=== PATIENT | female | born 1990 | race African-American/Black ===

== ENCOUNTER 2018-09-26 22:09 | Emergency (ER) | payer SELFPAY ==
[2018-09-26 22:50] LABS: Absolute Lymphocytes (CBC) 4.3 K/uL (0.7-4.9); Absolute Monocytes 0.5 K/uL (0.1-1.3); Absolute Neutrophil 1.5 K/uL (1.8-8.0); Basophils % 0.3 % (0-1.3); Eosinophils % 1.5 % (0-4.4); Hematocrit 34.5 % (36.0-45.0); Lymphocytes % 67.3 % (15.3-44.8); MCH 21.8 pg (27.0-35.0); MCV 68.3 fL (80-100); MPV 9.4 fL (7.6-11.3); Monocytes % 7.7 % (3.3-12.3); RBC Red Blood Cell Count 5.06 M/uL (3.86-4.86)
[2018-09-26 23:03] LABS: Protime INR 1.14
[2018-09-26 23:04] LABS: ALT/SGPT 39 U/L (12-78); AST/SGOT 41 U/L (15-37); Albumin 3.4 g/dL (3.4-5.0); Alkaline Phosphatase 98 U/L (45-117); BUN Blood Urea Nitrogen 8 mg/dL (7-18); Bicarbonate 26 mmol/L (21-32); Bilirubin Direct 0.1 mg/dL (0-0.2); Bilirubin Total 0.5 mg/dL (0.2-1.0); Glucose Level 98 mg/dL (74-106); Magnesium 2.1 mg/dL (1.8-2.4); NT PRO-BNP 15 pg/mL (<125); Potassium 3.6 mmol/L (3.5-5.1); Protein, Total 7.4 g/dL (6.4-8.2); Sodium Level 140 mmol/L (136-145); Troponin (Emerg Dept Use Only) < 0.02 ng/mL (0.0-0.045)
[2018-09-26] MEDS ORDERED: FAMOTIDINE 20 MG/2 ML VIAL IV ONE (23:31)
[2018-09-26] MEDS ORDERED: DIPHENHYDRAMINE 50 MG/ML VIAL ONE (23:31)
[2018-09-26 23:39] LABS: Blood Morphology Comment NOTED (NOT SEEN); Platelet Estimate ADEQ; Polychromasia SLIGHT
--- NOTE | 2018-09-27 00:21 | ER ---
Nurse's Notes [facility] Name: Stacie Burnett Age: 28 yrs Sex: Female : 1990 Arrival Date: 09/26/2018 Time: 22:11 Bed 8 Private MD: Diagnosis: Chest pain, unspecified;Urticaria Presentation: 09/26 22:19 Presenting complaint: Patient states: she broke out in hives last night took some bb Benadryl and went to sleep then today at approx 1400 pt started having a "stinging" chest pain with light-headedness and nausea. Currently pain is constant and radiates to her back. Pt states she is still having intermittent hives but does not know what she is allergic to. Transition of care: patient was not received from another setting of care. Onset of symptoms was September 25, 2018. Risk Assessment: Do you want to hurt yourself or someone else? Patient reports no desire to harm self or others. Initial Sepsis Screen: Does the patient meet any 2 criteria? No. Patient's initial sepsis screen is negative. Does the patient have a suspected source of infection? No. Patient's initial sepsis screen is negative. Care prior to arrival: None. 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 - Social history:: Smoking status: Patient/guardian denies using tobacco, Patient/guardian denies using alcohol, street drugs. - Ebola Screening: : No symptoms or risks identified at this time. Screenin:33 Abuse screen: Denies threats or abuse. Denies injuries from another. Nutritional ao screening: No deficits noted. Tuberculosis screening: No symptoms or risk factors identified. Fall Risk None identified. Assessment: 22:25 General: Appears in no apparent distress. comfortable, Behavior is calm, cooperative, ao appropriate for age. Pain: Complains of pain in chest Pain does not radiate. Pain currently is 5 out of 10 on a pain scale. Quality of pain is described as pressure, Pain began 1 day ago. Is continuous. Neuro: Level of Consciousness is awake, alert, obeys commands, Oriented to person, place, time, situation, Appropriate for age Moves all extremities. Full function Speech is normal, Facial symmetry appears normal, Pupils are PERRLA. Cardiovascular: Reports None Heart tones S1 S2 Capillary refill < 3 seconds Patient's skin is warm and dry. Pulses are all present. Rhythm is regular Chest pain episodes X 1day. Respiratory: Airway is patent Trachea midline Respiratory effort is even, unlabored, Respiratory pattern is regular, symmetrical, GI: Abdomen is obese, Bowel sounds present X 4 quads. : No signs and/or symptoms were reported regarding the genitourinary system. EENT: No signs and/or symptoms were reported regarding the EENT system. Derm: Skin is intact, Skin is pink, warm \\T\\ dry. normal, Skin temperature is warm. 23:25 Reassessment: Patient appears in no apparent distress at this time. Patient is alert, rr5 oriented x 3, equal unlabored respirations, skin warm/dry/pink. waiting blood report, patient stable, rashes subside. no complaints made. Patient states feeling better. Patient states symptoms have improved. 09/27 00:45 Reassessment: Patient appears in no apparent distress at this time. Patient is alert, rr5 oriented x 3, equal unlabored respirations, skin warm/dry/pink. discharge instruction explained with no complaints made. agreed to follow up to her private physician.vitally stable. Patient states feeling better. Patient states symptoms have improved. Vital Signs: 09/26 22:23 BP 144 / 92; Pulse 112; Resp 16 S; Temp 99.1(O); Pulse Ox 100% on R/A; Weight 99.79 kg bb (R); Height 5 ft. 4 in. (162.56 cm) (R); Pain 8/10; 23:41 BP 120 / 75; Pulse 78; Resp 17; Pulse Ox 100% ; ea 09/27 00:45 BP 115 / 75; Pulse 82; Resp 16; Pulse Ox 99% on R/A; Pain 0/10; rr5 09/26 22:23 Body Mass Index 37.76 (99.79 kg, 162.56 cm) ED Course: 09/26 22:11 Patient arrived in ED. es 22:16 Mickail, Chan, PA is PHCP. jm 22:16 Magdy Hernandez MD is Attending Physician. jmm 22:21 Timo Ye, SIGIFREDO is Primary Nurse. rr5 22:22 Triage completed. bb 22:23 Arm band placed on Patient placed in an exam room, on a stretcher, on pulse oximetry. bb EKG completed in triage. Results shown to MD. Family accompanied patient. 22:25 Patient has correct armband on for positive identification. Bed in low position. Call rr5 light in reach. Side rails up X 1. hospital monitor on. Pulse ox on. NIBP on. 22:25 Inserted saline lock: 20 gauge in right antecubital area, using aseptic technique. rr5 Blood collected. by Christ MEI. 22:33 Patient maintains SpO2 saturation greater than 95% on room air. ao 22:59 XRAY Chest (1 view) In Process Unspecified. EDMS 23:09 Notified Nurse Practitioner and/or Physician Trailer Chief of a critical lab result(s), ak1 D-Dimer 3750. 23:34 CT Chest For PE Angio In Process Unspecified. EDMS 09/27 00:45 IV discontinued, intact, bleeding controlled, No redness/swelling at site. Pressure rr5 dressing applied. 00:45 No provider procedures requiring assistance completed. rr5 Administered Medications: 09/26 22:55 Drug: Decadron - Dexamethasone 10 mg Route: IVP; Site: right antecubital; ao 09/27 00:42 Follow up: Response: No adverse reaction ao 00:44 Follow up: Response: No adverse reaction rr5 09/26 23:55 Drug: Pepcid 20 mg Route: IVP; Site: right antecubital; ao 09/27 00:42 Follow up: Response: No adverse reaction ao 00:44 Follow up: Response: No adverse reaction rr5 00:00 Drug: diphenhydrAMINE 25 mg Route: IVP; Site: right antecubital; ao 00:42 Follow up: Response: No adverse reaction ao 00:44 Follow up: Response: No adverse reaction rr5 Outcome: 00:20 Discharge ordered by . jmm 00:45 Discharged to home ambulatory. rr5 00:45 Condition: stable 00:45 Discharge instructions given to patient, family, Instructed on discharge instructions, follow up and referral plans. medication usage, Demonstrated understanding of instructions, follow-up care, medications, Prescriptions given X 2. 00:54 Patient left the ED. rr5 Signatures: Dispatcher [employer] Chan Scanlon PA PA jmm Salyer, Edna es Ballard, Brenda, RN RN Lisa Elmore RN RN ak1 Christ Conner RN Samreen Jo RN Timo Patel ea RN RN rr5
--- NOTE | 2018-09-27 00:22 | EDPHYS ---
Physician Documentation [facility] Name: Stacie Burnett Age: 28 yrs Sex: Female : 1990 Arrival Date: 09/26/2018 Time: 22:11 Bed 8 Private MD: ED Physician Magdy Hernandez HPI: 09/26 22:45 This 28 yrs old Black Female presents to ER via Ambulatory with complaints of Chest jm Pain. 22:45 The patient or guardian reports chest pain that is located primarily in the substernal m area. The pain radiates to Associated signs and symptoms: Pertinent negatives: shortness of breath, vomiting. The chest pain is described as sharp, stinging. This is a 28 year old female with no chronic medical conditions that present to the ED with right sided chest pain radiating to her back beginning just prior to arrival. Patient states she developed hives yesterday and has had a lack of appetitie over the past two days. patient denies vomiting or abdominal pain. patient denies tobacco or drug use. . 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 - Social history:: Smoking status: Patient/guardian denies using tobacco, Patient/guardian denies using alcohol, street drugs. - Ebola Screening: : No symptoms or risks identified at this time. ROS: 22:45 Constitutional: Negative for fever, chills, and weight loss. jmm 22:45 Abdomen/GI: Negative for abdominal pain, nausea, vomiting, diarrhea, and constipation, MS/Extremity: Negative for injury and deformity, Skin: Negative for injury, rash, and discoloration, Neuro: Negative for headache, weakness, numbness, tingling, and seizure. 22:45 Cardiovascular: Positive for chest pain. 22:45 Respiratory: Negative for cough, shortness of breath. 22:45 All other systems are negative. Exam: 22:45 Head/Face: atraumatic. Eyes: EOMI, no conjunctival erythema appreciated ENT: Moist jmm Mucus Membranes Neck: Trachea midline, Supple Chest/axilla: Normal chest wall appearance and motion. Cardiovascular: Regular rate and rhythm. No edema appreciated Respiratory: Normal respirations, no respiratory distress appreciated Abdomen/GI: Non distended, soft Back: Normal ROM Skin: General appearance color normal MS/ Extremity: Moves all extremities, no obvious deformities appreciated, no edema noted to the lower extremities Neuro: Awake and alert, normal gait Psych: Behavior is normal, Mood is normal, Patient is cooperative and pleasant 22:45 Constitutional: The patient appears in no acute distress, alert, awake. 23:18 ECG was reviewed by the Attending Physician. [facility] Vital Signs: 22:23 BP 144 / 92; Pulse 112; Resp 16 S; Temp 99.1(O); Pulse Ox 100% on R/A; Weight 99.79 kg bb (R); Height 5 ft. 4 in. (162.56 cm) (R); Pain 8/10; 23:41 BP 120 / 75; Pulse 78; Resp 17; Pulse Ox 100% ; ea 09/27 00:45 BP 115 / 75; Pulse 82; Resp 16; Pulse Ox 99% on R/A; Pain 0/10; rr5 09/26 22:23 Body Mass Index 37.76 (99.79 kg, 162.56 cm) MDM: 09/26 22:43 Patient medically screened. [facility] 09/27 00:13 Data reviewed: vital signs, nurses notes, lab test result(s), radiologic studies, CT [facility] scan. Data interpreted: Pulse oximetry: on room air is 100 %. 00:17 ED course: Patient developed hives in the ed which was relieved with iv benadyl and [facility] pepcid. Patient has no cardiac risk factors. Enzymes negative. Ekg shows no acute findings I discussed cbc findings with the patient along with the need for follow up with real estate officer. patient has no pharyngeal edema. i do not suspect anaphylaxis. 09/26 22:44 Order name: Basic Metabolic Panel; Complete Time: 23:06 [facility] 09/26 22:44 Order name: CBC with Diff; Complete Time: 23:48 [facility] 09/26 22:44 Order name: LFT's; Complete Time: 23:06 [facility] 09/26 22:44 Order name: Magnesium; Complete Time: 23:06 [facility] 09/26 22:44 Order name: NT PRO-BNP; Complete Time: 23:06 [facility] 09/26 22:44 Order name: PT-INR; Complete Time: 23:06 [facility] 09/26 22:44 Order name: Troponin (emerg Dept Use Only); Complete Time: 23:06 [facility] 09/26 22:44 Order name: XRAY Chest (1 view) [facility] 09/26 22:44 Order name: D-Dimer; Complete Time: 23:06 [facility] 09/26 22:57 Order name: Manual Differential; Complete Time: 23:48 [facility] 09/26 23:05 Order name: CT Chest For PE Angio [facility] 09/26 23:44 Order name: Slides for Pathologist Review [facility] 09/26 22:44 Order name: EKG; Complete Time: 22:45 [facility] 09/26 22:44 Order name: Cardiac monitoring; Complete Time: 22:48 [facility] 09/26 22:44 Order name: EKG - Nurse/Tech; Complete Time: 22:48 [facility] 09/26 22:44 Order name: IV Saline Lock; Complete Time: 22:48 [facility] 09/26 22:44 Order name: Labs collected and sent; Complete Time: 22:48 [facility] 09/26 22:44 Order name: O2 Per Protocol; Complete Time: 22:48 [facility] 09/26 22:44 Order name: O2 Sat Monitoring; Complete Time: 22:48 [facility] EC/21 23:18 Rate is 103 beats/min. Rhythm is regular. QRS [place] is Normal. [place] interval is normal. [facility] QRS interval is normal. QT interval is normal. No Q waves. T waves are Normal. No ST changes noted. Reviewed by me. Administered Medications: 22:55 Drug: Decadron - Dexamethasone 10 mg Route: IVP; Site: right antecubital; ao 09/27 00:42 Follow up: Response: No adverse reaction ao 00:44 Follow up: Response: No adverse reaction rr5 09/26 23:55 Drug: Pepcid 20 mg Route: IVP; Site: right antecubital; ao 09/27 00:42 Follow up: Response: No adverse reaction ao 00:44 Follow up: Response: No adverse reaction rr5 00:00 Drug: diphenhydrAMINE 25 mg Route: IVP; Site: right antecubital; ao 00:42 Follow up: Response: No adverse reaction ao 00:44 Follow up: Response: No adverse reaction rr5 Disposition: 05:15 Co-signature as Attending Physician, Magdy Hernandez MD I agree with the assessment and tw4 plan of care. Disposition: 09/27/18 00:20 Discharged to Home. Impression: Chest pain, unspecified, Urticaria. - Condition is Stable. - Discharge Instructions: Nonspecific Chest Pain, Hives. - Prescriptions for Hydroxyzine HCl 25 mg Oral Tablet - take 1 tablet by ORAL route every 6 hours As needed; 30 tablet. Prednisone 20 mg Oral Tablet - take 3 tablet by ORAL route once daily for 5 days; 15 tablet. - Medication Reconciliation Form, Thank You Letter, Antibiotic Education, Prescription Opioid Use form. - Follow up: Private Physician; When: 2 - 3 days; Reason: Recheck today's complaints, Continuance of care, Re-evaluation by your physician. Signatures: Dispatcher [employer] EDMS Chan Flores PA PA jmm Ballard, Brenda RN RN bb Christ Conner RN Magdy Estes MD MD 4 Timo Ye RN RN rr5 Corrections: (The following items were deleted from the chart) 00:54 00:20 09/27/2018 00:20 Discharged to Home. Impression: Chest pain, unspecified; rr5 Urticaria. Condition is Stable. Forms are Medication Reconciliation Form, Thank You Letter, Antibiotic Education, Prescription Opioid Use. Follow up: Private Physician; When: 2 - 3 days; Reason: Recheck today's complaints, Continuance of care, Re-evaluation by your physician. mary
--- NOTE | 2018-09-27 09:41 | EKG ---
Test Date: 2018-09-26 Test Time: 22:25:17 Petroleum Laboratory Technician: WALDO MEASUREMENT RESULTS: Intervals: Rate: 103 AK: 122 QRSD: 90 QT: 336 QTc: 440 [place]: P: 33 AK: 122 QRS: 26 T: 16 INTERPRETIVE STATEMENTS: Sinus tachycardia Otherwise normal ECG Compared to ECG 11/29/2017 08:33:21 Sinus rhythm no longer present ST (T wave) deviation no longer present Electronically Signed On 09-27-18 09:40:28 PROGRAM SUPERVISOR by Chris Lara
--- NOTE | 2018-09-27 11:35 | RAD REPORT ---
EXAM DESCRIPTION: RAD - Chest Single View - 09/26/2018 10:58 pm CLINICAL HISTORY: CHEST PAIN Chest pain. COMPARISON: Chest Pa And Lat (2 Views) dated 11/29/2017; Chest Single View dated 08/23/2016; Chest Fo r Pe Angio dated 09/26/2018 FINDINGS: Portable technique limits examination quality. The lungs are grossly clear. The heart is normal in size. No displaced fractures. IMPRESSION: No acute intrathoracic process suspected.
--- NOTE | 2018-09-27 11:36 | RAD REPORT ---
EXAM DESCRIPTION: CT - Chest For Pe Angio - 09/27/2018 5:25 am CLINICAL HISTORY: Chest pain. CHEST PAIN COMPARISON: Chest For Pe Angio dated 08/23/2016 TECHNIQUE: CT angiogram of the pulmonary arteries was performed with MIP. All CT scans are performed using dose optimization technique as appropriate and may include automated exposure control or mA/KV adjustment according to patient size. FINDINGS: No evidence of pulmonary thromboembolism. No acute aortic finding demonstrated. The lungs are clear. No significant pericardial or pleural fluid. No concerning bony finding. IMPRESSION: No evidence of pulmonary thromboembolism. No acute lung findings.
== END 2018-09-27 00:54 | disposition home or self-care (01) ==
LOC: ER 22:09
DX: L50.9 Urticaria, unspecified (principal)
CPT/HCPCS: 36415; 71045; 71275; 80048; 80076; 83735; 83880; 84484; 85025; 85379; 85610; 93005; 96374; 96375; 99285; Q9967

== ENCOUNTER 2018-09-27 17:00 | Emergency (ER) | payer SELFPAY ==
[2018-09-27] MEDS ORDERED: NA CHLORIDE 0.9% 1,000 ML ONE (17:40)
--- NOTE | 2018-09-27 17:53 | RAD REPORT ---
EXAM DESCRIPTION: CT - Ct Stroke Brain Wo Cont - 09/27/2018 5:48 pm CLINICAL HISTORY: numbness of arm CVA symptomology COMPARISON: HEAD BRAIN W O CONTRAST dated 12/17/2015 TECHNIQUE: All CT scans are performed using dose optimization technique as appropriate and may inclu de automated exposure control or mA/KV adjustment according to patient size. FINDINGS: No intracranial hemorrhage, hydrocephalus or extra-axial fluid collection.No areas of brai n edema or evidence of midline shift. The paranasal sinuses and mastoids are clear. The calvarium is intact. IMPRESSION: No acute intracranial abnormality. If there is continued clinical concern for CVA, MR i maging of the brain would be recommended.
[2018-09-27 18:20] LABS: Absolute Lymphocytes (CBC) 3.2 K/uL (0.7-4.9); Absolute Monocytes 0.8 K/uL (0.1-1.3); Absolute Neutrophil 3.3 K/uL (1.8-8.0); Basophils % 0.1 % (0-1.3); Hematocrit 34.9 % (36.0-45.0); Lymphocytes % 43.6 % (15.3-44.8); MCV 68.2 fL (80-100); MPV 9.1 fL (7.6-11.3); Monocytes % 11.1 % (3.3-12.3); RBC Red Blood Cell Count 5.12 M/uL (3.86-4.86)
--- NOTE | 2018-09-27 18:26 | RAD REPORT ---
EXAM DESCRIPTION: RAD - STROKE CXR 1 VIEW - 09/27/2018 6:17 pm CLINICAL HISTORY: numbness of arm Chest pain. COMPARISON: Chest Single View dated 09/26/2018 FINDINGS: Portable technique limits examination quality. The lungs are grossly clear. The heart is normal in size. No displaced fractures. IMPRESSION: No acute intrathoracic process suspected.
[2018-09-27 18:27] LABS: Protime INR 1.17
[2018-09-27] MEDS ORDERED: GABAPENTIN 300 MG CAP ONE (18:29)
[2018-09-27] MEDS ORDERED: LORAZEPAM 1 MG TABLET ONE (18:29)
[2018-09-27 18:39] LABS: ALT/SGPT 42 U/L (12-78); AST/SGOT 38 U/L (15-37); Albumin 3.4 g/dL (3.4-5.0); Alkaline Phosphatase 100 U/L (45-117); Amylase Level 54 U/L (25-115); BUN Blood Urea Nitrogen 10 mg/dL (7-18); Bicarbonate 23 mmol/L (21-32); Bilirubin Direct 0.1 mg/dL (0-0.2); Bilirubin Total 0.3 mg/dL (0.2-1.0); CKMB Creatine Kinase MB < 1.0 ng/mL (0.3-3.6); Creatine Phosphokinase 110 U/L (26-192); Glucose Level 108 mg/dL (74-106); Lipase 122 U/L (73-393); Magnesium 2.3 mg/dL (1.8-2.4); Potassium 3.4 mmol/L (3.5-5.1); Sodium Level 141 mmol/L (136-145); Troponin I < 0.02 ng/mL (0.0-0.045)
--- NOTE | 2018-09-27 18:53 | ER ---
Nurse's Notes [facility] Name: Stacie Burnett Age: 28 yrs Sex: Female : 1990 Arrival Date: 09/27/2018 Time: 17:11 Bed 18 Private MD: Diagnosis: Pain in left leg Presentation: 09/27 17:13 Presenting complaint: Patient states: Numbness to both legs and her right arm for the aj1 past 2 hours. Patient states that she is unable to walk. Reports that the numbness started in her right toes and spread up her right leg and then into the other leg and is now into her right arm. Transition of care: patient was not received from another setting of care. Onset of symptoms was September 27, 2018 at 15:00. Risk Assessment: Do you want to hurt yourself or someone else? Patient reports no desire to harm self or others. Initial Sepsis Screen: Does the patient meet any 2 criteria? No. Patient's initial sepsis screen is negative. Does the patient have a suspected source of infection? No. Patient's initial sepsis screen is negative. Care prior to arrival: None. 17:13 Method Of Arrival: Wheelchair aj1 17:13 Acuity: HOLLIS 3 aj1 Triage Assessment: 17:14 General: Appears in no apparent distress. comfortable, Behavior is calm, cooperative, aj1 appropriate for age. Pain: Complains of pain in right arm, right leg and left leg Pain currently is 6 out of 10 on a pain scale. Neuro: Level of Consciousness is awake, alert, obeys commands. Cardiovascular: Patient's skin is warm and dry. Respiratory: Airway is patent Respiratory effort is even, unlabored, Respiratory pattern is regular, symmetrical. 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 - Social history:: Smoking status: Patient/guardian denies using tobacco, Patient/guardian denies using alcohol, street drugs, The patient lives with family. - Ebola Screening: : Patient denies travel to an Ebola-affected area in the 21 days before illness onset. - Family history:: not pertinent, pertinent for. - Hospitalizations: : No recent hospitalization is reported. Screenin:37 Abuse screen: Denies threats or abuse. Nutritional screening: No deficits noted. em Tuberculosis screening: No symptoms or risk factors identified. Fall Risk None identified. Assessment: 17:40 General: Appears in no apparent distress. comfortable, Behavior is calm, cooperative, em Denies fever. Pain: Complains of pain in chest and left leg and right leg and right arm Pain currently is 6 out of 10 on a pain scale. Neuro: Level of Consciousness is awake, alert, obeys commands, Oriented to person, place, time, situation, Appeals Writer are equal bilaterally Full function Speech is normal, Facial symmetry appears normal, Pupils are PERRLA, Numbness in right arm, right leg and left leg paresthesias in right arm, right leg and left leg Reports numbness in left leg and right leg and right arm since woke up this morning paresthesias weakness. Cardiovascular: Heart tones S1 S2 present Capillary refill < 3 seconds Patient's skin is warm and dry. Rhythm is sinus rhythm. Respiratory: Airway is patent Respiratory effort is even, unlabored. GI: Abdomen is obese, Reports nausea, Patient currently denies vomiting. : Denies burning with urination. EENT: No signs and/or symptoms were reported regarding the EENT system. Derm: Skin is intact, Skin is dry, Skin is normal, Skin temperature is warm. Musculoskeletal: Capillary refill < 3 seconds, Range of motion: intact in all extremities. 17:40 Reassessment: I agree with assessment completed by Bright Pardo LVN . aa5 18:12 Reassessment: Pt sitting up in bed, pt's family at bedside. Bed remains in low aa5 position, side rails x 2, call bridges within reach. Sinus tach on monitor. . Neuro: Level of Consciousness is awake, alert, obeys commands, Oriented to person, place, time, situation. Respiratory: Airway is patent Respiratory effort is even, unlabored, Respiratory pattern is regular, symmetrical. Derm: Skin is dry, Skin is normal, Skin temperature is warm. 18:40 Reassessment: Patient appears in no apparent distress at this time. Patient and/or em family updated on plan of care and expected duration. Pain level reassessed. Patient is alert, oriented x 3, equal unlabored respirations, skin warm/dry/pink. Patient states symptoms have not improved. Vital Signs: 17:14 BP 139 / 83; Pulse 103; Resp 18; Temp 98.5(O); Pulse Ox 99% ; Weight 99.79 kg (R); aj1 Height 5 ft. 4 in. (162.56 cm) (R); 18:00 BP 123 / 83; Pulse 102; Resp 18; Pulse Ox 100% on R/A; em 18:49 BP 106 / 65; Pulse 77; Resp 18; Pulse Ox 100% on R/A; Pain 6/10; em 17:14 Body Mass Index 37.76 (99.79 kg, 162.56 cm) aj1 ED Course: 17:11 Patient arrived in ED. aj1 17:14 Triage completed. aj1 17:18 Bright Pardo LVN is Primary Nurse. em 17:22 Nadege Lopez MD is Attending Physician. ma2 17:37 Arm band placed on. em 17:46 CT completed. Patient moved to CT via stretcher. Patient moved back from CT. cw1 17:49 Ct Stroke Brain Wo Cont In Process Unspecified. EDMS 18:00 EKG done, by ED staff, reviewed by Nadege Lopez MD. jp3 18:00 Initial lab(s) drawn, by me, sent to lab. Inserted saline lock: 20 gauge in right em antecubital area, using aseptic technique. Blood collected. 18:00 Placed in gown. Bed in low position. Call light in reach. Side rails up X 1. Side rails jp3 up X2. Warm blanket given. Pillow given. 18:00 court monitor on. Pulse ox on. NIBP on. jp3 18:10 X-ray completed. Portable x-ray completed in exam room. Patient tolerated procedure kp1 well. 18:18 STROKE CXR 1 VIEW In Process Unspecified. EDMS 19:18 No provider procedures requiring assistance completed. IV discontinued, intact, ea bleeding controlled, No redness/swelling at site. Pressure dressing applied. Administered Medications: 18:12 Drug: NS 0.9% 1000 ml Route: IV; Rate: 1 bolus; Site: right antecubital; em 19:28 Follow up: IV Status: Completed infusion; IV Intake: 1000ml ea 18:12 Drug: Ativan 2 mg Route: PO; aa5 19:08 Follow up: Response: No adverse reaction em 18:12 Drug: Gabapentin 300 mg Route: PO; aa5 19:08 Follow up: Response: No adverse reaction em Intake: 19:28 IV: 1000ml; Total: 1000ml. ea Outcome: 18:52 Discharge ordered by . ma2 19:18 Discharged to home via wheelchair, with family. ea 19:18 Condition: good 19:18 Discharge instructions given to patient, family, Instructed on discharge instructions, follow up and referral plans. medication usage, Demonstrated understanding of instructions, follow-up care, medications, Prescriptions given X 2. 19:29 Patient left the ED. ea Signatures: Dispatcher [employer] Demetrice Boucher RN RN aj1 Bright Pardo, VICE PRESIDENT OF COMMUNICATIONS VICE PRESIDENT OF COMMUNICATIONS Annika Abernathy RN RN aa5 Shey Javed cw1 Seema Montez kp1 Samreen Becker RN RN ea Alzahri, Mohammad, MD MD ma2 Archie Caban jp3 Corrections: (The following items were deleted from the chart) 18:45 17:40 Derm: Skin is intact, Skin is pink, warm \T\ dry. em aa5
--- NOTE | 2018-09-27 18:53 | EDPHYS ---
Physician Documentation [facility] Name: Stacie Burnett Age: 28 yrs Sex: Female : 1990 Arrival Date: 09/27/2018 Time: 17:11 Bed 18 Private MD: ED Physician Nadege Lopez HPI: 09/27 18:02 This 28 yrs old Black Female presents to ER via Wheelchair with complaints of Numbness ma2 Of Arm, Numbness of both legs. 18:02 The patient or guardian complains of pain, that is acute, pin and needles all ma2 extremities x 1 day . The complaints affect the. Context: resulted from. Onset: The symptoms/episode began/occurred gradually, 1 day(s) ago. Associated signs and symptoms: Pertinent positives: tingling, Pertinent negatives: deformity, erythema, nausea, swelling, vomiting, warmth. Severity of symptoms: At their worst the symptoms were mild, in the emergency department the symptoms are unchanged. The patient has experienced a previous episode. 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 - Social history:: Smoking status: Patient/guardian denies using tobacco, Patient/guardian denies using alcohol, street drugs, The patient lives with family. - Ebola Screening: : Patient denies travel to an Ebola-affected area in the 21 days before illness onset. - Family history:: not pertinent, pertinent for. - Hospitalizations: : No recent hospitalization is reported. ROS: 18:02 Constitutional: Negative for fever, chills, and weight loss, Cardiovascular: Negative ma2 for chest pain, palpitations, and edema, Respiratory: Negative for shortness of breath, cough, wheezing, and pleuritic chest pain, Abdomen/GI: Negative for abdominal pain, nausea, diarrhea, and constipation, Neuro: Negative for headache, weakness, numbness, tingling, and seizure. 18:02 Neuro: Positive for altered mental status, dizziness, hearing loss, numbness, seizure activity, near syncope, tinnitus, tremor, weakness, Negative for tingling. 18:02 All other systems are negative. ma2 Exam: 18:02 Constitutional: This is a well developed, well nourished patient who is awake, alert, ma2 and in no acute distress. Head/Face: Normocephalic, atraumatic. Chest/axilla: Normal chest wall appearance and motion. Nontender with no deformity. No lesions are appreciated. Cardiovascular: Regular rate and rhythm with a normal S1 and S2. No gallops, murmurs, or rubs. Normal PMI, no JVD. No pulse deficits. Respiratory: Lungs have equal breath sounds bilaterally, clear to auscultation and percussion. No rales, rhonchi or wheezes noted. No increased work of breathing, no retractions or nasal flaring. Abdomen/GI: Soft, non-tender, with normal bowel sounds. No distension or tympany. No guarding or rebound. No evidence of tenderness throughout. Skin: Warm, dry with normal turgor. Normal color with no rashes, no lesions, and no evidence of cellulitis. MS/ Extremity: Pulses equal, no cyanosis. Neurovascular intact. Full, normal range of motion. Neuro: Awake and alert, GCS 15, oriented to person, place, time, and situation. Cranial nerves II-XII grossly intact. Motor strength 5/5 in all extremities. Sensory grossly intact. Cerebellar exam normal. Normal gait. Psych: Awake, alert, with orientation to person, place and time. Behavior, mood, and affect are within normal limits. 18:02 Back: No spinal tenderness. No costovertebral tenderness. Full range of motion. ma2 Vital Signs: 17:14 BP 139 / 83; Pulse 103; Resp 18; Temp 98.5(O); Pulse Ox 99% ; Weight 99.79 kg (R); aj1 Height 5 ft. 4 in. (162.56 cm) (R); 18:00 BP 123 / 83; Pulse 102; Resp 18; Pulse Ox 100% on R/A; em 18:49 BP 106 / 65; Pulse 77; Resp 18; Pulse Ox 100% on R/A; Pain 6/10; em 17:14 Body Mass Index 37.76 (99.79 kg, 162.56 cm) [facility] MDM: 17:28 Patient medically screened. ma2 18:02 Differential diagnosis: neuropathy, electrolytes disturbance hyperventilation, vs lower ma2 extremities pain. 18:51 Data reviewed: vital signs, nurses notes, EMS record. Counseling: I had a detailed [facility] discussion with the patient and/or guardian regarding: the historical points, exam findings, and any diagnostic results supporting the discharge/admit diagnosis, the presence of at least one elevated blood pressure reading (>120/80) during this emergency department visit, the need for outpatient follow up. Response to treatment: the patient's symptoms have markedly improved after treatment. 09/27 18:19 Order name: Basic Metabolic Panel; Complete Time: 18:50 EDMS 09/27 18:19 Order name: Liver (Hepatic) Function; Complete Time: 18:50 EDMS 09/27 17:34 Order name: Ct Stroke Brain Wo Cont; Complete Time: 18:01 EDMS 09/27 17:34 Order name: STROKE CXR 1 VIEW; Complete Time: 18:50 EDMS 09/27 18:19 Order name: Creatine Phosphokinase; Complete Time: 18:50 EDMS 09/27 18:19 Order name: CKMB Creatine Kinase MB; Complete Time: 18:50 EDMS 09/27 18:19 Order name: Troponin I; Complete Time: 18:50 EDMS 09/27 18:19 Order name: Magnesium; Complete Time: 18:50 EDMS 09/27 18:19 Order name: Amylase Level; Complete Time: 18:50 EDMS 09/27 18:19 Order name: Lipase; Complete Time: 18:50 EDMS 09/27 18:19 Order name: CBC with Automated Diff; Complete Time: 18:50 EDMS 09/27 18:19 Order name: Protime (+INR); Complete Time: 18:50 EDMS 09/27 18:19 Order name: PTT, Activated Partial Thromb; Complete Time: 18:50 EDMS 09/27 17:26 Order name: Accucheck; Complete Time: 18:12 il2 09/27 17:26 Order name: Cardiac monitoring; Complete Time: 18:10 il2 09/27 17:26 Order name: EKG - Nurse/Tech; Complete Time: 18:07 [facility] 09/27 17:26 Order name: IV Saline Lock; Complete Time: 18:12 [facility] 09/27 17:26 Order name: Labs collected and sent; Complete Time: 18:12 il2 09/27 17:26 Order name: NPO; Complete Time: 18:12 il2 09/27 17:26 Order name: O2 Per Protocol; Complete Time: 18:12 il2 09/27 17:26 Order name: O2 Sat Monitoring; Complete Time: 18:12 ma2 Administered Medications: 18:12 Drug: NS 0.9% 1000 ml Route: IV; Rate: 1 bolus; Site: right antecubital; em 19:28 Follow up: IV Status: Completed infusion; IV Intake: 1000ml ea 18:12 Drug: Ativan 2 mg Route: PO; aa5 19:08 Follow up: Response: No adverse reaction em 18:12 Drug: Gabapentin 300 mg Route: PO; aa5 19:08 Follow up: Response: No adverse reaction em Disposition: 09/27/18 18:52 Discharged to Home. Impression: Pain in left leg. - Condition is Stable. - Prescriptions for Neurontin 300 mg Oral Capsule - take 1 capsule by ORAL route At bedtime; 20 capsule. Potassium Chloride 10 % Oral Liquid - take 20 milliequivalent by ORAL route once daily Take after meal; Mix in 6 ounces of water or juice; 240 milliliter. - Medication Reconciliation Form, Thank You Letter, Antibiotic Education, Prescription Opioid Use form. - Follow up: Private Physician; When: Tomorrow; Reason: Continuance of care. Signatures: Dispatcher [employer] EDDemetrice Orozco RN RN aj1 Bright Pardo, BLIND AIDE BLIND AIDE Annika Abernathy RN RN aa5 Samreen Becker RN RN ea Alzahri, Mohammad, MD MD ma2 Corrections: (The following items were deleted from the chart) 18:17 18:17 CT-STROKE BRAIN W/O CONTRAST+CT.RAD.BRZ ordered. EDKY EDMS 18:54 18:17 Chest Single View+RAD.RAD.BRZ ordered. [facility] EDMS 19:29 18:52 09/27/2018 18:52 Discharged to Home. Impression: Pain in left leg. Condition is ea Stable. Forms are Medication Reconciliation Form, Thank You Letter, Antibiotic Education, Prescription Opioid Use. Follow up: Private Physician; When: Tomorrow; Reason: Continuance of care. ma2
--- NOTE | 2018-09-28 06:17 | EKG ---
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
== END 2018-09-27 19:29 | disposition home or self-care (01) ==
LOC: ER 17:00
DX: M79.605 Pain in left leg (principal)
CPT/HCPCS: 36415; 70450; 71045; 80048; 80076; 82150; 82550; 82553; 83690; 83735; 84484; 85025; 85610; 85730; 93005; 96360; 99285; J7030

== ENCOUNTER 2018-12-14 12:20 | Day surgery (SDC) | payer OTHER ==
--- OUTSIDE RECORDS SUMMARY | 2018-12-14 12:24 | XMS REPORT | Clinical Summary ---
:1990 Author Organization [facility] Address [address] [place] [address] Care Team Providers Name Role Phone Asked, No Pcp Primary Care Provider Unavailable Allergies No Known Allergies Medications Medication Sig Dispensed Refills Start Date End Date Status ferrous sulfate 325 Take 1 tablet 60 tablet 0 10/03/2018 11/02/2018 (65 FE) MG tablet (325 mg total) by mouth 2 (two) times a day with meals for 30 days. traMADol (ULTRAM) 50 Take 1 tablet 12 tablet 0 10/03/2018 10/06/2018 mg tablet (50 mg total) by mouth every 6 (six) hours as needed for severe pain for up to 3 days. baclofen 5 mg tablet Take 5 mg by 15 tablet 0 10/03/2018 10/08/2018 mouth 3 (three) times a day for 5 days. Active Problems Problem Noted Date Bilateral leg weakness 09/28/2018 Muscle weakness Myelopathy Encounters Date Type Specialty Care Team Description 09/27/2018 - Hospital Encounter General Internal Tulio Jones Bilateral leg weakness (Primary Dx); 10/03/2018 Medicine DO Jerman Paresthesia of bilateral legs; Joy Hillman, Paresthesia of right arm; Hypokalemia; Srikanth Holloway Hives MD after 12/13/2017 Family History Medical History Relation Name Comments Seizures Son Relation Name Status Comments Son Social History Tobacco Use Types Packs/Day Years Used Date Never Smoker Smokeless Tobacco: Never Used Alcohol Use Drinks/Week oz/Week Comments No Alcohol Habits Answer Date Recorded How often do you have a drink containing alcohol? Never 09/27/2018 How many drinks containing alcohol do you have on a typical Not asked day when you are drinking? How often do you have six or more drinks on one occasion? Not asked Sex Assigned at Date Recorded Not on file Job Start Date Occupation Industry Not on file Not on file Not on file Travel History Travel Start Travel End No recent travel history available. Last Filed Vital Signs Vital Sign Reading Time Taken Blood Pressure 110/58 10/03/2018 8:04 AM [facility] Pulse 87 10/03/2018 8:04 AM [facility] Temperature 37 C (98.6 F) 10/03/2018 8:04 AM [facility] Respiratory Rate 18 10/03/2018 8:04 AM [facility] Oxygen Saturation 93% 10/03/2018 8:04 AM [facility] Inhaled Oxygen Concentration - - Weight 99.8 kg (220 lb) 09/28/2018 8:02 AM [facility] Height 162.6 cm (5' 4") 09/28/2018 2:16 AM [facility] Body Mass Index 37.76 09/28/2018 8:02 AM [facility] Plan of Treatment Health Maintenance Due Date Last Done Comments CERVICAL CANCER SCREENING 2010 INFLUENZA VACCINE 06/06/2018 Procedures Procedure Name Priority Date/Time Associated Comments Diagnosis MANUAL DIFFERENTIAL Routine 10/03/2018 6:46 Results for this AM [facility] procedure are in the results section. CBC WITH PLATELET AND Routine 10/03/2018 6:46 Results for this DIFFERENTIAL AM [facility] procedure are in the results section. MANUAL DIFFERENTIAL Routine 10/02/2018 5:30 Results for this AM [facility] procedure are in the results section. CBC WITH PLATELET AND Routine 10/02/2018 5:30 Results for this DIFFERENTIAL AM [facility] procedure are in the results section. ESTIMATED GFR Routine 10/02/2018 4:00 Results for this AM [facility] procedure are in the results section. COMPREHENSIVE Routine 10/02/2018 4:00 Results for this METABOLIC PANEL AM [facility] procedure are in the results section. EMG Routine 10/01/2018 1:45 Results for this PM [facility] procedure are in the results section. MANUAL DIFFERENTIAL Routine 10/01/2018 5:15 Results for this AM [facility] procedure are in the results section. ESTIMATED GFR Routine 10/01/2018 5:15 Results for this AM [facility] procedure are in the results section. COMPREHENSIVE Routine 10/01/2018 5:15 Results for this METABOLIC PANEL AM [facility] procedure are in the results section. CBC WITH PLATELET AND Routine 10/01/2018 5:15 Results for this DIFFERENTIAL AM [facility] procedure are in the results section. MANUAL DIFFERENTIAL Routine 09/30/2018 4:06 Results for this AM [facility] procedure are in the results section. ESTIMATED GFR Routine 09/30/2018 4:06 Results for this AM [facility] procedure are in the results section. COMPREHENSIVE Routine 09/30/2018 4:06 Results for this METABOLIC PANEL AM [facility] procedure are in the results section. CBC WITH PLATELET AND Routine 09/30/2018 4:06 Results for this DIFFERENTIAL AM [facility] procedure are in the results section. FOLATE LEVEL Routine 09/29/2018 12:00 Results for this PM [facility] procedure are in the results section. VITAMIN B12 LEVEL Routine 09/29/2018 12:00 Results for this PM [facility] procedure are in the results section. TOTAL IRON BINDING Routine 09/29/2018 9:28 Results for this CAPACITY AM [facility] procedure are in the results section. ALDOLASE, SERUM Routine 09/29/2018 9:28 Results for this AM [facility] procedure are in the results section. CREATINE KINASE, TOTAL Routine 09/29/2018 9:28 Results for this (CPK) AM [facility] procedure are in the results section. HCG QUALITATIVE, URINE Routine 09/29/2018 8:39 Results for this SCREEN AM [facility] procedure are in the results section. MRI LUMBAR SPINE W WO STAT 09/28/2018 10:00 Results for this CONTRAST AM [facility] procedure are in the results section. MRI CERVICAL SPINE W STAT 09/28/2018 9:30 Results for this WO CONTRAST AM [facility] procedure are in the results section. MRI THORACIC SPINE W STAT 09/28/2018 9:00 Results for this WO CONTRAST AM [facility] procedure are in the results section. US DUPLEX VENOUS LOWER STAT 09/28/2018 1:06 Results for this EXTREMITY BILATERAL AM [facility] procedure are in the results section. MANUAL DIFFERENTIAL STAT 09/27/2018 11:51 Results for this PM [facility] procedure are in the results section. ESTIMATED GFR STAT 09/27/2018 11:51 Results for this PM [facility] procedure are in the results section. COMPREHENSIVE STAT 09/27/2018 11:51 Results for this METABOLIC PANEL PM [facility] procedure are in the results section. C-REACTIVE PROTEIN STAT 09/27/2018 11:51 Results for this PM [facility] procedure are in the results section. SEDIMENTATION RATE STAT 09/27/2018 11:51 Results for this PM [facility] procedure are in the results section. T4, FREE STAT 09/27/2018 11:51 Results for this PM [facility] procedure are in the results section. THYROID STIMULATING STAT 09/27/2018 11:51 Results for this HORMONE PM [facility] procedure are in the results section. CBC WITH PLATELET AND STAT 09/27/2018 11:51 Results for this DIFFERENTIAL PM [facility] procedure are in the results section. URINALYSIS SCREEN AND STAT 09/27/2018 11:51 Results for this MICROSCOPY, WITH PM [facility] procedure are in REFLEX TO CULTURE the results section. URINE CULTURE STAT 09/27/2018 11:45 Results for this PM [facility] procedure are in the results section. after 12/13/2017 Results Manual differential (10/03/2018 6:46 AM [facility])Only the most recent of5 resultswithin the time period is included. Manual differential PERFORMED [facility] Neutrophils 35.0 (L) 39.0 - 69.0 % [facility] Lymphocytes 61.0 (H) 25.0 - 45.0 % [facility] Monocytes 1.0 0.0 - 10.0 % [facility] Eosinophils 3.0 0.0 - 5.0 % [facility] Basophils 0.0 0.0 - 1.0 % [facility] Metamyelocytes 0 % [facility] Promyelocytes 0 % [facility] Reactive lymphocytes Few [facility] Platelet slide review Radha adequate [facility] Anisocytosis Moderate [facility] Ovalocytes Moderate [facility] Performing Organization Address City/State/Zipcode Phone Number [facility] DEPARTMENT OF PATHOLOGY AND [address] [place] [address] GEN[address] [address] CBC with platelet and differential (10/03/2018 6:46 AM [facility])Only the most recent of5 resultswithin the time period is included. WBC 7.11 4.50 - 11.00 k/uL [facility] RBC 5.41 4.20 - 5.50 m/uL [facility] HGB 11.6 (L) 12.0 - 16.0 g/dL [facility] HCT 38.3 37.0 - 47.0 % [facility] MCV 70.8 (L) 82.0 - 100.0 fL [facility] MCH 21.4 (L) 27.0 - 34.0 pg [facility] MCHC 30.3 (L) 31.0 - 37.0 g/dL [facility] RDW - SD 45.7 37.0 - 55.0 fL [facility] MPV 10.6 8.8 - 13.2 fL [facility] Platelet count 202 150 - 400 k/uL [facility] Nucleated RBC 0.00 /100 WBC [facility] Neutrophils 35.0 (L) 39.0 - 69.0 % [facility] Lymphocytes 61.0 (H) 25.0 - 45.0 % [facility] Monocytes 1.0 0.0 - 10.0 % [facility] Eosinophils 3.0 0.0 - 5.0 % [facility] Basophils 0.0 0.0 - 1.0 % [facility] Specimen Blood Performing Organization Address City/State/Zipcode Phone Number [facility] DEPARTMENT OF PATHOLOGY AND [address] [place] [address] Estimated GFR (10/02/2018 4:00 AM [facility])Only the most recent of4 resultswithin the time period is included. Estimated GFR >=90 mL/min/1.[address] [facility] Comment: HOSPITAL CatergoryUnitsInterpretation G1 >=90 Normal or high G2 60-89Mildly decreased Y4w04-45Paffea to moderately decreased K9c51-44Gnvomaigga to severely decreased G4 15-29Severely decreased G5 <15Kidney failure The eGFR was calculated using the Chronic Kidney Disease Epidemiology Collaboration (CKD-EPI) equation. Interpretation is based on recommendations of the National Kidney Foundation-Kidney Disease Outcomes Quality Initiative (NKF-KDOQI) published in 2014. Specimen Plasma specimen Performing Organization Address City/[facility] Cent[facility] Phone Number [facility] DEPARTMENT OF PATHOLOGY AND [address] [place], [place] [id number] Comprehensive metabolic panel (10/02/2018 4:00 AM [facility])Only the most recent of4 resultswithin the time period is included. Sodium 139 135 - 148 mEq/L [facility] Potassium 4.2 3.5 - 5.0 mEq/L [facility] Chloride 103 98 - 112 mEq/L [facility] CO2 24 24 - 31 mEq/L [facility] Anion gap 12@ANIO 7 - 15 mEq/L [facility] BUN 13 6 - 20 mg/dL [facility] Creatinine 0.97 (H) 0.50 - 0.90 mg/dL [facility] Glucose 93 65 - 99 mg/dL [facility] Calcium 8.4 8.3 - 10.2 mg/dL [facility] Protein 6.2 (L) 6.3 - 8.3 g/dL [facility] Comment: HOSPITAL 4.6-7.0 g/dL 1 week 4.4-7.6 g/dL 7 months-1year5.1-7.3 g/dL 1-2 years5.6-7.5 g/dL >3 years6.0-8.0 g/dL 18-150 6.3-8.3 g/dL Albumin 2.8 (L) 3.5 - 5.0 g/dL [facility] A/G ratio 0.8 0.7 - 3.8 [facility] Alkaline phosphatase 77 35 - 104 U/L [facility] AST 24 10 - 35 U/L [facility] ALT 38 5 - 50 U/L [facility] Total bilirubin 0.3 0.0 - 1.2 mg/dL [facility] Specimen Plasma specimen Performing Organization Address City/State/Zipcode Phone Number [facility] DEPARTMENT OF PATHOLOGY AND [address] [place] [address] GENOM[address] MEDICINE [address] [address] EMG general request (10/01/2018 1:45 PM [facility]) Impressions Performed At Ms. Burnett complains of the sudden onset of diaphoresis and weakness and numbness in her bilateral legs (right more than left), without incontinence, occurring on September 27, 2018.Ms. Burnett states that her weakness has significantly improved, denies having diabetes and is being evaluated for neuropathy and myopathy. 1) Right median, ulnar, peroneal and tibial motor latencies, amplitudes and velocities are normal. 2) Right median, ulnar, peroneal and tibial F Wave responses are normal. 3) Right median palmar, median digital, ulnar and sural sensory responses are normal. 4) Intramuscular recordings of the right arm are normal without denervation or myopathy. 5) Intramuscular recordings of the bilateral legs suggest minimal motor unit recruitment compromise (right more than left) as noted above. The study does not electrodiagnostically suggest neuropathy or myopathy/myositis.The findings are compatible with upper motor neuron compromise (transient myelopathy?). Brain Lindquist M.D. Narrative Performed At NERVE CONDUCTION AND ELECTROMYOGRAPHY REPORT [facility] [place], [facility]; [place], [place] [address]; Name: Annabelle Burnett(J [id number]) Date of Procedure: October 01, 2018Location: Sex: Female Date of :88 Referring Physician: Srikanth Holloway M.D.FAX: Patient is 5 4 ; 221 lbs.; RL 32.8 C; LL 33.1 C Nerve Conduction(Latencies in msec, Amplitudes uV, Distance cm, Velocity M/Sec) Right Motor Nerves Dist. Lat. Prox lat. D. amp. P. Amp.Dist. Velocity Right Median3.57.215.3 14.119.7 53.7 Right Ulnar (below elb) 2.35.07.3 7.017.0 61.8 Right Peroneal EDB 3.812.17.5 6.738.3 45.9 Right Tibial4.312.86.3 4.437.5 44.1 Right Median F Wave 24.4 Right Ulnar F Wave 25.1 Right Peroneal F Wave 50.5 (very small amplitude) Right Tibial F Wave 48.8 (very small amplitude) Right Sensory Nerves Dist. Lat. Prox lat. Dist. amp. Prox Amp. Distance Velocity Right Median Palmar 2.1 91.3 8.0 Right Median Digital 3.1 22.0 13.0 Right Ulnar2.4 33.3 11.0 Right Sural3.4 32.5 14.0 Electromyography (Motor Unit in mV; H=High; L=Low; P=Polyphasic; NS=Non-specific) Right ArmFibs. Pos. Waves Fasc. PolyphasiaMotor Units Recruitment Deltoid wnl wnlwnl wnlwnlwnl Biceps wnl wnlwnl wnlwnlwnl Triceps wnl wnlwnl wnlwnlwnl Brachioradialis wnl wnlwnl wnlwnlwnl Ext. Dig. Comm. wnl wnlwnl wnlwnlwnl lst D. Interosseous wnl wnlwnl wnlwnlwnl Right LegFibs. Pos. Waves Fasc. PolyphasiaMotor Units Recruitment Vas. Medialiswnl wnlwnl wnlwnl-1 Vas. Lateraliswnl wnlwnl wnlwnl-1 Ant. Tibialiswnl wnlwnl wnlwnlwnl Peroneus Longus wnl wnlwnl wnlwnlwnl Gastronemiuswnl wnlwnl wnlwnlwnl Left LegFibs. Pos. Waves Fasc. PolyphasiaMotor Units Recruitment Vas. Medialiswnl wnlwnl wnlwnlNS Vas. Lateraliswnl wnlwnl wnlwnlNS Ant. Tibialiswnl wnlwnl wnlwnlwnl Peroneus Longus wnl wnlwnl wnlwnlwnl Gastronemiuswnl wnlwnl wnlwnlwnl Folate level (09/29/2018 12:00 PM [facility]) Folate 8.7 4.8 - 24.2 ng/mL [facility] Specimen Serum Performing Organization Address City/[facility] Cent[facility]ode Phone Number [facility] DEPARTMENT OF PATHOLOGY AND [address] [place] [phone] Vitamin B12 level (09/29/2018 12:00 PM [facility]) Vitamin B12 474 211 - 946 pg/mL [facility] Comment: Significant overlap exists between normal and deficiency states. However, most patients with deficiencies will have Serum B12 <200 pg/mL. Specimen Serum Performing Organization Address City/State/Zipcode Phone Number [facility] DEPARTMENT OF PATHOLOGY AND [address] [place] [phone] [address] [address] Total iron binding capacity (09/29/2018 9:28 AM [facility]) Iron level 18 (L) 37 - 145 ug/dL [facility] Iron binding capacity 333 200 - 400 ug/dL [facility] % Saturation 5.4 (L) 15.0 - 38.0 % [facility] Specimen Plasma specimen Performing Organization Address City/State/Zipcode Phone Number [facility] DEPARTMENT OF PATHOLOGY AND [address] [place] [id number] [place] [phone] Aldolase, serum (09/29/2018 9:28 AM [facility]) Aldolase 4.4 1.5 - 8.1 U/L [facility] Comment: REFERENCE INTERVAL: Aldolase Access complete set of age- and/or gender-specific reference intervals for this test in the [facility] Test Directory ([facility]). Performed by [email or web address], [address] [place] [id number] [email or web address] Ta Pat MD - Lab. Director Specimen Serum Performing Organization Address [facility] Centercomi Phone Number [facility] [address] [place] [phone] [facility] [address] [place] [phone] Creatine kinase, total (CPK) (09/29/2018 9:28 AM [facility]) Creatine kinase 30 26 - 192 U/L [facility] Specimen Plasma specimen Performing Organization Address [facility] Cent[facility]ode Phone Number [facility] DEPARTMENT OF PATHOLOGY AND [address] [place] [address] hCG qualitative, urine screen (09/29/2018 8:39 AM [facility]) hCG qualitative, urine NegativeComment: [facility] Sensitivity of HCG test: 25 HOSPITAL mIU/mL Specimen Urine Performing Organization Address [facility] Phone [place] [facility] DEPARTMENT OF PATHOLOGY AND [address] [place] [address] MRI Lumbar Spine W Wo Contrast (09/28/2018 10:00 AM [facility]) Narrative Performed At Examination: MRI LUMBAR SPINE W WO CONTRAST [facility] MRI LUMBAR SPINE WITHOUT AND WITH CONTRAST: CLINICAL HISTORY:LE weakness COMPARISON:None. TECHNIQUE: Multiplanar multisequence images were obtained through the lumbar including the following sequences:Sagittal T1, T2, STIR, axial T1, T2 MR images of the lumbar spine obtained without IV contrast. After administration of IV contrast, sagittal T1 fat-sat and axial T1. Contrast: Gadavist 10 cc. DISCUSSION: For counting purposes the lowest fully developed disc as L5-S1. There is normal alignment of the lumbar spine with preservation of lumbar lordosis. There is no evidence of expansile or destructive osseous lesion. The conus medullaris and nerve roots are normal with conus terminating at L1 level. No epidural mass or collection is seen.There is no enhancing abnormality of cauda equina nerve roots. The paraspinal soft tissues are unremarkable. Evaluation of individual intervertebral disc demonstrate the following findings: L5-S1:[Unremarkable intervertebral disc, spinal canal, vertebral body and posterior neural arch. There is no evidence of significant central spinal canal or neuroforaminal stenosis.] L4-L5: [ [Unremarkable intervertebral disc, spinal canal, vertebral body and posterior neural arch. There is no evidence of significant central spinal canal or neuroforaminal stenosis.] L3-L4: Mild disc desiccation. Otherwise, unremarkable. L2-L3: [Unremarkable intervertebral disc, spinal canal, vertebral body and posterior neural arch. There is no evidence of significant central spinal canal or neuroforaminal stenosis.] L1-L2: [Unremarkable intervertebral disc, spinal canal, vertebral body and posterior neural arch. There is no evidence of significant central spinal canal or neuroforaminal stenosis.] IMPRESSION: Unremarkable MRI of the lumbar spine. The central canal and neuroforamina are patent. There is no compression of the thecal sac or abnormal enhancement of cauda equina nerve roots. [id number] Procedure Note Hm Interface, Radiology Results Incoming - 09/28/2018 10:48 AM [facility] Examination: MRI LUMBAR SPINE W WO CONTRAST MRI LUMBAR SPINE WITHOUT AND WITH CONTRAST: CLINICAL HISTORY: LE weakness COMPARISON: None. TECHNIQUE: Multiplanar multisequence images were obtained through the lumbar including the following sequences: Sagittal T1, T2, STIR, axial T1, T2 MR images of the lumbar spine obtained without IV contrast. After administration of IV contrast, sagittal T1 fat-sat and axial T1. Contrast: Gadavist 10 cc. DISCUSSION: For counting purposes the lowest fully developed disc as L5-S1. There is normal alignment of the lumbar spine with preservation of lumbar lordosis. There is no evidence of expansile or destructive osseous lesion. The conus medullaris and nerve roots are normal with conus terminating at L1 level. No epidural mass or collection is seen. There is no enhancing abnormality of cauda equina nerve roots. The paraspinal soft tissues are unremarkable. Evaluation of individual intervertebral disc demonstrate the following findings : L5-S1: [Unremarkable intervertebral disc, spinal canal, vertebral body and posterior neural arch. There is no evidence of significant central spinal canal or neuroforaminal stenosis.] L4-L5: [ [Unremarkable intervertebral disc, spinal canal, vertebral body and posterior neural arch. There is no evidence of significant central spinal canal or neuroforaminal stenosis.] L3-L4: Mild disc desiccation. Otherwise, unremarkable. L2-L3: [Unremarkable intervertebral disc, spinal canal, vertebral body and posterior neural arch. There is no evidence of significant central spinal canal or neuroforaminal stenosis.] L1-L2: [Unremarkable intervertebral disc, spinal canal, vertebral body and posterior neural arch. There is no evidence of significant central spinal canal or neuroforaminal stenosis.] IMPRESSION: Unremarkable MRI of the lumbar spine. The central canal and neuroforamina are patent. There is no compression of the thecal sac or abnormal enhancement of cauda equina nerve roots. [id number] Performing Organization Address City/State/Zipcode Phone Number [facility] [address] [place] [address] MRI Cervical Spine W Wo Contrast (09/28/2018 9:30 AM [facility]) Narrative Performed At EXAMINATION:MRI CERVICAL SPINE W WO CONTRAST [facility] CLINICAL HISTORY:LE weakness COMPARISON:None. TECHNIQUE:Multiplanar multisequence images were obtained through the cervical spine including the following pulse sequences, sagittal T2, sagittal STIR, sagittal T1, axial T2 FSE and T2 gradient echo. DISCUSSION: Straightening of the cervical lordosis. There is no evidence of expansile or destructive osseous lesions. Normal bone marrow signal intensity on T1 WI. The visualized posterior fossa and craniocervical junction are unremarkable. The cervical cord is normal in size and signal intensity. There is no evidence of intra or extradural mass or collection. The pre and paravertebral soft tissues are unremarkable. Evaluation of individual intervertebral disc demonstrate the following findings: - C1-C2: Unremarkable tectorial membrane and atlantodental ligamental apparatus , there is no significant central spinal canal stenosis or cord compression. Unremarkable bilateral atlantoaxial and atlantooccipital joints. - C2-C3: No significant posterior disc disease, spinal canal or neural foraminal stenosis. - C3-C4: No significant posterior disc disease, spinal canal or neural foraminal stenosis. - C4-C5: Posterior disc bulge. The central canal and neuroforamina are patent. - C5-C6: Posterior disc bulge. The central canal and neuroforamina are patent. - C6-C7: No significant posterior disc disease, spinal canal or neural foraminal stenosis. - C7-T1: No significant posterior disc disease, spinal canal or neural foraminal stenosis. IMPRESSION: 1. Straightening of the cervical lordosis. Findings either positional or related to spasm of paraspinal muscles. 2. The central canal is patent. 3. The cervical cord is normal size and signal intensity. [id number] Procedure Note Hm Interface, Radiology Results Incoming - 09/28/2018 10:42 AM ALUMINUM [facility]ING[facility]FER EXAMINATION: MRI CERVICAL SPINE W WO CONTRAST CLINICAL HISTORY: LE weakness COMPARISON: None. TECHNIQUE: Multiplanar multisequence images were obtained through the cervical spine including the following pulse sequences, sagittal T2, sagittal STIR, sagittal T1, axial T2 FSE and T2 gradient echo. DISCUSSION: Straightening of the cervical lordosis. There is no evidence of expansile or destructive osseous lesions. Normal bone marrow signal intensity on T1 WI. The visualized posterior fossa and craniocervical junction are unremarkable. The cervical cord is normal in size and signal intensity. There is no evidence of intra or extradural mass or collection. The pre and paravertebral soft tissues are unremarkable. Evaluation of individual intervertebral disc demonstrate the following findings : - C1-C2: Unremarkable tectorial membrane and atlantodental ligamental apparatus , there is no significant central spinal canal stenosis or cord compression. Unremarkable bilateral atlantoaxial and atlantooccipital joints. - C2-C3: No significant posterior disc disease, spinal canal or neural foraminal stenosis. - C3-C4: No significant posterior disc disease, spinal canal or neural foraminal stenosis. - C4-C5: Posterior disc bulge. The central canal and neuroforamina are patent. - C5-C6: Posterior disc bulge. The central canal and neuroforamina are patent. - C6-C7: No significant posterior disc disease, spinal canal or neural foraminal stenosis. - C7-T1: No significant posterior disc disease, spinal canal or neural foraminal stenosis. IMPRESSION: 1. Straightening of the cervical lordosis. Findings either positional or related to spasm of paraspinal muscles. 2. The central canal is patent. 3. The cervical cord is normal size and signal intensity. [id number] Performing Organization Address [facility]/Zipcode Phone Number [facility] [address] [place] [address] MRI Thoracic Spine W Wo Contrast (09/28/2018 9:00 AM ALUMINUM SHINGLE ROOFER) Narrative Performed At EXAMINATION:MRI THORACIC SPINE W WO CONTRAST [facility] REASON FOR EXAMINATION:LE weakness COMPARISON: None TECHNIQUE: Multiplanar and multisequence MRI images of the thoracic spine are obtained without the use of intravenous contrast. After administration of IV contrast, sagittal T1 fat-sat and axial T1. DISCUSSION: Intervertebral disc spaces are maintained. There is no evidence of significant disc bulges or protrusions. The spinal canal is patent.Normal marrow and disc signal intensities are seen. There is no evidence of expansile or destructive osseous lesions. The spinal cord is normal in size and signal intensity without evidence of compressive myelopathy or syringohydromyelia. The pre and paravertebral soft tissues are unremarkable. IMPRESSION: Unremarkable MRI of the thoracic spine. The central canal is patent. Thoracic spinal cord is normal in size and signal intensity. [id number] Procedure Note Interface, Radiology Results Incoming - 09/28/2018 10:45 AM ALUMINUM SHINGLE ROOFER EXAMINATION: MRI THORACIC SPINE W WO CONTRAST REASON FOR EXAMINATION: LE weakness COMPARISON: None TECHNIQUE: Multiplanar and multisequence MRI images of the thoracic spine are obtained without the use of intravenous contrast. After administration of IV contrast, sagittal T1 fat-sat and axial T1. DISCUSSION: Intervertebral disc spaces are maintained. There is no evidence of significant disc bulges or protrusions. The spinal canal is patent. Normal marrow and disc signal intensities are seen. There is no evidence of expansile or destructive osseous lesions. The spinal cord is normal in size and signal intensity without evidence of compressive myelopathy or syringohydromyelia. The pre and paravertebral soft tissues are unremarkable. IMPRESSION: Unremarkable MRI of the thoracic spine. The central canal is patent. Thoracic spinal cord is normal in size and signal intensity. [id number] Performing Organization Address City/[facility]/Zipcode Phone Number [facility] [address] [place] [address] Us duplex venous lower extremity (09/28/2018 1:06 AM ALUMINUM SHINGLE ROOFER) Narrative Performed At [facility] Lower Extremity Venous Report [address] [place] [address] Pat.Name:ANNABELLE BURNETT Pat.ID:[id number] .Date: 09/28/2018Ref:PHYSICIAN, EMERGENCY, MD Exam Time: 12:50:00 AM Study Type:LE Venous DOBAge:1989,29YSex: FEMALE Sonogrphr: Juliet Engle RVTPat. Stat.:[address] , CPT - 4: [id number] Echo Event ID:[id number] Order ID:[id number] Reason for Study:Bilateral leg numbness X 1 day with hives X 4 days. History of recent elevated D-dimer test from outside facility. Procedures:Colorflow, Grayscale/2D, Pulsed wave Doppler Race:B SUMMARY: DUPLEX SCAN OBSERVATIONS Deep VeinsSuperficial Veins RightLeft RightLeft GSV (prox) NormalNormal CFV Normal Normal (above knee) Femoral Normal Normal GSV (dist) Normal Normal Profunda Normal Normal (below knee) Popliteal Normal Normal PT (prox) Normal NormalSSV Not Visualized Normal PT (dist) Normal Normal Peroneal Normal Normal RIGHT:There is normal compressibility with no evidence of echogenic material noted within the lumen of the visualized veins. Colorflow and Doppler signals are normal. LEFT:There is normal compressibility with no evidence of echogenic material noted within the lumen of the visualized veins. Colorflow and Doppler signals are normal. PRELIMINARY FINDINGS 1. There is no evidence of venous thrombosis of the visualized veins. Written and verbal results given to Tulio Jones DO @ 1 am on 09/28/18. PHYSICIAN INTERPRETATION Venous examination of the both lower extremities demonstrated no evidence of venous thrombosis in the visualized veins.Normal compressibility and augmentation of all veins visualized. Signed 09/28/2018 02:10 PM Roland Cleary MD, RPVI Procedure Note Interface, Radiology Results In - 09/28/2018 2:14 PM [facility] Lower Extremity Venous Report [address] [facility] [address], [place] [address] Pat.Name: ANNABELLE BURNETT Pat.ID: [id number] .Date: 09/28/2018 Refer.MD: PHYSICIAN, EMERGENCY, Exam Time: 12:50:00 AM Study Type:LE Venous Age: 806/12/1989,29Y Sex: FEMALE Sonogrphr: Juliet Engle RVT Pat. Stat.:Outpatient Room: [address] Vol: RF, CPT - 4: 55679 Echo Event ID:[id number] Order ID: [id number] Reason for Study:Bilateral leg numbness X 1 day with hives X 4 days. History of recent elevated D-dimer test from outside facility. Procedures:Colorflow, Grayscale/2D, Pulsed wave Doppler Race: B SUMMARY: DUPLEX SCAN OBSERVATIONS Deep Veins Superficial Veins Right Left Right Left GSV (prox) Normal Normal CFV Normal Normal (above knee) Femoral Normal Normal GSV (dist) Normal Normal Profunda Normal Normal (below knee) Popliteal Normal Normal PT (prox) Normal Normal SSV Not Visualized Normal PT (dist) Normal Normal Peroneal Normal Normal RIGHT:There is normal compressibility with no evidence of echogenic material noted within the lumen of the visualized veins. Colorflow and Doppler signals are normal. LEFT:There is normal compressibility with no evidence of echogenic material noted within the lumen of the visualized veins. Colorflow and Doppler signals are normal. PRELIMINARY FINDINGS 1. There is no evidence of venous thrombosis of the visualized veins. Written and verbal results given to Tulio Jones DO @ 1 am on 09/28/18. PHYSICIAN INTERPRETATION Venous examination of the both lower extremities demonstrated no evidence of venous thrombosis in the visualized veins. Normal compressibility and augmentation of all veins visualized. Signed 09/28/2018 02:10 PM Roland Cleary MD, RPVI Performing Organization Address City/State/Zipcode Phone Number [facility] [address] [place] [address] Urinalysis screen and microscopy, with reflex to culture (09/27/2018 11:51 PM ALUMINUM SHINGLE ROOFER) Specimen site Clean catch [facility] Color, UA Yellow [facility] Appearance, UA Hazy [facility] Specific gravity, UA 1.026 1.001 - 1.035 [facility] pH, UA 6.0 5.0 - 8.5 [facility] Protein, UA 1+ (A) Negative [facility] Glucose, UA Negative Negative [facility] Ketones, UA Negative Negative [facility] Bilirubin, UA Negative Negative [facility] Blood, UA Negative Negative [facility] Nitrite, UA Negative Negative [facility] Urobilinogen, UA <2.0 <2.0 [facility] Leukocyte esterase, UA Negative Negative [facility] Epithelial cells, UA 17 /HPF [facility] WBC, UA 2 0 - 4 /HPF [facility] RBC, UA <1 0 - 5 /HPF [facility] Bacteria, UA Few None seen [facility] Yeast, UA None seen [facility] Yeast with pseudohyphae, UA None seen [facility] Specimen Urine Performing Organization Address City/[facility] Phone Number [facility] DEPARTMENT OF PATHOLOGY AND [address] [place] [phone] Sedimentation rate (09/27/2018 11:51 PM ALUMINUM SHINGLE ROOFER) Sedimentation rate 37 (H) 0 - 20 mm/hr [facility] Specimen Blood Performing Organization Address City/[facility] Phone Number [facility] DEPARTMENT OF PATHOLOGY AND [address] [place] [phone] C-reactive protein (09/27/2018 11:51 PM ALUMINUM SHINGLE ROOFER) CRP <0.30 0.00 - 0.50 mg/dL [facility] Specimen Plasma specimen Performing Organization Address City/[facility] Phone Number [facility] DEPARTMENT OF PATHOLOGY AND [address] [place] [phone] [place] [phone] Thyroid stimulating hormone (09/27/2018 11:51 PM ALUMINUM SHINGLE ROOFER) TSH 2.30 0.27 - 4.20 uIU/mL [facility] Specimen Plasma specimen Performing Organization Address City/[facility] Phone Number [facility] DEPARTMENT OF PATHOLOGY AND [address] [place], [place] [phone] T4, free (09/27/2018 11:51 PM ALUMINUM SHINGLE ROOFER) T4, free 1.1 0.9 - 1.7 ng/dL [facility] Specimen Plasma specimen Performing Organization Address City/[facility] Phone Number [facility] DEPARTMENT OF PATHOLOGY AND [address] [place] [phone] Urine culture (09/27/2018 11:45 PM ALUMINUM SHINGLE ROOFER) Urine culture SEE COMMENTComment: Bacteriuria [facility] screen negative. Performing Organization Address [facility] [place] Phone Number [facility] DEPARTMENT OF PATHOLOGY AND [address] [place] [phone] after 12/13/2017 Advance Directives Patient has advance care planning documents on file. For more information, please contact:[address] [address]
[2018-12-14] MEDS ORDERED: Ringers Lactate 1,000 ML IV ONE (12:47)
[2018-12-14 13:48] LABS: Specific Gravity 1.015 (1.005-1.030)
[2018-12-14] MEDS ORDERED: PROPOFOL 200 MG/20 ML VIAL IV ONE (14:14)
[2018-12-14] MEDS ORDERED: LIDOCAINE 1% MPF 5 ML VIAL ONE (14:14)
[2018-12-14] MEDS ORDERED: ONDANSETRON 4 MG/2 ML VIAL ONE (14:31)
[2018-12-14] MEDS ORDERED: MIDAZOLAM HCL 2 MG/2 ML INJ ONE (14:35)
--- NOTE | 2018-12-15 02:21 | OP ---
Surgeon: Marvel Nettles MD Procedure To Be Performed: Esophagogastroduodenoscopy Performing Physician: Marvel Nettles M.D. Indication For Procedure: Nausea, gastroesophageal reflux disease, iron deficiency anemia, chronic d iarrhea. Plan For Anesthesia: Monitored anesthesia care. Complexity: Average. Technique: After obtaining informed consent from the patient and explaining risks and complications which include but are not limited to bleeding, infection, perforation, and anesthesia complications, the patient was placed in the left lateral position and sedation was given. From then on, the scope was advanced to the mouth and carefully guided up till the fourth portion of the duodenum and then th e scope was withdrawn and procedure terminated in a safe manner. Findings: Esophagus: No gross lesions seen in the upper and mid esophagus. In the distal esophagus , the Z-line was slightly irregular. Biopsies taken from this area. The GE junction was around 37 c m. Stomach: Mild erythema seen in the body. In the antrum, a few small erosions were seen. Antral and body biopsies were taken. Duodenum: The bulb, the second, third, and fourth portion appeared normal. Small bowel biopsies rika en to rule out celiac disease. Complications: None. Tolerance To Anesthesia: Excellent. Postoperative Diagnosis: Erosive gastritis, otherwise no other pathology. Plan: 1.Await pathology results. 2.Follow up in the GI clinic in 2 weeks. 3.Avoid NSAIDs. 4.Start omeprazole 40 mg once a day. 5.If the biopsies are negative, the colonoscopy will need to be considered, if not already done. /RYAN Voice ID: [id number] Report ID: [id number]
== END 2018-12-14 15:35 | disposition home or self-care (01) ==
LOC: OR 12:20
PROVIDERS: ATTEND Internal Medicine Gastroenterology
PROC: 0DB78ZX Excision of Stomach, Pylorus, Via Natural or Artificial Opening Endoscopic, Diagnostic (ICD-10-PCS; 2018-12-14)
PROC: 0DB38ZX Excision of Lower Esophagus, Via Natural or Artificial Opening Endoscopic, Diagnostic (ICD-10-PCS; 2018-12-14)
PROC: 0DB98ZX Excision of Duodenum, Via Natural or Artificial Opening Endoscopic, Diagnostic (ICD-10-PCS; principal; 2018-12-14 13:30)
DX: K29.80 Duodenitis without bleeding (principal); K29.50 Unspecified chronic gastritis without bleeding; K25.7 Chronic gastric ulcer without hemorrhage or perforation; K21.9 Gastro-esophageal reflux disease without esophagitis; D50.9 Iron deficiency anemia, unspecified; K52.9 Noninfective gastroenteritis and colitis, unspecified
CPT/HCPCS: 81025; 88305; 88312; J2250; J2405; J2704

== ENCOUNTER 2019-01-02 13:41 | Emergency (ER) | payer OTHER ==
--- OUTSIDE RECORDS SUMMARY | 2019-01-02 13:44 | XMS REPORT | Clinical Summary ---
:1990 Author Organization [facility] Address [address] [place] [address] Care Team Providers Name Role Phone Asked, [...] arm; Hypokalemia; Srikanth Holloway Hives MD after 01/01/2018 Family History Medical History Relation Name Comments [...] Taken Blood Pressure 110/58 10/03/2018 8:04 AM [facility] [facility] Pulse 87 10/03/2018 8:04 AM [facility] [employer] [facility] Temperature 37 C (98.6 F) 10/03/2018 8:04 AM [facility] [facility] Respiratory Rate 18 10/03/2018 8:04 AM [facility] [facility] Oxygen Saturation 93% 10/03/2018 8:04 AM [facility] [employer] [facility] Inhaled Oxygen Concentration - - Weight 99.8 kg (220 lb) 09/28/2018 8:02 AM [facility] [employer] [facility] Height 162.6 cm (5' 4") 09/28/2018 2:16 AM [facility] [facility] Body Mass Index 37.76 09/28/2018 8:02 AM [facility] [facility] Plan of Treatment Health Maintenance Due Date Last Done Comments CERVICAL CANCER SCREENING 2010 INFLUENZA VACCINE 06/06/2018 Procedures Procedure Name Priority Date/Time Associated Comments Diagnosis MANUAL DIFFERENTIAL Routine 10/03/2018 6:46 Results for this AM [employer] procedure are in the results section. CBC WITH PLATELET AND Routine 10/03/2018 6:46 Results for this DIFFERENTIAL AM [employer] procedure are in the results section. MANUAL DIFFERENTIAL Routine 10/02/2018 5:30 Results for this AM [employer] procedure are in the results section. CBC WITH PLATELET AND Routine 10/02/2018 5:30 Results for this DIFFERENTIAL AM [employer] procedure are in the results section. ESTIMATED GFR Routine 10/02/2018 4:00 Results for this AM [employer] procedure are in the results section. COMPREHENSIVE Routine 10/02/2018 4:00 Results for this METABOLIC PANEL AM [employer] procedure are in the results section. EMG Routine 10/01/2018 1:45 Results for this PM [employer] procedure are in the results section. MANUAL DIFFERENTIAL Routine 10/01/2018 5:15 Results for this AM [employer] procedure are in the results section. ESTIMATED GFR Routine 10/01/2018 5:15 Results for this AM [employer] procedure are in the results section. COMPREHENSIVE Routine 10/01/2018 5:15 Results for this METABOLIC PANEL AM [employer] procedure are in the results section. CBC WITH PLATELET AND Routine 10/01/2018 5:15 Results for this DIFFERENTIAL AM [employer] procedure are in the results section. MANUAL DIFFERENTIAL Routine 09/30/2018 4:06 Results for this AM [employer] procedure are in the results section. ESTIMATED GFR Routine 09/30/2018 4:06 Results for this AM [employer] procedure are in the results section. COMPREHENSIVE Routine 09/30/2018 4:06 Results for this METABOLIC PANEL AM [employer] procedure are in the results section. CBC WITH PLATELET AND Routine 09/30/2018 4:06 Results for this DIFFERENTIAL AM [employer] procedure are in the results section. FOLATE LEVEL Routine 09/29/2018 12:00 Results for this PM [employer] procedure are in the results section. VITAMIN B12 LEVEL Routine 09/29/2018 12:00 Results for this PM [employer] procedure are in the results section. TOTAL IRON BINDING Routine 09/29/2018 9:28 Results for this CAPACITY AM [employer] procedure are in the results section. ALDOLASE, SERUM Routine 09/29/2018 9:28 Results for this AM [employer] procedure are in the results section. CREATINE KINASE, TOTAL Routine 09/29/2018 9:28 Results for this (CPK) AM [employer] procedure are in the results section. HCG QUALITATIVE, URINE Routine 09/29/2018 8:39 Results for this SCREEN AM [employer] procedure are in the results section. MRI LUMBAR SPINE W WO STAT 09/28/2018 10:00 Results for this CONTRAST AM [employer] procedure are in the results section. MRI CERVICAL SPINE W STAT 09/28/2018 9:30 Results for this WO CONTRAST AM [employer] procedure are in the results section. MRI THORACIC SPINE W STAT 09/28/2018 9:00 Results for this WO CONTRAST AM [employer] procedure are in the results section. US DUPLEX VENOUS LOWER STAT 09/28/2018 1:06 Results for this EXTREMITY BILATERAL AM [employer] procedure are in the results section. MANUAL DIFFERENTIAL STAT 09/27/2018 11:51 Results for this PM [employer] procedure are in the results section. ESTIMATED GFR STAT 09/27/2018 11:51 Results for this PM [employer] procedure are in the results section. COMPREHENSIVE STAT 09/27/2018 11:51 Results for this METABOLIC PANEL PM [employer] procedure are in the results section. C-REACTIVE PROTEIN STAT 09/27/2018 11:51 Results for this PM [employer] procedure are in the results section. SEDIMENTATION RATE STAT 09/27/2018 11:51 Results for this PM [employer] procedure are in the results section. T4, FREE STAT 09/27/2018 11:51 Results for this PM [employer] procedure are in the results section. THYROID STIMULATING STAT 09/27/2018 11:51 Results for this HORMONE PM [employer] procedure are in the results section. CBC WITH PLATELET AND STAT 09/27/2018 11:51 Results for this DIFFERENTIAL PM [employer] procedure are in the results section. URINALYSIS SCREEN AND STAT 09/27/2018 11:51 Results for this MICROSCOPY, WITH PM [employer] procedure are in REFLEX TO CULTURE the results section. URINE CULTURE STAT 09/27/2018 11:45 Results for this PM [employer] procedure are in the results section. after 01/01/2018 Results Manual differential (10/03/2018 6:46 AM [employer])Only the most recent of5 resultswithin the time period is included. Manual differential PERFORMED [facility] Neutrophils 35.0 (L) 39.0 - 69.0 % [facility] Lymphocytes 61.0 (H) 25.0 - 45.0 % [facility] Monocytes 1.0 0.0 - 10.0 % [facility] Eosinophils 3.0 0.0 - 5.0 % [facility] Basophils 0.0 0.0 - 1.0 % [facility] Metamyelocytes 0 % [facility] Promyelocytes 0 % [facility] Reactive lymphocytes Few [facility] Platelet slide review Radha adequate [facility] Anisocytosis Moderate [facility] Ovalocytes Moderate [facility] Performing Organization Address City/State/Zipcode Phone Number [facility] DEPARTMENT OF PATHOLOGY AND [address] [place] [address] GENOMIC MEDIC[address] [address] CBC with platelet and differential (10/03/2018 6:46 AM [employer])Only the most recent of5 resultswithin the time period is included. WBC 7.11 4.50 - 11.00 k/uL [facility] RBC 5.41 4.20 - 5.50 m/uL [facility] HGB 11.6 (L) 12.0 - 16.0 g/dL [facility] HCT 38.3 37.0 - 47.0 % [facility] MCV 70.8 (L) 82.0 - 100.0 fL [facility] MCH 21.4 (L) 27.0 - 34.0 pg [facility] MCHC 30.3 (L) 31.0 - 37.0 g/dL [facility] RDW - SD 45.7 37.0 - 55.0 fL [facility] MPV 10.6 8.8 - 13.2 fL [facility] Platelet count 202 150 - 400 k/uL [facility] Nucleated RBC 0.00 /100 WBC [facility] Neutrophils 35.0 (L) 39.0 - 69.0 % [facility] Lymphocytes 61.0 (H) 25.0 - 45.0 % [facility] Monocytes 1.0 0.0 - 10.0 % [facility] Eosinophils 3.0 0.0 - 5.0 % [facility] Basophils 0.0 0.0 - 1.0 % [facility] Specimen Blood Performing Organization Address City/State/Zipcode Phone Number [facility] DEPARTMENT OF PATHOLOGY AND [address] [place] [address] Estimated GFR (10/02/2018 4:00 AM [employer])Only the most recent of4 resultswithin the time period is included. Estimated GFR >=90 mL/min/1.73 m2 [facility] Comment: HOSPITAL CatergoryUnitsInterpretation G1 >=90 Normal or high G2 60-89Mildly decreased E0w61-06Fjuqhb to moderately decreased L2r28-45Vtdoemcjiw to severely decreased G4 15-29Severely decreased G5 <15Kidney failure The eGFR was calculated using the Chronic Kidney Disease Epidemiology Collaboration (CKD-EPI) equation. Interpretation is based on recommendations of the National Kidney Foundation-Kidney Disease Outcomes Quality Initiative (NKF-KDOQI) published in 2014. Specimen Plasma specimen Performing Organization Address City/[facility] Cent[facility] Phone Number [facility] DEPARTMENT OF PATHOLOGY AND [address] [place], [place] [phone] Comprehensive metabolic panel (10/02/2018 4:00 AM [employer])Only the most recent of4 resultswithin the time period is included. Sodium 139 135 - 148 mEq/L [facility] Potassium 4.2 3.5 - 5.0 mEq/L [facility] Chloride 103 98 - 112 mEq/L [facility] CO2 24 24 - 31 mEq/L [facility] Anion gap 12@ANIO 7 - 15 mEq/L [facility] BUN 13 6 - 20 mg/dL [facility] Creatinine 0.97 (H) 0.50 - 0.90 mg/dL [facility] Glucose 93 65 - 99 mg/dL [facility] Calcium 8.4 8.3 - 10.2 mg/dL [facility] Protein 6.2 (L) 6.3 - 8.3 g/dL [facility] Comment: HOSPITAL 4.6-7.0 g/dL 1 week 4.4-7.6 g/dL 7 months-1year5.1-7.3 g/dL 1-2 years5.6-7.5 g/dL >3 years6.0-8.0 g/dL 18-150 6.3-8.3 g/dL Albumin 2.8 (L) 3.5 - 5.0 g/dL [facility] A/G ratio 0.8 0.7 - 3.8 [facility] Alkaline phosphatase 77 35 - 104 U/L [facility] AST 24 10 - 35 U/L [facility] ALT 38 5 - 50 U/L [facility] Total bilirubin 0.3 0.0 - 1.2 mg/dL [facility] Specimen Plasma specimen Performing Organization Address City/State/Zipcode Phone Number [facility] DEPARTMENT OF PATHOLOGY AND [address] [place] [address] GENOMIC MEDICINE [address] [address] EMG general request (10/01/2018 1:45 PM [employer]) Impressions Performed At Ms. Burnett complains of [...] At NERVE CONDUCTION AND ELECTROMYOGRAPHY REPORT Neurological Peggs, [facility]; [place], [place] [address]; Name: Annabelle Burnett([id number]) Date of Procedure: [...] wnlwnl wnlwnlwnl Folate level (09/29/2018 12:00 PM [employer]) Folate 8.7 4.8 - 24.2 ng/mL [facility] Specimen Serum Performing Organization Address City/[facility] Centercode Phone Number [facility] DEPARTMENT OF PATHOLOGY AND [address] [place] [phone] Vitamin B12 level (09/29/2018 12:00 PM [employer]) Vitamin B12 474 211 - 946 pg/mL [facility] Comment: Significant overlap exists between normal and deficiency states. However, most patients with deficiencies will have Serum B12 <200 pg/mL. Specimen Serum Performing Organization Address City/State/Zipcode Phone Number [facility] DEPARTMENT OF PATHOLOGY AND [address] [place] [phone] [address] Total iron binding capacity (09/29/2018 9:28 AM [employer]) Iron level 18 (L) 37 - 145 ug/dL [facility] Iron binding capacity 333 200 - 400 ug/dL [facility] % Saturation 5.4 (L) 15.0 - 38.0 % [facility] Specimen Plasma specimen Performing Organization Address City/State/Zipcode Phone Number [facility] DEPARTMENT OF PATHOLOGY AND [address] [place] [phone] [place] [address] Aldolase, serum (09/29/2018 9:28 AM [employer]) Aldolase 4.4 1.5 - 8.1 U/L [facility] Comment: REFERENCE INTERVAL: Aldolase Access complete set of age- and/or gender-specific reference intervals for this test in the [employer] [facility] ([employer]). Performed by [employer], [address] [place] [id number] [email or web address] [email or web address] MD - Lab. Director Specimen Serum Performing Organization Address [facility] Centercoid Phone Number [facility] [address] [place] [phone] [facility] [address] [place] [address] Creatine kinase, total (CPK) (09/29/2018 9:28 AM [employer]) Creatine kinase 30 26 - 192 U/L [facility] Specimen Plasma specimen Performing Organization Address [facility] Centercode Phone Number [facility] DEPARTMENT OF PATHOLOGY AND [address] [place] [address] hCG qualitative, urine screen (09/29/2018 8:39 AM [employer]) hCG qualitative, urine NegativeComment: [facility] Sensitivity of HCG test: 25 HOSPITAL mIU/mL Specimen Urine Performing Organization Address [facility] Phone Number [facility] DEPARTMENT OF PATHOLOGY AND [address] [place] [address] MRI Lumbar Spine W Wo Contrast (09/28/2018 10:00 AM [employer]) Narrative Performed At Examination: MRI LUMBAR SPINE [...] abnormal enhancement of cauda equina nerve roots. [id number] Procedure Note Hm Interface, Radiology Results Incoming - 09/28/2018 10:48 AM [employer] Examination: MRI LUMBAR SPINE W WO CONTRAST [...] abnormal enhancement of cauda equina nerve roots. [id number] Performing Organization Address City/State/Zipcode Phone Number [facility] [address] [place] [address] MRI Cervical Spine W Wo Contrast (09/28/2018 9:30 AM [employer]) Narrative Performed At EXAMINATION:MRI CERVICAL SPINE W [...] cord is normal size and signal intensity. [id number] Procedure Note Hm Interface, Radiology Results Incoming - 09/28/2018 10:42 AM [employer] EXAMINATION: MRI CERVICAL SPINE W WO CONTRAST [...] cord is normal size and signal intensity. [id number] Performing Organization Address [facility]/Zipcode Phone Number [facility] [address] [place] [address] MRI Thoracic Spine W Wo Contrast (09/28/2018 9:00 AM [employer]) Narrative Performed At EXAMINATION:MRI THORACIC SPINE W [...] is normal in size and signal intensity. [id number] Procedure Note Interface, Radiology Results Incoming - 09/28/2018 10:45 AM [employer] EXAMINATION: MRI THORACIC SPINE W WO CONTRAST [...] is normal in size and signal intensity. [id number] Performing Organization Address City/[facility]/Zipcode Phone Number [facility] [address] [place] [address] Us duplex venous lower extremity (09/28/2018 1:06 AM [employer]) Narrative Performed At [facility] Lower Extremity Venous Report [address] [place] [address] Pat.Name:ANNABELLE BURNETT Pat.ID:[id number] .Date: 09/28/2018Ref:PHYSICIAN, EMERGENCY, MD Exam Time: 12:50:00 AM Study Type:LE Venous DOBAge:1989,29YSex: FEMALE Sonogrphr: Juliet Engle RVTPat. Stat.:[address]patient Room:[address]: , CPT - 4: 16110 Echo Event ID:[id number] Order ID:[id number] Reason for Study:Bilateral leg numbness X 1 [...] Radiology Results In - 09/28/2018 2:14 PM [facility] Lower Extremity Venous Report [address] [place], [place] [address] Pat.Name: ANNABELLE BURNETT Pat.ID: [id number] .Date: 09/28/2018 Refer.MD: PHYSICIAN, EMERGENCY, Exam Time: 12:50:00 AM Study Type:LE Venous Age: 806/12/1989,29Y Sex: FEMALE Sonogrphr: Juliet Engle RVT Pat. Stat.:Outpatient Room: [address] Vol: RF, CPT - 4: 76825 Echo Event ID:[id number] Order ID: [id number] Reason for Study:Bilateral leg numbness X 1 [...] Organization Address City/State/Zipcode Phone Number [facility] [address] [place] [address] Urinalysis screen and microscopy, with reflex to culture (09/27/2018 11:51 PM [employer]) Specimen site Clean catch [facility] Color, UA Yellow [facility] Appearance, UA Hazy [facility] Specific gravity, UA 1.026 1.001 - 1.035 [facility] pH, UA 6.0 5.0 - 8.5 [facility] Protein, UA 1+ (A) Negative [facility] Glucose, UA Negative Negative [facility] Ketones, UA Negative Negative [facility] Bilirubin, UA Negative Negative [facility] Blood, UA Negative Negative [facility] Nitrite, UA Negative Negative [facility] Urobilinogen, UA <2.0 <2.0 [facility] Leukocyte esterase, UA Negative Negative [facility] Epithelial cells, UA 17 /HPF [facility] WBC, UA 2 0 - 4 /HPF [facility] RBC, UA <1 0 - 5 /HPF [facility] Bacteria, UA Few None seen [facility] Yeast, UA None seen [facility] Yeast with pseudohyphae, UA None seen [facility] Specimen Urine Performing Organization Address City/[facility] Cent[facility]oid Phone Number [facility] DEPARTMENT OF PATHOLOGY AND [address] [place] [phone] Sedimentation rate (09/27/2018 11:51 PM [employer]) Sedimentation rate 37 (H) 0 - 20 mm/hr [facility] Specimen Blood Performing Organization Address City/[facility] Centercode Phone Number [facility] DEPARTMENT OF PATHOLOGY AND [address] [place] [address] C-reactive protein (09/27/2018 11:51 PM [employer]) CRP <0.30 0.00 - 0.50 mg/dL [facility] Specimen Plasma specimen Performing Organization Address City/[facility] Centercode Phone Number [facility] DEPARTMENT OF PATHOLOGY AND [address] [place] [phone] [place] [address] Thyroid stimulating hormone (09/27/2018 11:51 PM [employer]) TSH 2.30 0.27 - 4.20 uIU/mL [facility] Specimen Plasma specimen Performing Organization Address City/[facility] Centercode Phone Number [facility] DEPARTMENT OF PATHOLOGY AND [address] [place], [place] [phone] T4, free (09/27/2018 11:51 PM [employer]) T4, free 1.1 0.9 - 1.7 ng/dL [facility] Specimen Plasma specimen Performing Organization Address City/[facility] Centercode Phone Number [facility] DEPARTMENT OF PATHOLOGY AND [address] [place] [phone] Urine culture (09/27/2018 11:45 PM [employer]) Urine culture SEE COMMENTComment: Bacteriuria [facility] screen negative. Performing Organization Address [facility] Phone Number [facility] DEPARTMENT OF PATHOLOGY AND [address] [place] [phone] after 01/01/2018 Advance Directives Patient has advance care planning documents on file. For more information, please contact:[address] [address]
[2019-01-02] MEDS ORDERED: MORPHINE 4 MG/ML SYR ONE (14:24)
[2019-01-02] MEDS ORDERED: ONDANSETRON 4 MG/2 ML VIAL ONE (14:24)
[2019-01-02 14:32] LABS: Urine Blood NEGATIVE (NEG); Urine Glucose NEGATIVE (NEG); Urine Protein NEGATIVE (NEG)
[2019-01-02 14:36] LABS: Absolute Lymphocytes (CBC) 3.3 K/uL (0.7-4.9); Absolute Monocytes 0.4 K/uL (0.1-1.3); Absolute Neutrophil 3.6 K/uL (1.8-8.0); Basophils % 0.5 % (0-1.3); Eosinophils % 2.3 % (0-4.4); Hematocrit 36.1 % (36.0-45.0); Lymphocytes % 43.6 % (15.3-44.8); MPV 8.9 fL (7.6-11.3); Monocytes % 5.7 % (3.3-12.3); RBC Red Blood Cell Count 5.17 M/uL (3.86-4.86)
[2019-01-02 14:53] LABS: ALT/SGPT 29 U/L (12-78); AST/SGOT 29 U/L (15-37); Alkaline Phosphatase 75 U/L (45-117); BUN Blood Urea Nitrogen 7 mg/dL (7-18); Bicarbonate 26 mmol/L (21-32); Bilirubin Direct 0.1 mg/dL (0-0.2); Bilirubin Total 0.8 mg/dL (0.2-1.0); Glucose Level 77 mg/dL (74-106); Lipase 73 U/L (73-393); Potassium 3.7 mmol/L (3.5-5.1); Protein, Total 7.8 g/dL (6.4-8.2); Sodium Level 139 mmol/L (136-145)
[2019-01-02 15:10] LABS: Platelet Estimate ADEQ; Urine White Blood Cell Casts OK
[2019-01-02 15:11] LABS: Blood Morphology Comment NOTED (NOT SEEN)
--- NOTE | 2019-01-02 16:54 | RAD REPORT ---
EXAM DESCRIPTION: CT - Abdomen Pelvis W Contrast - 01/02/2019 4:41 pm CLINICAL HISTORY: Abdominal pain/left lower quadrant pain COMPARISON: September 2018 TECHNIQUE: Computed axial tomography of the abdomen pelvis was obtained. 100 cc Isovue-300 was admin istered intravenously. Oral contrast was not requested which limits evaluation of bowel. All CT scans are performed using dose optimization technique as appropriate and may include automated exposure control or mA/KV adjustment according to patient size. FINDINGS: The liver, spleen, pancreas, adrenal and kidneys appear unremarkable. There is no evidence of diverticulitis. The appendix is normal. Umbilical hernia containing fat is again demonstrated. Neck measures 24 millimeters IMPRESSION: No acute abnormality is displayed.
[2019-01-02] MEDS ORDERED: KETOROLAC 30 MG/ML INJ ONE (17:27)
--- NOTE | 2019-01-02 17:29 | EDPHYS ---
Physician Documentation [facility] Name: Stacie Burnett Age: 28 yrs Sex: Female : 1990 Arrival Date: 01/02/2019 Time: 13:44 Bed 18 Private MD: None, None ED Physician Isaias Rosales HPI: 01/03 06:22 This 28 yrs old Black Female presents to ER via Ambulatory with complaints of Abdominal kdr Pain, Back Pain. 06:23 The patient presents with abdominal pain in the left upper quadrant, in the left lower kdr quadrant. Onset: The symptoms/episode began/occurred acutely, .5 hour(s) ago. The symptoms radiate to the left flank. Associated signs and symptoms: Pertinent positives: nausea, Pertinent negatives: anorexia, blood in stools, chest pain, constipation, diarrhea, dysuria, fever, headache, hematuria, palpitations, shortness of breath, vaginal discharge, vomiting, vomiting blood. The symptoms are described as achy, crampy, intermittent, waxing/waning. Modifying factors: The symptoms are alleviated by nothing, the symptoms are aggravated by movement, walking. Severity of pain: At its worst the pain was severe in the emergency department the pain is unchanged. The patient has not experienced similar symptoms in the past. The patient has not recently seen a physician. 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 - Social history:: Smoking status: Patient/guardian denies using tobacco. - Ebola Screening: : Patient denies exposure to infectious person Patient denies travel to an Ebola-affected area in the 21 days before illness onset. ROS: 01/03 06:23 Constitutional: Negative for fever, chills, and weight loss, Eyes: Negative for injury, kdr pain, redness, and discharge, Neck: Negative for injury, pain, and swelling, Cardiovascular: Negative for chest pain, palpitations, and edema, Respiratory: Negative for shortness of breath, cough, wheezing, and pleuritic chest pain, Back: Negative for injury and pain, MS/Extremity: Negative for injury and deformity, Skin: Negative for injury, rash, and discoloration, Neuro: Negative for headache, weakness, numbness, tingling, and seizure activity. Psych: Negative for depression, anxiety, suicide ideation, homicidal ideation, and hallucinations, Allergy/Immunology: Negative for hives, rash, and allergies, Endocrine: Negative for neck swelling, polydipsia, polyuria, polyphagia, and marked weight changes, Hematologic/Lymphatic: Negative for swollen nodes, abnormal bleeding, and unusual bruising. Abdomen/GI: Positive for abdominal pain, nausea, Negative for diarrhea, constipation, abdominal distension, anorexia, dysphagia, hematemesis, black/tarry stool, rectal pain, rectal bleeding, bowel incontinence. Exam: 06:23 Constitutional: This is a well developed, well nourished patient who is awake, alert, kdr and in mild distress. Head/Face: Normocephalic, atraumatic. Eyes: Pupils equal round and reactive to light, extra-ocular motions intact. Lids and lashes normal. Conjunctiva and sclera are non-icteric and not injected. Cornea within normal limits. Periorbital areas with no swelling, redness, or edema. Neck: Trachea midline, no thyromegaly or masses palpated, and no cervical lymphadenopathy. Supple, full range of motion without nuchal rigidity, or vertebral point tenderness. No Meningismus. Chest/axilla: Normal chest wall appearance and motion. Nontender with no deformity. No lesions are appreciated. Cardiovascular: Regular rate and rhythm with a normal S1 and S2. No gallops, murmurs, or rubs. Normal PMI, no JVD. No pulse deficits. Respiratory: Lungs have equal breath sounds bilaterally, clear to auscultation and percussion. No rales, rhonchi or wheezes noted. No increased work of breathing, no retractions or nasal flaring. Back: No spinal tenderness. No costovertebral tenderness. Full range of motion. Skin: Warm, dry with normal turgor. Normal color with no rashes, no lesions, and no evidence of cellulitis. MS/ Extremity: Pulses equal, no cyanosis. Neurovascular intact. Full, normal range of motion. Neuro: Awake and alert, GCS 15, oriented to person, place, time, and situation. Cranial nerves II-XII grossly intact. Motor strength 5/5 in all extremities. Sensory grossly intact. Cerebellar exam normal. Normal gait. Psych: Awake, alert, with orientation to person, place and time. Behavior, mood, and affect are within normal limits. 06:23 Abdomen/GI: Inspection: obese Bowel sounds: normal, Palpation: soft, mild abdominal tenderness, in the anterior aspect of left lateral abdomen, left upper quadrant and left lower quadrant, mass, is not appreciated, rebound tenderness, is not appreciated, voluntary guarding, is not appreciated, involuntary guarding, is not appreciated. Vital Signs: 01/02 13:47 BP 143 / 101; Pulse 93; Resp 17; Temp 98.4(TE); Pulse Ox 100% on R/A; Weight 98.88 kg; ss Height 5 ft. 4 in. (162.56 cm); Pain 10/10; 14:40 BP 118 / 64; Pulse 73; Resp 17; Pulse Ox 99% ; tw2 15:34 BP 106 / 64; Pulse 61; Resp 17; Pulse Ox 100% on R/A; tw2 16:52 BP 116 / 46 Supine; Pulse 68; Resp 17; Pulse Ox 100% on R/A; tw2 17:46 BP 114 / 80; Pulse 73; Resp 17; Pulse Ox 100% on R/A; tw2 13:47 Body Mass Index 37.42 (98.88 kg, 162.56 cm) ss MDM: 17:28 Patient medically screened. [facility] 01/03 06:23 Data reviewed: vital signs, nurses notes, lab test result(s), radiologic studies. kdr Counseling: I had a detailed discussion with the patient and/or guardian regarding: the historical points, exam findings, and any diagnostic results supporting the discharge/admit diagnosis, lab results, radiology results, the need for outpatient follow up. 01/02 14:03 Order name: Basic Metabolic Panel; Complete Time: 16:04 [facility] 01/02 14:03 Order name: CBC with Diff; Complete Time: 16: [facility] 01/02 14:03 Order name: Creatinine for Radiology; Complete Time: 16:04 [facility] 01/02 14:03 Order name: Hepatic Function; Complete Time: 16:04 [facility] 01/02 14:03 Order name: Lipase; Complete Time: 16: [facility] 01/02 14:09 Order name: Urine Dipstick--Ancillary (enter results); Complete Time: 16:04 em1 01/02 14:03 Order name: IV Saline Lock; Complete Time: 14:34 kdr 01/02 14:42 Order name: CBC Smear Scan; Complete Time: 16:04 EDMS 01/02 16:05 Order name: CT Abd/Pelvis - W/Contrast; Complete Time: 16:55 kdr 01/02 14:03 Order name: Labs collected and sent; Complete Time: 14:34 kdr Administered Medications: 01/02 14:25 Drug: Zofran 4 mg Route: IVP; Site: right antecubital; tw2 15:20 Follow up: Response: No adverse reaction tw2 14:27 Drug: morphine 4 mg Route: IVP; Site: right antecubital; tw2 15:20 Follow up: Response: No adverse reaction tw2 17:19 Drug: TORadol 30 mg Route: IVP; Site: left antecubital; tw2 17:47 Follow up: Response: No adverse reaction; Pain is decreased tw2 17:19 Not Given (Duplicate Order): TORadol 30 mg IVP once tw2 17:19 Not Given (Patient Refused; pt denies nausea at this time.): Zofran 4 mg IVP once; over tw2 2 minutes Disposition: 01/02/19 17:28 Discharged to Home. Impression: Abdominal and pelvic pain. - Condition is Stable. - Discharge Instructions: Abdominal Pain, Adult, [id number]. - Prescriptions for Bentyl 20 mg Oral Tablet - take 1 tablet by ORAL route every 6 hours As needed; 20 tablet. Zofran 4 mg Oral Tablet - take 1 tablet by ORAL route every 12 hours As needed; 6 tablet. Tramadol 50 mg Oral Tablet - take 1 tablet by ORAL route every 8 hours as needed; 12 tablet. - Medication Reconciliation Form, Thank You Letter, Antibiotic Education, Prescription Opioid Use, Work release form form. - Follow up: Private Physician; When: 2 - 3 days; Reason: If symptoms return, Further diagnostic work-up, Recheck today's complaints, Continuance of care, Re-evaluation by your physician. - Problem is new. - Symptoms have improved. Signatures: Dispatcher [employer] [facility] Isaias Rosales MD MD kdr Smirch, Shelby, RN RN ss Lisbeth Kraus RN RN tw2 Corrections: (The following items were deleted from the chart) 17:49 17:28 01/02/2019 17:28 Discharged to Home. Impression: Abdominal and pelvic pain. tw2 Condition is Stable. Forms are Work release form, Medication Reconciliation Form, Thank You Letter, Antibiotic Education, Prescription Opioid Use. Follow up: Private Physician; When: 2 - 3 days; Reason: If symptoms return, Further diagnostic work-up, Recheck today's complaints, Continuance of care, Re-evaluation by your physician. Problem is new. Symptoms have improved. kdr
--- NOTE | 2019-01-02 17:29 | ER ---
Nurse's Notes [facility] Name: Stacie Burnett Age: 28 yrs Sex: Female : 1990 Arrival Date: 01/02/2019 Time: 13:44 Bed 18 Private MD: None, None Diagnosis: Abdominal and pelvic pain Presentation: 01/02 13:46 Presenting complaint: Patient states: sharp LLQ pain that radiates towards L flank area ss began suddenly 30 minutes ago. Transition of care: patient was not received from another setting of care. Onset of symptoms was January 02, 2019. Risk Assessment: Do you want to hurt yourself or someone else? Patient reports no desire to harm self or others. Initial Sepsis Screen: Does the patient meet any 2 criteria? HR > 90 bpm. Does the patient have a suspected source of infection? No. Patient's initial sepsis screen is negative. Care prior to arrival: None. 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 - Social history:: Smoking status: Patient/guardian denies using tobacco. - Ebola Screening: : Patient denies exposure to infectious person Patient denies travel to an Ebola-affected area in the 21 days before illness onset. Screenin:31 Abuse screen: Denies threats or abuse. Nutritional screening: No deficits noted. tw2 Tuberculosis screening: No symptoms or risk factors identified. Fall Risk None identified. Assessment: 14:00 General: Appears uncomfortable, obese, Behavior is calm, cooperative, appropriate for tw2 age. Pain: Complains of pain in abdomen. Neuro: Level of Consciousness is awake, alert, obeys commands, Oriented to person, place, time, situation. Cardiovascular: Heart tones S1 S2 Patient's skin is warm and dry. Respiratory: Airway is patent Respiratory effort is even, unlabored, Respiratory pattern is regular, symmetrical, Breath sounds are clear bilaterally. GI: Bowel sounds present X 4 quads. Abd is soft X 4 quads. : No signs and/or symptoms were reported regarding the genitourinary system. EENT: No signs and/or symptoms were reported regarding the EENT system. Derm: No signs and/or symptoms reported regarding the dermatologic system. Musculoskeletal: Range of motion: intact in all extremities. 14:40 Reassessment: Patient appears in no apparent distress at this time. Patient and/or tw2 family updated on plan of care and expected duration. Pain level reassessed. Patient is alert, oriented x 3, equal unlabored respirations, skin warm/dry/pink. 15:34 Reassessment: Patient appears in no apparent distress at this time. Patient and/or tw2 family updated on plan of care and expected duration. Pain level reassessed. Patient is alert, oriented x 3, equal unlabored respirations, skin warm/dry/pink. 16:53 Reassessment: Patient appears in no apparent distress at this time. Patient and/or tw2 family updated on plan of care and expected duration. Pain level reassessed. Patient is alert, oriented x 3, equal unlabored respirations, skin warm/dry/pink. 17:47 Reassessment: Patient appears in no apparent distress at this time. Patient and/or tw2 family updated on plan of care and expected duration. Pain level reassessed. Patient is alert, oriented x 3, equal unlabored respirations, skin warm/dry/pink. Vital Signs: 13:47 BP 143 / 101; Pulse 93; Resp 17; Temp 98.4(TE); Pulse Ox 100% on R/A; Weight 98.88 kg; Height 5 ft. 4 in. (162.56 cm); Pain 10/10; 14:40 BP 118 / 64; Pulse 73; Resp 17; Pulse Ox 99% ; tw2 15:34 BP 106 / 64; Pulse 61; Resp 17; Pulse Ox 100% on R/A; tw2 16:52 BP 116 / 46 Supine; Pulse 68; Resp 17; Pulse Ox 100% on R/A; tw2 17:46 BP 114 / 80; Pulse 73; Resp 17; Pulse Ox 100% on R/A; tw2 13:47 Body Mass Index 37.42 (98.88 kg, 162.56 cm) ED Course: 13:44 Patient arrived in ED. mr 13:44 None, None is Private Physician. mr 13:46 Triage completed. ss 13:47 Arm band placed on right wrist. ss 13:48 Bed in low position. Call light in reach. Pulse ox on. NIBP on. tw2 13:49 Isaias Rosales MD is Attending Physician. kdr 14:09 Lisbeth Kraus RN is Primary Nurse. tw2 14:09 Urine Dipstick--Ancillary (enter results) Sent. tw2 14:25 Inserted saline lock: 22 gauge in right antecubital area, using aseptic technique. tw2 Blood collected. 16:[address] via wheelchair. vm2 16:36 CT completed. Patient tolerated procedure well. Patient moved back from CT. vm2 16:42 CT Abd/Pelvis - W/Contrast In Process Unspecified. EDMS 16:44 Inserted saline lock: 22 gauge in left antecubital area, using aseptic technique. ss ,using aseptic technique. in CT IV discontinued, intact, bleeding controlled, No redness/swelling at site. Pressure dressing applied, 22 RIGHT AC. 17:48 No provider procedures requiring assistance completed. IV discontinued, intact, tw2 bleeding controlled, No redness/swelling at site. Pressure dressing applied, LEFT ac. Administered Medications: 14:25 Drug: Zofran 4 mg Route: IVP; Site: right antecubital; tw2 15:20 Follow up: Response: No adverse reaction tw2 14:27 Drug: morphine 4 mg Route: IVP; Site: right antecubital; tw2 15:20 Follow up: Response: No adverse reaction tw2 17:19 Drug: TORadol 30 mg Route: IVP; Site: left antecubital; tw2 17:47 Follow up: Response: No adverse reaction; Pain is decreased tw2 17:19 Not Given (Duplicate Order): TORadol 30 mg IVP once tw2 17:19 Not Given (Patient Refused; pt denies nausea at this time.): Zofran 4 mg IVP once; over tw2 2 minutes Outcome: 17:28 Discharge ordered by . kdr 17:48 Discharged to home ambulatory. tw2 17:48 Condition: stable 17:48 Discharge instructions given to patient, Instructed on discharge instructions, follow up and referral plans. medication usage, Demonstrated understanding of instructions, follow-up care, medications, Prescriptions given X 3. 17:49 Patient left the ED. tw2 Signatures: Dispatcher [email or web address] Isaias Arvizu MD MD kdr Judy Amador mr Marta Sweeney RN RN ss Lisbeth Kraus RN RN [facility] Radha Simpson [facility]
== END 2019-01-02 17:49 | disposition home or self-care (01) ==
LOC: ER 13:41
DX: R10.12 Left upper quadrant pain (principal); R10.32 Left lower quadrant pain; R10.2 Pelvic and perineal pain; D50.9 Iron deficiency anemia, unspecified
CPT/HCPCS: 36415; 74177; 80048; 80076; 81003; 83690; 85025; 99284; J2405; Q9967

== ENCOUNTER 2019-04-02 06:25 | Day surgery (SDC) | payer OTHER ==
--- OUTSIDE RECORDS SUMMARY | 2019-04-02 06:28 | XMS REPORT | Clinical Summary ---
:1990 Author Organization [facility] Address [address] [place] [address] Care Team Providers Name Role Phone Asked, [...] arm; Hypokalemia; Srikanth Holloway Hives MD after 04/01/2018 Family History Medical History Relation Name Comments [...] Taken Blood Pressure 110/58 10/03/2018 8:04 AM STUDENT SPECIALIST Pulse 87 10/03/2018 8:04 AM STUDENT SPECIALIST Temperature 37 C (98.6 F) 10/03/2018 8:04 AM STUDENT SPECIALIST Respiratory Rate 18 10/03/2018 8:04 AM STUDENT SPECIALIST Oxygen Saturation 93% 10/03/2018 8:04 AM STUDENT SPECIALIST Inhaled Oxygen Concentration - - Weight 99.8 kg (220 lb) 09/28/2018 8:02 AM STUDENT SPECIALIST Height 162.6 cm (5' 4") 09/28/2018 2:16 AM STUDENT SPECIALIST Body Mass Index 37.76 09/28/2018 2:16 AM STUDENT SPECIALIST Plan of Treatment Health Maintenance Due Date Last Done Comments INFLUENZA VACCINE 06/06/2019 Procedures Procedure Name Priority Date/Time Associated Comments Diagnosis MANUAL DIFFERENTIAL Routine 10/03/2018 6:46 Results for this AM STUDENT SPECIALIST procedure are in the results section. CBC WITH PLATELET AND Routine 10/03/2018 6:46 Results for this DIFFERENTIAL AM STUDENT SPECIALIST procedure are in the results section. MANUAL DIFFERENTIAL Routine 10/02/2018 5:30 Results for this AM STUDENT SPECIALIST procedure are in the results section. CBC WITH PLATELET AND Routine 10/02/2018 5:30 Results for this DIFFERENTIAL AM STUDENT SPECIALIST procedure are in the results section. ESTIMATED GFR Routine 10/02/2018 4:00 Results for this AM STUDENT SPECIALIST procedure are in the results section. COMPREHENSIVE Routine 10/02/2018 4:00 Results for this METABOLIC PANEL AM STUDENT SPECIALIST procedure are in the results section. EMG Routine 10/01/2018 1:45 Results for this PM STUDENT SPECIALIST procedure are in the results section. MANUAL DIFFERENTIAL Routine 10/01/2018 5:15 Results for this AM STUDENT SPECIALIST procedure are in the results section. ESTIMATED GFR Routine 10/01/2018 5:15 Results for this AM STUDENT SPECIALIST procedure are in the results section. COMPREHENSIVE Routine 10/01/2018 5:15 Results for this METABOLIC PANEL AM STUDENT SPECIALIST procedure are in the results section. CBC WITH PLATELET AND Routine 10/01/2018 5:15 Results for this DIFFERENTIAL AM STUDENT SPECIALIST procedure are in the results section. MANUAL DIFFERENTIAL Routine 09/30/2018 4:06 Results for this AM STUDENT SPECIALIST procedure are in the results section. ESTIMATED GFR Routine 09/30/2018 4:06 Results for this AM STUDENT SPECIALIST procedure are in the results section. COMPREHENSIVE Routine 09/30/2018 4:06 Results for this METABOLIC PANEL AM STUDENT SPECIALIST procedure are in the results section. CBC WITH PLATELET AND Routine 09/30/2018 4:06 Results for this DIFFERENTIAL AM STUDENT SPECIALIST procedure are in the results section. FOLATE LEVEL Routine 09/29/2018 12:00 Results for this PM STUDENT SPECIALIST procedure are in the results section. VITAMIN B12 LEVEL Routine 09/29/2018 12:00 Results for this PM STUDENT SPECIALIST procedure are in the results section. TOTAL IRON BINDING Routine 09/29/2018 9:28 Results for this CAPACITY AM STUDENT SPECIALIST procedure are in the results section. ALDOLASE, SERUM Routine 09/29/2018 9:28 Results for this AM STUDENT SPECIALIST procedure are in the results section. CREATINE KINASE, TOTAL Routine 09/29/2018 9:28 Results for this (CPK) AM STUDENT SPECIALIST procedure are in the results section. HCG QUALITATIVE, URINE Routine 09/29/2018 8:39 Results for this SCREEN AM STUDENT SPECIALIST procedure are in the results section. MRI LUMBAR SPINE W WO STAT 09/28/2018 10:00 Results for this CONTRAST AM STUDENT SPECIALIST procedure are in the results section. MRI CERVICAL SPINE W STAT 09/28/2018 9:30 Results for this WO CONTRAST AM STUDENT SPECIALIST procedure are in the results section. MRI THORACIC SPINE W STAT 09/28/2018 9:00 Results for this WO CONTRAST AM STUDENT SPECIALIST procedure are in the results section. US DUPLEX VENOUS LOWER STAT 09/28/2018 1:06 Results for this EXTREMITY BILATERAL AM STUDENT SPECIALIST procedure are in the results section. MANUAL DIFFERENTIAL STAT 09/27/2018 11:51 Results for this PM STUDENT SPECIALIST procedure are in the results section. ESTIMATED GFR STAT 09/27/2018 11:51 Results for this PM STUDENT SPECIALIST procedure are in the results section. COMPREHENSIVE STAT 09/27/2018 11:51 Results for this METABOLIC PANEL PM STUDENT SPECIALIST procedure are in the results section. C-REACTIVE PROTEIN STAT 09/27/2018 11:51 Results for this PM STUDENT SPECIALIST procedure are in the results section. SEDIMENTATION RATE STAT 09/27/2018 11:51 Results for this PM STUDENT SPECIALIST procedure are in the results section. T4, FREE STAT 09/27/2018 11:51 Results for this PM STUDENT SPECIALIST procedure are in the results section. THYROID STIMULATING STAT 09/27/2018 11:51 Results for this HORMONE PM STUDENT SPECIALIST procedure are in the results section. CBC WITH PLATELET AND STAT 09/27/2018 11:51 Results for this DIFFERENTIAL PM STUDENT SPECIALIST procedure are in the results section. URINALYSIS SCREEN AND STAT 09/27/2018 11:51 Results for this MICROSCOPY, WITH PM STUDENT SPECIALIST procedure are in REFLEX TO CULTURE the results section. URINE CULTURE STAT 09/27/2018 11:45 Results for this PM STUDENT SPECIALIST procedure are in the results section. after 04/01/2018 Results Manual differential (10/03/2018 6:46 AM STUDENT SPECIALIST)Only the most recent of5 resultswithin the time [...] Ovalocytes Moderate [facility] Specimen Performing Organization Address City/State/Zipcode Phone Number [facility] DEPARTMENT OF PATHOLOGY AND [address] [place] [address] GENOMIC MEDICINE [facility] [address] [place] [id number] CBC with platelet and differential (10/03/2018 6:46 AM STUDENT SPECIALIST)Only the most recent of5 resultswithin the time [...] AND CLINIC Specimen Blood Performing Organization Address City/[facility] Phone Number [facility] DEPARTMENT OF PATHOLOGY AND [address] [place] [address] Estimated GFR (10/02/2018 4:00 AM STUDENT SPECIALIST)Only the most recent of4 resultswithin the time period is included. [facility] Estimated GFR >=90 mL/min/1.73 [facility] Comment: HOSPITAL CatergoryUnitsInterpretation G1 >=90 Normal or high G2 60-89Mildly decreased P3a71-60Kpvylo to moderately decreased R5a79-46Gyvpyphfdd to severely decreased G4 15-29Severely decreased G5 <15Kidney failure The eGFR was calculated using the Chronic Kidney Disease Epidemiology Collaboration (CKD-EPI) equation. Interpretation is based on recommendations of the National Kidney Foundation-Kidney Disease Outcomes Quality Initiative (NKF-KDOQI) published in 2014. Specimen Plasma specimen Performing Organization Address City/[facility] Centercode Phone Number [facility] DEPARTMENT OF PATHOLOGY AND [address] [place] [address] Comprehensive metabolic panel (10/02/2018 4:00 AM STUDENT SPECIALIST)Only the most recent of4 resultswithin the time period is included. [facility] Sodium 139 135 - 148 [facility] mEq/L [facility] Potassium 4.2 3.5 - 5.0 [facility] mEq/L [facility] Chloride 103 98 - 112 mEq/L [facility] CO2 24 24 - 31 mEq/L [facility] Anion gap 12@ANIO 7 - 15 mEq/L [facility] BUN 13 6 - 20 mg/dL [facility] Creatinine 0.97 (H) 0.50 - 0.90 [facility] mg/dL HOSPITAL Glucose 93 65 - 99 mg/dL [facility] Calcium 8.4 8.3 - 10.2 [facility] mg/dL [facility] Protein 6.2 (L) 6.3 - 8.3 g/dL [facility] Comment: HOSPITAL 4.6-7.0 g/dL 1 week [...] CLINIC Total bilirubin 0.3 0.0 - 1.2 [facility] mg/dL [facility] Specimen Plasma specimen Performing Organization Address City/State/Zipcode Phone Number [facility] DEPARTMENT OF PATHOLOGY AND [address] [place] [address] GEN[address] [address] EMG general request (10/01/2018 1:45 PM STUDENT SPECIALIST) Impressions Performed At Ms. Burnett complains of [...] At NERVE CONDUCTION AND ELECTROMYOGRAPHY REPORT Neurological [place], [facility]th [facility]; [place], [place] [address]; Name: Annabelle Burnett([id number]) Date of Procedure: [...] wnlwnl wnlwnlwnl Folate level (09/29/2018 12:00 PM STUDENT SPECIALIST) Folate 8.7 4.8 - 24.2 ng/mL [facility] Specimen Serum Performing Organization Address City/[facility] Centercond Phone Number [facility] DEPARTMENT OF PATHOLOGY AND [address] [place] [phone] Vitamin B12 level (09/29/2018 12:00 PM STUDENT SPECIALIST) [facility] Signature Vitamin B12 474 211 - 946 [facility] Comment: pg/mL HOSPITAL Significant overlap exists between normal and deficiency states. However, most patients with deficiencies will have Serum B12 <200 pg/mL. Specimen Serum Performing Organization Address City/[facility] Centercode Phone Number [facility] DEPARTMENT OF PATHOLOGY AND [address] [place], [place] [phone] [address] [address] Total iron binding capacity (09/29/2018 9:28 AM STUDENT SPECIALIST) [facility] Signature Iron level 18 (L) 37 - 145 ug/dL [facility] Iron binding capacity 333 200 - 400 ug/dL [facility] % Saturation 5.4 (L) 15.0 - 38.0 % [facility] Specimen Plasma specimen Performing Organization Address City/[facility]/Zipcode Phone Number [facility] DEPARTMENT OF PATHOLOGY AND [address] [place] [phone] [place] [phone] Aldolase, serum (09/29/2018 9:28 AM STUDENT SPECIALIST) Aldolase 4.4 1.5 - 8.1 U/L [facility] Comment: REFERENCE INTERVAL: Aldolase Access complete set of age- and/or gender-specific reference intervals for this test in the [facility] Test Directory ([facility]). Performed by [facility], [address] [place] [address] [email or web address], Ta Pat MD - Lab. Director Specimen Serum Performing Organization Address [facility] Phone Number [facility] [address] [place] [address] [facility] [address] [place] [address] Creatine kinase, total (CPK) (09/29/2018 9:28 AM STUDENT SPECIALIST) Creatine kinase 30 26 - 192 U/L [facility] Specimen Plasma specimen Performing Organization Address [facility] Phone Number [facility] DEPARTMENT OF PATHOLOGY AND [address] [place] [address] hCG qualitative, urine screen (09/29/2018 8:39 AM STUDENT SPECIALIST) hCG qualitative, NegativeComment: [facility] urine Sensitivity of [facility] test: 25 mIU/mL Specimen Urine Performing Organization Address [facility] Centercode Phone Number [facility] DEPARTMENT OF PATHOLOGY AND [address] [place] [address] MRI Lumbar Spine W Wo Contrast (09/28/2018 10:00 AM STUDENT SPECIALIST) Specimen Narrative Performed At Examination: MRI LUMBAR SPINE W WO CONTRAST [facility] MRI LUMBAR SPINE WITHOUT AND WITH [...] abnormal enhancement of cauda equina nerve roots. [id number] Procedure Note Hm Interface, Radiology Results Incoming - 09/28/2018 10:48 AM STUDENT SPECIALIST Examination: MRI LUMBAR SPINE W WO CONTRAST [...] abnormal enhancement of cauda equina nerve roots. [facility]-[id number] Performing Organization Address City/State/Zipcode Phone Number [facility] [address] [place] [address] MRI Cervical Spine W Wo Contrast (09/28/2018 9:30 AM STUDENT SPECIALIST) Specimen Narrative Performed At EXAMINATION:MRI CERVICAL SPINE W [...] cord is normal size and signal intensity. [facility]-[id number] Procedure Note Hm Interface, Radiology Results Incoming - 09/28/2018 10:42 AM STUDENT SPECIALIST EXAMINATION: MRI CERVICAL SPINE W WO CONTRAST [...] cord is normal size and signal intensity. [facility]-[id number] Performing Organization Address City/[facility]/Zipcode Phone Number [facility] [address] [place] [address] MRI Thoracic Spine W Wo Contrast (09/28/2018 9:00 AM STUDENT SPECIALIST) Specimen Narrative Performed At EXAMINATION:MRI THORACIC SPINE W WO CONTRAST [facility] REASON FOR EXAMINATION:LE weakness COMPARISON: None TECHNIQUE: [...] is normal in size and signal intensity. [facility]-[id number] Procedure Note Interface, Radiology Results Incoming - 09/28/2018 10:45 AM STUDENT SPECIALIST EXAMINATION: MRI THORACIC SPINE W WO CONTRAST [...] is normal in size and signal intensity. [facility]-[id number] Performing Organization Address City/[facility]/Zipcode Phone Number [facility] [address] [place] [address] duplex venous lower extremity (09/28/2018 1:06 AM STUDENT SPECIALIST) Specimen Narrative Performed At [facility] Lower Extremity Venous Report [address] [address], [place] [address] Pat.Name:ANNABELLE BURNETT Pat.ID:[id number] .Date: 09/28/2018Refer.MD:PHYSICIAN, EMERGENCY, MD Exam Time: 12:50:00 AM Study Type:LE Venous DOBAge:1989,29YSex: FEMALE Sonogrphr: Juliet Engle RVFarida. Stat.:[facility]: RF, CPT - 4: 66327 Echo Event ID:[id number] Order ID:[id number] Reason for Study:Bilateral leg numbness X 1 [...] Radiology Results In - 09/28/2018 2:14 PM [facility] Vascular Ultrasound Laboratory Lower Extremity Venous Report [address] [facility] [address], [place] [address] Pat.Name: ANNABELLE BURNETT Pat.ID: [id number] .Date: 09/28/2018 Refer.MD: PHYSICIAN, EMERGENCY, Exam Time: 12:50:00 AM Study Type:LE Venous Age: 806/12/1989,29Y Sex: FEMALE Sonogrphr: Juliet Engle RVT Pat. Stat.:Outpatient Room: [address] Vol: RF, CPT - 4: [address]355 Echo Event ID:[id number] Order ID: [id number] Reason for Study:Bilateral leg numbness X 1 [...] Signed 09/28/2018 02:10 PM Roland Cleary MD, VI Performing Organization Address City/State/Zipcode Phone Number [facility] [address] [place] [address] Urinalysis screen and microscopy, with reflex to culture (09/27/2018 11:51 PM STUDENT SPECIALIST) Specimen site Clean catch [facility] [...] [facility] Leukocyte esterase, Negative Negative [facility] Epithelial cells, UA 17 /HPF [facility] WBC, UA 2 0 - 4 /HPF [facility] RBC, UA <1 0 - 5 /HPF [facility] Bacteria, UA Few None seen [facility] Yeast, UA None seen [facility] Yeast with None seen [facility] pseudohyphae, HOSPITAL Specimen Urine Performing Organization Address [facility] Centercond Phone Number [facility] DEPARTMENT OF PATHOLOGY AND [address] [place] [address] [address] [address] Sedimentation rate (09/27/2018 11:51 PM STUDENT SPECIALIST) Sedimentation rate 37 (H) 0 - 20 mm/hr [facility] Specimen Blood Performing Organization Address City/[facility]/Zipcode Phone Number [facility] DEPARTMENT OF PATHOLOGY AND [address] [place] [address] [address] C-reactive protein (09/27/2018 11:51 PM STUDENT SPECIALIST) CRP <0.30 0.00 - 0.50 mg/dL [facility] Specimen Plasma specimen Performing Organization Address City/[facility]/Zipcode Phone Number [facility] DEPARTMENT OF PATHOLOGY AND [address] [place] [address] [address] Thyroid stimulating hormone (09/27/2018 11:51 PM STUDENT SPECIALIST) TSH 2.30 0.27 - 4.20 uIU/mL [facility] Specimen Plasma specimen Performing Organization Address City/[facility] Centercode Phone Number [facility] DEPARTMENT OF PATHOLOGY AND [address] [place] [phone] T4, free (09/27/2018 11:51 PM STUDENT SPECIALIST) T4, free 1.1 0.9 - 1.7 ng/dL [facility] Specimen Plasma specimen Performing Organization Address City/[facility] Centercode Phone Number [facility] DEPARTMENT OF PATHOLOGY AND [address] [place] [address] Urine culture (09/27/2018 11:45 PM STUDENT SPECIALIST) Urine culture SEE COMMENTComment: [facility] Bacteriuria screen HOSPITAL negative. Specimen Performing Organization Address City/[facility] Centercode Phone Number [facility] DEPARTMENT OF PATHOLOGY AND [address] [place] [phone] after 04/01/2018 Advance Directives Patient has advance care planning documents on file. For more information, please contact:[address] [address]
[2019-04-02] MEDS ORDERED: Ringers Lactate 1,000 ML IV ONE (06:49)
[2019-04-02] MEDS ORDERED: PROPOFOL 200 MG/20 ML VIAL IV ONE (08:29)
--- NOTE | 2019-04-02 14:06 | OP ---
Surgeon: Marvel Nettles MD Procedure To Be Performed: Colonoscopy. Indications For Procedure: Iron-deficiency anemia, diarrhea, abdominal pain. Plan For Anesthesia: Monitored anesthesia care. Complexity: Average. Technique: After obtaining informed consent from the patient, explaining risks and complications, wh ich include, but are not limited to bleeding, infection, perforation, and anesthesia complication, th e patient was placed in a left lateral position and sedation was given. Then subsequently, a digital rectal exam was performed. Then, the scope was inserted into the rectum and carefully guided up til l the terminal ileum. Subsequently scope slowly withdrawn while carefully examining the mucosa. The cecum was identified by the appendiceal orifice and ileocecal valve. Scope withdrawal time was 12 m inutes. Quality of preparation according to Almond prep score was 2 + 2 + 2, equal to 6/9. After e completion of examination, the scope and equipment were withdrawn and procedure terminated in a saf e manner. Findings: The terminal ileum appeared normal. No evidence of colitis or ulceration was seen in the colon. No AVMs were visualized on this exam. In the sigmoid, a 5 mm sessile polyp was seen. This a ppeared to be hyperplastic. This was removed by hot biopsy polypectomy. Also random biopsies taken from different areas of the colon to rule out microscopic colitis. Retroflexion revealed grade 1 int ernal hemorrhoids. Tolerance To Anesthesia: Excellent. Postoperative Diagnosis: Colon polyp. Plan: 1.Await pathology results. 2.Follow up in the GI clinic. 3.If the EGD has been already done, then we will need small bowel workup and capsule endoscopy. US/MODL Voice ID: [id number] Report ID: [id number]
== END 2019-04-02 09:23 | disposition home or self-care (01) ==
LOC: OR 06:25
PROVIDERS: ATTEND Internal Medicine Gastroenterology
PROC: 0DBE8ZX Excision of Large Intestine, Via Natural or Artificial Opening Endoscopic, Diagnostic (ICD-10-PCS; 2019-04-02)
PROC: 0DBN8ZX Excision of Sigmoid Colon, Via Natural or Artificial Opening Endoscopic, Diagnostic (ICD-10-PCS; principal; 2019-04-02 07:30)
DX: K63.5 Polyp of colon (principal); D50.9 Iron deficiency anemia, unspecified; K64.8 Other hemorrhoids; E66.9 Obesity, unspecified
CPT/HCPCS: 36415; 84703; 88305; J2704

== ENCOUNTER 2019-07-09 12:21 | Emergency (ER) | payer OTHER ==
--- OUTSIDE RECORDS SUMMARY | 2019-07-09 12:23 | XMS REPORT | Clinical Summary ---
:1990 Author Organization [facility] Address [address] [place] [address] Care Team Providers Name Role Phone Asked, [...] arm; Hypokalemia; Srikanth Holloway Hives MD after 07/08/2018 Family History Medical History Relation Name Comments [...] Vital Signs Vital Sign Reading Time Taken Comments Blood Pressure 110/58 10/03/2018 8:04 AM SHELLFISH DREDGE OPERATOR Pulse 87 10/03/2018 8:04 AM SHELLFISH DREDGE OPERATOR Temperature 37 C (98.6 F) 10/03/2018 8:04 AM SHELLFISH DREDGE OPERATOR Respiratory Rate 18 10/03/2018 8:04 AM SHELLFISH DREDGE OPERATOR Oxygen Saturation 93% 10/03/2018 8:04 AM SHELLFISH DREDGE OPERATOR Inhaled Oxygen Concentration - - Weight 99.8 kg (220 lb) 09/28/2018 8:02 AM SHELLFISH DREDGE OPERATOR Height 162.6 cm (5' 4") 09/28/2018 2:16 AM SHELLFISH DREDGE OPERATOR Body Mass Index 37.76 09/28/2018 2:16 AM SHELLFISH DREDGE OPERATOR Plan of Treatment Health Maintenance Due Date Last Done Comments CERVICAL CANCER SCREENING 2010 INFLUENZA VACCINE 06/06/2019 Procedures Procedure Name Priority Date/Time Associated Comments Diagnosis MANUAL DIFFERENTIAL Routine 10/03/2018 6:46 Results for this AM SHELLFISH DREDGE OPERATOR procedure are in the results section. CBC WITH PLATELET AND Routine 10/03/2018 6:46 Results for this DIFFERENTIAL AM SHELLFISH DREDGE OPERATOR procedure are in the results section. MANUAL DIFFERENTIAL Routine 10/02/2018 5:30 Results for this AM SHELLFISH DREDGE OPERATOR procedure are in the results section. CBC WITH PLATELET AND Routine 10/02/2018 5:30 Results for this DIFFERENTIAL AM SHELLFISH DREDGE OPERATOR procedure are in the results section. ESTIMATED GFR Routine 10/02/2018 4:00 Results for this AM SHELLFISH DREDGE OPERATOR procedure are in the results section. COMPREHENSIVE Routine 10/02/2018 4:00 Results for this METABOLIC PANEL AM SHELLFISH DREDGE OPERATOR procedure are in the results section. EMG Routine 10/01/2018 1:45 Results for this PM SHELLFISH DREDGE OPERATOR procedure are in the results section. MANUAL DIFFERENTIAL Routine 10/01/2018 5:15 Results for this AM SHELLFISH DREDGE OPERATOR procedure are in the results section. ESTIMATED GFR Routine 10/01/2018 5:15 Results for this AM SHELLFISH DREDGE OPERATOR procedure are in the results section. COMPREHENSIVE Routine 10/01/2018 5:15 Results for this METABOLIC PANEL AM SHELLFISH DREDGE OPERATOR procedure are in the results section. CBC WITH PLATELET AND Routine 10/01/2018 5:15 Results for this DIFFERENTIAL AM SHELLFISH DREDGE OPERATOR procedure are in the results section. MANUAL DIFFERENTIAL Routine 09/30/2018 4:06 Results for this AM SHELLFISH DREDGE OPERATOR procedure are in the results section. ESTIMATED GFR Routine 09/30/2018 4:06 Results for this AM SHELLFISH DREDGE OPERATOR procedure are in the results section. COMPREHENSIVE Routine 09/30/2018 4:06 Results for this METABOLIC PANEL AM SHELLFISH DREDGE OPERATOR procedure are in the results section. CBC WITH PLATELET AND Routine 09/30/2018 4:06 Results for this DIFFERENTIAL AM SHELLFISH DREDGE OPERATOR procedure are in the results section. FOLATE LEVEL Routine 09/29/2018 12:00 Results for this PM SHELLFISH DREDGE OPERATOR procedure are in the results section. VITAMIN B12 LEVEL Routine 09/29/2018 12:00 Results for this PM SHELLFISH DREDGE OPERATOR procedure are in the results section. TOTAL IRON BINDING Routine 09/29/2018 9:28 Results for this CAPACITY AM SHELLFISH DREDGE OPERATOR procedure are in the results section. ALDOLASE, SERUM Routine 09/29/2018 9:28 Results for this AM SHELLFISH DREDGE OPERATOR procedure are in the results section. CREATINE KINASE, TOTAL Routine 09/29/2018 9:28 Results for this (CPK) AM SHELLFISH DREDGE OPERATOR procedure are in the results section. HCG QUALITATIVE, URINE Routine 09/29/2018 8:39 Results for this SCREEN AM SHELLFISH DREDGE OPERATOR procedure are in the results section. MRI LUMBAR SPINE W WO STAT 09/28/2018 10:00 Results for this CONTRAST AM SHELLFISH DREDGE OPERATOR procedure are in the results section. MRI CERVICAL SPINE W STAT 09/28/2018 9:30 Results for this WO CONTRAST AM SHELLFISH DREDGE OPERATOR procedure are in the results section. MRI THORACIC SPINE W STAT 09/28/2018 9:00 Results for this WO CONTRAST AM SHELLFISH DREDGE OPERATOR procedure are in the results section. US DUPLEX VENOUS LOWER STAT 09/28/2018 1:06 Results for this EXTREMITY BILATERAL AM SHELLFISH DREDGE OPERATOR procedure are in the results section. MANUAL DIFFERENTIAL STAT 09/27/2018 11:51 Results for this PM SHELLFISH DREDGE OPERATOR procedure are in the results section. ESTIMATED GFR STAT 09/27/2018 11:51 Results for this PM SHELLFISH DREDGE OPERATOR procedure are in the results section. COMPREHENSIVE STAT 09/27/2018 11:51 Results for this METABOLIC PANEL PM SHELLFISH DREDGE OPERATOR procedure are in the results section. C-REACTIVE PROTEIN STAT 09/27/2018 11:51 Results for this PM SHELLFISH DREDGE OPERATOR procedure are in the results section. SEDIMENTATION RATE STAT 09/27/2018 11:51 Results for this PM SHELLFISH DREDGE OPERATOR procedure are in the results section. T4, FREE STAT 09/27/2018 11:51 Results for this PM SHELLFISH DREDGE OPERATOR procedure are in the results section. THYROID STIMULATING STAT 09/27/2018 11:51 Results for this HORMONE PM SHELLFISH DREDGE OPERATOR procedure are in the results section. CBC WITH PLATELET AND STAT 09/27/2018 11:51 Results for this DIFFERENTIAL PM SHELLFISH DREDGE OPERATOR procedure are in the results section. URINALYSIS SCREEN AND STAT 09/27/2018 11:51 Results for this MICROSCOPY, WITH PM SHELLFISH DREDGE OPERATOR procedure are in REFLEX TO CULTURE the results section. URINE CULTURE STAT 09/27/2018 11:45 Results for this PM SHELLFISH DREDGE OPERATOR procedure are in the results section. after 07/08/2018 Results Manual differential (10/03/2018 6:46 AM SHELLFISH DREDGE OPERATOR)Only the most recent of5 resultswithin the time period is included. Manual differential PERFORMED [facility] Neutrophils 35.0 (L) 39.0 - 69.0 % [facility] Lymphocytes 61.0 (H) 25.0 - 45.0 % [facility] Monocytes 1.0 0.0 - 10.0 % [facility] Eosinophils 3.0 0.0 - 5.0 % [facility] Basophils 0.0 0.0 - 1.0 % [facility] Metamyelocytes 0 % [facility] Promyelocytes 0 % [facility] Reactive lymphocytes Few [facility] Platelet slide review Radha adequate [facility] Anisocytosis Moderate [facility] Ovalocytes Moderate [facility] Specimen Performing Organization Address City/State/Zipcode Phone Number [facility] DEPARTMENT OF PATHOLOGY AND [address] [place] [address] GENOMIC MEDICINE [address] [address] CBC with platelet and differential (10/03/2018 6:46 AM SHELLFISH DREDGE OPERATOR)Only the most recent of5 resultswithin the time period is included. WBC 7.11 4.50 - 11.00 k/uL [facility] RBC 5.41 4.20 - 5.50 m/uL [facility] HGB 11.6 (L) 12.0 - 16.0 g/dL [facility] HCT 38.3 37.0 - 47.0 % [facility] MCV 70.8 (L) 82.0 - 100.0 fL [facility] MCH 21.4 (L) 27.0 - 34.0 pg [facility] MCHC 30.3 (L) 31.0 - 37.0 g/dL [facility] RDW - SD 45.7 37.0 - 55.0 fL [facility] MPV 10.6 8.8 - 13.2 fL [facility] Platelet count 202 150 - 400 k/uL [facility] Nucleated RBC 0.00 /100 WBC [facility] Neutrophils 35.0 (L) 39.0 - 69.0 % [facility] Lymphocytes 61.0 (H) 25.0 - 45.0 % [facility] Monocytes 1.0 0.0 - 10.0 % [facility] Eosinophils 3.0 0.0 - 5.0 % [facility] Basophils 0.0 0.0 - 1.0 % [facility] Specimen Blood Performing Organization Address City/[facility] Phone Number [facility] DEPARTMENT OF PATHOLOGY AND [address] [place] [address] Estimated GFR (10/02/2018 4:00 AM SHELLFISH DREDGE OPERATOR)Only the most recent of4 resultswithin the time period is included. [facility] Estimated GFR >=90 mL/min/1.73 [facility] Comment: HOSPITAL CatergoryUnitsInterpretation G1 >=90 Normal or high G2 60-89Mildly decreased [id number] to moderately decreased M4x49-16Sytfrsmjuq to severely decreased G4 15-29Severely decreased G5 <15Kidney failure The eGFR was calculated using the Chronic Kidney Disease Epidemiology Collaboration (CKD-EPI) equation. Interpretation is based on recommendations of the National Kidney Foundation-Kidney Disease Outcomes Quality Initiative (NKF-KDOQI) published in 2014. Specimen Plasma specimen Performing Organization Address City/[facility] Hospital[facility] Phone Number [facility] DEPARTMENT OF PATHOLOGY AND [address] [place] [address] Comprehensive metabolic panel (10/02/2018 4:00 AM SHELLFISH DREDGE OPERATOR)Only the most recent of4 resultswithin the time period is included. [facility] Sodium 139 135 - 148 [facility] mEq/L [facility] Potassium 4.2 3.5 - 5.0 [facility] mEq/L [facility] Chloride 103 98 - 112 mEq/L [facility] CO2 24 24 - 31 mEq/L [facility] Anion gap 12@ANIO 7 - 15 mEq/L [facility] BUN 13 6 - 20 mg/dL [facility] Creatinine 0.97 (H) 0.50 - 0.90 [facility] mg/dL HOSPITAL Glucose 93 65 - 99 mg/dL [facility] Calcium 8.4 8.3 - 10.2 [facility] mg/dL [facility] Protein 6.2 (L) 6.3 - 8.3 g/dL [facility] Comment: HOSPITAL [place] 4.6-7.0 g/dL 1 week 4.4-7.6 g/dL 7 months-1year5.1-7.3 g/dL 1-2 years5.6-7.5 g/dL >3 years6.0-8.0 g/dL 18-150 6.3-8.3 g/dL Albumin 2.8 (L) 3.5 - 5.0 g/dL [facility] A/G ratio 0.8 0.7 - 3.8 [facility] Alkaline phosphatase 77 35 - 104 U/L [facility] AST 24 10 - 35 U/L [facility] ALT 38 5 - 50 U/L [facility] Total bilirubin 0.3 0.0 - 1.2 [facility] mg/dL [facility] Specimen Plasma specimen Performing Organization Address City/State/Zipcode Phone Number [facility] DEPARTMENT OF PATHOLOGY AND [address] [place] [address] GENOMIC MEDICINE [address] [address] EMG general request (10/01/2018 1:45 PM SHELLFISH DREDGE OPERATOR) Impressions Performed At Ms. Burnett complains of [...] At NERVE CONDUCTION AND ELECTROMYOGRAPHY REPORT Neurological [place], [facility]; [place], [place] [address]; Name: Annabelle Burnett(Des Carranza) Date of Procedure: October 01, 2018Location: Sex: [...] wnlwnl wnlwnlwnl Folate level (09/29/2018 12:00 PM SHELLFISH DREDGE OPERATOR) [facility] Folate 8.7 4.8 - 24.2 ng/mL [facility] Specimen Serum Performing Organization Address City/State/Zipcode Phone Number [facility] DEPARTMENT OF PATHOLOGY AND [address] [place] [phone] Vitamin B12 level (09/29/2018 12:00 PM SHELLFISH DREDGE OPERATOR) [facility] Vitamin B12 474 211 - 946 [facility] Comment: pg/mL HOSPITAL Significant overlap exists between normal and deficiency states. However, most patients with deficiencies will have Serum B12 <200 pg/mL. Specimen Serum Performing Organization Address City/State/Zipcode Phone Number [facility] DEPARTMENT OF PATHOLOGY AND [address] [place], [place] [id number] [address] [address] Total iron binding capacity (09/29/2018 9:28 AM SHELLFISH DREDGE OPERATOR) [facility] Iron level 18 (L) 37 - 145 ug/dL [facility] Iron binding capacity 333 200 - 400 ug/dL [facility] % Saturation 5.4 (L) 15.0 - 38.0 % [facility] Specimen Plasma specimen Performing Organization Address City/[facility] Phone Number [facility] DEPARTMENT OF PATHOLOGY AND [address] [place] [phone] [place] [address] Aldolase, serum (09/29/2018 9:28 AM SHELLFISH DREDGE OPERATOR) Aldolase 4.4 1.5 - 8.1 U/L [facility] Comment: REFERENCE INTERVAL: Aldolase Access complete set of age- and/or gender-specific reference intervals for this test in the [facility] Test Directory ([employer]). Performed by [employer], [address] [place] [address] [email or web address], Ta Pat MD - Lab. Director Specimen Serum Performing Organization Address [facility] Phone Number [facility] [address] [place] [address] [facility] [address] [place] [address] Creatine kinase, total (CPK) (09/29/2018 9:28 AM SHELLFISH DREDGE OPERATOR) Creatine kinase 30 26 - 192 U/L [facility] Specimen Plasma specimen Performing Organization Address [facility] Phone Number [facility] DEPARTMENT OF PATHOLOGY AND [address] [place] [address] hCG qualitative, urine screen (09/29/2018 8:39 AM SHELLFISH DREDGE OPERATOR) hCG qualitative, NegativeComment: [facility] urine Sensitivity of [facility] test: 25 mIU/mL Specimen Urine Performing Organization Address [facility] Phone Number [facility] DEPARTMENT OF PATHOLOGY AND [address] [place] [address] MRI Lumbar Spine W Wo Contrast (09/28/2018 10:00 AM SHELLFISH DREDGE OPERATOR) Specimen Narrative Performed At Examination: MRI LUMBAR [...] abnormal enhancement of cauda equina nerve roots. [id number] Procedure Note Hm Interface, Radiology Results Incoming - 09/28/2018 10:48 AM SHELLFISH DREDGE OPERATOR Examination: MRI LUMBAR SPINE W WO CONTRAST [...] abnormal enhancement of cauda equina nerve roots. [id number] Performing Organization Address City/State/Zipcode Phone Number [facility] [address] [place] [address] MRI Cervical Spine W Wo Contrast (09/28/2018 9:30 AM SHELLFISH DREDGE OPERATOR) Specimen Narrative Performed At EXAMINATION:MRI CERVICAL SPINE [...] cord is normal size and signal intensity. [id number] Procedure Note Hm Interface, Radiology Results Incoming - 09/28/2018 10:42 AM SHELLFISH DREDGE OPERATOR EXAMINATION: MRI CERVICAL SPINE W WO CONTRAST [...] cord is normal size and signal intensity. [id number] Performing Organization Address [facility]/Zipcode Phone Number [facility] [address] [place] [address] MRI Thoracic Spine W Wo Contrast (09/28/2018 9:00 AM SHELLFISH DREDGE OPERATOR) Specimen Narrative Performed At EXAMINATION:MRI THORACIC SPINE [...] is normal in size and signal intensity. [id number] Procedure Note Interface, Radiology Results Incoming - 09/28/2018 10:45 AM SHELLFISH DREDGE OPERATOR EXAMINATION: MRI THORACIC SPINE W WO CONTRAST [...] is normal in size and signal intensity. [id number] Performing Organization Address [facility]/Zipcode Phone Number [facility] [address] [place] [address] duplex venous lower extremity (09/28/2018 1:06 AM SHELLFISH DREDGE OPERATOR) Specimen Narrative Performed At [facility] Vascular Ultrasound Laboratory Lower Extremity Venous Report [id number] [facility] [address], [place] [address] Pat.Name:ANNABELLE BURNTET Pat.ID:[id number] .Date: 09/28/2018Refer.MD:PHYSICIAN, EMERGENCY, Exam Time: 12:50:00 AM Study Type:LE Venous DOBAge:1989,29YSex: FEMALE Sonogrphr: Jarred Goodwin. Stat.:[facility]Vol: , CPT - 4: 51345 Echo Event ID:[id number] Order ID:[id number] Reason for Study:Bilateral leg numbness X 1 [...] Radiology Results In - 09/28/2018 2:14 PM [facility] Vascular Ultrasound Laboratory Lower Extremity Venous Report [address] [facility] [address], [place] [address] Pat.Name: ANNABELLE BURNETT Pat.ID: [id number] .Date: 09/28/2018 Refer.MD: PHYSICIAN, EMERGENCY, MD Exam Time: 12:50:00 AM Study Type:LE Venous Age: 806/12/1989,29Y Sex: FEMALE Sonogrphr: Juliet Engle RVT Pat. Stat.:Outpatient Room: [address] Vol: RF, CPT - 4: 75513 Echo Event ID:[id number] Order ID: [id number] Reason for Study:Bilateral leg numbness X 1 [...] Roland Cleary MD, RPVI Performing Organization Address City/[facility]/Zipcode Phone Number [facility] [address] [place] [address] Urinalysis screen and microscopy, with reflex to culture (09/27/2018 11:51 PM SHELLFISH DREDGE OPERATOR) Specimen site Clean catch [facility] Color, UA Yellow [facility] Appearance, UA Hazy [facility] Specific gravity, UA 1.026 1.001 - 1.035 [facility] pH, UA 6.0 5.0 - 8.5 [facility] Protein, UA 1+ (A) Negative [facility] Glucose, UA Negative Negative [facility] Ketones, UA Negative Negative [facility] Bilirubin, UA Negative Negative [facility] Blood, UA Negative Negative [facility] Nitrite, UA Negative Negative [facility] Urobilinogen, UA <2.0 <2.0 [facility] Leukocyte esterase, Negative Negative [facility] Epithelial cells, UA 17 /HPF [facility] WBC, UA 2 0 - 4 /HPF [facility] RBC, UA <1 0 - 5 /HPF [facility] Bacteria, UA Few None seen [facility] Yeast, UA None seen [facility] Yeast with None seen [facility] pseudohyphae, [facility] Specimen Urine Performing Organization Address [facility] Phone Number [facility] DEPARTMENT OF PATHOLOGY AND [address] [place] [address] [address] Sedimentation rate (09/27/2018 11:51 PM SHELLFISH DREDGE OPERATOR) Sedimentation rate 37 (H) 0 - 20 mm/hr [facility] Specimen Blood Performing Organization Address City/[facility]/Zipcode Phone Number [facility] DEPARTMENT OF PATHOLOGY AND [address] [place] [address] [address] C-reactive protein (09/27/2018 11:51 PM SHELLFISH DREDGE OPERATOR) CRP <0.30 0.00 - 0.50 mg/dL [facility] Specimen Plasma specimen Performing Organization Address City/[facility]/Zipcode Phone Number [facility] DEPARTMENT OF PATHOLOGY AND [address] [place] [address] [address] Thyroid stimulating hormone (09/27/2018 11:51 PM SHELLFISH DREDGE OPERATOR) TSH 2.30 0.27 - 4.20 uIU/mL [facility] Specimen Plasma specimen Performing Organization Address City/[facility] Phone Number [facility] DEPARTMENT OF PATHOLOGY AND [address] [place] [phone] [place] [address] T4, free (09/27/2018 11:51 PM SHELLFISH DREDGE OPERATOR) T4, free 1.1 0.9 - 1.7 ng/dL [facility] Specimen Plasma specimen Performing Organization Address City/[facility] Phone Number [facility] DEPARTMENT OF PATHOLOGY AND [address] [place] [address] Urine culture (09/27/2018 11:45 PM SHELLFISH DREDGE OPERATOR) Urine culture SEE COMMENTComment: [facility] Bacteriuria screen HOSPITAL negative. Specimen Performing Organization Address City/[facility] Phone Number [facility] DEPARTMENT OF PATHOLOGY AND [address] [place] [address] after 07/08/2018 Advance Directives For more information, please contact: [phone] Type Date Recorded Patient Lead Infrastructure Architect Explanation Advance Directives, Living 09/28/2018 1:22 AM Will and Medical Power of Dressage Judge
--- OUTSIDE RECORDS SUMMARY | 2019-07-09 12:24 | XMS REPORT ---
:1990 Author Organization [facility] Address [facility] [address] [place] [address] Care Team Providers Name Role Phone Unavailable Unavailable Unavailable Problems This patient has no known problems. Allergies, Adverse Reactions, Alerts This patient has no known allergies or adverse reactions. Medications This patient has no known medications.
--- OUTSIDE RECORDS SUMMARY | 2019-07-09 12:24 | XMS REPORT | Summary of Care ---
:1990 Author Organization [id number] | [employer] Address [address] [place] [id number] Care Team Providers Name Role Phone Tia Miramontes [facility] Primary Care Provider Reason for Visit Reason Comments Well Woman Exam Encounter Details Date Type Department Care Team Description 06/24/2019 Office Visit [facility]- Tia Miramontes, Well woman exam (Primary Dx); [facility] H/O tubal ligation; [address] Obesity (BMI 30-39.9); [place], [place] A Screen for STD (sexually transmitted disease) [id number] [place], [place] [address] Allergies No Known Allergiesdocumented as of this encounter (statuses as of 06/24/2019) Medications Medication Sig Dispensed Refills Start Date End Date Status OMEPRAZOLE ORAL Take by mouth. 0 Active topiramate (QUDEXY Take 1 Tab by 0 Discontinued XR) 50 mg CSpX mouth at bedtime. 9 Polyethylene Take 2 Packets by 20 Packet 0 01/10/2018 Discontinued Glycol 3350 mouth every 2 9 (MIRALAX) 17 gram (two) hours as powder needed for Constipation for up to 20 doses. dicyclomine Take 1 tablet by 16 tablet 0 05/28/2018 Discontinued (BENTYL) 20 mg mouth 4 (four) 9 tablet times daily. norgestimate-ethin Take 1 tablet by 1 Package 2 05/31/2018 Discontinued yl estradiol mouth daily. 9 (ORTHO TRI-CYCLEN, 28,) 0.18/0.215/0.25 mg-35 mcg (28) tabletIndications: Pain pelvic documented as of this encounter (statuses as of 06/24/2019) Active Problems Problem Noted Date Pain pelvic 05/30/2018 Vaginal discharge 01/23/2017 Obesity (BMI 30-39.9) 02/02/2016 Well woman exam 02/02/2016 H/O tubal ligation 02/02/2016 Contraceptive management 02/02/2016 Seizure disorder 02/02/2016 documented as of this encounter (statuses as of 06/24/2019) Resolved Problems Problem Noted Date Resolved Date Screen for STD (sexually transmitted disease) 11/23/2016 01/23/2017 Need for Tdap vaccination 02/02/2016 01/23/2017 documented as of this encounter (statuses as of 06/24/2019) Immunizations Name Administration Dates Next Due Tdap 01/26/2016 documented as of this encounter Social History Tobacco Use Types Packs/Day Years Used Date Never Smoker Smokeless Tobacco: Never Used Alcohol Use Drinks/Week oz/Week Comments No 0 Standard drinks or equivalent 0.0 Sex Assigned at Date Recorded Not on file Job Start Date Occupation Industry Not on file Not on file Not on file Travel History Travel Start Travel End No recent travel history available. documented as of this encounter Last Filed Vital Signs Vital Sign Reading Time Taken Comments Blood Pressure 129/87 06/24/2019 8:13 AM CDT Pulse 72 06/24/2019 8:13 AM CDT Temperature 37 C (98.6 F) 06/24/2019 8:13 AM CDT Respiratory Rate 16 06/24/2019 8:13 AM CDT Oxygen Saturation - - Inhaled Oxygen Concentration - - Weight 102.2 kg (225 lb 4 oz) 06/24/2019 8:13 AM CDT Height 162.6 cm (5' 4") 06/24/2019 8:13 AM CDT Body Mass Index 38.66 06/24/2019 8:13 AM CDT documented in this encounter Patient Instructions Patient InstructionsIra Horvath LVN - 06/24/2019 7:45 AM CDT Clinical Breast Exam Many health organizations recommend a yearly clinical breast exam. This exam may be done by a building rental superintendent, family healthcare provider, nurse practitioner, nurse banking assistant, or specially trained nurse. Yearly breast exams help tomake surethat breast conditions are found early. Your healthcare providers role A healthcare professional knows the tests and follow-up care needed if a problem is found. Your clinical exam is also a great time to ask questions about breast self-exams. You can find out if yourechecking your breasts in the best way. Or you may want to ask how , breast implants, or breast reduction surgery affect the way you should check your breasts. Diagnostic tests If a clinical exam reveals a breast change, you may have other tests to find out more. These tests may include: Mammography. A low-dose X-ray of your breast tissue. Ultrasound. An imaging test that uses sound waves to create images of your breast. Biopsy. A small amount of breast tissue is removed by needle or by a cut ( incision). The tissue is then checked under a microscope. Guidelines for having clinical breast exams The [place] [employer] recommends that starting at age 29, you should have a clinical breast exam every 1 to 3 years. After age 40, have a clinical breast exam each year. If youre at higher risk for breast cancer, you may need exams more often. Risk factors for breast cancer may include: Being over 50 or postmenopausal Having a family history of breast cancer Having the BRCA1 or BRCA2 gene mutation or certain other gene mutations Having more menstrual periods due to starting menstruation early(before age 12) or having a late menopause (after age 55) Having no pregnancies Having a first after age 30 Being obese Having a history of radiation treatment to your chest area Exposure to BRIDGER during your mother's Not being active Drinking too much alcohol Having dense breast tissue Taking hormone therapy after menopause Other health organizations have different recommendations. Talk with your healthcare provider about what is best for you. Date Last Reviewed: 06/06/201719990686-5803 [employer]. [address] [place] [address], [place] [address]. All rights reserved. This information is not intended as a substitute for professional medical care. Always follow your healthcare professional's instructions. Breast Health: Breast Self-Awareness What is breast self-awareness? Breast self-awareness is knowing how your breasts normally look and feel. Your breasts change as yougo through different stages of your life. So its important to learn what is normal for your breasts. Breast self-awareness helps you notice any changes in your breasts right away. Report any changesto your healthcare provider. Why is breast self-awareness important? Many experts now say that women should focus on breast self-awareness instead of doing a breast self-examination (BSE). These experts include the [place] [employer], the U.S. Preventive Services Task Force, and the [place] [employer]. Some experts even advise notteaching women to do a BSE. Thats because research hasnt shown a clear benefit to doing BSEs. Breast self-awareness is different than a BSE. Breast self-awareness isnt about following a certain method and schedule. Its about knowing what's normal for your breasts. That way you can notice even small changes right away. If you see any changes, report them to your healthcare provider. Changes to look for Call your healthcare provider if you find any changes in your breasts that concern you. These changes may include: A lump Nipple discharge other than breastmilk, especially a bloody discharge Swelling A change in size or shape Skin irritation, such as redness, thickening, or dimpling of the skin Swollen lymph nodes in the armpit Nipple problems, such as pain or redness If you find a lump Contact your provider if you find lumpiness in one breast, feel something different in the tissue, or feel a definite lump. Sometimes lumpiness may be due to menstrual changes. But there may be reason for concern. Your provider may want to see you right away if you have: Nipple discharge that is bloody Skin changes on your breast, such as dimpling or puckering Its normal to be upset if you find a lump. But its important to contact your provider right away. Remember that most breast lumps are benign. This means they are not cancer. Date Last Reviewed: 06/06/201719990590-7931 [employer]. [address] [place] [address], [place] [address]. All rights reserved. This information is not intended as a substitute for professional medical care. Always follow your healthcare professional's instructions. Prevention Guidelines,Women Ages 18 to 39 Screening tests and vaccines are an important part of managing your health. A screening test is doneto find possible disorders or diseases in people who don' t have any symptoms. The goal is to find a disease early so lifestyle changes can be made and you can be watched more closely to reduce the riskof disease, or to detect it early enough to treat it most effectively. Screening tests are not considered diagnostic, but are used to determine if more testing is needed. Health counseling is essential, too. Below are guidelines for these, for women ages 18 to 39. Talk with your healthcare provider tomake sure youre up-to- date on what you need. Screening Who needs it How often Alcohol misuse All women in this age group At routine exams Blood pressure All women in this age group Yearly checkup if your blood pressure is normal Normal blood pressure is less than 120/80 mm Hg If your blood pressure reading is higher than normal, follow the advice of your healthcare provider Breast cancer All women in this age group should talk with their healthcare providers about the needfor clinical breast exams (CBE)1 Clinical breast exam every 3 years1 Cervical cancer Women ages 21 and older Women between ages 21 and 29 should have a Pap test every 3 years; women between ages 30 and 65 are advised to have a Pap test plus an HPV test every 5 years Chlamydia Sexually active women ages 25 and younger, and women at increased risk for infection (suchas having multiple sex partners) Every year if you're at risk or have symptoms Depression All women in this age group At routine exams Type 2 diabetes, prediabetes All women with no symptoms who are overweight or obese and have 1 or more other risk factors for diabetes At least every 3 years. Also, testing for diabetes during after the 24th week. Type 2 diabetes, prediabetes All women diagnosed with gestational diabetes Lifelong testing every 3 years Type 2 diabetes All women with prediabetes Every year Gonorrhea Sexually active women at increased risk for infection At routine exams Hepatitis C Anyone at increased risk At routine exams HIV All women should be tested at least once for HIV between the ages of 13 and 64 At routine exams.Those with risk factors for HIV should be tested at least annually. Obesity All women in this age group At routine exams Syphilis Women at increased risk for infection should talk with their healthcare provider At routineexams Tuberculosis Women at increased risk for infection should talk with their healthcare provider Ask your healthcare provider Vision All women in this age group At least 1 complete exam in your 20s, and 2 in your 30s Vaccine2 Who needs it How often Chickenpox (varicella) All women in this age group who have no record of this infection or vaccine 2doses; the second dose should be given 4 to 8 weeks after the first dose Hepatitis A Women at increased risk for infection should talk with their healthcare provider 2 dosesgiven at least 6 months apart Hepatitis B Women at increased risk for infection should talk with their healthcare provider 3 dosesover 6 months; second dose should be given 1 month after the first dose; the third dose should be given at least 2 months after the second dose and at least 4 months after the first dose Haemophilus influenzaeType B (HIB) Women at increased risk for infection should talk with their healthcare provider 1 to 3 doses Human papillomavirus (HPV) All women in this age group up to age 26 3 doses; the second dose should be given 1 to 2 months after the first dose and the third dose given 6 months after the first dose Influenza (flu) All women in this age group Once a year Measles, mumps, rubella (MMR) All women in this age group who have no record of these infections or vaccines 1 or 2 doses Meningococcal Women at increased risk for infection should talk with their healthcare provider 1 or more doses Pneumococcal conjugate vaccine (PCV13)and pneumococcal polysaccharide vaccine(PPSV23) Women at increased risk for infection should talk with their healthcare provider PCV13: 1 dose ages 19 to 65 (protects against 13 types of pneumococcal bacteria) PPSV23: 1 to2 doses through age 64, or 1 dose at 65 or older (protects against 23 types of pneumococcal bacteria) Tetanus/diphtheria/pertussis (Td/Tdap) booster All women in this age group Td every 10 years, or a one-time dose of Tdap instead of a Td booster after age 18 , then Td every 10 years Counseling Who needs it How often BRCA gene mutation testing for breast and ovarian cancer susceptibility Women with increased risk for having gene mutation When your risk is known Breast cancer and chemoprevention Women at high risk for breast cancer When your risk is known Diet and exercise Women who are overweight or obese When diagnosed, and then at routine exams Domestic violence Women at the age in which they are able to have children At routine exams Sexually transmitted infection prevention Women who are sexually active At routine exams Skin cancer Prevention of skin cancer in fair-skinned adults At routine exams Use of tobacco and the health effects it can cause All women in this age group Every visit 1 According to the ACS, women ages 20 to 39 years should have a clinical breast exam (CBE) as part of their routine health exam every 3 years. Breast self- exams are an option for women starting in their 20s.But the USPSTF does not recommend CBE. Date Last Reviewed: 08/06/201719997932-2759 [employer]. [address] [place] [address]. All rights reserved. This information is not intended as a substitute for professional medical care. Always follow your healthcare professional's instructions. Understanding STDs When it comes to sex, nothing is risk-free. Any sexual contact with the penis, vagina, anus, or mouth can spread a sexually transmitted disease (STD). The only sure way to prevent STDs is abstinence (not having sex). But there are ways to make sex safer. Use a latex condom each time you have sex. And choose your partner wisely. Use condoms for safer sex If you have sex, latex condoms provide the best protection against STDs. Latex condoms stop the exchange of body fluids that carry certain STDs. They also limit contact with affected skin. Be aware though, a condom doesnt cover all skin. So, affected skin that is not covered can still transfer disease. But you re safer with a condom than without one. Use a condom even if you use other control. While control methods like the pill or IUD help prevent , they do not protect against STDs. Choose the right condom Condoms made of latex prevent disease best. If youre allergic to latex, use polyurethane condoms instead. Male condoms fit over the penis. Female condoms line the vagina. Before buying a condom, read the label to be sure it prevents disease. Some novelty condoms dont. The right lubricant helps Buy lubricated condoms or use lubricant. This provides greater comfort and reduces the risk of condom breakage. Use only water-based lubricants. Dont use oil, lotion, or petroleum jelly. They can weaken the condom, causing breakage. Also, you may want to choose lubricants without nonoxynol-9. Its now known that this spermicide does not prevent disease and may cause irritation. Use condoms correctly For condoms to work, they must be used the right way. Keep these tips in mind: Use a new latex condom each time you have sex. Slip the condom on the penis before any contact ismade. When ready to withdraw, hold the rim of the condom as the penis pulls out. This prevents the condom from slipping off. Check the expiration date before using a condom. Dont store condoms in places that can get hot, such as a car or a wallet that is carried in a back pocket. Get to know your partner Safer sex is a process. It involves getting to know your partner and making informed choices. Ask each other how many partners you have had in the past, and how many you have now. Find out if either ofyou has an STD. If you decide to have sex, use a condom each time. Dont stop using condoms unlessyoure sure neither of you has other partners and youve both been tested to confirm you donthave STDs. Then stay free of disease by having sex only with each other (monogamy). Keep your cool Dont let alcohol or drugs cloud your judgment. They could lead you to have sex with someone you wouldnt have chosen if you were sober. Or, you might forget to use a condom. If you do plan to havesex, keep a latex condom with you. Dont wait until youre in the heat of passion to try to findone. Consider abstinence The only way to be sure you wont get an STD is to abstain from sex. Abstinence is a choice that many people make at some point in their lives. Maybe you want to wait until you are sure youre ready before you have sex. Maybe youd like a break from the responsibilities of sex for a while. Or maybe you just want to know your partner better before taking the next step. Abstinence is a choice youcan make now to protect your future. Date Last Reviewed: 10/06/201619993693-6473 [employer]. [address] [place] [address], [place] [address]. All rights reserved. This information is not intended as a substitute for professional medical care. Always follow your healthcare professional's instructions. Understanding HIV and AIDS If you know how HIV (human immunodeficiency virus) can get into your body and what happens once its there, youll be better prepared to protect yourself or others against this virus. A person withHIV can look and feel perfectly healthy. But that person can give HIV to others as soon as he or sheis infected with the virus. Note: Having unsafe or unprotected sex or sharing needles put you at risk for HIV. Talk with your healthcare provider about ways to protect yourself or a loved one from getting HIV. How HIV enters the body HIV is carried in semen, vaginal fluid, blood, and breast milk. During sex, HIV can enter the body through the fragile tissue that lines the vagina, penis, anus,and mouth. During drug use, tattooing, or body piercing, the virus can enter the bloodstream through a shared needle. A mother who has HIV can infect her child during childbirth and through . How HIV infection progresses After HIV enters the body, it attacks the immune system in stages. A person with HIV can infect others once the virus enters the bloodstream. HIV with no symptoms. A person with HIV may have no symptoms for years. A positive blood test for HIV antibodies 6 weeks to 6 months after HIV enters the body may be the only sign of infection. HIV with symptoms.Some people develop an illness similar to mononucleosis (or "mono") 2 to 4 weeksafter the virus enters the body. Symptoms may include swollen lymph glands, chills, fever, night sweats, weakness, weight loss, skin rashes, mouth ulcers, or sore throat. Symptoms may be mild at first and then slowly go away. In a very few individuals, symptoms may get progressively worse and last forlonger and longer periods. AIDS. AIDS is the last stage of HIV infection. Diseases and cancers begin to overcome the body. It is these diseases, not the virus itself, that cause . HIV may also attack the brain and nervous system, causing seizures and loss of memory and body movement. Date Last Reviewed: 09/06/201619995989-5173 [employer]. [address] [place] [address]. All rights reserved. This information is not intended as a substitute for professional medical care. Always follow your healthcare professional's instructions. Understanding USDA MyPlate The USDA (U.S. Department of Agriculture) has guidelines to help you make healthy food choices. These are called MyPlate. MyPlate shows the food groups that make up healthy meals using the image of a place setting. Before you eat, think about the healthiest choices for what to put onto your plate or into your cup or bowl. To learn more about building a healthy plate, visit www.choosemyplate.gov. The food groups Fruits. Any fruit or 100% fruit juice counts as part of the Fruit Group. Fruits may be fresh, canned, frozen, or dried, and may be whole, cut-up, or pureed. Make half your plate fruits and vegetables. Vegetables. Any vegetable or 100% vegetable juice counts as a member of the Vegetable Group. Vegetables may be fresh, frozen, canned, or dried. They can be served raw or cooked and may be whole, cut-up, or mashed. Make half your plate fruits and vegetables. Grains. All foods made from grains are part of the Grains Group. These include wheat, rice, oats,cornmeal, and barley such as bread, pasta, oatmeal, cereal, tortillas, and grits. Grains should be no more than a quarter of your plate. At least half of your grains should be whole grains. Protein. This group includes meat, poultry, seafood, beans and peas, eggs, processed soy products(like tofu), nuts (including nut butters), and seeds. Make protein choices no more than a quarter ofyour plate. Meat and poultry choices should be lean or low fat. Dairy. All fluid milk products and foods made from milk that contain calcium , like yogurt and cheese, are part of the Dairy Group. (Foods that have little calcium, such as cream, butter, and cream cheese, are not part of the group.) Most dairy choices should be low-fat or fat-free. Oils. These are fats that are liquid at room temperature. They include canola , corn, olive, soybean, and sunflower oil. Foods that are mainly oil include mayonnaise, certain salad dressings, and soft margarines. You should have only 5 to 7 teaspoons of oils a day. You probably already get this muchfrom the food you eat. Date Last Reviewed: 06/06/201719993153-[address] [employer] [place] [address], [place] [address]. All rights reserved. This information is not intended as a substitute for professional medical care. Always follow your healthcare professional's instructions. Eating Heart-Healthy Foods Eating has a big impact on your heart health. In fact, eating healthier can improve several of your heart risks at once. For instance, it helps you manage weight, cholesterol, and blood pressure. Here are ideas to help you make heart- healthy changes without giving up allthe foods and flavors you love. Getting started Talk with your healthcare provider about eating plans, such as the DASH or Mediterranean diet. You may also be referred to a dietitian. Change a few things at a time. Give yourself time to get used to a few eating changes before adding more. Work to create a tasty, healthy eating plan that you can stick to for the rest of your life. Goals for healthy eating Below are some tips to improve your eating habits: Limit saturated fats and trans fats. Saturated fats raise your levels of cholesterol, so keep these fats to a minimum. They are found in foods such as fatty meats, whole milk, cheese, and palm and coconut oils. Avoid trans fats because they lower good cholesterol as well as raise bad cholesterol. Trans fats are most often found in processed foods. Reduce sodium (salt) intake. Eating too much salt may increase your blood pressure. Limit your sodium intake to 2,300 milligrams (mg) per day(the amount in 1 teaspoon of salt), or less if your healthcare provider recommends it. Dining out less often and eating fewer processed foods are two great ways to decrease the amount of salt you consume. Managing calories. A calorie is a unit of energy. Your body dailey calories for fuel, but if you eat more calories than your body dailey, the extras are stored as fat. Your healthcare provider can help you create a diet plan to manage your calories. This will likely include eating healthier foods as well as exercising regularly. To help you track your progress, keep a diary to record what you eat and how often you exercise. Choose the right foods Aim to make these foods gagandeep of your diet. If you have diabetes, you may have different recommendations than what is listed here: Fruits and vegetables provide plenty of nutrients without a lot of calories. At meals, fill half your plate with these foods. Split the other half of your plate between whole grains and lean protein. Whole grains are high in fiber and rich in vitamins and nutrients. Good choices include whole-wheat bread, pasta, and brown rice. Lean proteins give you nutrition with less fat. Good choices include fish, skinless chicken, and beans. Low-fat or nonfat dairy provides nutrients without a lot of fat. Try low-fat or nonfat milk, cheese, or yogurt. Healthy fats can be good for you in small amounts. These are unsaturated fats , such as olive oil,nuts, and fish. Try to have at least 2 servings per week of fatty fish, such as salmon, sardines, mackerel, rainbow trout, and albacore tuna. These contain omega-3 fatty acids, which are good for your heart. Flaxseed is another source of a heart-healthy fat. More on heart-healthy eating Read food labels Healthy eating starts at the grocery store. Be sure to pay attention to food labels on packaged foods. Look for products that are high in fiber and protein, and low in saturated fat, cholesterol, and sodium. Avoid products that contain trans fat. And pay close attention to serving size. For instance, if you plan to eat two servings, double all the numbers on the label. Prepare food right A romano part of healthy cooking is cutting down on added fat and salt. Look on the internet for lower-fat, lower-sodium recipes. Also, try these tips: Remove fat from meat and skin from poultry before cooking. Skim fat from the surface of soups and sauces. Broil, boil, bake, steam, grill, and microwave food without added fats. Choose ingredients that spice up your food without adding calories, fat, or sodium. Try these items: horseradish, hot sauce, lemon, mustard, nonfat salad dressings, and vinegar. For salt-free herbs and spices, try basil, cilantro, cinnamon, pepper, and maria del rosario. Date Last Reviewed: 08/06/201719998152-[address] [employer] [place] [address]. All rights reserved. This information is not intended as a substitute for professional medical care. Always follow your healthcare professional's instructions. documented in this encounter Progress Notes Ira Horvath LVN - 06/24/2019 7:45 AM CDT29 year old presented to the clinic for WWE. 1) Previous BCM:BTL 2) Desired BCM: BTL 3) LMP: 06/16/2019 4) Last [place]: 06/05/2019 5) Last Pap:01/2016 Results:negative 6) Tdap in last 10 years? 01/26/2016 HPV?no 7) C/O none 8) Patient denies history of physical, emotional, or sexual abuse. Patient states she currently feels safe at home. Louis Tia Jayden, DISTRIBUTION SUPERINTENDENT - 06/24/2019 7:45 AM CDT Chief complaint: Chief Complaint Patient presents with Well Woman Exam HPI Here for Well Woman Exam and contraceptive management. Patient has BTL for contraception. Reviewed risks/benefits/alternative contraceptive methods. Denies cramps, vaginal discharge, genital lesions, breast pain and vaginal pain. Desires STD testing. Pt reports no past or present history of physical, sexual, and emotional abuse. Rubella: N/A VZV:N/A BMI: Body mass index is 38.66 kg/m. Td: 2015 Pap Smear: 01/2016 NILM, due for pap with cotesting Gardasil: N/A Mammogram:N/A Guaiac:N/A Colonoscopy:N/A Histories OB History Para Term AB Living 3 3 3 SAB TAB Ectopic Multiple Live Births # Outcome Date GA Lbr Devon/2nd Weight Sex Delivery Anes PTL Lv 3 Para 2 Para 1 Para Past Medical History: Diagnosis Date Anemia Migraines Seizures last seizure 08/2015 Family History Problem Relation Age of Onset Hypertension Father Other - see comments Sister liver and kidney Breast Cancer Maternal Grandmother Arthritis NoFHx Asthma NoFHx defects NoFHx Colon Cancer NoFHx Ovarian Cancer NoFHx Uterine Cancer NoFHx Cancer NoFHx Depression NoFHx Diabetes NoFHx Genetic NoFHx High cholesterol NoFHx Heart NoFHx Mental retardation NoFHx Neurological NoFHx Osteoporosis NoFHx Psychiatry NoFHx Family Status Relation Name Status Fa (Not Specified) Sis (Not Specified) MGMo (Not Specified) NoFHx (Not Specified) Past Surgical History: Procedure Laterality Date SECTION TUBAL LIGATION 2010 Social History Socioeconomic History Marital status: Single Spouse name: Not on file Number of children: Not on file Years of education: Not on file Highest education level: Not on file Occupational History Not on file Social Needs Financial resource strain: Not on file Food insecurity: Worry: Not on file Inability: Not on file Transportation needs: Medical: Not on file Non-medical: Not on file Tobacco Use Smoking status: Never Smoker Smokeless tobacco: Never Used Substance and Sexual Activity Alcohol use: No Alcohol/week: 0.0 oz Drug use: No Sexual activity: Yes Partners: Male control/protection: Surgical Comment: last sexual intercourse 06/05/2019 Lifestyle Physical activity: Days per week: Not on file Minutes per session: Not on file Stress: Not on file Relationships Social connections: Talks on phone: Not on file Gets together: Not on file Attends synagogue service: Not on file Active member of club or organization: Not on file Attends meetings of clubs or organizations: Not on file Relationship status: Not on file Intimate partner violence: Fear of current or ex partner: Not on file Emotionally abused: Not on file Physically abused: Not on file Forced sexual activity: Not on file Other Topics Concern Not on file Social History Narrative Worship preference none. Patient lives with children. Social History Substance and Sexual Activity Sexual Activity Yes Partners: Male control/protection: Surgical Comment: last sexual intercourse 06/05/2019 Labs I have reviewed the patient's labs. and Labs are pending. Radiology No new radiology. Allergies [place] has No Known Allergies. Medications [place] has a current medication list which includes the following prescription(s ): omeprazole, norgestimate-ethinyl estradiol, dicyclomine, polyethylene glycol 3350, and topiramate. Review of Systems Constitutional: Negative. HENT: Negative. Eyes: Negative. Respiratory: Negative. Breasts: Negative. Cardiovascular: Negative. Gastrointestinal: Negative. Genitourinary: Negative. Musculoskeletal: Negative. Skin: Negative. Neurological: Negative. Psychiatric/Behavioral: Negative. Endocrine: Endocrine negative BP 129/87 (BP Location: Right arm, Patient Position: Sitting, BP CUFF SIZE: Adult Small) | Pulse 72 | Temp 37 C (98.6 F) (Oral) | Resp 16 | Ht 5' 4" (1.626 m) | Wt 225 lb 4 oz (102.2 kg) | LMP 06/16/2019 (Exact Date) | BMI 38.66 kg/m Pregravid BMI: Could not be calculated Physical Exam Vitals reviewed. Constitutional: She is oriented to person, place, and time. She appears well- developed and well-nourished. Her body habitus is normal and obese. Neck: No thyroid nodules and no thyromegaly palpated. Cardiovascular: Regular rate and rhythm. No murmur auscultated. Pulmonary/Chest: Breath sounds clear to auscultation. Normal inspiratory effort. Abdominal: Abdomen is soft. No mass palpated. No tenderness present. There is no hepatosplenomegaly. Neuro/Psychiatric: She has a normal mood and affect. She is oriented to person, place, and time. Skin: Skin normal. No lesion and no rash present. Genitourinary Comments: Chaperoned by: Chani Smith MA Breast: Right breast exhibits no mass, no nipple discharge and no tenderness. Left breast exhibits no mass, no nipple discharge and no tenderness. Normal left breast and normal right breast External genitalia: Normal external genitalia appropriate for age. No labial lesion. Bladder: No tenderness. Normal bladder Vagina:Normal vagina. No lesion inspected. No abnormal vaginal discharge found. Cervix: Normal cervix. No lesion. No tenderness and no discharge present. Uterus: Uterus is normal size, normal position and non-tender. Normal uterus Adnexa: Right adnexa without tenderness. Left adnexa without tenderness. Normal left adnexa and normal right adnexa Assessment/Plan 1. Well woman exam CBE performed, educated patient regarding self breast awareness. SBE monthly. Patient advised mammograms to begin at age 40 Encourage green leafy vegetables, lean meats and fruit in diet. Avoid fatty, fried, sugary foods. Increase H2O intake (1/2 body weight in ozs). Exercise 30 minutes daily x 7 days/week as tolerated. Follow up 1 year - PAP Smear-Liquid Based - HIGH RISK HPV-THIN PREP 2. H/O tubal ligation Satisfied with method 3. Obesity (BMI 30-39.9) The patient is asked to make an attempt to improve diet and exercise patterns to aid in medical management of this problem. 4. Screen for STD (sexually transmitted disease) Reviewed safe sex practices - TRICHOMONAS AMPLIFIED ASSAY - GC & CHLAMYDIA AMPLIFIED ASSAY Discussed treatment options. Reviewed patient instructions and provided printed copy. This visit did not involve counseling and coordination that comprised more than 50% of the visit time. documented in this encounter Plan of Treatment Name Type Priority Associated Diagnoses Date/Time PAP Smear-Liquid Based LAB Routine Well woman exam 06/24/2019 8:42 AM CDT HIGH RISK HPV-THIN PREP LAB Routine Well woman exam 06/24/2019 8:42 AM CDT TRICHOMONAS AMPLIFIED LAB Routine Screen for STD (sexually 06/24/2019 9: 01 AM ASSAY transmitted disease) CDT GC & CHLAMYDIA AMPLIFIED LAB Routine Screen for STD (sexually 06/24/2019 9 :01 AM ASSAY transmitted disease) CDT Health Maintenance Due Date Last Done Comments PAP SMEAR 01/25/2019 01/26/2016 INFLUENZA VACCINE (#1) 2019 DTaP,Tdap,and Td Vaccines (2 - 01/25/2026 01/26/2016 Td) PNEUMOCOCCAL 0-64 YEARS COMBINED Aged Out No longer eligible based on SERIES patient's age to complete this topic VARICELLA VACCINES Discontinued documented as of this encounter Results Not on filedocumented in this encounter Visit Diagnoses Diagnosis Well woman exam - Primary Routine general medical examination at a health care facility H/O tubal ligation Tubal ligation status Obesity (BMI 30-39.9) Obesity, unspecified Screen for STD (sexually transmitted disease) Screening examination for venereal disease documented in this encounter Insurance Payer Benefit Plan Subscriber ID Effective Phone Address Type / Group Dates [facility] xxxxxxxxx 2016-Prese [phone] Medicaid WOMEN nt [address] [place] [address] (Home) [facility] [address] [place] [address] documented as of this encounter Advance Directives Name Relationship Healthcare Agent Relationship Communication Yvette Burnett Sibling Primary healthcare agent
--- OUTSIDE RECORDS SUMMARY | 2019-07-09 12:24 | XMS REPORT | Summary of Care ---
:1990 Author Organization [facility] Address [address] [place] [address] Care Team Providers Name Role Phone Unavailable Primary Care Provider Unavailable Reason for Visit Reason Comments LAB WORK bartolome Auth/Cert Status Reason Specialty Diagnoses / Referred By Referred To Procedures Contact Contact OB Satellites Procedures [facility] [address] [place] [address] Encounter Details Date Type Department Care Team Description 06/07/2016 Nurse Visit [facility]- Sirena Haro, CNP [address] [place] [address] Chlamydia trachomatis [place] Visit, [facility] Nurse infection of lower [address] [facility] genitourinary sites [place], [place] (Primary Dx) [phone] Allergies No Known Allergiesdocumented as of this encounter (statuses as of 06/24/2019) Medications Medication Sig Dispensed Refills Start Date End Date Status topiramate (QUDEXY Take 1 Tab by 0 06/24/2019 Discontinued XR) 50 mg CSpX mouth at bedtime. documented as of this encounter (statuses as of 06/24/2019) Active Problems Problem Noted Date Obesity (BMI 30-39.9) 02/02/2016 Well woman exam 02/02/2016 H/O tubal ligation 02/02/2016 Contraceptive management 02/02/2016 Seizure disorder 02/02/2016 documented as of this encounter (statuses as of 06/24/2019) Resolved Problems Problem Noted Date Resolved Date Need for Tdap vaccination 02/02/2016 01/23/2017 documented [...] Sign Reading Time Taken Comments Blood Pressure 122/83 06/07/2016 2:57 PM CDT Pulse 70 06/07/2016 2:57 PM CDT Temperature 36.7 C (98.1 F) 06/07/2016 2:57 PM CDT Respiratory Rate 18 06/07/2016 2:57 PM CDT Oxygen Saturation - - Inhaled Oxygen Concentration - - Weight 100.9 kg (222 lb 6 oz) 06/07/2016 2:57 PM CDT Height 162.6 cm (5' 4") 06/07/2016 2:57 PM CDT Body Mass Index 38.17 06/07/2016 2:57 PM CDT documented in this encounter Plan of Treatment Health Maintenance Due Date Last Done Comments PAP SMEAR 01/25/2019 01/26/2016 INFLUENZA VACCINE (#1) 2019 DTaP,Tdap,and Td Vaccines (2 - 01/25/2026 01/26/2016 Td) PNEUMOCOCCAL 0-64 YEARS COMBINED Aged Out No longer eligible based on SERIES patient's age to complete this topic VARICELLA VACCINES Discontinued documented as of this encounter Results Not on filedocumented in this encounter Visit Diagnoses Diagnosis Chlamydia trachomatis infection of lower genitourinary sites - Primary documented in this encounter Insurance Payer Benefit Plan Subscriber ID Effective Phone Address Type / Group Dates [facility] xxxxxxxxx 2016-Prese [phone] [address] Medicaid WOMEN nt [address] [place] [address] documented as of this encounter Advance Directives Name Relationship Healthcare Agent Relationship Communication Yvette Jordan Primary healthcare agent
--- OUTSIDE RECORDS SUMMARY | 2019-07-09 12:24 | XMS REPORT | Summary of Care ---
:1990 Author Organization [facility] [employer] Address [address] [place] [address] Care Team Providers Name Role Phone Tia Miramontes [facility] Primary Care Provider Reason for Visit Reason Comments Well Woman Exam Encounter Details Date Type Department Care Team Description 06/24/2019 Office Visit [facility]- Tia Miramontes, Well woman exam (Primary Dx); [facility] H/O tubal ligation; [address] Obesity (BMI 30-39.9); [place], [place] Rehan A Screen for STD (sexually transmitted disease) [id number] [place], [place] [id number] Allergies No Known Allergiesdocumented as of this encounter (statuses as of 07/01/2019) Medications Medication Sig Dispensed Refills Start Date [...] as of this encounter (statuses as of 07/01/2019) Active Problems Problem Noted Date Pain pelvic 05/30/2018 Vaginal discharge 01/23/2017 Obesity (BMI 30-39.9) 02/02/2016 Well woman exam 02/02/2016 H/O tubal ligation 02/02/2016 Contraceptive management 02/02/2016 Seizure disorder 02/02/2016 documented as of this encounter (statuses as of 07/01/2019) Resolved Problems Problem Noted Date Resolved Date Screen for STD (sexually transmitted disease) 11/23/2016 01/23/2017 Need for Tdap vaccination 02/02/2016 01/23/2017 documented as of this encounter (statuses as of 07/01/2019) Immunizations Name Administration Dates Next Due Tdap [...] This exam may be done by a systems development manager, family healthcare provider, nurse practitioner, nurse program support clerk, or specially trained nurse. Yearly breast exams [...] Guidelines for having clinical breast exams The [place] [employer] recommends that [...] is best for you. Date Last Reviewed: 06/06/201719992166-3023 [employer]. [address] [place] [address], [place] [address]. All rights reserved. This information is not [...] breast self-examination (BSE). These experts include the [place] [employer], the U.S. Preventive Services Task Force, and the [place] [employer]etricians and Gynecologists. Some experts [...] they are not cancer. Date Last Reviewed: 06/06/201719995206-4506 [employer]. [address] [place] [address], [place] [address]. All rights reserved. This information is not [...] does not recommend CBE. Date Last Reviewed: 08/06/201719995971-8470 [employer]. [address] [place] [address]. All rights reserved. This information is not [...] to protect your future. Date Last Reviewed: 10/06/201619990911-7180 [employer]. [address] [place] [address], [place] [address]. All rights reserved. This information is not [...] memory and body movement. Date Last Reviewed: 09/06/201619993451-8555 [employer]. [address] [place] [address]. All rights reserved. This information is not [...] the food you eat. Date Last Reviewed: 06/06/201719995139-0025 [employer]. [address] [place] [address], [place] [address]. All rights reserved. This information is not [...] and maria del rosario. Date Last Reviewed: 08/06/201719990999-6682 [employer]. [address] [place] [address]. All rights reserved. This information is not intended as a substitute for professional medical care. Always follow your healthcare professional's instructions. documented in this encounter Progress Notes Ira Horvath LVN - 06/24/2019 7:45 AM CDT29 year old presented to the clinic for WWE. 1) Previous BCM:BTL 2) Desired BCM: BTL 3) LMP: 06/16/2019 4) Last [place]: 06/05/2019 5) Last Pap:01/2016 Results:negative 6) Tdap in last 10 years? 01/26/2016 HPV?no 7) C/O none 8) Patient denies history of physical, emotional, or sexual abuse. Patient states she currently feels safe at home. Louis Tia Jayden, JOB TRAINING SUPERVISOR - 06/24/2019 7:45 AM CDT Chief complaint: [...] file Gets together: Not on file Attends taoism service: Not on file Active member of [...] Concern Not on file Social History Narrative Hinduism preference none. Patient lives with children. Social History Substance and Sexual Activity Sexual Activity Yes Partners: Male control/protection: Surgical Comment: last sexual intercourse 06/05/2019 Labs I have reviewed the patient's labs. and Labs are pending. Radiology No new radiology. Allergies [place] has No Known Allergies. Medications [place] has a current medication list which includes [...] Treatment Name Type Priority Associated Diagnoses Date/Time TRICHOMONAS AMPLIFIED LAB Routine Screen for STD (sexually 06/24/2019 9: 01 AM ASSAY transmitted disease) CDT GC & CHLAMYDIA AMPLIFIED LAB Routine Screen for STD (sexually 06/24/2019 9 :01 AM ASSAY transmitted disease) CDT Health Maintenance Due Date Last Done Comments INFLUENZA VACCINE (#1) 2019 PAP SMEAR 06/24/2022 06/24/2019, 01/26/2016 DTaP,Tdap,and Td Vaccines (2 01/25/2026 01/26/2016 - Td) PNEUMOCOCCAL 0-64 YEARS Aged Out No longer eligible based COMBINED SERIES on patient's age to complete this topic VARICELLA VACCINES Discontinued documented as of this encounter Procedures Procedure Name Priority Date/Time Associated Diagnosis Comments PAP SMEAR-LIQUID Routine 06/24/2019 8:42 AM Well woman exam BASED-CP CDT HIGH RISK HPV-THIN Routine 06/24/2019 8:42 AM Well woman exam Results for this PREP CDT procedure are in the results section. LAB ONLY PAP Routine 06/24/2019 8:42 AM Well woman exam Results for this SMEAR-LIQUID BASED CDT procedure are in the results section. documented in this encounter Results LAB ONLY PAP SMEAR-LIQUID BASED (06/24/2019 8:42 AM CDT) Case Report Gynecologic Cytology Case: [id number] [facility] Authorizing Provider:Tia Miramontes FNP Collected: 06/24/2019 0842 SERVICES Ordering Location: [facility]- Received: 06/25/[address] [place] [address] First Screen:Theresa Myers Specimen:Liquid Based Pap Preparation, CERVIX Clinical Information pap 2016 NILM [facility] SERVICES Specimen Adequacy Satisfactory for [facility] Evaluation(Endocervic SERVICES al/Transformation Zone Component Absent) Interpretation Negative for [facility] Electronically intraepithelial SERVICES signed by Louis, lesion or malignancy Theresa Armendariz on 06/26/2019 at 2:16 PM LMP LMP (specify date in [facility] Comments)Comment: SERVICES 06/16/19 Educational Note Cervical cytology [facility] (Pap Test) is a SERVICES screening test primarily for squamous cancers and precursors. The test has an inherent, but low, probability of false-negative and false-positive results. Regular sampling and follow-up of unexplained clinical signs and symptoms are recommended to minimize the effect of false negative results. Your patient should be reminded to consult you immediately if she experiences any unexplained clinical signs and symptoms, regardless of any Pap Test result. Embedded Images [facility] SERVICES Specimen Swab - CERVIX Performing Organization Address City/State/Zipcode Phone Number [facility] CLIA: [id number], [address] [place] [address] [phone] [facility] HIGH RISK HPV-THIN PREP (06/24/2019 8:42 AM CDT) High Risk HPV Negative Negative [facility] Specimen Swab - CERVIX Performing Organization Address City/State/Zipcode Phone Number [facility] CLIA: [id number], [address] [place] [address] [phone] [facility] PAP Smear-Liquid Based (06/24/2019 8:42 AM CDT) Specimen Swab - CERVIX Performing Organization Address [facility] Phone Number [facility] CLIA: [id number], [address] [place] [address] [phone] [facility] documented in this encounter Visit Diagnoses Diagnosis Well woman exam - Primary Routine general medical examination at a health care facility H/O tubal ligation Tubal ligation status Obesity (BMI 30-39.9) Obesity, unspecified Screen for STD (sexually transmitted disease) Screening examination for venereal disease documented in this encounter Insurance Payer Benefit Plan Subscriber ID Effective Phone Address Type / Group Dates [facility] xxxxxxxxx 2016-Prese [phone] [address] Medicaid WOMEN nt [id number] [place] [address] documented as of this encounter Advance Directives Name Relationship Healthcare Agent Relationship Communication Yvette Burnett Nikki Primary healthcare agent
--- OUTSIDE RECORDS SUMMARY | 2019-07-09 12:24 | XMS REPORT | Summary of Care ---
:1990 Author Organization [facility] - Health Address [address] [place] [address] Care Team Providers Name Role Phone Kulwinder Tia CARRASQUILLO Primary Care Provider Encounter Details Date Type Department Care Team Description 06/24/2019 Orders Only [facility] Doctor Unassigned, No [address] [facility] [place] [address] [address] [place] [address] Allergies No Known Allergiesdocumented as of this encounter (statuses as of 06/24/2019) Medications Medication Sig Dispensed Refills Start Date End Date Status topiramate (QUDEXY Take 1 Tab by mouth 0 Active XR) 50 mg CSpX at bedtime. Polyethylene Glycol Take 2 Packets by 20 Packet 0 01/10/2018 Active 3350 (MIRALAX) 17 mouth every 2 (two) gram powder hours as needed for Constipation for up to 20 doses. dicyclomine (BENTYL) Take 1 tablet by 16 tablet 0 05/28/2018 Active 20 mg tablet mouth 4 (four) times daily. norgestimate-ethinyl Take 1 tablet by 1 Package 2 05/31/2018 Active estradiol (ORTHO mouth daily. TRI-CYCLEN, 28,) 0.18/0.215/0.25 mg-35 mcg (28) tabletIndications: [...] of this encounter Last Filed Vital Signs Not on filedocumented in this encounter Plan of Treatment Health Maintenance Due Date Last Done Comments VARICELLA VACCINES (1 of 2 - 13+ 2002 2-dose series) PAP SMEAR 01/25/2019 01/26/2016 INFLUENZA VACCINE (#1) 2019 DTaP,Tdap,and Td Vaccines (2 - Td) 01/25/2026 01/26/2016 PNEUMOCOCCAL 0-64 YEARS COMBINED Aged Out No longer eligible based on SERIES patient's age to complete this topic documented as of this encounter Procedures Procedure Name Priority Date/Time Associated Diagnosis Comments CONSENT/REFUSAL FOR Routine 06/24/2019 7:56 AM DIAGNOSIS AND TREATMENT CDT ASSIGNMENT OF BENEFITS Routine 06/24/2019 7:56 AM CDT documented in this encounter Results Not on filedocumented in this encounter Insurance Payer Benefit Plan Subscriber ID Effective Phone Address Type / Group Dates [facility] [place] [id number] xxxxxxxxx 2016-Prese [phone] [address] Medicaid WOMEN nt [address] [place] [address] documented as of this encounter Advance Directives Name Relationship Healthcare Agent Relationship Communication Yvette Jordan Primary healthcare agent
--- OUTSIDE RECORDS SUMMARY | 2019-07-09 12:24 | XMS REPORT | Summary of Care ---
:1990 Author Organization [facility] Address [address] [place] [address] Care Team Providers Name Role Phone Unavailable Primary Care Provider Unavailable Reason for Visit Reason Comments LAB WORK bartolome Auth/Cert Status Reason Specialty Diagnoses / Referred By Referred To Procedures Contact Contact OB Satellites Procedures Merged With [facility] [address] [place] [address] Encounter Details Date Type Department Care Team Description 06/07/2016 Nurse Visit [facility]- Sirena Haro, CNP [address] [place] [address] Chlamydia trachomatis [place] Visit, Merged With [facility] Nurse infection of lower [address] [facility] genitourinary sites [place], [place] (Primary Dx) [address] Allergies No Known [...] Phone Address Type / Group Dates [facility] xxxxxxxxx 2016-Prese [phone] [address] Medicaid WOMEN nt [address] [place] [address] documented as of this encounter Advance Directives Name Relationship Healthcare Agent Relationship Communication Yvette Jordan Primary healthcare agent
--- OUTSIDE RECORDS SUMMARY | 2019-07-09 12:24 | XMS REPORT | Summary of Care ---
:1990 Author Organization [facility] [employer] Address [address] [place] [address] Care Team Providers Name Role Phone Tia Miramontes [facility] Primary Care Provider Reason for Visit Reason Comments Well Woman Exam Encounter Details Date Type Department Care Team Description 06/24/2019 Office Visit [facility]- Tia Miramontes, Well woman exam (Primary Dx); [facility] H/O tubal ligation; [address] Obesity (BMI 30-39.9); [place], [place] Rehan A Screen for STD (sexually transmitted disease) [address] [place], [place] [address] Allergies No Known Allergiesdocumented as of this [...] This exam may be done by a foreign language professor, family healthcare provider, nurse practitioner, nurse groundskeeper porter, or specially trained nurse. Yearly breast exams [...] Guidelines for having clinical breast exams The [employer]st[employer]ians and Gynecologists recommends that [...] is best for you. Date Last Reviewed: 06/06/201719996345-2829 [employer]. [address] [place] [address], [place] [address]. All rights reserved. This information is not [...] breast self-examination (BSE). These experts include the [employer], the U.S. Preventive Services Task Force, and the [place] [employer] of Obstetricians and Gynecologists. Some experts [...] they are not cancer. Date Last Reviewed: 06/06/201719997587-6143 [employer]. [address] [place] [address], [place] [address]. All rights reserved. This information is not [...] does not recommend CBE. Date Last Reviewed: 08/06/201719992031-0648 [employer]. [address] [place] [address]. All rights reserved. This information is not [...] to protect your future. Date Last Reviewed: 10/06/201619993207-3411 [employer]. [address] [place] [address], [place] [address]. All rights reserved. This information is not [...] memory and body movement. Date Last Reviewed: 09/06/201619996022-6695 [employer]. [address] [place] [address]. All rights reserved. This information is not [...] the food you eat. Date Last Reviewed: 06/06/201719990054-8967 [employer]. [address] [place] [address], [place] [address]. All rights reserved. This information is not [...] and maria del rosario. Date Last Reviewed: 08/06/201719995132-9684 [employer]. [address] [place] [address]. All rights reserved. This information is not intended as a substitute for professional medical care. Always follow your healthcare professional's instructions. documented in this encounter Progress Notes Ira Horvath LVN - 06/24/2019 7:45 AM CDT29 year old presented to the clinic for WWE. 1) Previous BCM:BTL 2) Desired BCM: BTL 3) LMP: 06/16/2019 4) Last [place]: 06/05/2019 5) Last Pap:01/2016 Results:negative 6) Tdap in last 10 years? 01/26/2016 HPV?no 7) C/O none 8) Patient denies history of physical, emotional, or sexual abuse. Patient states she currently feels safe at home. Louis Tia Jayden, PRODUCT DEVELOPMENT CONSULTANT - 06/24/2019 7:45 AM CDT Chief complaint: [...] file Gets together: Not on file Attends jainism service: Not on file Active member of [...] Concern Not on file Social History Narrative Jehovah'S Witness preference none. Patient lives with children. Social History Substance and Sexual Activity Sexual Activity Yes Partners: Male control/protection: Surgical Comment: last sexual intercourse 06/05/2019 Labs I have reviewed the patient's labs. and Labs are pending. Radiology No new radiology. Allergies [place] has No Known Allergies. Medications [place] has a current medication list which includes [...] Phone Address Type / Group Dates [facility] xxxxxxxxx 2016-Prese [phone] Medicaid WOMEN nt [address] [place] [address] (Home) [address] [place] [address] documented as of this encounter Advance Directives Name Relationship Healthcare Agent Relationship Communication Yvette Burnett Sibling Primary healthcare agent
--- OUTSIDE RECORDS SUMMARY | 2019-07-09 12:24 | XMS REPORT | Summary of Care ---
:1990 Author Organization [facility] Address [address] [place] [address] Care Team Providers Name Role Phone Tia Miramontes Primary Care Provider Encounter Details Date Type Department Care Team Description 06/26/2019 Patient Secure [facility] Tia Miramontes [place] [facility] [address] [place] [address] [facility] [phone] [place] [address] Allergies No Known Allergiesdocumented as of this encounter (statuses as of 06/26/2019) Medications Medication Sig Dispensed Refills Start Date End Date Status OMEPRAZOLE ORAL Take by mouth. 0 Active documented as of this encounter (statuses as of 06/26/2019) Active Problems Problem Noted Date Pain pelvic 05/30/2018 Vaginal discharge 01/23/2017 Obesity (BMI 30-39.9) 02/02/2016 Well woman exam 02/02/2016 H/O tubal ligation 02/02/2016 Contraceptive management 02/02/2016 Seizure disorder 02/02/2016 documented as of this encounter (statuses as of 06/26/2019) Resolved Problems Problem Noted Date Resolved Date Screen for STD (sexually transmitted disease) 11/23/2016 01/23/2017 Need for Tdap vaccination 02/02/2016 01/23/2017 documented as of this encounter (statuses as of 06/26/2019) Immunizations Name Administration Dates Next Due Tdap [...] Phone Address Type / Group Dates [facility] x[facility] 2016-[place] [phone] [address] Medicaid WOMEN nt [address] [place] [address] documented as of this encounter Advance Directives Name Relationship Healthcare Agent Relationship Communication Yvette Jordan Primary healthcare agent
--- OUTSIDE RECORDS SUMMARY | 2019-07-09 12:25 | XMS REPORT | Summary of Care ---
:1990 Author Organization [facility] Address [address] [place] [address] Care Team Providers Name Role Phone Tia Miramontes [facility] Primary Care Provider Reason for Visit Reason Comments Well Woman Exam Encounter Details Date Type Department Care Team Description 06/24/2019 Office Visit [facility]- Tia Miramontes, Well woman exam (Primary Dx); [facility] H/O tubal ligation; [address] Obesity (BMI 30-39.9); [place], [place] Re[place] A Screen for STD (sexually transmitted disease) [address] [place], [place] [address] Allergies No Known Allergiesdocumented as of this [...] This exam may be done by a peripatologist, family healthcare provider, nurse practitioner, nurse director meetings, or specially trained nurse. Yearly breast exams [...] Guidelines for having clinical breast exams The [place] [employer]st[employer]ians and Gynecologists recommends that [...] is best for you. Date Last Reviewed: 06/06/201719992046-8045 [employer]. [address] [place] [address], [place] [address]. All rights reserved. This information is not [...] breast self-examination (BSE). These experts include the [place] [employer], the U.S. Preventive Services Task Force, and the [place] [employer] of Obstetricians and Gynecologists. Some experts [...] they are not cancer. Date Last Reviewed: 06/06/201719995094-2899 [employer]. [address] [place] [address], [place] [address]. All rights reserved. This information is not [...] does not recommend CBE. Date Last Reviewed: 08/06/201719993643-4555 [employer]. [address] [place] [address]. All rights reserved. This information is not [...] to protect your future. Date Last Reviewed: 10/06/201619997894-1940 [employer]. [address] [place] [address], [place] [address]. All rights reserved. This information is not [...] memory and body movement. Date Last Reviewed: 09/06/201619993258-4106 [employer]. [address] [place] [address]. All rights reserved. This information is not [...] the food you eat. Date Last Reviewed: 06/06/201719996212-0659 [employer]. [address] [place] [address], [place] [address]. All rights reserved. This information is not [...] and maria del rosario. Date Last Reviewed: 08/06/201719997889-2084 [employer]. [address] [place] [address]. All rights reserved. This information is not intended as a substitute for professional medical care. Always follow your healthcare professional's instructions. documented in this encounter Progress Notes Ira Horvath LVN - 06/24/2019 7:45 AM CDT29 year old presented to the clinic for WWE. 1) Previous BCM:BTL 2) Desired BCM: BTL 3) LMP: 06/16/2019 4) Last [place]: 06/05/2019 5) Last Pap:01/2016 Results:negative 6) Tdap in last 10 years? 01/26/2016 HPV?no 7) C/O none 8) Patient denies history of physical, emotional, or sexual abuse. Patient states she currently feels safe at home. Louis Tia Jayden, SUPERVISOR PUBLIC MESSAGE SERVICE - 06/24/2019 7:45 AM CDT Chief complaint: [...] file Gets together: Not on file Attends yazidi service: Not on file Active member of [...] Concern Not on file Social History Narrative Lutheran preference none. Patient lives with children. Social History Substance and Sexual Activity Sexual Activity Yes Partners: Male control/protection: Surgical Comment: last sexual intercourse 06/05/2019 Labs I have reviewed the patient's labs. and Labs are pending. Radiology No new radiology. Allergies [place] has No Known Allergies. Medications [place] has a current medication list which includes [...] AM CDT) Case Report Gynecologic Cytology Case: [id number] [facility] Authorizing Provider:Tia Miramontes FNP Collected: 06/24/2019 0842 SERVICES Ordering Location: [facility]- Received: 06/25/[address] [place] [address] First Screen:Theresa Myers Specimen:Liquid Based Pap Preparation, CERVIX Clinical Information pap 2016 NILM [facility] SERVICES Specimen Adequacy Satisfactory for [facility] Evaluation(Endocervic SERVICES al/Transformation Zone Component Absent) Interpretation Negative for [facility] Electronically intraepithelial SERVICES signed by Louis, lesion or malignancy Theresa Armendariz on 06/26/2019 at 2:16 PM LMP LMP (specify date in [facility] Comments)Comment: SERVICES 06/16/19 Educational Note Cervical cytology [facility] (Pap Test) is a SERVICES [...] of any Pap Test result. Embedded Images [facility] SERVICES Specimen Swab - CERVIX Performing Organization Address City/State/Zipcode Phone Number [facility] CLIA: [id number], [address] [place] [address] [facility] HIGH RISK HPV-THIN PREP (06/24/2019 8:42 AM CDT) High Risk HPV Negative Negative [facility] SERVICES Specimen Swab - CERVIX Performing Organization Address City/State/Zipcode Phone Number [facility] CLIA: [id number], [address] [place] [address] [facility] PAP Smear-Liquid Based (06/24/2019 8:42 AM CDT) Specimen Swab - CERVIX Performing Organization Address [facility] Phone Number [facility] CLIA: [id number], [address] [place] [phone] [facility] documented in this encounter Visit Diagnoses Diagnosis Well woman exam - Primary Routine general medical examination at a health care facility H/O tubal ligation Tubal ligation status Obesity (BMI 30-39.9) Obesity, unspecified Screen for STD (sexually transmitted disease) Screening examination for venereal disease documented in this encounter Insurance Payer Benefit Plan Subscriber ID Effective Phone Address Type / Group Dates [facility] xxxxxxxxx 2016-Prese [phone] [address] Medicaid WOMEN nt [address] [id number] [place] [address] documented as of this encounter Advance Directives Name Relationship Healthcare Agent Relationship Communication Yvette Burnett Nikki Primary healthcare agent
[2019-07-09] MEDS ORDERED: dexAMETHasone 4 MG/ML VIAL ONE (13:29)
[2019-07-09] MEDS ORDERED: HYDROCODONE/APAP 5/325 MG TAB ONE (13:29)
[2019-07-09 14:01] LABS: Absolute Lymphocytes (CBC) 2.9 K/uL (0.7-4.9); Basophils % 0.4 % (0-1.3); Hematocrit 35.8 % (36.0-45.0); Lymphocytes % 39.6 % (15.3-44.8); MPV 9.3 fL (7.6-11.3); RBC Red Blood Cell Count 5.13 M/uL (3.86-4.86)
--- NOTE | 2019-07-09 14:01 | RAD REPORT ---
EXAM DESCRIPTION: RAD - Knee Right 3 View - 07/09/2019 1:36 pm CLINICAL HISTORY: Right knee pain FINDINGS: No fracture or dislocation is seen. No bone or joint abnormality seen
[2019-07-09 14:16] LABS: Albumin 3.8 g/dL (3.4-5.0); Bilirubin Total 0.4 mg/dL (0.2-1.0); Potassium 4.1 mmol/L (3.5-5.1); Protein, Total 7.8 g/dL (6.4-8.2)
--- NOTE | 2019-07-09 14:54 | EDPHYS ---
Physician Documentation [facility] Name: Stacie Burnett Age: 29 yrs Sex: Female : 1990 Arrival Date: 07/09/2019 Time: 12:23 Bed 16 Private MD: Gt Araujo ED Physician Clarke Alan HPI: 07/09 13:19 This 29 yrs old Black Female presents to ER via Ambulatory with complaints of Leg Pain. pm1 13:19 The patient presents with pain, that is acute. The complaints affect the left knee and pm1 right knee. Context: The problem was sustained at home, resulted from an unknown cause, possibly from her autoimmune disorder, the patient can fully bear weight, the patient is able to ambulate. Onset: The symptoms/episode began/occurred yesterday. Modifying factors: The symptoms are alleviated by elevating leg, the symptoms are aggravated by weight bearing. Associated signs and symptoms: Pertinent positives: tingling, of the left and right lower legs below the knee. PRODUCT INFO SPECIALIST: 12:38 LMP 06/16/2019 hb Historical: - Allergies: 12:38 No Known Allergies; hb - Home Meds: 12:38 Iron CR Oral [Active]; Omeprazole Oral [Active]; hb - PMHx: 12:38 IRON DEFICIENCY ANEMIA; Gastritis; hb - PSHx: 12:38 ; Tubal ligation; hb - Immunization history:: Adult Immunizations up to date. - Social history:: Smoking status: Patient/guardian denies using tobacco. - Ebola Screening: : No symptoms or risks identified at this time. ROS: 13:19 Constitutional: Negative for fever, chills, and weight loss, Eyes: Negative for injury, pm1 pain, redness, and discharge, ENT: Negative for injury, pain, and discharge, Neck: Negative for injury, pain, and swelling, Cardiovascular: Negative for chest pain, palpitations, and edema, Respiratory: Negative for shortness of breath, cough, wheezing, and pleuritic chest pain, Abdomen/GI: Negative for abdominal pain, nausea, vomiting, diarrhea, and constipation, Back: Negative for injury and pain. 13:19 Skin: Negative for injury, rash, and discoloration. 13:19 MS/extremity: Positive for pain, of the right knee and left knee. 13:19 Neuro: Positive for tingling, of the right goss and left goss. Exam: 13:19 Constitutional: This is a well developed, well nourished patient who is awake, alert, pm1 and in no acute distress. Head/Face: Normocephalic, atraumatic. Eyes: Pupils equal round and reactive to light, extra-ocular motions intact. Lids and lashes normal. Conjunctiva and sclera are non-icteric and not injected. Cornea within normal limits. Periorbital areas with no swelling, redness, or edema. ENT: Nares patent. No nasal discharge, no septal abnormalities noted. Tympanic membranes are normal and external auditory canals are clear. Oropharynx with no redness, swelling, or masses, exudates, or evidence of obstruction, uvula midline. Mucous membranes moist. Neck: Trachea midline, no thyromegaly or masses palpated, and no cervical lymphadenopathy. Supple, full range of motion without nuchal rigidity, or vertebral point tenderness. No Meningismus. Chest/axilla: Normal chest wall appearance and motion. Nontender with no deformity. No lesions are appreciated. Cardiovascular: Regular rate and rhythm with a normal S1 and S2. No gallops, murmurs, or rubs. Normal PMI, no JVD. No pulse deficits. Respiratory: Lungs have equal breath sounds bilaterally, clear to auscultation and percussion. No rales, rhonchi or wheezes noted. No increased work of breathing, no retractions or nasal flaring. Abdomen/GI: Soft, non-tender, with normal bowel sounds. No distension or tympany. No guarding or rebound. No evidence of tenderness throughout. Back: No spinal tenderness. No costovertebral tenderness. Full range of motion. Skin: Warm, dry with normal turgor. Normal color with no rashes, no lesions, and no evidence of cellulitis. MS/ Extremity: Pulses equal, no cyanosis. Neurovascular intact. Full, normal range of motion. 13:19 Neuro: Orientation: is normal, Motor: is normal, moves all fours, Sensation: is normal, no obvious gross deficits. Vital Signs: 12:38 BP 151 / 74; Pulse 73; Resp 16; Temp 98.4; Pulse Ox 99% on R/A; Weight 97.52 kg; Height hb 5 ft. 3 in. (160.02 cm); Pain 8/10; 13:35 BP 147 / 75; Pulse 75; Resp 16; Temp 98.1(O); Pulse Ox 99% on R/A; rb1 14:35 BP 138 / 77; Pulse 83; Resp 17; Temp 98.2(O); Pulse Ox 100% on R/A; Pain 5/10; rb1 15:37 BP 135 / 78; Pulse 80; Resp 18; Temp 98(O); Pulse Ox 100% on R/A; Pain 0/10; mg2 12:38 Body Mass Index 38.09 (97.52 kg, 160.02 cm) hb MDM: 12:53 Patient medically screened. pm1 14:45 ED course: Patient's pain and numbness has improved with medications given in the ER. pm1 Therefore I will discharge the patient home to follow up with rheumatology. 14:50 Data reviewed: vital signs. Data interpreted: Pulse oximetry: on room air is 99 %. pm1 Interpretation: normal. 14:50 Counseling: I had a detailed discussion with the patient and/or guardian regarding: the pm1 historical points, exam findings, and any diagnostic results supporting the discharge/admit diagnosis, lab results, radiology results, the need for outpatient follow up, for definitive care, a director of email marketing, to return to the emergency department if symptoms worsen or persist or if there are any questions or concerns that arise at home. 07/09 13:18 Order name: CBC with Diff pm1 07/09 13:18 Order name: CMP pm1 07/09 14:10 Order name: CBC with Automated Diff EDMS 07/09 14:18 Order name: Comprehensive Metabolic Panel; Complete Time: 14:19 EDMS 07/09 14:51 Order name: Urine Dipstick--Ancillary (enter results) em1 07/09 14:51 Order name: Urine --Ancillary (enter results) em1 07/09 13:18 Order name: Knee Right 3 View XRAY pm1 07/09 13:18 Order name: Knee Left 3 View XRAY pm1 07/09 13:18 Order name: Urine Dipstick-Ancillary (obtain specimen); Complete Time: 14:50 pm1 07/09 13:18 Order name: Urine Test (obtain specimen); Complete Time: 14:50 pm1 07/09 13:18 Order name: IV Saline Lock; Complete Time: 13:49 pm1 Administered Medications: 13:49 Drug: Decadron - Dexamethasone 10 mg Route: IVP; Site: left antecubital; mg2 15:37 Follow up: Response: No adverse reaction; Marked relief of symptoms mg2 13:49 Drug: [place] 5 mg-325 mg 1 tabs Route: PO; mg2 15:36 Follow up: Response: No adverse reaction; Marked relief of symptoms mg2 Disposition: 21:48 Co-signature as Attending Physician, Clarke Alan MD Available for consultation at ps1 all times . Disposition: 07/09/19 14:52 Discharged to Home. Impression: Pain in left lower leg, Pain in right lower leg. - Condition is Stable. - Discharge Instructions: Musculoskeletal Pain. - Prescriptions for Tylenol- Codeine #3 300-30 mg Oral Tablet - take 2 tablets by ORAL route every 6 hours As needed; 20 tablet. Medrol (Efraín) 4 mg Oral Tablets, Dose Pack - take 1 tablet by ORAL route as directed - follow package instructions; 1 packet. - Medication Reconciliation Form, Thank You Letter, Antibiotic Education, Prescription Opioid Use form. - Follow up: Emergency Department; When: As needed; Reason: Worsening of condition. Follow up: Private Physician; When: 2 - 3 days; Reason: Recheck today's complaints, Continuance of care, Re-evaluation by your physician. - Problem is new. - Symptoms have improved. Signatures: Dispatcher [employer] EDMS Nba Ruggiero, CHRISTINA LABORATORY IMMUNOLOGIST pm1 Elaine Marie RN RN hb Clarke Alan MD MD ps1 Regino Becerra RN RN mg2 Corrections: (The following items were deleted from the chart) 15:39 14:52 07/09/2019 14:52 Discharged to Home. Impression: Pain in left lower leg; Pain in mg2 right lower leg. Condition is Stable. Forms are Medication Reconciliation Form, Thank You Letter, Antibiotic Education, Prescription Opioid Use. Follow up: Emergency Department; When: As needed; Reason: Worsening of condition. Follow up: Private Physician; When: 2 - 3 days; Reason: Recheck today's complaints, Continuance of care, Re-evaluation by your physician. Problem is new. Symptoms have improved. pm1
--- NOTE | 2019-07-09 14:54 | ER ---
Nurse's Notes [facility] Name: Stacie Burnett Age: 29 yrs Sex: Female : 1990 Arrival Date: 07/09/2019 Time: 12:23 Bed 16 Private MD: Gt Araujo Diagnosis: Pain in left lower leg;Pain in right lower leg Presentation: 07/09 12:33 Presenting complaint: Bilateral knee pain since last night, right lower leg and foot hb numbness and tingling since this morning. Was hospitalized at [facility] with same s/s last September, numbness progressed to both legs, ended up in wheelchair for 2 months, cause was autoimmune. Transition of care: patient was not received from another setting of care. Onset of symptoms was July 08, 2019. Risk Assessment: Do you want to hurt yourself or someone else? Patient reports no desire to harm self or others. Initial Sepsis Screen: Does the patient meet any 2 criteria? No. Patient's initial sepsis screen is negative. Does the patient have a suspected source of infection? No. Patient's initial sepsis screen is negative. Care prior to arrival: None. 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 - Social history:: Smoking status: Patient/guardian denies using tobacco. - Ebola Screening: : No symptoms or risks identified at this time. Screenin:40 Abuse screen: Denies threats or abuse. Nutritional screening: No deficits noted. rb1 Tuberculosis screening: No symptoms or risk factors identified. Fall Risk None identified. Assessment: 12:40 General: Appears in no apparent distress. comfortable, Behavior is calm, cooperative. rb1 Pain: Complains of pain in right leg and left leg. Neuro: Level of Consciousness is awake, alert, obeys commands, Oriented to person, place, time, situation, Reports tingling and numbness to the right foot. Cardiovascular: Capillary refill < 3 seconds is brisk in bilateral fingers. Respiratory: Airway is patent Respiratory effort is even, unlabored, Respiratory pattern is regular, symmetrical. GI: No signs and/or symptoms were reported involving the gastrointestinal system. : No signs and/or symptoms were reported regarding the genitourinary system. Derm: Skin is dry, Skin is normal, Skin temperature is warm. 12:40 Musculoskeletal: Range of motion: intact in all extremities. rb1 13:39 Reassessment: Patient appears in no apparent distress at this time. No changes from rb1 previously documented assessment. 14:39 Reassessment: Patient appears in no apparent distress at this time. Patient and/or rb1 family updated on plan of care and expected duration. Pain level reassessed. Patient is alert, oriented x 3, equal unlabored respirations, skin warm/dry/pink. 15:39 Reassessment: Patient appears in no apparent distress at this time. Patient states mg2 feeling better. Patient states symptoms have improved. Vital Signs: 12:38 BP 151 / 74; Pulse 73; Resp 16; Temp 98.4; Pulse Ox 99% on R/A; Weight 97.52 kg; Height hb 5 ft. 3 in. (160.02 cm); Pain 8/10; 13:35 BP 147 / 75; Pulse 75; Resp 16; Temp 98.1(O); Pulse Ox 99% on R/A; rb1 14:35 BP 138 / 77; Pulse 83; Resp 17; Temp 98.2(O); Pulse Ox 100% on R/A; Pain 5/10; rb1 15:37 BP 135 / 78; Pulse 80; Resp 18; Temp 98(O); Pulse Ox 100% on R/A; Pain 0/10; mg2 12:38 Body Mass Index 38.09 (97.52 kg, 160.02 cm) hb ED Course: 12:23 Patient arrived in ED. as 12:24 Gt Araujo MD is Private Physician. as 12:37 Triage completed. hb 12:38 Arm band placed on. hb 12:40 Patient has correct armband on for positive identification. Bed in low position. Call rb1 light in reach. Side rails up X 1. Pulse ox on. NIBP on. Warm blanket given. 12:45 Juliet Wise, RN is Primary Nurse. rb1 12:50 Nba Ruggiero NP is PHCP. pm1 12:50 Clarke Alan MD is Attending Physician. pm1 13:49 No provider procedures requiring assistance completed. Inserted saline lock: 20 gauge mg2 in left antecubital area, using aseptic technique. Blood collected. 15:39 IV discontinued, intact, bleeding controlled, No redness/swelling at site. Pressure mg2 dressing applied. Administered Medications: 13:49 Drug: Decadron - Dexamethasone 10 mg Route: IVP; Site: left antecubital; mg2 15:37 Follow up: Response: No adverse reaction; Marked relief of symptoms mg2 13:49 Drug: Chauncey 5 mg-325 mg 1 tabs Route: PO; mg2 15:36 Follow up: Response: No adverse reaction; Marked relief of symptoms mg2 Outcome: 14:52 Discharge ordered by . pm1 15:39 Discharged to home ambulatory. mg2 15:39 Condition: stable 15:39 Discharge instructions given to patient, Instructed on discharge instructions, follow up and referral plans. medication usage, Demonstrated understanding of instructions, follow-up care, medications, Prescriptions given X 2. 15:39 Patient left the ED. mg2 Signatures: Kaila Mehta Rebecca, SIGIFREDO RN rb1 Nba Ruggiero NP SERVICE DISMANTLER pm1 Elaine Marie RN RN Regino Becerra RN RN mg2
[2019-07-09 16:30] LABS: Urine Blood NEGATIVE (NEG); Urine Glucose NEGATIVE (NEG); Urine Protein NEGATIVE (NEG); Urine Specific Gravity 1.025 (1.005-1.030)
[2019-07-09 18:16] LABS: Anisocytosis 2+; Blood Morphology Comment NOTED (NOT SEEN); Platelet Estimate ADEQ; Urine White Blood Cell Casts OK
== END 2019-07-09 15:39 | disposition home or self-care (01) ==
LOC: ER 12:21
DX: M79.662 Pain in left lower leg (principal); M79.661 Pain in right lower leg; D50.9 Iron deficiency anemia, unspecified; K29.70 Gastritis, unspecified, without bleeding
CPT/HCPCS: 36415; 80053; 81003; 81025; 85025; 96374; 99284

== ENCOUNTER 2020-02-25 02:20 | Emergency (ER) | payer OTHER ==
--- OUTSIDE RECORDS SUMMARY | 2020-02-26 02:22 | XMS REPORT ---
:1990 Author Organization [facility] t Address [address] [place] [address] Dr. Adkins [address] [place] [id number] Care Team Providers Name Role Phone Unavailable Unavailable Unavailable Problems This patient has no known problems. Allergies, Adverse Reactions, Alerts This patient has no known allergies or adverse reactions. Medications This patient has no known medications.
[2020-02-26] MEDS ORDERED: MAGNE/ALUM HYDROXD 30 ML UCUP ONE (02:54)
[2020-02-26] MEDS ORDERED: LIDOCAINE VISCOUS 2% SOLN 15 ML UDC ONE (02:54)
[2020-02-26] MEDS ORDERED: MORPHINE 4 MG/ML SYR ONE (02:54)
[2020-02-26] MEDS ORDERED: ONDANSETRON 4 MG/2 ML VIAL ONE (02:54)
[2020-02-26] MEDS ORDERED: FAMOTIDINE 20 MG/2 ML VIAL IV ONE (02:54)
[2020-02-26 03:19] LABS: Basophils % 0.6 % (0-1.3); Hematocrit 34.9 % (36.0-45.0); Lymphocytes % 43.9 % (15.3-44.8); MPV 9.5 fL (7.6-11.3); RBC Red Blood Cell Count 4.94 M/uL (3.86-4.86)
[2020-02-26 03:24] LABS: Albumin 3.1 g/dL (3.4-5.0); Bilirubin Direct 0.1 mg/dL (0-0.2); Potassium 3.5 mmol/L (3.5-5.1); Protein, Total 7.1 g/dL (6.4-8.2)
[2020-02-26 03:29] LABS: Bilirubin Total 0.4 mg/dL (0.2-1.0)
--- NOTE | 2020-02-26 03:50 | EDPHYS ---
Physician Documentation [facility] Name: Stacie Burnett Age: 29 yrs Sex: Female : 1990 Arrival Date: 02/26/2020 Time: 02:23 Bed 5 Private MD: ED Physician Nadege Lopez HPI: 02/25 02:47 This 29 yrs old Black Female presents to ER via Unassigned with complaints of Abdominal ma2 Pain, Left Arm Tingling. 02:47 The patient presents with abdominal pain. Onset: The symptoms/episode began/occurred ma2 gradually, 3 day(s) ago. Associated signs and symptoms: Pertinent negatives: nausea and vomiting, constipation, fever, headache, vaginal discharge, vomiting. Severity of pain: At its worst the pain was mild in the emergency department the pain is unchanged. The patient has experienced similar episodes in the past. Historical: - Allergies: 02:41 No Known Allergies; sg - PMHx: 02:41 gastritis; IRON DEFICIENCY ANEMIA; sg - PSHx: 02:41 ; Tubal ligation; sg - Immunization history:: Adult Immunizations up to date. - Social history:: Smoking status: Patient denies any tobacco usage or history of. Patient/guardian denies using alcohol, street drugs, The patient lives alone. - Family history:: not pertinent. - Hospitalizations: : No recent hospitalization is reported. ROS: 02:47 Constitutional: Negative for fever, chills, and weight loss. ma2 02:47 All other systems are negative. Exam: 02:47 Constitutional: This is a well developed, well nourished patient who is awake, alert, ma2 and in no acute distress. Chest/axilla: Normal chest wall appearance and motion. Nontender with no deformity. No lesions are appreciated. Cardiovascular: Regular rate and rhythm with a normal S1 and S2. No gallops, murmurs, or rubs. Normal PMI, no JVD. No pulse deficits. Respiratory: Lungs have equal breath sounds bilaterally, clear to auscultation and percussion. No rales, rhonchi or wheezes noted. No increased work of breathing, no retractions or nasal flaring. 02:47 Respiratory: Lungs have equal breath sounds bilaterally, clear to auscultation and percussion. No rales, rhonchi or wheezes noted. No increased work of breathing, no retractions or nasal flaring. Abdomen/GI: mildly tender right upper quadrant abd pain, with normal bowel sounds. No distension or tympany. No guarding or rebound. Vital Signs: 03:01 BP 137 / 79; Pulse 98; Resp 18; Temp 97.8; Pulse Ox 100% ; ea MDM: 02:39 Patient medically screened. [facility] 02:47 Differential diagnosis: Cholelithiasis, Endometriosis, gastritis, gastroesophageal ma2 reflux disease. 03:47 Data reviewed: vital signs, nurses notes. Counseling: I had a detailed discussion with ma the patient and/or guardian regarding: the historical points, exam findings, and any diagnostic results supporting the discharge/admit diagnosis, the presence of at least one elevated blood pressure reading (>120/80) during this emergency department visit, the need for outpatient follow up. Response to treatment: the patient's symptoms have markedly improved after treatment. ED course: pain is resolved, she will need RUQ US in the next 2 days she has gi doctor and will try to see them tomorrow or come to er during day time to get US to rule out GB stone . 02/25 02:43 Order name: Basic Metabolic Panel; Complete Time: 03:43 al2 02/25 02:43 Order name: CBC with Diff; Complete Time: 03:43 al2 02/25 02:43 Order name: Creatinine for Radiology; Complete Time: 03:43 ma2 02/25 02:43 Order name: Hepatic Function; Complete Time: 03:43 al2 02/25 02:43 Order name: Lipase; Complete Time: 03:43 al2 02/25 04:05 Order name: Urine Dipstick--Ancillary (enter results) ny 02/25 02:43 Order name: IV Saline Lock; Complete Time: 02:58 al2 02/25 02:43 Order name: Labs collected and sent; Complete Time: 02:58 [facility] 02/25 04:05 Order name: Urine --Ancillary (enter results) ny 02/25 02:43 Order name: Urine Dipstick-Ancillary (obtain specimen); Complete Time: 04:05 al2 Administered Medications: 02:55 Drug: morphine 4 mg Route: IVP; Site: right antecubital; 02:55 Drug: Zofran (Ondansetron) 4 mg Route: IVP; Site: right antecubital; sg 02:55 Drug: Pepcid 20 mg Route: IVP; Site: right antecubital; sg 02:56 Drug: GI Cocktail without - (Maalox Suspension 30 ml, Lidocaine Liquid 2 % 15 sg ml) Route: PO; Disposition: 02/26/20 03:49 Discharged to Home. Impression: Epigastric pain. - Condition is Stable. - Discharge Instructions: Abdominal Pain, Adult, Biliary Colic, Adult. - Prescriptions for Zofran 4 mg Oral Tablet - take 1 tablet by ORAL route every 12 hours As needed; 20 tablet. Pepcid 20 mg Oral Tablet - take 1 tablet by ORAL route once daily for 10 days; 10 tablet. - Medication Reconciliation Form, Thank You Letter, Antibiotic Education, Prescription Opioid Use form. - Follow up: Private Physician; When: Tomorrow; Reason: Continuance of care. - Notes: see your primary care doctor or GI doctor to get abdominal ultrasound, return to er if you experience pain again to get abdominal ultrasound during day time. Signatures: Dispatcher [employer] Daniel Rojas RN RN Nadege Fernandez MD MD ma2 Corrections: (The following items were deleted from the chart) 04:10 03:49 02/26/2020 03:49 Discharged to Home. Impression: Epigastric pain. Condition is sg Stable. Forms are Medication Reconciliation Form, Thank You Letter, Antibiotic Education, Prescription Opioid Use. Follow up: Private Physician; When: Tomorrow; Reason: Continuance of care. ma2
--- NOTE | 2020-02-26 03:50 | ER ---
Nurse's Notes [facility] Name: Stacie Burnett Age: 29 yrs Sex: Female : 1990 Arrival Date: 02/26/2020 Time: 02:23 Bed 5 Private MD: Diagnosis: Epigastric pain Presentation: 02/25 02:41 Acuity: HOLLIS 3 sg 02:41 Chief complaint: Patient states: Lower abd pain and left arm tingling for several hours sg now, reports symptoms came and went starting yesterday before noonish, denies any injury or trauma, denies V/D/Fever at this time. Coronavirus screen: Proceed with normal triage. Ebola Screen: Patient negative for fever greater than or equal to 101.5 degrees Fahrenheit, and additional compatible Ebola Virus Disease symptoms Patient denies exposure to infectious person. Patient denies travel to an Ebola-affected area in the 21 days before illness onset. No symptoms or risks identified at this time. Initial Sepsis Screen: Does the patient meet any 2 criteria? No. Patient's initial sepsis screen is negative. Does the patient have a suspected source of infection? No. Patient's initial sepsis screen is negative. Risk Assessment: Do you want to hurt yourself or someone else? Patient reports no desire to harm self or others. Onset of symptoms was February 24, 2020. 02:41 Method Of Arrival: Ambulatory sg Triage Assessment: 03:01 General: Appears uncomfortable, Behavior is appropriate for age. Pain: Complains of ea pain in epigastric area, right upper quadrant and left upper quadrant. Neuro: Level of Consciousness is awake, alert, obeys commands, Oriented to person, place, time, situation. Cardiovascular: Patient's skin is warm and dry. Respiratory: Airway is patent Respiratory effort is even, unlabored, Respiratory pattern is regular, symmetrical. GI: Abdomen is non-distended. Historical: - Allergies: 02:41 No Known Allergies; sg - PMHx: 02:41 gastritis; IRON DEFICIENCY ANEMIA; sg - PSHx: 02:41 ; Tubal ligation; sg - Immunization history:: Adult Immunizations up to date. - Social history:: Smoking status: Patient denies any tobacco usage or history of. Patient/guardian denies using alcohol, street drugs, The patient lives alone. - Family history:: not pertinent. - Hospitalizations: : No recent hospitalization is reported. Screenin:01 Abuse screen: Denies threats or abuse. Nutritional screening: No deficits noted. ea Tuberculosis screening: No symptoms or risk factors identified. Fall Risk None identified. Assessment: 02:40 General: Appears in no apparent distress. comfortable, well groomed, well developed, sg well nourished, Behavior is calm, cooperative, appropriate for age. Pain: Complains of pain in left upper quadrant and right upper quadrant and epigastric area Quality of pain is described as aching. Neuro: Level of Consciousness is awake, alert, obeys commands, Oriented to person, place, time, Gait is steady, Speech is normal, Facial symmetry appears normal, Pupils are PERRLA. Cardiovascular: Capillary refill is brisk in bilateral fingers Patient's skin is warm and dry. Chest pain is denied. Respiratory: Airway is patent Respiratory effort is even, unlabored, Respiratory pattern is regular, symmetrical. GI: Abdomen is round non-distended, Bowel sounds present X 4 quads. Abd is soft and non tender X 4 quads. Reports upper abdominal pain, nausea, normal bowel habits, tolerance of fluids, tolerance of food. : No signs and/or symptoms were reported regarding the genitourinary system. EENT: No signs and/or symptoms were reported regarding the EENT system. Derm: Skin is intact, is healthy with good turgor, Skin is dry, Skin is normal, Skin temperature is warm. Musculoskeletal: Circulation, motion, and sensation intact. Range of motion: intact in all extremities. 04:00 Reassessment: pt counselled on follow up with FAMILY/GI doctor upon discharge this week sg by , pt stated understanding. Vital Signs: 03:01 BP 137 / 79; Pulse 98; Resp 18; Temp 97.8; Pulse Ox 100% ; ea ED Course: 02:23 Patient arrived in ED. cl3 02:39 Nadege Lopez MD is Attending Physician. ma2 02:41 Triage completed. sg 02:41 Arm band placed on. sg 02:44 Samreen Becker, SIGIFREDO is Primary Nurse. ea 02:55 No provider procedures requiring assistance completed. Initial lab(s) drawn, by me, sg sent to lab. Inserted saline lock: 20 gauge in right antecubital area, using aseptic technique. Blood collected. 03:01 Patient has correct armband on for positive identification. Bed in low position. Call ea light in reach. Side rails up X2. 04:05 Urine collected: clean catch specimen, clear. sg 04:10 IV discontinued, intact, bleeding controlled, No redness/swelling at site. Pressure sg dressing applied. Administered Medications: 02:55 Drug: morphine 4 mg Route: IVP; Site: right antecubital; sg 02:55 Drug: Zofran (Ondansetron) 4 mg Route: IVP; Site: right antecubital; sg 02:55 Drug: Pepcid 20 mg Route: IVP; Site: right antecubital; sg 02:56 Drug: GI Cocktail without - (Maalox Suspension 30 ml, Lidocaine Liquid 2 % 15 sg ml) Route: PO; Outcome: 03:49 Discharge ordered by MD. bowden 04:08 Discharged to home ambulatory, with family. sg 04:08 Condition: good 04:08 Discharge instructions given to patient. 04:08 Instructed on discharge instructions, follow up and referral plans. no drinking with medication, no driving heavy equipment, medication usage, safety practices, Demonstrated understanding of instructions, follow-up care, medications, Prescriptions given X 2. 04:10 Patient left the ED. sg Signatures: Daniel Martinez RN Samreen Armstrong RN Nadege Smith ea, MD MD ma2 Lewis, Charde cl3
[2020-02-26 04:17] VITALS: BP 137/79; TEMP 97.8; O2SAT 100
[2020-02-26 04:49] LABS: Urine Blood NEGATIVE (NEG); Urine Glucose NEGATIVE (NEG); Urine Protein NEGATIVE (NEG)
== END 2020-02-26 04:10 | disposition home or self-care (01) ==
LOC: ER 02:20
DX: R10.13 Epigastric pain (principal)
CPT/HCPCS: 85025; 80048; 36415; 81025; 80076; 81003; 83690; 96375; 96374; 99284; J2405

== ENCOUNTER 2020-02-27 14:46 | Emergency (ER) | payer OTHER ==
--- OUTSIDE RECORDS SUMMARY | 2020-02-27 14:52 | XMS REPORT ---
:1990 Author Organization [facility] t Address [address] [place] [address] Dr. Adkins [address] [place] [id number] Care Team Providers Name Role Phone Unavailable Unavailable Unavailable Problems This patient has no known problems. Allergies, Adverse Reactions, Alerts This patient has no known allergies or adverse reactions. Medications This patient has no known medications.
[2020-02-27] MEDS ORDERED: KETOROLAC 30 MG/ML INJ ONE (15:16)
[2020-02-27 15:26] LABS: Urine Blood NEGATIVE (NEG); Urine Glucose NEGATIVE (NEG); Urine Protein NEGATIVE (NEG)
[2020-02-27 15:26] LABS: Absolute Lymphocytes (CBC) 3.4 K/uL (0.7-4.9); Basophils % 0.5 % (0-1.3); Hematocrit 36.4 % (36.0-45.0); Lymphocytes % 41.6 % (15.3-44.8); MPV 8.9 fL (7.6-11.3); RBC Red Blood Cell Count 5.22 M/uL (3.86-4.86)
[2020-02-27 15:48] LABS: ALT/SGPT 24 U/L (12-78); AST/SGOT 19 U/L (15-37); Albumin 3.4 g/dL (3.4-5.0); Alkaline Phosphatase 89 U/L (45-117); BUN Blood Urea Nitrogen 8 mg/dL (7-18); Bicarbonate 26 mmol/L (21-32); Bilirubin Direct 0.1 mg/dL (0-0.2); Bilirubin Total 0.5 mg/dL (0.2-1.0); Glucose Level 82 mg/dL (74-106); Lipase 120 U/L (73-393); Potassium 3.9 mmol/L (3.5-5.1); Protein, Total 7.6 g/dL (6.4-8.2); Sodium Level 139 mmol/L (136-145)
--- NOTE | 2020-02-27 16:00 | RAD REPORT ---
EXAM DESCRIPTION: US - Abdomen Exam Limited - 02/27/2020 3:31 pm CLINICAL HISTORY: ABD PAIN COMPARISON: Abdomen Pelvis W Contrast dated 01/02/2019 FINDINGS: No gallstones, sludge or other abnormalities within the gallbladder lumen. There is no wal l thickening or pericholecystic fluid. No common duct stone or biliary tree dilatation identified. IMPRESSION: Normal gallbladder and biliary tree ultrasound.
[2020-02-27 16:02] LABS: Blood Morphology Comment NOTED (NOT SEEN); Platelet Estimate ADEQ; Urine White Blood Cell Casts OK
--- NOTE | 2020-02-27 16:17 | RAD REPORT ---
EXAM DESCRIPTION: CT - Abdomen Pelvis W Contrast - 02/27/2020 4:00 pm CLINICAL HISTORY: ABD PAIN COMPARISON: Abdomen Pelvis W Contrast dated 01/02/2019 TECHNIQUE: Biphasic, helical CT imaging of the abdomen and pelvis was performed following 100 ml non -ionic IV contrast. No oral contrast administered. All CT scans are performed using dose optimization technique as appropriate and may include automated exposure control or mA/KV adjustment according to patient size. FINDINGS: No suspicious findings in the lung bases. The liver, spleen, and pancreas show no suspicious findings. Gallbladder and biliary tree are also wi thout suspicious finding. Symmetric renal function is seen with no hydronephrosis or suspicious renal mass. No pyelonephritis o r acute parenchymal process. No bladder abnormalities. No adrenal abnormalities. Uterus and ovaries s how no suspicious findings. No dilated bowel loops or bowel wall thickening. No appendicitis or other acute GI process identifiab le. No free air or pneumatosis. Minimal physiologic quantity of free fluid seen in the cul de sac. F at only umbilical hernia present similar to comparison. No mass or bulky lymphadenopathy. No suspicious bony findings. IMPRESSION: Contrast enhanced CT abdomen and pelvis showing no acute or emergent finding.
--- NOTE | 2020-02-27 17:01 | EDPHYS ---
Physician Documentation [facility] Name: Stacie Burnett Age: 29 yrs Sex: Female : 1990 Arrival Date: 02/27/2020 Time: 14:51 Bed 8 Private MD: Marvel Nettles ED Physician Isaias Rosales HPI: 02/26 15:23 This 29 yrs old Black Female presents to ER via Ambulatory with complaints of Abdominal kb Pain. 15:23 The patient presents with abdominal pain in the right upper quadrant. Onset: The kb symptoms/episode began/occurred 1 week(s) ago. The symptoms do not radiate. Associated signs and symptoms: none. The symptoms are described as constant, sharp. Modifying factors: The symptoms are alleviated by nothing, the symptoms are aggravated by nothing. Severity of pain: At its worst the pain was moderate in the emergency department the pain is unchanged. The patient has not experienced similar symptoms in the past. The patient has been recently seen by a physician: Dr. Nettles yesterday, The patient has been recently seen at the [facility] Emergency Department, this week, for similar complaints. Pt reports she has had upper abd pain for a week. Was seen here was told she had biliary colic, but US wasn't available at the time. Had a telemedicine visit with DR Nettles yesterday and he wanted her to have a MRI, but she is waiting for preauthorization from her insurance. . 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 - Social history:: Smoking status: Patient denies any tobacco usage or history of. ROS: 15:22 Constitutional: Negative for fever, chills, and weight loss, Cardiovascular: Negative kb for chest pain, palpitations, and edema, Respiratory: Negative for shortness of breath, cough, wheezing, and pleuritic chest pain, Back: Negative for injury and pain, MS/Extremity: Negative for injury and deformity, Skin: Negative for injury, rash, and discoloration, Neuro: Negative for headache, weakness, numbness, tingling, and seizure. 15:22 Abdomen/GI: Positive for abdominal pain, Negative for nausea, vomiting, and diarrhea, constipation, abdominal cramps, abdominal distension, anorexia. Exam: 15:22 Constitutional: This is a well developed, well nourished patient who is awake, alert, kb and in no acute distress. Head/Face: Normocephalic, atraumatic. Chest/axilla: Normal chest wall appearance and motion. Nontender with no deformity. No lesions are appreciated. Cardiovascular: Regular rate and rhythm with a normal S1 and S2. No gallops, murmurs, or rubs. Normal PMI, no JVD. No pulse deficits. Respiratory: Lungs have equal breath sounds bilaterally, clear to auscultation and percussion. No rales, rhonchi or wheezes noted. No increased work of breathing, no retractions or nasal flaring. Back: No spinal tenderness. No costovertebral tenderness. Full range of motion. Skin: Warm, dry with normal turgor. Normal color with no rashes, no lesions, and no evidence of cellulitis. MS/ Extremity: Pulses equal, no cyanosis. Neurovascular intact. Full, normal range of motion. Neuro: Awake and alert, GCS 15, oriented to person, place, time, and situation. Cranial nerves II-XII grossly intact. Motor strength 5/5 in all extremities. Sensory grossly intact. Cerebellar exam normal. Normal gait. 15:22 Abdomen/GI: Inspection: abdomen appears normal, Bowel sounds: normal, in all quadrants, Palpation: soft, in all quadrants, nontender, in the left lower quadrant, mild abdominal tenderness, in the right lower quadrant, moderate abdominal tenderness, in the right upper quadrant and left upper quadrant. Vital Signs: 14:56 BP 127 / 80; Pulse 77; Resp 18 S; Temp 98.6(O); Pulse Ox 100% on R/A; Weight 104.33 kg aa5 (R); Height 5 ft. 4 in. (162.56 cm) (R); Pain 10/10; 15:51 BP 118 / 70; Pulse 72; Resp 17 S; Pulse Ox 100% on R/A; ca1 16:36 BP 111 / 65; Pulse 66; Resp 17; Pulse Ox 96% on R/A; ca1 17:08 BP 113 / 67; Pulse 76; Resp 15 S; Pulse Ox 98% on R/A; ca1 14:56 Body Mass Index 39.48 (104.33 kg, 162.56 cm) aa5 MDM: 14:56 Patient medically screened. kb 15:22 Data reviewed: vital signs, nurses notes. Data interpreted: Pulse oximetry: on room air kb is 100 %. Interpretation: normal. 17:00 Counseling: I had a detailed discussion with the patient and/or guardian regarding: the kb historical points, exam findings, and any diagnostic results supporting the discharge/admit diagnosis, lab results, radiology results, the need for outpatient follow up, a bat person, to return to the emergency department if symptoms worsen or persist or if there are any questions or concerns that arise at home. 02/26 15:08 Order name: Basic Metabolic Panel; Complete Time: 15:50 kb 02/26 15:08 Order name: CBC with Diff; Complete Time: 16:05 kb 02/26 15:08 Order name: Hepatic Function; Complete Time: 15:50 kb 02/26 15:08 Order name: Lipase; Complete Time: 15:50 kb 02/26 15:08 Order name: Urine Dipstick--Ancillary (enter results) em1 02/26 15:08 Order name: Urine --Ancillary (enter results) em1 02/26 15:08 Order name: IV Saline Lock; Complete Time: 15:17 kb 02/26 15:08 Order name: Labs collected and sent; Complete Time: 15:17 kb 02/26 15:08 Order name: US Abdomen Limited; Complete Time: 16:05 kb 02/26 15:09 Order name: Urine Dipstick-Ancillary (obtain specimen); Complete Time: 15:09 aa5 02/26 15:09 Order name: Urine Test (obtain specimen); Complete Time: 15:09 aa5 02/26 15:27 Order name: CT Abd/Pelvis - IV Contrast Only; Complete Time: 16:24 kb 02/26 16:03 Order name: CBC Smear Scan; Complete Time: 16:05 EDMS Administered Medications: 15:15 Drug: TORadol - Ketorolac 15 mg Route: IVP; Site: right antecubital; aa5 16:39 Follow up: Response: No adverse reaction; Pain is decreased ca1 Disposition: 18:36 Co-signature as Attending Physician, Isaias Rosales MD I agree with the assessment and kdr plan of care. Disposition: 02/27/20 17:00 Discharged to Home. Impression: Upper abdominal pain, unspecified. - Condition is Stable. - Discharge Instructions: Abdominal Pain, Adult, [id number]. - Prescriptions for Bentyl 20 mg Oral Tablet - take 1 tablet by ORAL route every 6 hours As needed; 20 tablet. - Medication Reconciliation Form, Thank You Letter, Antibiotic Education, Prescription Opioid Use form. - Follow up: Emergency Department; When: As needed; Reason: Worsening of condition. Follow up: Private Physician; When: 2 - 3 days; Reason: Recheck today's complaints, Continuance of care, Re-evaluation by your physician. Signatures: Dispatcher [employer] EDMS Nguyen Xie, MEDICAL VAN DRIVER-C MEDICAL VAN DRIVER-CkIsaias Choi MD MD kdr Annika Pak RN RN aa5 Jennifer Osborn RN RN ca1 Corrections: (The following items were deleted from the chart) 17:12 17:00 02/27/2020 17:00 Discharged to Home. Impression: Upper abdominal pain, ca1 unspecified. Condition is Stable. Forms are Medication Reconciliation Form, Thank You Letter, Antibiotic Education, Prescription Opioid Use. Follow up: Emergency Department; When: As needed; Reason: Worsening of condition. Follow up: Private Physician; When: 2 - 3 days; Reason: Recheck today's complaints, Continuance of care, Re-evaluation by your physician. kb
--- NOTE | 2020-02-27 17:01 | ER ---
Nurse's Notes [facility] Name: Stacie Burnett Age: 29 yrs Sex: Female : 1990 Arrival Date: 02/27/2020 Time: 14:51 Bed 8 Private MD: Marvel Nettles Diagnosis: Upper abdominal pain, unspecified Presentation: 02/26 14:56 Chief complaint: Patient states: "I was here a couple of days ago with the same pain aa5 and all they did was blood work". Pt reports pain to LUQ pain and nausea, denies vomiting, denies diarrhea, denies constipation. 14:56 Coronavirus screen: Proceed with normal triage. Patient denies a cough. Patient denies aa5 shortness of breath or difficulty breathing. Patient denies measured and/or subjective temperature greater than 100.4F prior to today's visit. Patient denies travel on a cruise ship or to a country the [facility] currently lists as an affected area. Patient denies contact with known and/or suspected case of COVID-19. Ebola Screen: Patient negative for fever greater than or equal to 101.5 degrees Fahrenheit, and additional compatible Ebola Virus Disease symptoms. Initial Sepsis Screen: Does the patient meet any 2 criteria? No. Patient's initial sepsis screen is negative. Does the patient have a suspected source of infection? No. Patient's initial sepsis screen is negative. Risk Assessment: Do you want to hurt yourself or someone else? Patient reports no desire to harm self or others. Onset of symptoms was February 2020. 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 - Social history:: Smoking status: Patient denies any tobacco usage or history of. Screenin:20 Abuse screen: Denies threats or abuse. Denies injuries from another. Nutritional ca1 screening: No deficits noted. Tuberculosis screening: No symptoms or risk factors identified. Fall Risk IV access (20 points). Assessment: 15:20 General: Appears in no apparent distress. comfortable, Behavior is calm, cooperative, ca1 appropriate for age. Pain: Complains of pain in left upper quadrant. Neuro: Level of Consciousness is awake, alert, obeys commands, Oriented to person, place, time, situation, Appropriate for age. Cardiovascular: Heart tones S1 S2 present Capillary refill < 3 seconds Patient's skin is warm and dry. Respiratory: Airway is patent Respiratory effort is even, unlabored, Respiratory pattern is regular, symmetrical, Breath sounds are clear bilaterally. GI: Abdomen is round non-distended, Bowel sounds present X 4 quads. Abd is soft X 4 quads Abdomen is tender to palpation in left upper quadrant Reports nausea. : No signs and/or symptoms were reported regarding the genitourinary system. EENT: No signs and/or symptoms were reported regarding the EENT system. Derm: Skin is intact, is healthy with good turgor, Skin is pink, warm \\T\\ dry. Musculoskeletal: Circulation, motion, and sensation intact. Capillary refill < 3 seconds. 15:52 Reassessment: PT to CT. ca1 16:36 Reassessment: Patient appears in no apparent distress at this time. Patient and/or ca1 family updated on plan of care and expected duration. Pain level reassessed. Patient is alert, oriented x 3, equal unlabored respirations, skin warm/dry/pink. 17:11 Reassessment: Patient appears in no apparent distress at this time. Patient is alert, ca1 oriented x 3, equal unlabored respirations, skin warm/dry/pink. Vital Signs: 14:56 BP 127 / 80; Pulse 77; Resp 18 S; Temp 98.6(O); Pulse Ox 100% on R/A; Weight 104.33 kg aa5 (R); Height 5 ft. 4 in. (162.56 cm) (R); Pain 10/10; 15:51 BP 118 / 70; Pulse 72; Resp 17 S; Pulse Ox 100% on R/A; ca1 16:36 BP 111 / 65; Pulse 66; Resp 17; Pulse Ox 96% on R/A; ca1 17:08 BP 113 / 67; Pulse 76; Resp 15 S; Pulse Ox 98% on R/A; ca1 14:56 Body Mass Index 39.48 (104.33 kg, 162.56 cm) aa5 ED Course: 14:51 Patient arrived in ED. as 14:51 Marvel Nettles MD is Private Physician. as 14:56 Nguyen [facility]ie F[facility]-C [facility]. kb 14:56 Isaias Rosales MD is Attending Physician. kb 14:56 Arm band placed on Patient placed in an exam room, on a stretcher. aa5 15:04 Jennifer Osborn, RN is Primary Nurse. ca1 15:06 Triage completed. aa5 15:14 Initial lab(s) drawn, by me, sent to lab. Inserted saline lock: 20 gauge in right aa5 antecubital area, using aseptic technique. Blood collected. 15:20 Patient has correct armband on for positive identification. Placed in gown. Bed in low ca1 position. Call light in reach. Side rails up X 1. Pulse ox on. NIBP on. Warm blanket given. 15:20 No provider procedures requiring assistance completed. ca1 15:27 US Abdomen Limited In Process Unspecified. EDMS 16:01 CT Abd/Pelvis - IV Contrast Only In Process Unspecified. EDMS 17:11 IV discontinued, intact, bleeding controlled, No redness/swelling at site. Pressure ca1 dressing applied. Administered Medications: 15:15 Drug: TORadol - Ketorolac 15 mg Route: IVP; Site: right antecubital; aa5 16:39 Follow up: Response: No adverse reaction; Pain is decreased ca1 Outcome: 17:00 Discharge ordered by MD. kb 17:11 Discharged to home ambulatory. ca1 17:11 Condition: stable 17:11 Discharge instructions given to patient, Instructed on discharge instructions, follow up and referral plans. medication usage, Demonstrated understanding of instructions, follow-up care, medications, Prescriptions given X 1. 17:12 Patient left the ED. ca1 Signatures: Dispatcher [employer] EDMS Nguyen Xie FNP-C FNP-Kaila Edmond as Annika Pak RN RN aa Jennifer Osborn RN RN ca1 Corrections: (The following items were deleted from the chart) 15:52 15:40 Reassessment: PT to CT ca1 ca1 16:39 16:36 Pulse 66bpm; Resp 17bpm; Pulse Ox 96% RA; ca1 ca1
[2020-02-27 17:36] VITALS: TEMP 98.6
[2020-02-27 17:39] VITALS: BP 113/67; O2SAT 98
== END 2020-02-27 17:12 | disposition home or self-care (01) ==
LOC: ER 14:46
DX: R10.11 Right upper quadrant pain (principal); R10.12 Left upper quadrant pain
CPT/HCPCS: 85025; 80048; 36415; 81025; 80076; 81003; 83690; 74177; 76705; 96374; 99284; Q9967

== ENCOUNTER 2021-03-15 07:41 | Emergency (ER) | payer OTHER ==
--- OUTSIDE RECORDS SUMMARY | 2021-03-15 07:45 | XMS REPORT | Continuity of Care Document ---
:1990 Author Organization [facility] t Address [address] [place] [address] Care Team Providers Name Role Phone Asked, Pcp Primary Care Physician Unavailable MARY ROSARIO Attending Clinician Unavailable Kulwinder CARRASQUILLO, Jayden Attending Clinician LISA BAZAN Admitting Clinician Unavailable Problems Condition Condition Condition Status Onset Resolution Last Treating Co mments Source Name Details Category Date Date Treatment Clinician Date Epigastric Epigastric Disease Active [facility] 00 [place] Bilateral Bilateral Disease Active 2017-11 Violeta ston leg leg 1 [facility] weakness weakness 00:00: st 00 Muscle Muscle Disease Active [place] weakness weakness [facility] Myelopathy Myelopathy Disease Active [place] [facility] Allergies, Adverse Reactions, Alerts This patient has no known allergies or adverse reactions. Family History Family Member Diagnosis Comments Start Date Stop Date Source Natural son Seizures [place] Metho dist Social History Social Habit Start Date Stop Date Quantity Comments Source History SDAL [facility] St[facility] History SDAL [facility] - Alcohol Binge Medical [place] [facility] Sex Assigned At [facility] - [facility] Tobacco use and 2020-02-28 2020-02-[address] [facility] [facility] k[facility] - exposure 00:00:00 00:00:00 [facility] Alcohol intake 2020-02-28 2020-02-28 Current [facility] Der[facility] es - 00:00:00 00:00:00 non-drinker of Medical Ce nter alcohol (finding) History SDOH 2020-02-27 2020-02-[address] [facility] - Alcohol Frequency 00:00:00 00:00:00 [facility] Center Smoking Status Start Date Stop Date Source Never smoker [facility] Medications Ordered Filled Start Stop Current Ordering Indication Dosage Frequency Signature Comments Components Source Medication Medication Date Date Medication? Clinician (SIG) Name Name iron-multiv 2020-0 Yes 1{tbl} QD Take [address] itamins-min 4-25 tablet by Derrick es - erals 16:20: mouth Medical (THERAGRAN- 36 daily. Center M) 9 mg iron-400 mcg Tab tablet cholecalcif 2020-0 Yes 1000U QD Take 1,[address] [facility] [facility]ctor 4-25 Units by [facility] - (VITAMIN 16:20: mouth Medical D3) 25 mcg 36 daily. Center (1,000 unit) tablet ferrous 2020-0 Yes Q.5D Take by [facility] sulfate 4-25 mouth 2 [facility] - (IRON ORAL) 16:20: (two) Medic al 36 times Center daily. acetaminoph 2020-0 2020- No 650mg Take [address] en 4-25 04-20 tablets [facility] - (TYLENOL) 00:00: 23:59 (650 mg Medi margo 325 MG 00 :00 total) by Center tablet mouth every 4 (four) hours as needed for up to 360 days. pantoprazol 2020-0 2020- No 40mg Q.5D Take [address] e 4-25 05-25 tablet (40 [facility] - (PROTONIX) 00:00: 23:59 mg total) M edical 40 MG 00 :00 by mouth 2 Center tablet (two) times daily for 30 days. Procedures This patient has no known procedures. Plan of Care Planned Activity Planned Date Details Comments Source Future Scheduled 2022-06-[address] [address] [facility] - Test 00:00:00 malignant neoplasm Medical C enter of cervix (procedure) [code = 504330952] Future Scheduled 2021-06-06 INFLUENZA VACCINE [facility] 00:00:00 [code = INFLUENZA VACCINE] Future Scheduled 2020-07-[address] [facility] - Test 00:00:00 (#1) [code = Medical Center INFLUENZA VACCINE (#1)] Future Scheduled 2010 Screening for [facility]ist Test 00:00:00 malignant neoplasm of cervix (procedure) [code = 837863274] Future Scheduled [address] [facility] Test 00[facility]00:00 (procedure) [code = Medical Center 59776768] Future Scheduled 2007 Hepatitis C [facility] Test 00:00:00 screening (procedure) [code = 099118467] Future Scheduled 2005 COVID-19 VACCINE [facility] 00:00:00 (1) [code = COVID-19 VACCINE (1)] Encounters Start End Encounter Admission Attending Care Care Encounter Source Date/Time Date/Time Type Type Clinicians Facility Department ID 2019-06-24 2019-06-24 Office [facility] [id number] 07:58:05 08:47:28 Visit Tia Carpenter RISK CONTROL CONSULTANT [id number] [facility] [id number] MATERNAL [id number] & CHILD [address] [place] [address] Results Test Description Test Time Test Comments Results Result Comments Source BLOOD CULTURE 2020-03-04 07:00:00 Test Item Value Reference Range Interpretation Comme nts CULTURE (BEAKER) (test code = 1095) No growth in 5 days BLOOD [id number] 07:00:00 Test Item Value Reference Range Interpretation Comments CULTURE (BEAKER) (test No growth in 5 days code = 1095) ANTI-NUCLEAR ANTIBODY (ILENE)2020-03-02 09:52:00 Test Item Value Reference Range Interpretation Comments ANTI-NUCLEAR ANTIBODY (ILENE) (BEAKER) Positive Negative A (test code = 418) Test performed by IFA method.ILENE TITER AND [id number] 09:52:00 Test Item Value Reference Range Interpretation Comments ILENE TITER (BEAKER) (test code = :160 1541) ILENE PATTERN (BEAKER) (test code = Nucleolar 1781) TISSUE [id number] 13:42:00Surgical Pathology Report Case: [id number] Authorizing Provider: Ryan Beckford MD Collected: 02/28/2020 10:42 AM Ordering Location: [address] Received: 02/28/2020 02:20 PM Service Pathologist: Keven Valdez MD Specimens: A) - Duodenum, biopsy B) -Biopsy, Gastric, random biopsy A. DUODENUM, BIOPSY: - NO DIAGNOSTIC ALTERATIONB. STOMACH, RANDOM BIOPSY: - ANTRAL AND BODY-TYPE GASTRIC MUCOSA WITH MILD CHRONIC INACTIVE GASTRITIS - NEGATIVE FOR HELICOBACTER PYLORI LIKE ORGANISMS BY WARTHIN-STARRY STAIN Signing Pathologist Direct Phone Line: [phone] signed by John Valdez MD on 02/29/2020 at 1:42 [id number], [id number]. Abdominal painA. Duodenum biopsy; B. Biopsy, gastricA. Received in formalin labeled with the patient's name, accession number and "duodenum" is a 0.5 cmtan soft tissue fragments, submitted in toto in A1. B. Received in formalin labeled with the patient's name, accession number and "biospy, gastric" are multiple campos soft tissue fragments ranging 0.2-0.5 cm which are submitted in toto in B1. CG/pl A-B. Performed.Block B1: Warthin-StarstarThe interpretation of this case included the use of immunohistochemistry or special stains.Control Slides Examined:In-house known positive controls were evaluated along with the test tissue. These control slides run alongside of the patients sample show appropriate staining. Internal positive and negative controlswhen available are evaluated Immunohistochemistry technical testing was performed at [facility], Pathology Laboratory where it was developed and its performance characteristics were determined. It has not been cleared or approved by the U.S. Food and Drug Administration. The FDA has determined that such clearance or approval is not necessary. The test is used for clinical purposes. It should not be regarded as investigational or for research. This laboratory is certified under the Clinical Laboratory Improvement Amendments of 1988 (CLIA-88) as qualified to perform high complexity clinical laboratory testing.[facility], Department of Pathology, [address] [place] [address], [facility], [address] [place] [address], [facility], Department of Path[facility], [address] [place] [address], HX, ABDOMEN, [id number] 09:55:00Also MRCPFINAL REPORT MRI abdomen without and with contrast HISTORY: Epigastric pain COMPARISON: None TECHNIQUE: Multiplanar and multisequence MRI images of the abdomen were obtained without and subsequently following the administration of intravenous gadolinium. FINDINGS: The heart is normal in size. No significant pericardial or pleural effusion. Unremarkable appearance of the liver and gallbladder. The common bile duct and pancreatic duct are normal in caliber. No intrahepatic biliary dilation is identified. No intrinsic or extrinsic defect is seen within the biliary system. Unremarkable appearance of the pancreas and spleen. Unremarkable appearance of the adrenal glands and kidneys. The visualized bowel loops appear normal in caliber. No lymphadenopathy is seen within the abdomen. No free fluid is identified. A loop of small bowel protrudes slightly into a small umbilical hernia. IMPRESSION:1. No evidence of biliary obstruction. No additional acute findings in the abdomen.2. Small umbilical hernia. Signed: Jay Mcdaniel MDReport Verified Date/Time: 02/29/2020 09:55:13 Reading Location: [facility] C013X [facility] Consult Reading Room BASIC METABOLIC [id number] 07:03:00 Test Item Value Reference Range Interpretation Comments SODIUM (BEAKER) 134 meq/L 136-145 L (test code = 381) POTASSIUM (BEAKER) 3.6 meq/L 3.5-5.1 (test code = 379) CHLORIDE (BEAKER) 108 meq/L 98-107 H (test code = 382) CO2 (BEAKER) (test 24 meq/L 22-29 code = 355) BLOOD UREA NITROGEN 5 mg/dL 7-21 L (BEAKER) (test code = 354) CREATININE (BEAKER) 0.78 mg/dL 0.57-1.25 (test code = 358) GLUCOSE RANDOM 79 mg/dL 70-105 (BEAKER) (test code = 652) CALCIUM (BEAKER) 8.5 mg/dL 8.4-10.2 (test code = 697) EGFR (BEAKER) (test 105 mL/min/1.73 ESTIM ATED GFR IS code = 1092) sq m NOT ACCURATE CREATININE CLEARANCE IN PREDICTING GLOMERULAR FILTRATION RATE . ESTIMATED GFR I S NOT APPLICABLE FOR DIALYSIS PATIEN TS. Adult Care Provider ID - DBCARCINOEMBRYONIC ANTIGEN (CEA)2020-02-28 14:10:00 Test Item Value Reference Range Interpretation Comments CARCINOEMBRYONIC ANTIGEN (BEAKER) < ng/mL 0.0-5.0 (test code = 685) Adult Care Provider ID - DBHEPATITIS PANEL, [id number] 14:05:00 Test Item Value Reference Range Interpretation Comments HEPATITIS A IGM ANTIBODY (BEAKER) Nonreactive Nonreactive (test code = 498) HEPATITIS B CORE IGM ANTIBODY Nonreactive Nonreactive (BEAKER) (test code = 645) HEPATITIS C ANTIBODY (BEAKER) Nonreactive Nonreactive (test code = 367) HEPATITIS B SURFACE ANTIGEN (2) Nonreactive Nonreactive (BEAKER) (test code = 2585) Adult Care Provider ID - DBPOCT-GLUCOSE [id number] 13:56:00 Test Item Value Reference Range Interpretation Comments POC-GLUCOSE METER 100 mg/dL 70-110 : TESTED A T [facility] 6720 (AuditFile) (test code = [facility], 1538) [address]: Adult Care Provider/Techni ian ID = [id number] for NATALIYA JARRETT, NONI IMMUNOGLOBULIN M (IGM)2020-02-28 13:41:00 Test Item Value Reference Range Interpretation Comments IMMUNOGLOBULIN M (IGM) (BEAKER) 270 mg/dL 22-293 (test code = 638) Adult Care Provider ID - DBIMMUNOGLOBULIN A (IGA)2020-02-28 13:41:00 Test Item Value Reference Range Interpretation Comments IMMUNOGLOBULIN A (IGA) (BEAKER) 148 mg/dL 63-484 (test code = 639) Adult Care Provider ID - DBPOCT-GLUCOSE [id number] 13:02:00 Test Item Value Reference Range Interpretation Comments POC-GLUCOSE METER 63 mg/dL 70-110 L : TESTED A T [facility] 6720 (AuditFile) (test code = [facility], 1538) [address]: Adult Care Provider/Techni ian ID = [id number] for JESSIE PARRISH [id number] 13:00:00 Test Item Value Reference Range Interpretation Comments FERRITIN (BEAKER) (test code = 5.15 ng/mL 5.00-275.00 361) Adult Care Provider ID - EMERSONPOCT-GLUCOSE [id number] 12:45:00 Test Item Value Reference Range Interpretation Comments POC-GLUCOSE METER 59 mg/dL 70-110 L : TESTED A T [facility] 6720 (HyperfairAKER) (test code = [facility], 1538) [address]: Adult Care Provider/Techni ian ID = [id number] for DEBBY MOORE IRON, TIBC, % SAT. (WITHOUT FERRITIN)2020-02-28 12:40:00 Test Item Value Reference Range Interpretation Comments IRON (BEAKER) (test code = 547) 291.0 ug/dL 40.0-160.0 H TOTAL IRON BINDING CAPACITY 400 ug/dL 250-450 (BEAKER) (test code = 769) IRON % SATURATION (2) (BEAKER) 73 % 20-55 H (test code = 2590) Adult Care Provider ID - EMERSONURINALYSIS WITH MICROSCOPIC IF [id number] 08:27:00 Test Item Value Reference Range Interpretation Comments COLOR (BEAKER) (test code = 470) Yellow CLARITY (BEAKER) (test code = 469) Clear SPECIFIC GRAVITY UA (BEAKER) (test 1.039 1.001-1.035 H code = 468) PH UA (BEAKER) (test code = 467) 5.5 5.0-8.0 PROTEIN UA (BEAKER) (test code = Negative Negative 464) GLUCOSE UA (BEAKER) (test code = Negative Negative 365) KETONES UA (BEAKER) (test code = Negative Negative 371) BILIRUBIN UA (BEAKER) (test code = Negative Negative 462) BLOOD UA (BEAKER) (test code = 461) Negative Negative NITRITE UA (BEAKER) (test code = Negative Negative 465) LEUKOCYTE ESTERASE UA (BEAKER) Negative Negative (test code = 466) UROBILINOGEN UA (BEAKER) (test code 0.2 mg/dL 0.2-1.0 = 463) SOURCE(BEAKER) (test code = 2795) Adult Care Provider ID - [auto]POCT-GLUCOSE [id number] 06:39:00 Test Item Value Reference Range Interpretation Comments POC-GLUCOSE METER 103 mg/dL 70-110 : TESTED A T [facility] 6720 (BEAKER) (test code = [facility] [place], 1538) [address]: Adult Care Provider/Techni ian ID = [id number] for ANGIE ROHITH AGUILARIA BASIC METABOLIC [id number] 06:10:00 Test Item Value Reference Range Interpretation Comments SODIUM (BEAKER) 138 meq/L 136-145 (test code = 381) POTASSIUM (BEAKER) 3.7 meq/L 3.5-5.1 (test code = 379) CHLORIDE (BEAKER) 109 meq/L 98-107 H (test code = 382) CO2 (BEAKER) (test 25 meq/L 22-29 code = 355) BLOOD UREA NITROGEN 9 mg/dL 7-21 (BEAKER) (test code = 354) CREATININE (BEAKER) 0.79 mg/dL 0.57-1.25 (test code = 358) GLUCOSE RANDOM 97 mg/dL 70-105 (BEAKER) (test code = 652) CALCIUM (BEAKER) 8.4 mg/dL 8.4-10.2 (test code = 697) EGFR (BEAKER) (test 104 mL/min/1.73 ESTIM ATED GFR IS code = 1092) sq m NOT ACCURATE CREATININE CLEARANCE IN PREDICTING GLOMERULAR FILTRATION RATE . ESTIMATED GFR I S NOT APPLICABLE FOR DIALYSIS PATIEN TS. Adult Care Provider ID - HAY WCBC W/PLT COUNT & AUTO [id number] 05:27:00 Test Item Value Reference Range Interpretation Comments WHITE BLOOD CELL COUNT (BEAKER) 7.6 K/ L 3.5-10.5 (test code = 775) RED BLOOD CELL COUNT (BEAKER) 4.54 M/ L 3.93-5.22 (test code = 761) HEMOGLOBIN (BEAKER) (test code = 10.1 GM/DL 11.2-15.7 L 410) HEMATOCRIT (BEAKER) (test code = 33.2 % 34.1-44.9 L 411) MEAN CORPUSCULAR VOLUME (BEAKER) 73.1 fL 79.4-94.8 L (test code = 753) MEAN CORPUSCULAR HEMOGLOBIN 22.2 pg 25.6-32.2 L (BEAKER) (test code = 751) MEAN CORPUSCULAR HEMOGLOBIN CONC 30.4 GM/DL 32.2-35.5 L (BEAKER) (test code = 752) RED CELL DISTRIBUTION WIDTH 18.5 % 11.7-14.4 H (BEAKER) (test code = 412) PLATELET COUNT (BEAKER) (test 238 K/CU MM 150-450 code = 756) MEAN PLATELET VOLUME (BEAKER) 10.3 fL 9.4-12.3 (test code = 754) NUCLEATED RED BLOOD CELLS 0 /100 WBC 0-0 (BEAKER) (test code = 413) NEUTROPHILS RELATIVE PERCENT 57 % (BEAKER) (test code = 429) LYMPHOCYTES RELATIVE PERCENT 34 % (BEAKER) (test code = 430) MONOCYTES RELATIVE PERCENT 7 % (BEAKER) (test code = 431) EOSINOPHILS RELATIVE PERCENT 2 % (BEAKER) (test code = 432) BASOPHILS RELATIVE PERCENT 0 % (BEAKER) (test code = 437) NEUTROPHILS ABSOLUTE COUNT 4.35 K/ L 1.56-6.13 (BEAKER) (test code = 670) LYMPHOCYTES ABSOLUTE COUNT 2.56 K/ L 1.18-3.74 (BEAKER) (test code = 414) MONOCYTES ABSOLUTE COUNT (BEAKER) 0.50 K/ L 0.24-0.36 H (test code = 415) EOSINOPHILS ABSOLUTE COUNT 0.15 K/ L 0.04-0.36 (BEAKER) (test code = 416) BASOPHILS ABSOLUTE COUNT (BEAKER) 0.02 K/ L 0.01-0.08 (test code = 417) IMMATURE GRANULOCYTES-RELATIVE 0 % 0-1 PERCENT (BEAKER) (test code = 2801) [id number] 21:58:00 Test Item Value Reference Range Interpretation Comments LIPASE (BEAKER) (test code = 749) 21 U/L 8-78 Adult Care Provider ID - BSCOMPREHENSIVE METABOLIC [id number] 21:58:00 Test Item Value Reference Range Interpretation Comments TOTAL PROTEIN 7.4 gm/dL 6.0-8.3 (BEAKER) (test code = 770) ALBUMIN (BEAKER) 4.0 g/dL 3.5-5.0 (test code = 1145) ALKALINE PHOSPHATASE 82 U/L 40-150 (BEAKER) (test code = 346) BILIRUBIN TOTAL 0.5 mg/dL 0.2-1.2 (BEAKER) (test code = 377) SODIUM (BEAKER) (test 140 meq/L 136-145 code = 381) POTASSIUM (BEAKER) 4.0 meq/L 3.5-5.1 (test code = 379) CHLORIDE (BEAKER) 108 meq/L 98-107 H (test code = 382) CO2 (BEAKER) (test 27 meq/L 22-29 code = 355) BLOOD UREA NITROGEN 12 mg/dL 7-21 (BEAKER) (test code = 354) CREATININE (BEAKER) 1.07 mg/dL 0.57-1.25 (test code = 358) GLUCOSE RANDOM 88 mg/dL 70-105 (BEAKER) (test code = 652) CALCIUM (BEAKER) 9.4 mg/dL 8.4-10.2 (test code = 697) AST (SGOT) (BEAKER) 19 U/L 5-34 (test code = 353) ALT (SGPT) (BEAKER) 17 U/L 6-55 (test code = 347) EGFR (BEAKER) (test 73 mL/min/1.73 ESTIMA CHANCE GFR IS code = 1092) sq m NOT ACCURATE CREATININE CLEARANCE IN PREDICTING GLOMERULAR FILTRATION RATE . ESTIMATED GFR I S NOT APPLICABLE FOR DIALYSIS PATIEN TS. Adult Care Provider ID - BSCBC W/PLT COUNT & AUTO [id number] 21:44:00 Test Item Value Reference Range Interpretation Comments WHITE BLOOD CELL COUNT (BEAKER) 8.3 K/ L 3.5-10.5 (test code = 775) RED BLOOD CELL COUNT (BEAKER) 5.24 M/ L 3.93-5.22 H (test code = 761) HEMOGLOBIN (BEAKER) (test code = 11.5 GM/DL 11.2-15.7 410) HEMATOCRIT (BEAKER) (test code = 37.7 % 34.1-44.9 411) MEAN CORPUSCULAR VOLUME (BEAKER) 71.9 fL 79.4-94.8 L (test code = 753) MEAN CORPUSCULAR HEMOGLOBIN 21.9 pg 25.6-32.2 L (BEAKER) (test code = 751) MEAN CORPUSCULAR HEMOGLOBIN CONC 30.5 GM/DL 32.2-35.5 L (BEAKER) (test code = 752) RED CELL DISTRIBUTION WIDTH 18.9 % 11.7-14.4 H (BEAKER) (test code = 412) PLATELET COUNT (BEAKER) (test 289 K/CU MM 150-450 code = 756) MEAN PLATELET VOLUME (BEAKER) 10.5 fL 9.4-12.3 (test code = 754) NUCLEATED RED BLOOD CELLS 0 /100 WBC 0-0 (BEAKER) (test code = 413) NEUTROPHILS RELATIVE PERCENT 55 % (BEAKER) (test code = 429) LYMPHOCYTES RELATIVE PERCENT 36 % (BEAKER) (test code = 430) MONOCYTES RELATIVE PERCENT 7 % (BEAKER) (test code = 431) EOSINOPHILS RELATIVE PERCENT 2 % (BEAKER) (test code = 432) BASOPHILS RELATIVE PERCENT 1 % (BEAKER) (test code = 437) NEUTROPHILS ABSOLUTE COUNT 4.55 K/ L 1.56-6.13 (BEAKER) (test code = 670) LYMPHOCYTES ABSOLUTE COUNT 2.96 K/ L 1.18-3.74 (BEAKER) (test code = 414) MONOCYTES ABSOLUTE COUNT (BEAKER) 0.58 K/ L 0.24-0.36 H (test code = 415) EOSINOPHILS ABSOLUTE COUNT 0.17 K/ L 0.04-0.36 (BEAKER) (test code = 416) BASOPHILS ABSOLUTE COUNT (BEAKER) 0.05 K/ L 0.01-0.08 (test code = 417) IMMATURE GRANULOCYTES-RELATIVE 0 % 0-1 PERCENT (BEAKER) (test code = 9591)
[2021-03-15] MEDS ORDERED: TETRACAINE HCL 0.5% 4ML OPTH ONE (08:35)
[2021-03-15] MEDS ORDERED: FLUORESCEIN SODIUM 1 MG/WRAP ONE (08:35)
--- NOTE | 2021-03-15 09:28 | EDPHYS ---
Physician Documentation [facility] Name: Stacie Burnett Age: 30 yrs Sex: Female : 1990 Arrival Date: 03/15/2021 Time: 07:42 Bed 8 Private MD: Gt Araujo ED Physician Elfego Winters HPI: 03/15 09:23 This 30 yrs old Black Female presents to ER via Ambulatory with complaints of Eye rn Problem. 09:23 The patient is experiencing matting or discharge, redness, tearing, The patient rn sustained None. to the left eye, to both eyes, caused by an unknown mechanism. Onset: The symptoms/episode began/occurred yesterday. Duration: the symptoms are continuous. Aggravated by closing eye, opening eye, rubbing, Alleviated by nothing. Associated signs and symptoms: Pertinent positives: sore throat, loss of voice. Patient does not utilize any form of vision correction. Severity of symptoms: At their worst the symptoms were mild in the emergency department the symptoms are unchanged. The patient has not experienced similar symptoms in the past. The patient has not recently seen a physician. Reports since yesterday having irritation of both eyes but left>right, no known trauma, woke up today with matted eyes and crusting. Reports pressure to left side of face, and recently getting over loss of voice and sinus issues/allergy problems. No fever. No weakness of face. NO loss of vision. No hx of glaucoma in patient or family. NO headache. . ENVELOPE STUFFER: 07:48 LMP 03/15/2021 jd3 Historical: - Allergies: 07:48 No Known Allergies; jd3 - Home Meds: 07:48 Omeprazole Oral [Active]; Iron CR Oral [Active]; jd3 - PMHx: 07:48 gastritis; IRON DEFICIENCY ANEMIA; jd3 - PSHx: 07:48 ; Tubal ligation; jd3 - Immunization history:: Adult Immunizations up to date. - Social history:: Smoking status: Patient denies any tobacco usage or history of. - Family history:: not pertinent. - Hospitalizations: : No recent hospitalization is reported. ROS: 09:23 Constitutional: Negative for fever, chills, and weight loss, Eyes: Negative for injury, rn + redness and drainag of eyes Cardiovascular: Negative for chest pain, palpitations, and edema, Respiratory: Negative for shortness of breath, cough, wheezing, and pleuritic chest pain, Neuro: Negative for headache, weakness, numbness, tingling, and seizure. Exam: 09:23 Constitutional: This is a well developed, well nourished patient who is awake, alert, rn and in no acute distress. Head/Face: Normocephalic, atraumatic. Eyes: + conjunctival and scleral injection bilateral eyes, clear drainage, no fluorescein uptake, tonopen pressure of 16. No foreign body identified. No periorbital swelling or erythema. Neuro: Awake and alert, GCS 15, oriented to person, place, time, and situation. Cranial nerves II-XII grossly intact. Motor strength 5/5 in all extremities. Sensory grossly intact. Cerebellar exam normal. Normal gait. Vital Signs: 07:48 BP 130 / 84; Pulse 102; Resp 17 S; Temp 98.6(TE); Pulse Ox 100% on R/A; Weight 104.33 jd3 kg (R); Height 5 ft. 4 in. (162.56 cm) (R); Pain 9/10; 09:09 BP 101 / 75; Pulse 74; Resp 16; Pulse Ox 100% ; bp 07:48 Body Mass Index 39.48 (104.33 kg, 162.56 cm) jd3 MDM: 08:03 Patient medically screened. rn 09:23 Differential diagnosis: Foreign body in Acute iritis of Data reviewed: vital signs, rn nurses notes, and as a result, I will discharge patient. Counseling: I had a detailed discussion with the patient and/or guardian regarding: the historical points, exam findings, and any diagnostic results supporting the discharge/admit diagnosis, the need for outpatient follow up, to return to the emergency department if symptoms worsen or persist or if there are any questions or concerns that arise at home. Response to treatment: the patient's symptoms have mildly improved after treatment, and as a result, I will discharge patient. Special discussion: I discussed with the patient/guardian in detail that at this point there is no indication for admission to the hospital. It is understood, however, that if the symptoms persist or worsen the patient needs to return immediately for re-evaluation. Based on the history and exam findings, there is no indication for further emergent testing or inpatient evaluation. I discussed with the patient/guardian the need to see the opthamologist for further evaluation of the symptoms. 03/15 08:12 Order name: Atif. Order: tonopen to bedside; Complete Time: 08:18 rn Administered Medications: 08:18 Drug: Tetracaine Drops 0.5 % 1 drops {Note: AT B/S.} Route: Ophthalmic; Site: left eye; bp 08:18 Drug: Fluorescein Strip 1 strip {Note: AT B/S.} Route: Ophthalmic; Site: left eye; bp Disposition: 03/15/21 09:28 Discharged to Home. Impression: Ocular pain, left eye, Conjunctivitis, Iritis. - Condition is Stable. - Discharge Instructions: Bacterial Conjunctivitis, Viral Conjunctivitis. - Prescriptions for Vigamox 0.5 % Ophthalmic Drops - instill 1 drop by OPHTHALMIC route every 8 hours for 7 days; 5 milliliter. - Work release form, Medication Reconciliation Form, Thank You Letter, Antibiotic Education, Prescription Opioid Use form. - Follow up: Tae Rhoades MD; When: Today; Reason: Recheck today's complaints, Re-evaluation by your physician. - Problem is new. - Symptoms have improved. Signatures: Elfego Winters MD MD rn Calderon, Audri RN RN aa5 Facundo Merino RN RN jd3 Gilberto Au RN RN bp Corrections: (The following items were deleted from the chart) 09:45 09:28 03/15/2021 09:28 Discharged to Home. Impression: Ocular pain, left eye; aa5 Conjunctivitis; Iritis. Condition is Stable. Forms are Medication Reconciliation Form, Thank You Letter, Antibiotic Education, Prescription Opioid Use. Follow up: Tae Rhoades; When: Today; Reason: Recheck today's complaints, Re-evaluation by your physician. Problem is new. Symptoms have improved. rn
--- NOTE | 2021-03-15 09:28 | ER ---
Nurse's Notes [facility] Name: Stacie Burnett Age: 30 yrs Sex: Female : 1990 Arrival Date: 03/15/2021 Time: 07:42 Bed 8 Private MD: Gt Araujo Diagnosis: Ocular pain, left eye;Conjunctivitis;Iritis Presentation: 03/15 07:46 Chief complaint: Patient states: "since yesterday I have been having some tingling on jd3 the left side of my face and my eyes are very sensitive to light and my head is hurting pretty bad. Io have also noticed my vision is a little blurry and feel like I am seeing spots.". Coronavirus screen: At this time, the client does not indicate any symptoms associated with coronavirus-19. Ebola Screen: Patient negative for fever greater than or equal to 101.5 degrees Fahrenheit, and additional compatible Ebola Virus Disease symptoms. Initial Sepsis Screen: Does the patient meet any 2 criteria? No. Patient's initial sepsis screen is negative. Does the patient have a suspected source of infection? No. Patient's initial sepsis screen is negative. Risk Assessment: Do you want to hurt yourself or someone else? Patient reports no desire to harm self or others. Onset of symptoms was March 14, 2021. 07:46 Method Of Arrival: Ambulatory j 07:46 Acuity: HOLLIS 3 jd3 Triage Assessment: 07:52 General: Appears distressed, uncomfortable, obese, Behavior is cooperative, appropriate bp for age, anxious. Pain: Complains of pain in head. EENT: No deficits noted. Neuro: Reports numbness in left eye, left baptism, left zygomatic area and left cheek photophobia. Cardiovascular: No deficits noted. Respiratory: No deficits noted. GI: No signs and/or symptoms were reported involving the gastrointestinal system. : No signs and/or symptoms were reported regarding the genitourinary system. Derm: No deficits noted. Musculoskeletal: No deficits noted. 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 - Social history:: Smoking status: Patient denies any tobacco usage or history of. - Family history:: not pertinent. - Hospitalizations: : No recent hospitalization is reported. Screenin:55 Abuse screen: Denies threats or abuse. Denies injuries from another. Nutritional bp screening: No deficits noted. Tuberculosis screening: No symptoms or risk factors identified. Fall Risk None identified. Assessment: 07:55 General: SEE TRIAGE NOTE. bp Vital Signs: 07:48 BP 130 / 84; Pulse 102; Resp 17 S; Temp 98.6(TE); Pulse Ox 100% on R/A; Weight 104.33 jd3 kg (R); Height 5 ft. 4 in. (162.56 cm) (R); Pain 9/10; 09:09 BP 101 / 75; Pulse 74; Resp 16; Pulse Ox 100% ; bp 07:48 Body Mass Index 39.48 (104.33 kg, 162.56 cm) jd3 ED Course: 07:42 Patient arrived in ED. am2 07:42 Gt Araujo MD is Private Physician. am2 07:47 Triage completed. jd3 07:49 Arm band placed on. jd3 07:50 Gilberto Au, SIGIFREDO is Primary Nurse. bp 07:55 Patient has correct armband on for positive identification. Bed in low position. Call bp light in reach. Side rails up X2. 08:03 Elfego Winters MD is Attending Physician. rn 09:27 Tae Rhoades MD is Referral Physician. rn Administered Medications: 08:18 Drug: Tetracaine Drops 0.5 % 1 drops {Note: AT B/S.} Route: Ophthalmic; Site: left eye; bp 08:18 Drug: Fluorescein Strip 1 strip {Note: AT B/S.} Route: Ophthalmic; Site: left eye; bp Outcome: 09:28 Discharge ordered by . rn 09:45 Patient left the ED. aa5 Signatures: Elfego Winters MD MD rn Calderon, Audri, RN RN aa5 Kerri Kaufman am2 Facundo Merino RN RN jGilberto Gibbons RN RN bp Corrections: (The following items were deleted from the chart) 07:49 07:46 Chief complaint: Patient states: "since yesterday I have been having some jd3 tingling on the left side of my face and my eyes are very sensitive to light and my head is hurting pretty bad." jd3
[2021-03-15 10:00] VITALS: BP 101/75; O2SAT 100
[2021-03-15 10:02] VITALS: TEMP 98.6
== END 2021-03-15 09:45 | disposition home or self-care (01) ==
LOC: ER 07:41
DX: H10.9 Unspecified conjunctivitis (principal); H20.9 Unspecified iridocyclitis; D50.9 Iron deficiency anemia, unspecified
CPT/HCPCS: 99282

== ENCOUNTER 2021-11-13 15:46 | Emergency (ER) | payer OTHER ==
--- OUTSIDE RECORDS SUMMARY | 2021-11-13 15:50 | XMS REPORT | Continuity of Care Document ---
:1990 Author Organization [facility] t Address [address] [place] [address] Care Team Providers Name Role Phone Chani Gibsb Attending Clinician Unavailable MARY ROSARIO Attending Clinician Unavailable Kulwinder CARRASQUILLO, Jayden Attending Clinician Ev Araujo Admitting Clinician Unavailable LISA BAZAN Admitting Clinician Unavailable Payers Payer Name Policy Type Policy Number Effective Date Expiration Date S ource Problems This patient has no known problems. Allergies, Adverse Reactions, Alerts Allergy Allergy Status Severity Reaction(s) Onset Inactive Treating Comm ents Source Name Type Date Date Clinician No Known DA Active [facility] NO KNOWN Allergy Active [facility] Medications This patient has no known medications. Procedures This patient has no known procedures. Encounters Start End Encounter Admission Attending Care Care Encounter Source Date/Time Date/Time Type Type Clinicians Facility Department ID 2021-04-21 2021-04-21 Emergency EM ELTON Gibbs [id number] RENEE 21:08:00 23:40:00 Anand [id number] [facility] 2020-02-27 2020-02-27 Emergency [facility] [id number] SLE 19:52:00 19:52:00 [id number] 2019-06-24 2019-06-24 Office TYRESE Miramontes [id number] 07:58:05 08:47:28 Visit Tia Jayden [employer] [id number] [place] [id number] MATERNAL [id number] & CHILD [address] [place] [address] Results Test Description Test Time Test Comments Results Result [facility] e Comments - CT CHEST 2021-04-21 W/CONTRAST 23:26:00 [facility] : 1990 Sex: F Name: ANNABELLE COLLADO [facility]ly [facility] : 1990 Age/S: 30 / F [address] Unit #: [id number] Loc: [place] [address] Phys: Anand Gibbs MD Acct: [id number] Dis Date: Status: REG ER PHONE #: [phone] Exam Date: 04/21/2021 2320 FAX #: Reason: hemoptysis, rule out PE, elevated d-dimer EXAMS: CPT: [id number] CT CHEST W/CONTRAST [address] CT chest with contrast (PE protocol) Location code: B2 HISTORY: Chest pain, hemoptysis, elevated d-dimer COMMENT: Multidetector slices through the chest were obtained during contrast administration for evaluation of the pulmonary arteries for pulmonary embolus. Coronal and axial reconstructions were performed and evaluated. MIPS and 3-D reformatted images were rendered. Dose lowering technique with automatic exposure control utilized. There is good opacification of the pulmonary arteries with no evidence of filling defect to suggest pulmonary embolus. The aorta is normal in diameter with no aneurysm or dissection. Tracheobronchial tree is patent without bronchiectasis or endobronchial lesions. There are no consolidations or effusions. No suspicious pulmonary nodules identified. The heart and pulmonary vasculature is normal. Upper abdominal structures are within normal limits. Osseous structures are unremarkable. IMPRESSION: 1. No evidence of pulmonary embolus or dissection. 2. No acute intrathoracic findings. at 2326 Reported and signed by: Omar Ghotra M.D. CC: Anand Gibbs MD; Gt Araujo MD Technologist:Manuel [place] RT(R); Sparkle Leon CTDI: DLP: Trnscb Date/Time: 04/21/2021 (5436) [email or web address] Orig Print D/T: S: 04/21/2021 (8459) PAGE 1 Signed Report UR HCG QUAL 2021-04-21 23:03:00 Test Item Value Reference Range Interpretation Comme nts UR HCG QUAL (test code = HCGQLU) NEGATIVE NEGATIVE PROTHROMBIN [id number] 22:21:00 Test Item Value Reference Range Interpretation Comments PT PATIENT (test code = PTP) 12.7 SECONDS 9.3-12.9 N INTERNATIONAL NORMAL RATIO 1.13 INR Unit 0.8-1.2 N (test code = INR) [id number] 22:21:00 Test Item Value Reference Range Interpretation Comments D-DIMER (test code = DDIMER) 515 ng/mLFEU 215-500 HH COMPREHENSIVE METABOLIC [id number] 22:06:00 Test Item Value Reference Range Interpretation Comments SODIUM (test code = NA) 139 mmol/L 134-147 N POTASSIUM (test code = 3.6 mmol/L 3.4-5.0 N K) CHLORIDE (test code = 107 mmol/L 100-108 N CL) CARBON DIOXIDE (test 27 mmol/L 21-32 N code = CO2) ANION GAP (test code = 5.0 GAP calc 4.0-15.0 N GAP) GLUCOSE (test code = 100 MG/DL 70-110 N GLU) BLOOD UREA NITROGEN 15 MG/DL 7-18 N (test code = BUN) GLOMERULAR FILTRATION >=60 max estimate >60 RATE (test code = GFR) estGFR CREATININE (test code = 1.1 MG/DL 0.6-1.0 H CREAT) TOTAL PROTEIN (test code 7.7 G/DL 6.4-8.2 N = PROT) ALBUMIN (test code = 3.4 G/DL 3.4-5.0 N ALB) GLOBULIN (test code = 4.3 GM/dL GLOB) ALBUMIN/GLOBULIN RATIO 0.8 RATIO 1.2-2.2 L (test code = A/G) CALCIUM (test code = CA) 8.9 MG/DL 8.5-10.1 N BILIRUBIN TOTAL (test 0.30 MG/DL 0.2-1.2 N code = BILT) SGOT/AST (test code = 15 Unit/L 15-37 N AST) SGPT/ALT (test code = 22 Unit/L 12-78 N ALT) ALKALINE PHOSPHATASE 92 Unit/L 45-117 N TOTAL (test code = ALKP) [id number] 22:06:00 Test Item Value Reference Range Interpretation Comments LIPASE (test code = LIP) 86 Unit/L 114-286 L CBC W/AUTO [id number] 22:00:00 Test Item Value Reference Range Interpretation Comments WHITE BLOOD CELL (test code = 9.1 K/mm3 3.5-11.0 N WBC) RED BLOOD CELL (test code = 5.27 M/mm3 4.70-6.10 N RBC) HEMOGLOBIN (test code = HGB) 12.0 G/DL 10.4-14.9 N HEMATOCRIT (test code = HCT) 39.3 % 31.5-44.1 N MEAN CELL VOLUME (test code = 74.6 Fl 84.5-98.6 L MCV) MEAN CELL HGB (test code = MCH) 22.8 pg 27.0-34.2 L MEAN CELL HGB CONCETRATION 30.5 G/DL 31.5-34.0 L (test code = MCHC) RED CELL DISTRIBUTION WIDTH 17.1 SD 11.5-14.5 H (test code = RDW) PLATELET COUNT (test code = 304 K/mm3 150-450 N PLT) MEAN PLATELET VOLUME (test code 10.50 fL 7.0-10.5 N = MPV) NEUTROPHIL % (test code = NT%) 57.3 % 40-76 N IMMATURE GRANULOCYTE % (test 0.2 % 0.0-5.0 N code = IG%) LYMPHOCYTE % (test code = LY%) 34.8 % 20.5-51.1 N MONOCYTE % (test code = MO%) 6.0 % 1.7-9.3 N EOSINOPHIL % (test code = EO%) 1.5 % 0.0-6.0 N BASOPHIL % (test code = BA%) 0.2 % 0.0-2.0 N NUCLEATED RBC % (test code = 0.0 /100WBC% 0.0-1.0 N NRBC%) NEUTROPHIL # (test code = NT#) 5.2 K/mm3 1.8-7.6 N IMMATURE GRANULOCYTE # (test 0.02 x10 3/uL 0.00-0.03 N code = IG#) LYMPHOCYTE # (test code = LY#) 3.2 K/mm3 0.6-3.2 N MONOCYTE # (test code = MO#) 0.6 K/mm3 0.3-1.1 N EOSINOPHIL # (test code = EO#) 0.1 K/mm3 0.0-0.4 N BASOPHIL # (test code = BA#) 0.0 K/mm3 0.0-0.1 N NUCLEATED RBC # (test code = 0.0 K/mm3 0.0-0.1 N NRBC#) MANUAL DIFF REQUIRED (test code NO DIFF/SCN CRITERIA = MDIFF) COMPREHENSIVE METABOLIC [id number] 22:00:00 Test Item Value Reference Range Interpretation Comments SODIUM (test code = NA) 139 mmol/L 134-147 N POTASSIUM (test code = K) 3.6 mmol/L 3.4-5.0 N CHLORIDE (test code = CL) 107 mmol/L 100-108 N CARBON DIOXIDE (test code = CO2) 27 mmol/L 21-32 N ANION GAP (test code = GAP) 5.0 GAP calc 4.0-15.0 N GLUCOSE (test code = GLU) 100 MG/DL 70-110 N BLOOD UREA NITROGEN (test code = 15 MG/DL 7-18 N BUN) GLOMERULAR FILTRATION RATE (test estGFR >60 code = GFR) CREATININE (test code = CREAT) MG/DL 0.6-1.0 TOTAL PROTEIN (test code = PROT) G/DL 6.4-8.2 ALBUMIN (test code = ALB) G/DL 3.4-5.0 GLOBULIN (test code = GLOB) GM/dL ALBUMIN/GLOBULIN RATIO (test RATIO 1.2-2.2 code = A/G) CALCIUM (test code = CA) 8.9 MG/DL 8.5-10.1 N BILIRUBIN TOTAL (test code = MG/DL 0.2-1.2 BILT) SGOT/AST (test code = AST) Unit/L 15-37 SGPT/ALT (test code = ALT) Unit/L 12-78 ALKALINE PHOSPHATASE TOTAL (test Unit/L 45-117 code = ALKP) [id number] 22:00:00 Test Item Value Reference Range Interpretation Comments LIPASE (test code = LIP) 86 Unit/L 114-286 L - XR CHEST 2 [id number] 21:30:00 [facility] : 1990 Sex: F Name: ANNABELLE COLLADO [facility]ly [facility] : 1990 Age/S: 30 / F [address] Unit #: [id number] Loc: [place] [address] Phys: Anand Gibbs MD Acct: [id number] Dis Date: Status: PRE ER PHONE #: [phone] Exam Date: 04/21/20212124 FAX #: Reason: hemoptysis EXAMS:CPT: [id number] XR CHEST 2 V 79394 Fluoro Time: DAP (Gy m2): Air Kerma (mGy): Location: H3 CHEST X-RAY:PA and lateral projection, 2 views, 04/21/21 CLINICAL HISTORY: Hemoptysis in this 30 year-old patient presenting to the ER COMPARISON EXAMS: None of the chest FINDINGS: Heart, lungs, and mediastinal structures are within normal limits at 2130 Reported and signed by: Micki Rudd M.D. CC: Anand Gibbs MD PAGE 1 Signed Report Name: ANNABELLE COLLADO : 1990 Age/S: 30 / F [address] Unit #: [id number] Loc: [place], [place] [address]Ptol: Anand Gibbs MD Acct: [id number] Dis Date: Status: PRE ER PHONE #: [phone] Exam Date: 04/21/20212124 FAX #: Reason: hemoptysis EXAMS: CPT: [id number] XRCHEST 2 V 65975 Fluoro Time: DAP (Gy m2): Air Kerma (mGy): <Continued> Technologist: Karena [place] RT(R)(CT) Trnscb Date/Time: 04/21/2021 (2129) [email or web address] Orig Print D/T: S: 04/21/2021 (2132) PAGE 2 Signed ReportBLOOD [id number] 07:00:00 Test Item Value Reference Range Interpretation Comments CULTURE (BEAKER) (test No growth in 5 days code = 1095) BLOOD [id number] 07:00:00 Test Item Value Reference Range Interpretation Comments CULTURE (BEAKER) (test No growth in 5 days code = 1095) ANTI-NUCLEAR ANTIBODY (ILENE)2020-03-02 09:52:00 Test Item Value Reference Range Interpretation Comments ANTI-NUCLEAR ANTIBODY (ILENE) (BEAKER) Positive Negative A (test code = 418) Test performed by IFA method.ILENE TITER AND [id number] 09:52:00 Test Item Value Reference Range Interpretation Comments ILENE TITER (BEAKER) (test code = :160 1541) ILENE PATTERN (BEAKER) (test code = Nucleolar 1781) TISSUE [id number] 13:42:00Surgical Pathology Report Case: [id number] Authorizing Provider: Ryan Beckford MD Collected: 02/28/2020 10:42 AM Ordering Location: [address] Received: 02/28/2020 02:20 PM Service Pathologist: Keven Valdez MD Specimens: A) - Duodenum, biopsy B) -Biopsy, Gastric, random biopsy A. DUODENUM, BIOPSY: - NO DIAGNOSTIC ALTERATIONB. STOMACH, RANDOM BIOPSY: - ANTRAL AND BODY-TYPE GASTRIC MUCOSA WITH MILD CHRONIC INACTIVE GASTRITIS - NEGATIVE FOR HELICOBACTER PYLORI LIKE ORGANISMS BY WARTHIN-STARRY STAIN Signing Pathologist Direct Phone Line: [phone] signed by John Valdez MD on 02/29/2020 at 1:42 [id number], [id number]. Abdominal painA. Duodenum biopsy; B. Biopsy, gastricA. [...] toto in B1. CG/pl A-B. Performed.Block B1: Warthin-StarryThe interpretation of this case included the use of immunohistochemistry or special stains.Control Slides Examined:In-house known positive controls were evaluated along with the test tissue. These control slides run alongside of the patients sample show appropriate staining. Internal positive and negative controlswhen available are evaluated Immunohistochemistry technical testing was performed at [facility], Pathology Laboratory where it was developed and [...] qualified to perform high complexity clinical laboratory testing.[facility], Department of Pathology, [address] [place] [address], [facility] of [facility], [address] [place] [address], [facility], Department of Pathology, [address] [place] [address], OV, ABDOMEN, [id number] 09:55:00[facility]CP[facility]AL [facility] MRI abdomen without and with [...] MDReport Verified Date/Time: 02/29/2020 09:55:13 Reading Location: [facility] C013X Ortho Consult Reading Room BASIC METABOLIC [id number] 07:03:00 Test Item Value Reference Range Interpretation [...] S NOT APPLICABLE FOR DIALYSIS PATIEN TS. Plaster Model And Mold Maker ID - DBCARCINOEMBRYONIC ANTIGEN (CEA)2020-02-28 14:10:00 Test Item Value Reference Range Interpretation Comments CARCINOEMBRYONIC ANTIGEN (BEAKER) < ng/mL 0.0-5.0 (test code = 685) Plaster Model And Mold Maker ID - DBHEPATITIS PANEL, [id number] 14:05:00 Test Item Value Reference Range Interpretation Comments HEPATITIS A IGM ANTIBODY (BEAKER) Nonreactive Nonreactive (test code = 498) HEPATITIS B CORE IGM ANTIBODY Nonreactive Nonreactive (BEAKER) (test code = 645) HEPATITIS C ANTIBODY (BEAKER) Nonreactive Nonreactive (test code = 367) HEPATITIS B SURFACE ANTIGEN (2) Nonreactive Nonreactive (BEAKER) (test code = 2585) Plaster Model And Mold Maker ID - DBPOCT-GLUCOSE [id number] 13:56:00 Test Item Value Reference Range Interpretation Comments POC-GLUCOSE METER 100 mg/dL 70-110 : TESTED A T [facility] 6720 (BEAKER) (test code = M2TECHHI Akatsuki [facility], 1538) [address]88[address]: Plaster Model And Mold Maker/Techni ian ID = [id number] for NONI CORONEL IMMUNOGLOBULIN M (IGM)2020-02-28 13:41:00 Test Item Value Reference Range Interpretation Comments IMMUNOGLOBULIN M (IGM) (BEAKER) 270 mg/dL 22-293 (test code = 638) Plaster Model And Mold Maker ID - DBIMMUNOGLOBULIN A (IGA)2020-02-28 13:41:00 Test Item Value Reference Range Interpretation Comments IMMUNOGLOBULIN A (IGA) (BEAKER) 148 mg/dL 63-484 (test code = 639) Plaster Model And Mold Maker ID - DBPOCT-GLUCOSE [id number] 13:02:00 Test Item Value Reference Range Interpretation Comments POC-GLUCOSE METER 63 mg/dL 70-110 L : TESTED A T [facility] 6720 (BEAKER) (test code = M2TECHHI Akatsuki [facility], 1538) 579[address]: Plaster Model And Mold Maker/Techni ian ID = [id number] for JESSIE PARRISH [id number] 13:00:00 Test Item Value Reference Range Interpretation Comments FERRITIN (BEAKER) (test code = 5.15 ng/mL 5.00-275.00 361) Plaster Model And Mold Maker ID - EMERSONPOCT-GLUCOSE [id number] 12:45:00 Test Item Value Reference Range Interpretation Comments POC-GLUCOSE METER 59 mg/dL 70-110 L : TESTED A T [facility] 6720 (BEAKER) (test code = SELWYN Wil[place], 1538) [address]: Plaster Model And Mold Maker/Techni ian ID = [id number] for DEBBY MOORE IRON, TIBC, % SAT. (WITHOUT FERRITIN)2020-02-28 12:40:00 Test Item Value Reference Range Interpretation Comments IRON (BEAKER) (test code = 547) 291.0 ug/dL 40.0-160.0 H TOTAL IRON BINDING CAPACITY 400 ug/dL 250-450 (BEAKER) (test code = 769) IRON % SATURATION (2) (BEAKER) 73 % 20-55 H (test code = 2590) Plaster Model And Mold Maker ID - EMERSONURINALYSIS WITH MICROSCOPIC IF [id number] 08:27:00 Test Item Value Reference Range Interpretation [...] = 463) SOURCE(BEAKER) (test code = 2795) Plaster Model And Mold Maker ID - [auto]POCT-GLUCOSE [id number] 06:39:00 Test Item Value Reference Range Interpretation Comments POC-GLUCOSE METER 103 mg/dL 70-110 : TESTED A T [facility] 6720 (BEAKER) (test code = [place]EL[place], 1538) [address]: Plaster Model And Mold Maker/Techni ian ID = [id number] for BARB SAHNI BASIC METABOLIC [id number] 06:10:00 Test Item Value Reference Range Interpretation [...] S NOT APPLICABLE FOR DIALYSIS PATIEN TS. Plaster Model And Mold Maker ID - HAY WCBC W/PLT COUNT & AUTO [id number] 05:27:00 Test Item Value Reference Range Interpretation [...] 0-1 PERCENT (BEAKER) (test code = 2801) [id number] 21:58:00 Test Item Value Reference Range Interpretation Comments LIPASE (BEAKER) (test code = 749) 21 U/L 8-78 Plaster Model And Mold Maker ID - BSCOMPREHENSIVE METABOLIC [id number] 21:58:00 Test Item Value Reference Range Interpretation [...] S NOT APPLICABLE FOR DIALYSIS PATIEN TS. Plaster Model And Mold Maker ID - BSCBC W/PLT COUNT & AUTO [id number] 21:44:00 Test Item Value Reference Range Interpretation [...] % 0-1 PERCENT (BEAKER) (test code = 9276)
[2021-11-13 16:27] LABS: Absolute Lymphocytes (CBC) 3.5 K/uL (0.7-4.9); Lymphocytes % 44.6 % (15.3-44.8); RBC Red Blood Cell Count 5.37 M/uL (3.86-4.86)
[2021-11-13 16:41] LABS: Urine Blood 2+ (Negative); Urine Glucose Negative (Negative); Urine Protein Negative (Negative); Urine Specific Gravity 1.025 (1.005-1.030); Urine pH 5.5 (5.0-7.0)
[2021-11-13 16:45] LABS: Protime INR 1.12
[2021-11-13 16:48] LABS: ALT/SGPT 29 U/L (12-78); AST/SGOT 19 U/L (15-37); Albumin 3.6 g/dL (3.4-5.0); Alkaline Phosphatase 93 U/L (45-117); BUN Blood Urea Nitrogen 7 mg/dL (7-18); Bicarbonate 25 mmol/L (21-32); Bilirubin Direct 0.1 mg/dL (0-0.2); Bilirubin Total 0.8 mg/dL (0.2-1.0); Glucose Level 82 mg/dL (74-106); Magnesium 2.1 mg/dL (1.8-2.4); NT PRO-BNP 26 pg/mL (<125); Sodium Level 138 mmol/L (136-145); Troponin (Emerg Dept Use Only) < 0.02 ng/mL (0.0-0.045)
--- NOTE | 2021-11-13 17:59 | EDPHYS ---
Physician Documentation [facility] Name: Stacie Burnett Age: 31 yrs Sex: Female : 1990 Arrival Date: 11/13/2021 Time: 15:48 Bed 19 Private MD: ED Physician Nadege Lopez HPI: 11/13 16:09 This 31 yrs old Black Female presents to ER via Ambulatory with complaints of Irregular pm1 Pulse, Chest Pain, Leg Pain. 16:09 The patient or guardian reports chest pain that is located primarily in the mid-sternal pm1 area. The patient presents with a history of heart racing. Context: The symptoms occur without known cause, patient attributes to vaccine booster last week. Onset: The symptoms/episode began/occurred yesterday. Modifying factors: The symptoms are aggravated by nothing. The symptoms are alleviated by nothing. The pain does not radiate. Associated signs and symptoms: Pertinent positives: bilateral lower extremity tightness, swelling and pain, Pertinent negatives: cough, fever, nausea, vomiting. The patient has not experienced similar symptoms in the past. The patient has not recently seen a physician. 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 - Social history:: Smoking status: Patient denies any tobacco usage or history of. ROS: 16:09 Constitutional: Negative for fever, chills, and weight loss. pm1 16:09 Respiratory: Negative for shortness of breath, cough, wheezing, and pleuritic chest pain, Abdomen/GI: Negative for abdominal pain, nausea, vomiting, diarrhea, and constipation, Back: Negative for injury and pain. 16:09 Skin: Negative for injury, rash, and discoloration, Neuro: Negative for headache, weakness, numbness, tingling, and seizure. 16:09 Cardiovascular: Positive for chest pain, palpitations. 16:09 MS/extremity: Positive for pain, swelling, of the right goss and left goss. 16:09 All other systems are negative. Exam: 16:09 Constitutional: This is a well developed, well nourished patient who is awake, alert, pm1 and in no acute distress. Head/Face: Normocephalic, atraumatic. 16:09 Back: No spinal tenderness. No costovertebral tenderness. Full range of motion. Skin: Warm, dry with normal turgor. Normal color with no rashes, no lesions, and no evidence of cellulitis. MS/ Extremity: Pulses equal, no cyanosis. Neurovascular intact. Full, normal range of motion. 16:09 Eyes: Exam is negative for acute changes, Extraocular movements: no acute changes, Sclera: no acute changes, icterus, is not appreciated. 16:09 ENT: Exam is negative for acute changes, Mouth: no acute changes, Lips: normal, moist, Oral mucosa: normal, pink and intact, moist. 16:09 Cardiovascular: Exam negative for acute changes, Rate: normal, Rhythm: regular, Pulses: no pulse deficits are appreciated, Heart sounds: normal, Edema: is not appreciated. 16:09 Respiratory: Exam negative for acute changes, respiratory distress, shortness of breath, Breath sounds: are clear throughout. 16:09 Abdomen/GI: Inspection: obese Palpation: abdomen is soft and non-tender, in all quadrants. 16:09 Neuro: Exam negative for acute changes, Orientation: is normal, Mentation: is normal, Motor: is normal, moves all fours. Vital Signs: 16:04 BP 169 / 93; Pulse 93; Resp 18; Pulse Ox 100% on R/A; Weight 104.33 kg; Height 5 ft. 4 mireles in. (162.56 cm); 17:33 BP 135 / 106; Pulse 88; Resp 18; Pulse Ox 100% on R/A; mireles 16:04 Body Mass Index 39.48 (104.33 kg, 162.56 cm) mireles MDM: 16:05 Patient medically screened. pm1 17:16 Data reviewed: vital signs. Data interpreted: Pulse oximetry: on room air is 100 %. pm1 Interpretation: normal. 17:58 Counseling: I had a detailed discussion with the patient and/or guardian regarding: the pm1 historical points, exam findings, and any diagnostic results supporting the discharge/admit diagnosis, lab results, radiology results, the need for outpatient follow up, to return to the emergency department if symptoms worsen or persist or if there are any questions or concerns that arise at home. 11/13 16:06 Order name: LFT's pm1 11/13 16:06 Order name: Magnesium; Complete Time: 17:06 pm1 11/13 16:06 Order name: NT PRO-BNP; Complete Time: 17:06 pm1 11/13 16:06 Order name: PT-INR; Complete Time: 17:06 pm1 11/13 16:06 Order name: Troponin (emerg Dept Use Only); Complete Time: 17:06 pm1 11/13 16:06 Order name: XRAY Chest (1 view); Complete Time: 18:20 pm1 11/13 16:06 Order name: TSH; Complete Time: 17:06 pm1 11/13 16:06 Order name: Extrem Venous W Compression Hector US; Complete Time: 18:20 pm1 11/13 16:06 Order name: Basic Metabolic Panel; Complete Time: 17:06 EDMS 11/13 16:06 Order name: CBC with Automated Diff; Complete Time: 16:32 EDMS 11/13 16:06 Order name: Liver (Hepatic) Function; Complete Time: 17:06 EDMS 11/13 16:42 Order name: Urine Dipstick-Ancillary; Complete Time: 16:43 EDMS 11/13 16:06 Order name: EKG; Complete Time: 16:07 pm1 11/13 16:06 Order name: Cardiac monitoring; Complete Time: 16:10 pm1 11/13 16:06 Order name: EKG - Nurse/Tech; Complete Time: 16:10 pm1 11/13 16:06 Order name: IV Saline Lock; Complete Time: 16:11 pm1 11/13 16:06 Order name: Labs collected and sent; Complete Time: 16:11 pm1 11/13 16:06 Order name: O2 Per Protocol; Complete Time: 16:11 pm1 11/13 16:06 Order name: O2 Sat Monitoring; Complete Time: 16:11 pm1 11/13 16:06 Order name: Urine Dipstick-Ancillary (obtain specimen); Complete Time: 16:41 pm1 Administered Medications: No medications were administered Disposition Summary: 11/13/21 17:59 Discharge Ordered Location: Home pm1 Problem: new pm1 Symptoms: have improved pm1 Condition: Stable pm1 Diagnosis - Palpitations pm1 - Chest pain, unspecified pm1 Followup: pm1 - With: Emergency Department - When: As needed - Reason: Worsening of condition Followup: pm1 - With: Private Physician - When: 2 - 3 days - Reason: Recheck today's complaints, Continuance of care, Re-evaluation by your physician Discharge Instructions: - Discharge Summary Sheet pm1 - Nonspecific Chest Pain, Adult pm1 - Palpitations pm1 Forms: - Medication Reconciliation Form pm1 - Thank You Letter pm1 - Antibiotic Education pm1 - Prescription Opioid Use pm1 Signatures: Dispatcher [employer] EDTX Nba Ruggiero NP GRAIN SAMPLER pm1 Lidia-Elaine Wooten RN RN mireles Corrections: (The following items were deleted from the chart) 16:12 16:07 BASIC METABOLIC PANEL+C.LAB.BRZ ordered. EDTX EDTX 16:12 16:07 CBC+H.LAB.BRZ ordered. [facility] EDTX 16:41 16:06 Urine Test ordered. pm1 mireles
--- NOTE | 2021-11-13 17:59 | ER ---
Nurse's Notes [facility] Name: Stacie Burnett Age: 31 yrs Sex: Female : 1990 Arrival Date: 11/13/2021 Time: 15:48 Bed 19 Private MD: Diagnosis: Palpitations;Chest pain, unspecified Presentation: 11/13 16:04 Chief complaint: Patient states: pt presented to ED reporting bilateral leg pain. right mireles neck rash, chest pain and heart palpitation. Coronavirus screen: Vaccine status: Patient reports receiving the 2nd dose of the covid vaccine. Ebola Screen: Patient denies travel to an Ebola-affected area in the 21 days before illness onset. Initial Sepsis Screen: Does the patient meet any 2 criteria? Systolic BP < 90 mmHg. Does the patient have a suspected source of infection? No. Patient's initial sepsis screen is negative. Risk Assessment: Do you want to hurt yourself or someone else? Patient reports no desire to harm self or others. Onset of symptoms was November 11, 2021. 16:04 Method Of Arrival: Ambulatory mireles 16:04 Acuity: HOLLIS 3 mireles Triage Assessment: 16:06 General: Appears in no apparent distress. Behavior is calm, cooperative. Pain: mireles Complains of pain in chest. Cardiovascular: Pulses are all present. 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 - Social history:: Smoking status: Patient denies any tobacco usage or history of. Screenin:08 Abuse screen: Denies threats or abuse. Denies injuries from another. Nutritional mireles screening: No deficits noted. Tuberculosis screening: No symptoms or risk factors identified. Fall Risk None identified. Assessment: 16:09 Pain: Pain does not radiate. Pain began suddenly. mireles Vital Signs: 16:04 BP 169 / 93; Pulse 93; Resp 18; Pulse Ox 100% on R/A; Weight 104.33 kg; Height 5 ft. 4 mireles in. (162.56 cm); 17:33 BP 135 / 106; Pulse 88; Resp 18; Pulse Ox 100% on R/A; mireles 16:04 Body Mass Index 39.48 (104.33 kg, 162.56 cm) mireles ED Course: 15:48 Patient arrived in ED. as 15:58 Nba Ruggiero NP is PHCP. pm1 15:58 Nadege Lopez MD is Attending Physician. pm1 16:06 Triage completed. mireles 16:06 Arm band placed on. mireles 16:08 Patient has correct armband on for positive identification. Bed in low position. mireles manager monitoring on. Pulse ox on. NIBP on. 16:08 No provider procedures requiring assistance completed. Inserted saline lock: 20 gauge mireles antecubital area, using aseptic technique. Patient maintains SpO2 saturation greater than 95% on room air. 16:10 Basic Metabolic Panel Sent. mireles 16:10 CBC with Automated Diff Sent. mireles 16:10 LFT's Sent. mireles 16:10 XRAY Chest (1 view) Sent. mireles 16:11 Magnesium Sent. mireles 16:11 NT PRO-BNP Sent. mireles 16:11 PT-INR Sent. mireles 16:11 Troponin (emerg Dept Use Only) Sent. mireles 16:12 Liver (Hepatic) Function Sent. mireles 16:12 TSH Sent. mireles 16:13 EKG done, by ED staff, reviewed by Nba Ruggiero NP. mb7 16:50 XRAY Chest (1 view) In Process Unspecified. EDMS 17:21 Extrem Venous W Compression Hector US In Process Unspecified. EDMS 18:25 IV discontinued, intact, Pressure dressing applied. mireles Administered Medications: No medications were administered Outcome: 17:59 Discharge ordered by MD. pm1 18:25 Discharged to home mireles 18:25 Condition: good 18:25 Discharge instructions given to patient. 18:25 Patient left the ED. mireles Signatures: Dispatcher [employer] EDMS Kaila Mehta Patrick, NP BUS WASHER pm1 Judy Vicente mb7 Elaine Randhawa RN RN Corrections: (The following items were deleted from the chart) 16:12 16:10 BASIC METABOLIC PANEL+C.LAB.BRZ drawn and sent. mireles EDMS 16:12 16:10 CBC+H.LAB.BRZ drawn and sent. mireles EDMS
--- NOTE | 2021-11-13 18:17 | RAD REPORT ---
EXAM DESCRIPTION: RAD - Chest Single View - 11/13/2021 4:50 pm CLINICAL HISTORY: PALPITATIONS Chest pain. COMPARISON: Abdomen 1 View (KUB) dated 04/26/2019; Chest Single View dated 09/26/2018; Chest Pa And L at (2 Views) dated 11/29/2017; Chest Single View dated 08/23/2016 FINDINGS: Portable technique limits examination quality. The lungs are grossly clear. The heart is normal in size. No displaced fractures. IMPRESSION: No acute intrathoracic process suspected.
--- NOTE | 2021-11-13 18:17 | RAD REPORT ---
EXAM DESCRIPTION: US - Extrem Venous W Compress Hector - 11/13/2021 5:21 pm CLINICAL HISTORY: SWELLING Bilateral leg edema and swelling. COMPARISON: No comparisons TECHNIQUE: Real-time sonographic interrogation of the left and right lower extremity deep venous sys tems was performed. FINDINGS: Normal compressibility, flow augmentation, phasic flow and spontaneous flow is identified in both the left and right lower extremity deep venous systems. IMPRESSION: No sonographic evidence of left or right lower extremity deep venous thrombosis.
[2021-11-13 18:39] VITALS: O2SAT 100
[2021-11-13 18:47] VITALS: BP 135/106
== END 2021-11-13 18:25 | disposition home or self-care (01) ==
LOC: ER 15:46
DX: R00.2 Palpitations (principal); R07.9 Chest pain, unspecified
CPT/HCPCS: 36415; 71045; 80048; 80076; 81003; 83735; 83880; 84443; 84484; 85025; 85610; 93005; 93970; 99285

== ENCOUNTER 2021-11-16 15:35 | Emergency (ER) | payer OTHER ==
--- OUTSIDE RECORDS SUMMARY | 2021-11-16 15:39 | XMS REPORT | Continuity of Care Document ---
:1990 Author Organization [facility] t Address [address] [place] [address] Care Team Providers Name Role Phone Chani Gibbs Attending Clinician Unavailable MARY ROSARIO Attending Clinician Unavailable Jayden Marsh Attending Clinician Ev Araujo Admitting Clinician Unavailable LISA BAZAN Admitting Clinician Unavailable Payers Payer Name Policy Type Policy Number Effective Date Expiration Date S ource Problems This patient has no known problems. Allergies, Adverse Reactions, Alerts Allergy Allergy Status Severity Reaction(s) Onset Inactive Treating Comm ents Source Name Type Date Date Clinician No Known DA Active U [facility] Allerg 11-22 [facility] 00:00: d 00 [facility] NO KNOWN Allergy Active [facility] Medications This patient has no known medications. Procedures This patient has no known procedures. Encounters Start End Encounter Admission Attending Care Care Encounter Source Date/Time Date/Time Type Type Clinicians Facility Department ID 2021-04-21 2021-04-21 Emergency EM ELTON Gibbs [id number] [facility] 21:08:00 23:40:00 Anand [id number] [facility] 2020-02-27 2020-02-27 Emergency [facility] SLE [id number] [facility] 19:52:00 19:52:00 [id number] 2019-06-24 2019-06-24 Office TYRESE Miramontes [id number] 07:58:05 08:47:28 Visit Tia Carpenter RESPIRATORY THERAPY AIDE [id number] [facility] [id number] MATERNAL [id number] & CHILD 107 [facility] Results Test Description Test Time Test Comments Results Result [facility] Comments - CT CHEST 2021-04-21 W/CONTRAST 23:26:00 [facility] : 1990 [facility]: [facility] 1990 Age/S: 30 / F [address] Unit #: [id number] Loc: [place] [address] Phys: Anand Gibbs MD Acct: [id number] Dis Date: Status: REG ER PHONE #: [phone] Exam Date: 04/21/2021 2320 FAX #: Reason: hemoptysis, rule out PE, elevated d-dimer EXAMS: CPT: [id number] CT CHEST W/CONTRAST 52676 CT chest with contrast (PE protocol) Location [...] Anand Gibbs MD; Gt Araujo MD Technologist:Manuel Hart, RT(R); Sparkle Leon CTDI: DLP: Trnscb Date/Time: 04/21/2021 (7487) [email or web address] Orig Print D/T: S: 04/21/2021 (2630) PAGE 1 Signed Report UR HCG QUAL 2021-04-21 23:03:00 Test Item Value Reference Range Interpretation Comme nts UR HCG QUAL (test code = HCGQLU) NEGATIVE NEGATIVE PROTHROMBIN [id number] 22:21:00 Test Item Value Reference Range Interpretation Comments PT PATIENT (test code = PTP) 12.7 SECONDS 9.3-12.9 N INTERNATIONAL NORMAL RATIO 1.13 INR Unit 0.8-1.2 N (test code = INR) [id number] 22:21:00 Test Item Value Reference Range Interpretation Comments D-DIMER (test code = DDIMER) 515 ng/mLFEU 215-500 HH COMPREHENSIVE METABOLIC [id number] 22:06:00 Test Item Value Reference Range Interpretation [...] 45-117 N TOTAL (test code = ALKP) [id number] 22:06:00 Test Item Value Reference Range Interpretation Comments LIPASE (test code = LIP) 86 Unit/L 114-286 L CBC W/AUTO [id number] 22:00:00 Test Item Value Reference Range Interpretation [...] NO DIFF/SCN CRITERIA = MDIFF) COMPREHENSIVE METABOLIC [id number] 22:00:00 Test Item Value Reference Range Interpretation [...] TOTAL (test Unit/L 45-117 code = ALKP) [id number] 22:00:00 Test Item Value Reference Range Interpretation Comments LIPASE (test code = LIP) 86 Unit/L 114-286 L - XR CHEST 2 [id number] 21:30:00 [facility] : 1990 Sex: F [facility] 1990 Age/S: 30 / F [id number] Unit #: [id number] Loc: [place] [address] Phys: Anand Gibbs MD Acct: [id number] Dis Date: Status: PRE ER PHONE #: [phone] Exam Date: 04/21/20212124 FAX #: Reason: hemoptysis EXAMS:CPT: [id number] XR CHEST 2 V 39900 Fluoro Time: DAP (Gy m2): Air Kerma [...] COLLADO : 1990 Age/S: 30 / F [address] Unit #: [id number] Loc: Jalen Moralez [address]Omcr: Anand Gibbs MD Acct: [id number] Dis Date: Status: PRE ER PHONE #: [phone] Exam Date: 04/21/20212124 FAX #: Reason: hemoptysis EXAMS: CPT: [id number] XRCHEST 2 V 22757 Fluoro Time: DAP (Gy m2): Air Kerma (mGy): <Continued> Technologist: Karena Hart RT(R)(CT) Trnscb Date/Time: 04/21/2021 (2129) [email or web address] Orig Print D/T: S: 04/21/2021 (2132) PAGE 2 Signed ReportBLOOD [id number] 07:00:00 Test Item Value Reference Range Interpretation Comments CULTURE (BEAKER) (test No growth in 5 days code = 1095) BLOOD [id number] 07:00:00 Test Item Value Reference Range Interpretation Comments CULTURE (BEAKER) (test No growth in 5 days code = 1095) ANTI-NUCLEAR ANTIBODY (ILENE)2020-03-02 09:52:00 Test Item Value Reference Range Interpretation Comments ANTI-NUCLEAR ANTIBODY (ILENE) (BEAKER) Positive Negative A (test code = 418) Test performed by IFA method.ILENE TITER AND [id number] 09:52:00 Test Item Value Reference Range Interpretation Comments ILENE TITER (BEAKER) (test code = :160 1541) ILENE PATTERN (BEAKER) (test code = Nucleolar 1781) TISSUE [id number] 13:42:00Surgical Pathology Report Case: [id number] Authorizing Provider: Ryan Beckford MD Collected: 02/28/2020 10:42 AM Ordering Location: [address] Received: 02/28/2020 02:20 PM Service Pathologist: Keven Valdez MD Specimens: A) - Duodenum, biopsy B) -Biopsy, Gastric, random biopsy A. DUODENUM, BIOPSY: - NO DIAGNOSTIC ALTERATIONB. STOMACH, RANDOM BIOPSY: - ANTRAL AND BODY-TYPE GASTRIC MUCOSA WITH MILD CHRONIC INACTIVE GASTRITIS - NEGATIVE FOR HELICOBACTER PYLORI LIKE ORGANISMS BY WARTHIN-STARRY STAIN Signing Pathologist Direct Phone Line: [phone] signed by John Valdez MD on 02/29/2020 at 1:42 [id number], [id number]. Abdominal painA. Duodenum biopsy; B. Biopsy, gastricA. [...] evaluated Immunohistochemistry technical testing was performed at [facility], Pathology Laboratory where it was [...] qualified to perform high complexity clinical laboratory testing.[facility], Department of Pathology, [address] [place] [address], [facility], Department of Patholog y, [address] [place] [address], [facility], Department of Pathology, [address] [place] [address], RT, ABDOMEN, [id number] 09:55:00Also MRCPFINAL REPORT MRI abdomen without and [...] MDReport Verified Date/Time: 02/29/2020 09:55:13 Reading Location: [address] Consult Reading Room BASIC METABOLIC [id number] 07:03:00 Test Item Value Reference Range Interpretation [...] S NOT APPLICABLE FOR DIALYSIS PATIEN TS. Grocery Packer ID - DBCARCINOEMBRYONIC ANTIGEN (CEA)2020-02-28 14:10:00 Test Item Value Reference Range Interpretation Comments CARCINOEMBRYONIC ANTIGEN (BEAKER) < ng/mL 0.0-5.0 (test code = 685) Grocery Packer ID - DBHEPATITIS PANEL, [id number] 14:05:00 Test Item Value Reference Range Interpretation Comments HEPATITIS A IGM ANTIBODY (BEAKER) Nonreactive Nonreactive (test code = 498) HEPATITIS B CORE IGM ANTIBODY Nonreactive Nonreactive (BEAKER) (test code = 645) HEPATITIS C ANTIBODY (BEAKER) Nonreactive Nonreactive (test code = 367) HEPATITIS B SURFACE ANTIGEN (2) Nonreactive Nonreactive (BEAKER) (test code = 2585) Grocery Packer ID - DBPOCT-GLUCOSE [id number] 13:56:00 Test Item Value Reference Range Interpretation Comments POC-GLUCOSE METER 100 mg/dL 70-110 : TESTED A T [facility] 6720 (BEAKER) (test code = [facility], 1538) [address]: Grocery Packer/Techni ian ID = [id number] for NONI CORONEL IMMUNOGLOBULIN M (IGM)2020-02-28 13:41:00 Test Item Value Reference Range Interpretation Comments IMMUNOGLOBULIN M (IGM) (BEAKER) 270 mg/dL 22-293 (test code = 638) Grocery Packer ID - DBIMMUNOGLOBULIN A (IGA)2020-02-28 13:41:00 Test Item Value Reference Range Interpretation Comments IMMUNOGLOBULIN A (IGA) (BEAKER) 148 mg/dL 63-484 (test code = 639) Grocery Packer ID - DBPOCT-GLUCOSE [id number] 13:02:00 Test Item Value Reference Range Interpretation Comments POC-GLUCOSE METER 63 mg/dL 70-110 L : TESTED A T [facility] 6720 (BEAKER) (test code = [facility], 1538) [address]: Grocery Packer/Techni ian ID = [id number] for JESSIE PARRISH [id number] 13:00:00 Test Item Value Reference Range Interpretation Comments FERRITIN (BEAKER) (test code = 5.15 ng/mL 5.00-275.00 361) Grocery Packer ID - EMERSONPOCT-GLUCOSE [id number] 12:45:00 Test Item Value Reference Range Interpretation Comments POC-GLUCOSE METER 59 mg/dL 70-110 L : TESTED A T [facility] 6720 (BEAKER) (test code = SELWYN Wilde [facility], 1538) 401[address]: Grocery Packer/Techni ian ID = [id number] for DEBBY MOORE IRON, TIBC, % SAT. (WITHOUT FERRITIN)2020-02-28 12:40:00 Test Item Value Reference Range Interpretation Comments IRON (BEAKER) (test code = 547) 291.0 ug/dL 40.0-160.0 H TOTAL IRON BINDING CAPACITY 400 ug/dL 250-450 (BEAKER) (test code = 769) IRON % SATURATION (2) (BEAKER) 73 % 20-55 H (test code = 2590) Grocery Packer ID - EMERSONURINALYSIS WITH MICROSCOPIC IF [id number] 08:27:00 Test Item Value Reference Range Interpretation [...] = 463) SOURCE(BEAKER) (test code = 2795) Grocery Packer ID - [auto]POCT-GLUCOSE [id number] 06:39:00 Test Item Value Reference Range Interpretation Comments POC-GLUCOSE METER 103 mg/dL 70-110 : TESTED A T [facility] 6720 (BEAKER) (test code = [facility] Chani [facility], 1538) [address]: Grocery Packer/Techni ian ID = [id number] for BARB SAHNI BASIC METABOLIC [id number] 06:10:00 Test Item Value Reference Range Interpretation [...] S NOT APPLICABLE FOR DIALYSIS PATIEN TS. Grocery Packer ID - HAY WCBC W/PLT COUNT & AUTO [id number] 05:27:00 Test Item Value Reference Range Interpretation [...] 0-1 PERCENT (BEAKER) (test code = 2801) [id number] 21:58:00 Test Item Value Reference Range Interpretation Comments LIPASE (BEAKER) (test code = 749) 21 U/L 8-78 Grocery Packer ID - BSCOMPREHENSIVE METABOLIC [id number] 21:58:00 Test Item Value Reference Range Interpretation [...] S NOT APPLICABLE FOR DIALYSIS PATIEN TS. Grocery Packer ID - BSCBC W/PLT COUNT & AUTO [id number] 21:44:00 Test Item Value Reference Range Interpretation [...] % 0-1 PERCENT (BEAKER) (test code = 4510)
[2021-11-16] MEDS ORDERED: MEPERIDINE HCL 25 MG/ML SYR ONE (16:29)
[2021-11-16] MEDS ORDERED: ONDANSETRON 4 MG/2 ML VIAL ONE (16:29)
[2021-11-16 16:46] LABS: Urine Blood Negative (Negative); Urine Glucose Negative (Negative); Urine Protein Negative (Negative); Urine Specific Gravity >=1.030 (1.005-1.030); Urine pH 5.5 (5.0-7.0)
[2021-11-16 16:49] LABS: Absolute Lymphocytes (CBC) 1.4 K/uL (0.7-4.9); Hematocrit 35.2 % (36.0-45.0); Lymphocytes % 13.4 % (15.3-44.8); MPV 8.6 fL (7.6-11.3); RBC Red Blood Cell Count 5.03 M/uL (3.86-4.86)
[2021-11-16 16:51] LABS: Urine Specific Gravity/Preg >1.030 (1.005-1.030)
[2021-11-16 16:56] LABS: Urine Bacteria NONE SEEN /HPF (<20); Urine Mucus 1+ /HPF (NONE SEEN); Urine RBC <5 /HPF (NONE SEEN)
[2021-11-16 17:10] LABS: ALT/SGPT 34 U/L (12-78); AST/SGOT 19 U/L (15-37); Albumin 3.3 g/dL (3.4-5.0); Alkaline Phosphatase 85 U/L (45-117); BUN Blood Urea Nitrogen 7 mg/dL (7-18); Bicarbonate 26 mmol/L (21-32); Bilirubin Direct 0.1 mg/dL (0-0.2); Bilirubin Total 0.5 mg/dL (0.2-1.0); Glucose Level 105 mg/dL (74-106); Lipase 44 U/L (73-393); Potassium 3.9 mmol/L (3.5-5.1); Protein, Total 7.6 g/dL (6.4-8.2); Sodium Level 141 mmol/L (136-145)
[2021-11-16] MEDS ORDERED: MORPHINE 4 MG/ML SYR ONE (17:28)
--- NOTE | 2021-11-16 18:01 | RAD REPORT ---
EXAM DESCRIPTION: CT - Abdomen Pelvis W Contrast - 11/16/2021 5:30 pm CLINICAL HISTORY: ABD PAIN, history of recent colitis diagnosis COMPARISON: CT study February 2020 TECHNIQUE: Biphasic, helical CT imaging of the abdomen and pelvis was performed following 100 ml non -ionic IV contrast. Oral contrast was given. All CT scans are performed using dose optimization technique as appropriate and may include automated exposure control or mA/KV adjustment according to patient size. FINDINGS: No suspicious findings in the lung bases. The liver, spleen, and pancreas show no suspicious findings. Gallbladder and biliary tree are also wi thout suspicious finding. Symmetric renal function is seen with no hydronephrosis or suspicious renal mass. No pyelonephritis o r acute parenchymal process. No bladder abnormalities. No adrenal abnormalities. Uterus and ovaries s how no suspicious findings. No dilated bowel loops or bowel wall thickening. Colon gardner do not appear thickened or edematous. No CT findings of significant colitis. No free air, free fluid or inflammatory stranding. No hernia, m ass or bulky lymphadenopathy. No suspicious bony findings. IMPRESSION: Contrast enhanced CT abdomen and pelvis showing no acute or emergent finding. No CT findings for colitis and no significant changes from the February 2020 study.
[2021-11-16 18:39] LABS: SARS-COV-2 RT PCR POSITIVE (NEGATIVE)
--- NOTE | 2021-11-16 18:44 | EDPHYS ---
Physician Documentation [facility] Name: Stacie Burnett Age: 31 yrs Sex: Female : 1990 Arrival Date: 11/16/2021 Time: 15:38 Bed 20 Private MD: Gt Araujo ED Physician Elfego Winters HPI: 11/16 17:13 This 31 yrs old Black Female presents to ER via Wheelchair with complaints of Pain All rn Over. 17:13 This 31 yrs old Black Female presents to ER via Wheelchair with complaints of Pain All rn Over. 17:13 Patient reports pain all over, myalgias, fatigue, nausea. Patient reports seen here rn when it began for high heart rate and leg pain and discharged home without diagnosis. States seen yesterday at [facility] and was diagnosed with possible colitis and told to follow-up with GI. Called her GI doctor for colonoscopy today and they were told to come to hospital for evaluation. Denies fever. Denies blood in stool.. Onset: The symptoms/episode began/occurred 5 day(s) ago. Severity of symptoms: At their worst the symptoms were mild in the emergency department the symptoms are unchanged. The patient has not experienced similar symptoms in the past. The patient has been recently seen at the [facility] Emergency Department. 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 - Social history:: Smoking status: Patient denies any tobacco usage or history of. - Family history:: not pertinent. - Hospitalizations: : No recent hospitalization is reported. ROS: 17:13 Constitutional: Negative for fever, chills, and weight loss, Eyes: Negative for injury, rn pain, redness, and discharge, ENT: Negative for injury, pain, and discharge, Neck: Negative for injury, pain, and swelling, Cardiovascular: Negative for chest pain, palpitations, and edema, Respiratory: Negative for shortness of breath, cough, wheezing, and pleuritic chest pain, Abdomen/GI: Positive for nausea Back: Negative for injury : Negative for injury, bleeding, discharge, and swelling, MS/Extremity: Negative for injury and deformity, Skin: Negative for injury, rash, and discoloration, Neuro: Negative for headache, numbness, tingling, and seizure. Exam: 17:13 Constitutional: Overweight patient, no acute distress Head/Face: Normocephalic, rn atraumatic. Eyes: Periorbital areas with no swelling, redness, or edema. Cardiovascular: Regular rate and rhythm. No pulse deficits. Respiratory: No increased work of breathing, no retractions or nasal flaring. Abdomen/GI: Soft, non-tender Skin: Warm, dry MS/ Extremity: Pulses equal, no cyanosis. Neuro: Awake and alert, GCS 15 Vital Signs: 15:45 BP 180 / 106; Pulse 79; Resp 17; Temp 98.0; Pulse Ox 100% ; Weight 102.06 kg; Height 5 ll1 ft. 4 in. (162.56 cm); Pain 9/10; 17:09 BP 150 / 107; Pulse 82; Resp 18; Pulse Ox 98% on R/A; mireles 17:43 BP 133 / 83; Pulse 62; Resp 18; Pulse Ox 98% on R/A; mireles 15:45 Body Mass Index 38.62 (102.06 kg, 162.56 cm) ll1 MDM: 16:06 Patient medically screened. rn 18:42 Differential Diagnosis flu, Viral syndrome, COVID, enteritis. Data reviewed: vital rn signs, nurses notes, lab test result(s), radiologic studies, CT scan, and as a result, I will discharge patient. Counseling: I had a detailed discussion with the patient and/or guardian regarding: the historical points, exam findings, and any diagnostic results supporting the discharge/admit diagnosis, lab results, radiology results, the need for outpatient follow up, to return to the emergency department if symptoms worsen or persist or if there are any questions or concerns that arise at home. Response to treatment: the patient's symptoms have mildly improved after treatment, and as a result, I will discharge patient. Special discussion: I discussed with the patient/guardian in detail that at this point there is no indication for admission to the hospital. It is understood, however, that if the symptoms persist or worsen the patient needs to return immediately for re-evaluation. ED course: CT without acute findings. Told just yesterday had colitis and nothing on her CAT scan so not likely correct diagnosis. Given systemic symptoms of myalgias and abdominal complaints most likely viral syndrome. COVID positive today. Will discharge home with return precautions.. 11/16 16:18 Order name: Basic Metabolic Panel; Complete Time: 17:12 rn 11/16 16:18 Order name: CBC with Diff; Complete Time: 17:09 rn 11/16 16:18 Order name: Hepatic Function; Complete Time: 17:12 rn 11/16 16:18 Order name: Lipase; Complete Time: 17:12 rn 11/16 16:18 Order name: Urine Microscopic Only; Complete Time: 17:09 rn 11/16 16:19 Order name: COVID-19/FLU A+B (Document "Date of Onset" if Symptomatic); Complete Time: rn 18:42 11/16 16:18 Order name: IV Saline Lock; Complete Time: 17:00 rn 11/16 16:18 Order name: Labs collected and sent; Complete Time: 17:00 rn 11/16 16:18 Order name: CT Abd/Pelvis - IV Contrast Only; Complete Time: 18:03 rn 11/16 16:46 Order name: Urine Dipstick-Ancillary; Complete Time: 17:09 EDMS 11/16 16:49 Order name: Urine --Ancillary (enter results); Complete Time: 17:09 bd 11/16 16:18 Order name: Urine Dipstick-Ancillary (obtain specimen); Complete Time: 17:00 rn 11/16 16:18 Order name: Urine Test (obtain specimen); Complete Time: 17:00 rn Administered Medications: 16:59 Drug: Demerol (meperidine) 25 mg Route: IVP; Site: left antecubital; mireles 17:00 Drug: Zofran (Ondansetron) 4 mg Route: IVP; Site: left antecubital; mireles 17:42 Drug: morphine 4 mg Route: IVP; Site: left antecubital; mireles 17:43 Follow up: Response: No adverse reaction mireles Disposition Summary: 11/16/21 18:43 Discharge Ordered Location: Home rn Problem: new rn Symptoms: have improved rn Condition: Stable rn Diagnosis - SARS-associated coronavirus as the cause of diseases classified elsewhere rn - Myalgia rn Followup: rn - With: Private Physician - When: As needed - Reason: Recheck today's complaints, Re-evaluation by your physician Discharge Instructions: - Discharge Summary Sheet rn - COVID-19 rn - 10 Things You Can Do to Manage Your COVID-19 Symptoms at Home - [facility] rn - Viral Illness, Adult rn - Prevent the Spread of COVID-19 if You Are Sick - [facility] rn Forms: - Work release form bd - Medication Reconciliation Form rn - Thank You Letter rn - 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
--- NOTE | 2021-11-16 18:44 | ER ---
Nurse's Notes [facility] Name: Stacie Burnett Age: 31 yrs Sex: Female : 1990 Arrival Date: 11/16/2021 Time: 15:38 Bed 20 Private MD: Gt Araujo Diagnosis: SARS-associated coronavirus as the cause of diseases classified elsewhere;Myalgia Presentation: 11/16 15:45 Chief complaint: Patient states: Was seen here on Monday for high HR and legs pains. ll1 Yesterday, went to [place] and was diagnosed with colitis. Dr. Roman told her to come get evaluated today in our ER. Entire body pains and fatigue today. Coronavirus screen: Vaccine status: Patient reports receiving the 1st dose of the Covid vaccine. Client denies travel out of the [place] in the last 14 days. headache, muscle pain, Client presents with at least one sign or symptom that may indicate coronavirus-19. Standard/surgical mask placed on the client. Ebola Screen: Patient denies travel to an Ebola-affected area in the 21 days before illness onset. Initial Sepsis Screen: Does the patient meet any 2 criteria? No. Patient's initial sepsis screen is negative. Does the patient have a suspected source of infection? No. Patient's initial sepsis screen is negative. Risk Assessment: Do you want to hurt yourself or someone else? Patient reports no desire to harm self or others. Onset of symptoms was November 13, 2021. 15:45 Method Of Arrival: Wheelchair ll1 15:45 Acuity: HOLLIS 3 ll1 Triage Assessment: 17:10 General: Appears uncomfortable, Behavior is calm, cooperative. 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 - Social history:: Smoking status: Patient denies any tobacco usage or history of. - Family history:: not pertinent. - Hospitalizations: : No recent hospitalization is reported. Screenin:10 Abuse screen: Denies threats or abuse. Denies injuries from another. Nutritional mireles screening: No deficits noted. Tuberculosis screening: No symptoms or risk factors identified. Fall Risk None identified. Assessment: 16:09 Pain: Complains of pain in face, scalp, right eye, left eye, back, buttocks, chest, mireles abdomen, pelvis, right arm, left arm, right leg, left leg and neck. GI: Reports lower abdominal pain, upper abdominal pain, Pain is 10 out of 10 on a pain scale. Musculoskeletal: Reports weakness in face, scalp, right eye, left eye, back, buttocks, chest, abdomen, right arm, left arm, right leg, left leg and neck Pain is 10 out of 10 on a pain scale. Vital Signs: 15:45 BP 180 / 106; Pulse 79; Resp 17; Temp 98.0; Pulse Ox 100% ; Weight 102.06 kg; Height 5 ll1 ft. 4 in. (162.56 cm); Pain 9/10; 17:09 BP 150 / 107; Pulse 82; Resp 18; Pulse Ox 98% on R/A; mireles 17:43 BP 133 / 83; Pulse 62; Resp 18; Pulse Ox 98% on R/A; mireles 15:45 Body Mass Index 38.62 (102.06 kg, 162.56 cm) ll1 ED Course: 15:38 Patient arrived in ED. as 15:38 Gt Araujo MD is Private Physician. as 15:48 Triage completed. ll1 15:49 Arm band placed on. ll1 16:06 Elfego Winters MD is Attending Physician. rn 17:10 Patient has correct armband on for positive identification. Bed in low position. mireles 17:10 No provider procedures requiring assistance completed. Inserted saline lock: 20 gauge mireles in left antecubital area, using aseptic technique. 17:30 CT Abd/Pelvis - IV Contrast Only In Process Unspecified. EDMS 17:43 COVID-19/FLU A+B (Document "Date of Onset" if Symptomatic) Sent. mireles 19:06 IV discontinued, intact, Pressure dressing applied. mireles Administered Medications: 16:59 Drug: Demerol (meperidine) 25 mg Route: IVP; Site: left antecubital; mireles 17:00 Drug: Zofran (Ondansetron) 4 mg Route: IVP; Site: left antecubital; mireles 17:42 Drug: morphine 4 mg Route: IVP; Site: left antecubital; mireles 17:43 Follow up: Response: No adverse reaction mireles Outcome: 18:43 Discharge ordered by . rn 19:06 Discharged to home ambulatory. mireles 19:06 Condition: good 19:06 Discharge instructions given to patient. 19:06 Patient left the ED. mireles Signatures: Dispatcher [employer] Kaila Montilla Roman, MD MD rn Lewis, Lynsay, RN RN [facility] Elaine Randhawa RN RN mireles
[2021-11-16 20:09] VITALS: TEMP 98
[2021-11-16 20:10] VITALS: O2SAT 98
[2021-11-16 20:12] VITALS: BP 133/83
== END 2021-11-16 19:06 | disposition home or self-care (01) ==
LOC: ER 15:35
DX: U07.1 COVID-19 (principal); Z88.5 Allergy status to narcotic agent
CPT/HCPCS: 85025; 80048; 36415; 81025; 80076; 83690; 0240U; 74177; Q9967; J2175; J2405; 81003; 81015; 96374; 96375; 99284

== ENCOUNTER 2022-11-28 16:54 | Emergency (ER) | payer OTHER ==
--- OUTSIDE RECORDS SUMMARY | 2022-11-28 16:59 | XMS REPORT | Continuity of Care Document ---
:1990 Author Organization [facility] t Address [address] [place] [address] Care Team Providers Name Role Phone Asked, No Pcp Primary Care Physician Unavailable Jordi Felipe Attending Clinician Unavailable Anand Gibbs Attending Clinician Unavailable DEBBY ROSARIO Attending Clinician Unavailable Tia Marsh Attending Clinician Gt Araujo Admitting Clinician Unavailable AMADO BAZAN Admitting Clinician Unavailable Payers Payer Name Policy Type Policy Number Effective Date Expiration Date S ource Problems Condition Condition Condition Status Onset Resolution Last Treating Co mments Source Name Details Category Date Date Treatment Clinician Date Epigastric Epigastric Disease Active [facility] Bilateral Bilateral Disease Active 2017-11 [facility] leg leg [facility] weakness weakness 00:00: Hospit a 00 l Muscle Muscle Disease Active [facility] weakness weakness [facility] Myelopathy Myelopathy Disease Active [facility] Allergies, Adverse Reactions, Alerts Allergy Allergy Status Severity Reaction(s) Onset Inactive Treating Comm ents Source Name Type Date Date Clinician No Known DA Active [facility] Allergie -17 [place] [facility] 00:00: d 00 Medical [place] NO KNOWN Allergy Active [facility] Family History Family Member Diagnosis Comments Start Date Stop Date Source Natural son Seizures [facility] Social History Social Habit Start Date Stop Date Quantity Comments Source History SDOH [facility] History SDOH [facility] SDOH [facility] Alcohol Comment Medical C enter Tobacco use and 2020-02-27 2020-02-[address] [facility] [address] [facility] k[facility] exposure 00:00:00 00:00:00 [facility] Center Alcohol intake 2018-09-28 2018-09-28 Current [facility] 00:00:00 00:00:00 non-drinker of Hospital alcohol (finding) History SDOH 2018-09-28 2018-09-28 1 [facility] Frequency 00:00:00 00:00:00 Hospita l Sex Assigned At [birth year] [facility] 00:[facility]00 [facility] Smoking Status Start Date Stop Date Source Never sm[facility] Medications Ordered Filled Start Stop Current Ordering Indication Dosage Frequency Signature Comments Components Source Medication Medication Date Date Medication? Clinician (SIG) Name Name iron-multiv 2020-0 Yes 1{tbl} QD Take [address] itamins-min 4-25 tablet by [facility] erals 16:20: mouth Medical (THERAGRAN- 36 daily. Center M) 9 mg iron-400 mcg Tab tablet cholecalcif 2020-0 Yes 1000U QD Take 1,[address] [facility] 4-25 Units by [facility] (VITAMIN 16:20: mouth Medical D3) 25 mcg 36 daily. Center (1,000 unit) tablet ferrous 2020-0 Yes Q.5D Take by [facility] sulfate 4-25 mouth 2 [facility] (IRON ORAL) 16:20: (two) Medic al 36 times Center daily. iron-multiv 2020-0 Yes 1{tbl} QD Take [address] itamins-min 4-25 tablet by [facility] es erals 16:20: mouth Medical (THERAGRAN- 36 daily. Center M) 9 mg iron-400 mcg Tab tablet cholecalcif 2020-0 Yes 1000U QD Take 1,[address] [facility] 4-25 Units by [facility] (VITAMIN 16:20: mouth Medical D3) 25 mcg 36 daily. Center (1,000 unit) tablet ferrous 2020-0 Yes Q.5D Take by [facility] sulfate 4-25 mouth 2 [facility] (IRON ORAL) 16:20: (two) Medic al 36 times Center daily. iron-multiv 2020-0 Yes 1{tbl} QD Take [address] itamins-min 4-25 tablet by [facility] es erals 16:20: mouth Medical (THERAGRAN- 36 daily. Center M) 9 mg iron-400 mcg Tab tablet cholecalcif 2020-0 Yes 1000U QD Take 1,[address] [facility] 4-25 Units by [facility] (VITAMIN 16:20: mouth Medical D3) 25 mcg 36 daily. Center (1,000 unit) tablet ferrous 2020-0 Yes Q.5D Take by [facility] sulfate 4-25 mouth 2 [facility] (IRON ORAL) 16:20: (two) Medic al 36 times Center daily. iron-multiv 2020-0 Yes 1{tbl} QD Take [address] itamins-min 4-25 tablet by [facility] es erals 16:20: mouth Medical (THERAGRAN- 36 daily. Center M) 9 mg iron-400 mcg Tab tablet cholecalcif 2020-0 Yes 1000U QD Take 1,[address] [facility] 4-25 Units by [facility] (VITAMIN 16:20: mouth Medical D3) 25 mcg 36 daily. Center (1,000 unit) tablet ferrous 2020-0 Yes Q.5D Take by [facility] sulfate 4-25 mouth 2 [facility] (IRON ORAL) 16:20: (two) Medic al 36 times Center daily. No known 2018- No No known Metho di medications -[address] 02:33: s Hospita 13 l No known 2017- No No known Metho di medications -[address] 02:33: s Hospita 13 l No known 2017- No No known Metho di medications -[address] 02:33: s [facility] 13 l No known 2017- No No known Metho di medications -[address] 02:33: s [facility] l No known 2017-11 No No known Metho di medications -[address] 02:33: s Hosp[facility] 13 l Procedures This patient has no known procedures. Plan of Care Planned Activity Planned Date Details Comments Source Future Scheduled 2026-01-25 DTAP/TDAP/TD [facility] 00:[facility]00 VACCINES (2 - Td or Medical Center Tdap) [code = DTAP/TDAP/TD VACCINES (2 - Td or Tdap)] Future Scheduled 2026-01-25 DTAP/TDAP/TD [facility] Test 00:00:00 VACCINES (2 - Td or Medical Center Tdap) [code = DTAP/TDAP/TD VACCINES (2 - Td or Tdap)] Future Scheduled 2026-01-25 DTAP/TDAP/TD [facility] Test 00:00:00 VACCINES (2 - Td or Medical Center Tdap) [code = DTAP/TDAP/TD VACCINES (2 - Td or Tdap)] Future Scheduled 2026-01-25 DTAP/TDAP/TD [facility] Test 00:00:00 VACCINES (2 - Td or Medical Center Tdap) [code = DTAP/TDAP/TD VACCINES (2 - Td or Tdap)] Future Scheduled 2022-11-[address] [facility] Test 00:00:00 (12+) [code = Medical Center DEPRESSION SCREENING (12+)] Future Scheduled 2022-11-[address] [facility] Test 00:00:00 (12+) [code = [facility] DEPRESSION SCREENING (12+)] Future Scheduled 2022-10-30 [facility] 05:28:55 (#1) [code = COVID-19 VACCINE (#1)] Future Scheduled 2022-10-30 Screening for [facility] Test 05:28:55 malignant neoplasm of cervix (procedure) [code = 020824757] Future Scheduled 2022-10-30 INFLUENZA VACCINE Method [facility] Test 05:28:55 [code = INFLUENZA VACCINE] Future Scheduled 2022-10-30 [facility] Test 05:28:55 (#1) [code = COVID-19 VACCINE (#1)] Future Scheduled 2022-10-30 [facility] for [facility] Test 05:28:55 malignant neoplasm of cervix (procedure) [code = 166817100] Future Scheduled 2022-10-30 INFLUENZA VACCINE Method [facility] Test 05:28:55 [code = INFLUENZA VACCINE] Future Scheduled 2022-07-08 HEPATITIS B VACCINES Met [facility] Test 03:12:03 (1 of 3 - 3-dose series) [code = HEPATITIS B VACCINES (1 of 3 - 3-dose series)] Future Scheduled 2022-07-08 COVID-19 VACCINE [facility] Test 03:12:03 (#1) [code = COVID-19 VACCINE (#1)] Future Scheduled 2022-07-08 [facility] for [facility] Test 03:12:03 malignant neoplasm of cervix (procedure) [code = 716838837] Future Scheduled 2022-07-08 INFLUENZA VACCINE Method [facility] Test 03:12:03 [code = INFLUENZA VACCINE] Future Scheduled 2022-07-08 HEPATITIS B VACCINES Met [facility] Test 03:12:03 (1 of 3 - 3-dose series) [code = HEPATITIS B VACCINES (1 of 3 - 3-dose series)] Future Scheduled 2022-07-08 COVID-19 VACCINE [facility] Test 03:12:03 (#1) [code = COVID-19 VACCINE (#1)] Future Scheduled 2022-07-08 [facility] for [facility] Test 03:12:03 malignant neoplasm of cervix (procedure) [code = 454409747] Future Scheduled 2022-07-08 INFLUENZA VACCINE Method [facility] Test 03:12:03 [code = INFLUENZA VACCINE] Future Scheduled 2022-07-[address] [facility] Test 00:00:00 (#1) [code = Medical Center INFLUENZA VACCINE (#1)] Future Scheduled 2022-07-[address] [facility] Test 00:00:00 (#1) [code = Medical Center INFLUENZA VACCINE (#1)] Future Scheduled 2022-07-[address] [facility] Test 00:00:00 (#1) [code = Medical Center INFLUENZA VACCINE (#1)] Future Scheduled 2022-07-[address] [facility] Test 00:00:00 (#1) [code = Medical Center INFLUENZA VACCINE (#1)] Future Scheduled 2022-06-25 HEPATITIS B VACCINES Met [facility] Test 06:35:31 (1 of 3 - 3-dose series) [code = HEPATITIS B VACCINES (1 of 3 - 3-dose series)] Future Scheduled 2022-06-25 COVID-19 VACCINE [facility] Test 06:35:31 (#1) [code = COVID-19 VACCINE (#1)] Future Scheduled 2022-06-25 [facility] for [facility] Test 06:35:31 malignant neoplasm of cervix (procedure) [code = 636387071] Future Scheduled 2022-06-25 INFLUENZA VACCINE Method ist Hospital Test 06:35:31 [code = INFLUENZA VACCINE] Future Scheduled 2022-06-[address] [facility] Test 00:00:00 malignant neoplasm Medical C enter of cervix (procedure) [code = 639810827] Future Scheduled 2022-06-[address] [facility] Test 00:00:00 malignant neoplasm Medical C enter of cervix (procedure) [code = 542499538] Future Scheduled 2022-06-[address] [facility] Test 00:00:00 malignant neoplasm Medical C enter of cervix (procedure) [code = 931851509] Future Scheduled 2022-06-[address] [facility] Test 00:00:00 malignant neoplasm Medical C enter of cervix (procedure) [code = 028470847] Future Scheduled 2021-11-[address] [facility] Test 00:00:00 (12+) [code = [facility] DEPRESSION SCREENING (12+)] Future Scheduled 2021-11-[address] [facility] Test 00:00:00 (12+) [code = [facility] DEPRESSION SCREENING (12+)] Future Scheduled 2021-02-[address] [facility] Test 00:00:00 [facility] r Screening (12+) [code = Tobacco Cessation Counseling and Screening (12+)] Future Scheduled 2021-02-[address] [facility] Test 00:00:00 [facility] Cent[facility] r Screening (12+) [code = Tobacco Cessation Counseling and Screening (12+)] Future Scheduled [address] [facility] Test 00:00:00 (procedure) [code = [facility] 41989744] Future Scheduled [address] [facility] Test 00:00:00 (procedure) [code = [facility] 52740388] Future Scheduled [address] [facility] Test 00:00:00 (procedure) [code = [facility] 51354696] Future Scheduled [address] [facility] Test 00:00:00 (procedure) [code = [facility] 25461239] Future Scheduled 1990 COVID-[address] [facility] Test 00:00:00 (#1) [code = Medical Center COVID-19 VACCINE (#1)] Future Scheduled 1990 COVID-[address] [facility] Test 00:00:00 (#1) [code = Medical Center COVID-19 VACCINE (#1)] Future Scheduled 1990 COVID-[address] [facility] Test 00:00:00 (#1) [code = Medical Center COVID-19 VACCINE (#1)] Future Scheduled 1990 COVID-[address] [facility] Test 00:00:00 (#1) [code = Medical Center COVID-19 VACCINE (#1)] Encounters Start End Encounter Admission Attending Care Care Encounter Source Date/Time Date/Time Type Type Clinicians Facility Department ID 2022-07-13 2022-07-13 Outpatient LINDA Felipe [facility] RADI LA00 [id number] [facility] 14:25:00 14:25:[address] [facility] 2022-07-07 2022-07-07 Outpatient LINDA Felipe [facility] DAYS LA00 [id number] [facility] 05:42:00 05:42:[address] [facility] 2021-04-21 2021-04-21 Emergency EM Gibbs, [facility] SHERLYN [id number] [facility] 21:08:00 23:40:[address] [facility] 2020-02-27 2020-02-27 Emergency [facility] [id number] [facility] 19:52:00 19:52:00 [id number] 2019-06-24 2019-06-24 Office [facility] [id number] 07:58:05 08:47:28 Visit Tia Carpenter NEUROLOGY MANAGER [id number] [facility] [id number] MATERNAL [id number] & CHILD [address] [place] [address] Results Test Description Test Time Test Comments Results Result Comments Source - DUP VEIN MIKE 2022-07-13 15:45:00 [facility] 1990 Sex: F Name: ANNABEL[facility]URNET[facility] 1990 Age/S: 32 / F [address] Unit #: [id number] Loc: [place] [address] Phys: Jordi Felipe III, MD Acct: [id number] Dis Date: Status: [facility] PHONE #: [phone] Exam Date: 07/13/2022 1518 FAX #: Reason: rule out dvt EXAMS: CPT: [id number] [place]KE 90463 HISTORY: leg swelling Location Code: B2 COMMENT: Multiplanar grayscale, color flow and Doppler spectral imaging of the bilateral lower extremity was performed revealing patent deep venous system with no evidence of deep venous thrombosis of obstruction. There is normal augmentation of flow with compression of calf veins. The peroneal and posterior tibial veins in the left lower extremity were not visualized secondary to cast IMPRESSION: 1. No evidence of bilateral deep venous thrombosis within the visualized vasculature. at 2690 Reported and signed by: Omar Ghotra M.D. CC: Gt Araujo MD; Jordi Felipe III, MD Technologist: Ana Luisa Constantino [facility] Trnscb Date/Time: 07/13/2022 (9951) [email or web address] PAGE 1 Signed Report Name: [facility]UR[facility] [place] [facility] 1990 Age/S: 32 / F [address] Unit #: [id number] Loc: [place], [place] [address] Phys: Jordi Felipe III, MD Acct: [id number] Dis Date: Status: [facility] PHONE #: [phone] Exam Date: 07/13/2022 1514 FAX #: Reason: rule out dvt EXAMS: CPT: [id number] [place] [address] (Continued) Orig Print D/T: S: 07/13/2022 (7967) Probe: PAGE 2 Signed Report CBC W/AUTO DIFF 2022-07-04 17:40:00 Test Item Value Reference Range Interpretation Comme nts WHITE BLOOD CELL (test code = WBC) 6.6 K/mm3 3.5-11.0 N RED BLOOD CELL (test code = RBC) 5.23 M/mm3 4.70-6.10 N HEMOGLOBIN (test code = HGB) 11.3 G/DL 10.4-14.9 N HEMATOCRIT (test code = HCT) 37.1 % 31.5-44.1 N MEAN CELL VOLUME (test code = MCV) 70.9 Fl 84.5-98.6 L MEAN CELL HGB (test code = MCH) 21.6 pg 27.0-34.2 L MEAN CELL HGB CONCETRATION (test code = MCHC) 30.5 G/DL 31.5-34. 0 L RED CELL DISTRIBUTION WIDTH (test code = RDW) 17.2 SD 11.5-14. 5 H PLATELET COUNT (test code = PLT) 324 K/mm3 150-450 N MEAN PLATELET VOLUME (test code = MPV) 10.50 fL 7.0-10.5 N NEUTROPHIL % (test code = NT%) 52.5 % 40-76 N IMMATURE GRANULOCYTE % (test code = IG%) 0.2 % 0.0-5.0 N LYMPHOCYTE % (test code = LY%) 39.2 % 20.5-51.1 N MONOCYTE % (test code = MO%) 5.0 % 1.7-9.3 N EOSINOPHIL % (test code = EO%) 2.6 % 0.0-6.0 N BASOPHIL % (test code = BA%) 0.5 % 0.0-2.0 N NUCLEATED RBC % (test code = NRBC%) 0.0 /100WBC% 0.0-1.0 N NEUTROPHIL # (test code = NT#) 3.5 K/mm3 1.8-7.6 N IMMATURE GRANULOCYTE # (test code = IG#) 0.01 x10 3/uL 0.00-0.03 N LYMPHOCYTE # (test code = LY#) 2.6 K/mm3 0.6-3.2 N MONOCYTE # (test code = MO#) 0.3 K/mm3 0.3-1.1 N EOSINOPHIL # (test code = EO#) 0.2 K/mm3 0.0-0.4 N BASOPHIL # (test code = BA#) 0.0 K/mm3 0.0-0.1 N NUCLEATED RBC # (test code = NRBC#) 0.0 K/mm3 0.0-0.1 N MANUAL DIFF REQUIRED (test code = MDIFF) NO DIFF/SCN CRITERIA COVID 19 INHOUSE [id number] 17:32:00 Test Item Value Reference Range Interpretation Comments COVID 19 INHOUSE AG NEGATIVE Negative Per manu facturer, (test code = negative result s should [id number]) be treated aspr esumptive and, if inconsi stent with clinical signs andsymptoms or necessary for patient man agement, should betested with an alternative mol ecular assay. Negative resultsdo not preclude SA RS-CoV-2 infection and s hould not be usedas the s ole basis for patient man agement decisions. Nega tive results should be considered in t he context of apatient's r ecent exposures, hist ory, presence of cli nicalsigns and symptoms co nsistent with COVID-19. HCG SERUM [id number] 17:15:00 Test Item Value Reference Range Interpretation Comments HCG SERUM QUAL (test SERUM NEGATIVE SCREEN NEGATIVE code = HCGQL) - CT CHEST [id number] 23:26:00 [facility] : 1990 Sex: F Name: ANNABELLE BURNETT [facility] : 1990 Age/S: 30 / F [address] Unit #: [id number] Loc: [place] [address] Phys: Anand Gibbs MD Acct: [id number] Dis Date: Status: REG ER PHONE #: [phone] Exam Date: 04/21/20212319 FAX #: Reason: hemoptysis, rule out PE, elevated d-dimer EXAMS: CPT: [id number] CT CHEST W/CONTRAST 20606 CT chest with contrast (PE protocol) Location code: B2 HISTOR Y: Chest pain, hemoptysis, elevated d-dimer COMMENT: Multidetector [...] dissection. 2. No acute intrathoracic findings. at 7217 Reported and signed by: Omar Ghotra M.D. CC: Anand Gibbs MD; Gt Araujo MD Technologist:RT Delmer(R); Sparkle Leon CTDI: DLP: Trnscb Date/Time: 04/21/2021 (6250) [email or web address] Orig Print D/T: S: 04/21/2021 (9750) PAGE 1 Signed ReportUR HCG [id number] 23:03:00 Test Item Value Reference Range Interpretation Comments UR HCG QUAL (test code = HCGQLU) NEGATIVE NEGATIVE PROTHROMBIN [id number] 22:21:00 Test Item Value Reference Range Interpretation Comments PT PATIENT (test code = PTP) 12.7 SECONDS 9.3-12.9 N INTERNATIONAL NORMAL RATIO 1.13 INR Unit 0.8-1.2 N (test code = INR) [id number] 22:21:00 Test Item Value Reference Range Interpretation Comments D-DIMER (test code = DDIMER) 515 ng/mLFEU 215-500 HH COMPREHENSIVE METABOLIC [id number] 22:06:00 Test Item Value Reference Range Interpretation [...] 45-117 N TOTAL (test code = ALKP) [id number] 22:06:00 Test Item Value Reference Range Interpretation Comments LIPASE (test code = LIP) 86 Unit/L 114-286 L CBC W/AUTO [id number] 22:00:00 Test Item Value Reference Range Interpretation [...] NO DIFF/SCN CRITERIA = MDIFF) COMPREHENSIVE METABOLIC [id number] 22:00:00 Test Item Value Reference Range Interpretation [...] TOTAL (test Unit/L 45-117 code = ALKP) [id number] 22:00:00 Test Item Value Reference Range Interpretation Comments LIPASE (test code = LIP) 86 Unit/L 114-286 L - XR CHEST 2 [id number] 21:30:00 [facility] 1990 Sex: F Name: AN[facility]BEL[facility]URNET[facility] 1990 Age/S: 30 / F [address] Unit #: [id number] Loc: [place] [address] Phys: Anand Gibbs MD Acct: [id number] Dis Date: Status: PRE ER PHONE #: [phone] Exam Date: 04/21/20212124 FAX #: Reason: hemoptysis EXAMS: CPT: [id number] XR CHEST 2 V 87045 Fluoro Time: DAP (Gy m2): Air Kerma (mGy): Location: CHEST X-RAY: PA and lateral projection, 2 vi ews, 04/21/21 CLINICAL HISTORY: Hemoptysis in this 30 year-old patient presenting to the ER COMPARISON EXAMS: None of the chest FINDINGS: Heart, lungs, and mediastinal structures are within normal limits at 2130 Reported an d signed by: Micki Rudd M.D. CC: Anand Gibbs MD PAGE 1 Signed Report Name: AN[facility]BEL[facility] BURNETT [facility] : 1990 Age/S: 30 / F [address] [facility] Unit #: [id number] Loc: [place] [address] Phys: Anand Gibbs MD Acct: [id number] Dis Date: Status: PRE ER PHONE #: [phone] Exam Date: 04/21/20212124 FAX #: Reason: hemoptysis EXAMS: CPT: [id number] XR CHEST 2 V 21818 Fluoro Time: DAP (Gy m2): Air Kerma (mGy): (Continued) Technologist: Karena Hart RT(R)(CT) Trnscb Date/Time: 04/21/2021 (2129) [email or web address] Orig Print D/T: S: 04/21/2021 (2132) PAGE 2 Signed ReportBLOOD [id number] 07:00:00 Test Item Value Reference Range Interpretation Comments CULTURE (BEAKER) (test No growth in 5 days code = 1095) BLOOD [id number] 07:00:00 Test Item Value Reference Range Interpretation Comments CULTURE (BEAKER) (test No growth in 5 days code = 1095) ANTI-NUCLEAR ANTIBODY (ILENE)2020-03-02 09:52:00 Test Item Value Reference Range Interpretation Comments ANTI-NUCLEAR ANTIBODY (ILENE) (BEAKER) Positive Negative A (test code = 418) Test performed by IFA method.ILENE TITER AND [id number] 09:52:00 Test Item Value Reference Range Interpretation Comments ILENE TITER (BEAKER) (test code = :160 1541) ILENE PATTERN (BEAKER) (test code = Nucleolar 1781) TISSUE [id number] 13:42:00Surgical Pathology Report Case: [id number] Authorizing Provider: Ryan Beckford MD Collected: 02/28/2020 10:42 AM Ordering Location: [address] Received: 02/28/2020 02:20 PM Service Pathologist: Keven Valdez MD Specimens: A) - Duodenum, biopsy B) - Biopsy, Gastric, random biopsy A. DUODENUM, BIOPSY: - NO DIAGNOSTIC ALTERATIONB. STOMACH, RANDOM BIOPSY: - ANTRAL AND BODY-TYPE GASTRIC MUCOSA WITH MILD CHRONIC INACTIVE GASTRITIS - NEGATIVE FOR HELICOBACTER PYLORI LIKE ORGANISMS BY WARTHIN- STARRY STAIN Signing Pathologist Direct Phone Line: [phone] signed by Keven Valdez MD on 02/29/2020 at 1:42 [id number], [id number]. Abdominal painA. Duodenum biopsy; B. Biopsy, gastric A. Received in formalin labeled with the patient's name, accession number and "duodenum" is a 0.5 cm campos soft tissue fragments, submitted in toto in A1. B. Received in formalin labeled with the pat ient's name, accession number and "biospy, gastric" are multiple campos soft tissue fragments ranging 0.2-0.5 cm which are submitted in toto in B1. CG/pl A-B. Performed.Block B1: Warthin-StarryThe interpretation of this case included the use of immunohistochemistry or special stains.Control Slides Examined: In-house known positive controls were evaluated along with the test tissue. These control slides run alongside of the patients sample show appropriate staining. Internal positive and negative controls when available are evaluated Immunohistochemistry technical testing was performed at [facility], Pathology Laboratory where it was developed [...] qualified to perform high complexity clinical laboratory testing.[facility], Department of Pathology, [address] [place] [address], [facility], [address] [place] [address], [facility], [address] [place] [address], BQ, ABDOMEN, [id number] 09:55:00Also MRCPFINAL REPORT MRI abdomen without and with contrast HISTORY: Epigastric pain COMP ARISON: None TECHNIQUE: Multiplanar and multisequence MRI images of the abdomen were obtained without and subsequently following the administration of intravenous gadolinium. FINDINGS: The heart is normal in size. No significant pericardial or pleural effusion. Unremarkable appearance of the liver and gallbladder. The common bile duct and pancreatic duct are normal in caliber. No intrahepatic biliarydilation is identified. No intrinsic or extrinsic defect is seen within the biliary system. Unremarkable appearance of the pancreas and spleen. Unremarkable appearance of the adrenal glands and kidneys. The visualized bowel loops appear normal in caliber. No lymphadenopathy is seen within the abdomen.No free fluid is identified. A loop of small bowel protrudes slightly into a small umbilical hernia.IMPRESSION:1. No evidence of biliary obstruction. No additional acute findings in the abdomen.2. Small umbilical hernia. Signed: Jay Mcdaniel MDReport Verified Date/Time: 02/29/2020 09:55:13 ReadingLocation: [facility] B1 C013X Ortho Consult Reading Room BASIC METABOLIC [id number] 07:03:00 Test Item Value Reference Range Interpretation [...] S NOT APPLICABLE FOR DIALYSIS PATIEN TS. Procurement Officer ID - DBCARCINOEMBRYONIC ANTIGEN (CEA)2020-02-28 14:10:00 Test Item Value Reference Range Interpretation Comments CARCINOEMBRYONIC ANTIGEN (BEAKER) < ng/mL 0.0-5.0 (test code = 685) Procurement Officer ID - DBHEPATITIS PANEL, [id number] 14:05:00 Test Item Value Reference Range Interpretation Comments HEPATITIS A IGM ANTIBODY (BEAKER) Nonreactive Nonreactive (test code = 498) HEPATITIS B CORE IGM ANTIBODY Nonreactive Nonreactive (BEAKER) (test code = 645) HEPATITIS C ANTIBODY (BEAKER) Nonreactive Nonreactive (test code = 367) HEPATITIS B SURFACE ANTIGEN (2) Nonreactive Nonreactive (BEAKER) (test code = 2585) Procurement Officer ID - DBPOCT-GLUCOSE [id number] 13:56:00 Test Item Value Reference Range Interpretation Comments POC-GLUCOSE METER 100 mg/dL 70-110 : TESTED A T [facility] 6720 (BEAKER) (test code = SELWYN LEW, 1538) 70909: Procurement Officer/Techni ian ID = [id number] for OJ KAREN JARRETTL IMMUNOGLOBULIN M (IGM)2020-02-28 13:41:00 Test Item Value Reference Range Interpretation Comments IMMUNOGLOBULIN M (IGM) (BEAKER) 270 mg/dL 22-293 (test code = 638) Procurement Officer ID - DBIMMUNOGLOBULIN A (IGA)2020-02-28 13:41:00 Test Item Value Reference Range Interpretation Comments IMMUNOGLOBULIN A (IGA) (BEAKER) 148 mg/dL 63-484 (test code = 639) Procurement Officer ID - DBPOCT-GLUCOSE [id number] 13:02:00 Test Item Value Reference Range Interpretation Comments POC-GLUCOSE METER 63 mg/dL 70-110 L : TESTED A T [facility] 6720 (BEAKER) (test code = [facility], 1538) 68483: Procurement Officer/Techni ian ID = [id number] for JESSIE PARRISH [id number] 13:00:00 Test Item Value Reference Range Interpretation Comments FERRITIN (BEAKER) (test code = 5.15 ng/mL 5.00-275.00 361) Procurement Officer ID - EMERSONPOCT-GLUCOSE [id number] 12:45:00 Test Item Value Reference Range Interpretation Comments POC-GLUCOSE METER 59 mg/dL 70-110 L : TESTED A T [facility] 6720 (BEAKER) (test code = [facility], 1538) 40391: Procurement Officer/Techni ian ID = [id number] for DEBBY MOORE IRON, TIBC, % SAT. (WITHOUT FERRITIN)2020-02-28 12:40:00 Test Item Value Reference Range Interpretation Comments IRON (BEAKER) (test code = 547) 291.0 ug/dL 40.0-160.0 H TOTAL IRON BINDING CAPACITY 400 ug/dL 250-450 (BEAKER) (test code = 769) IRON % SATURATION (2) (BEAKER) 73 % 20-55 H (test code = 2590) Procurement Officer ID - EMERSONURINALYSIS WITH MICROSCOPIC IF [id number] 08:27:00 Test Item Value Reference Range Interpretation [...] = 463) SOURCE(BEAKER) (test code = 2795) Procurement Officer ID - [auto]POCT-GLUCOSE [id number] 06:39:00 Test Item Value Reference Range Interpretation Comments POC-GLUCOSE METER 103 mg/dL 70-110 : TESTED A T [facility] 6720 (BEAKER) (test code = [place]EL[place], 1538) 26692: Procurement Officer/Techni ian ID = [id number] for BARB SAHNI BASIC METABOLIC [id number] 06:10:00 Test Item Value Reference Range Interpretation [...] S NOT APPLICABLE FOR DIALYSIS PATIEN TS. Procurement Officer ID - HAY WCBC W/PLT COUNT & AUTO [id number] 05:27:00 Test Item Value Reference Range Interpretation [...] 0-1 PERCENT (BEAKER) (test code = 2801) [id number] 21:58:00 Test Item Value Reference Range Interpretation Comments LIPASE (BEAKER) (test code = 749) 21 U/L 8-78 Procurement Officer ID - BSCOMPREHENSIVE METABOLIC [id number] 21:58:00 Test Item Value Reference Range Interpretation [...] S NOT APPLICABLE FOR DIALYSIS PATIEN TS. Procurement Officer ID - BSCBC W/PLT COUNT & AUTO [id number] 21:44:00 Test Item Value Reference Range Interpretation [...]
[2022-11-28 18:04] LABS: Absolute Lymphocytes (CBC) 3.2 K/uL (0.7-4.9); Hematocrit 36.7 % (36.0-45.0); MCV 68.2 fL (80-100); MPV 8.7 fL (7.6-11.3); RBC Red Blood Cell Count 5.38 M/uL (3.86-4.86)
[2022-11-28 18:54] LABS: Urine Blood Trace-intact (Negative); Urine Glucose Negative (Negative); Urine Protein Negative (Negative); Urine Specific Gravity >=1.030 (1.005-1.030); Urine pH 5.5 (5.0-7.0)
[2022-11-28 18:59] LABS: Blood Morphology Comment NOTED (NOT SEEN); Platelet Estimate ADEQ; White Blood Cell Scan OK (OK)
[2022-11-28 19:15] LABS: Urine Specific Gravity/Preg >1.030 (1.005-1.030)
[2022-11-28] MEDS ORDERED: NA CHLORIDE 0.9% 1,000 ML ONE (19:49)
[2022-11-28] MEDS ORDERED: ONDANSETRON 4 MG/2 ML VIAL ONE (19:49)
[2022-11-28 20:15] LABS: Albumin 3.7 g/dL (3.4-5.0); Bilirubin Total 0.4 mg/dL (0.2-1.0); Potassium 4.1 mmol/L (3.5-5.1)
--- NOTE | 2022-11-28 21:40 | RAD REPORT ---
EXAM DESCRIPTION: US - Abdomen Exam Limited - 11/28/2022 8:36 pm CLINICAL HISTORY: ABD PAIN COMPARISON: Abdomen Pelvis W Contrast dated 11/16/2021bdomen Pelvis W Contrast dated 11/16/2021 FINDINGS: No gallstones, sludge or other abnormalities within the gallbladder lumen. There is no wal l thickening or pericholecystic fluid. No common duct stone or biliary tree dilatation identified. IMPRESSION: No gallbladder or biliary tree abnormality identified. .
--- NOTE | 2022-11-28 21:47 | RAD REPORT ---
EXAM DESCRIPTION: CT - Abdomen Pelvis W Contrast - 11/28/2022 9:08 pm CLINICAL HISTORY: Right sided abdominal pain COMPARISON: Abdomen Pelvis W Contrast dated 11/16/2021 TECHNIQUE: Biphasic, helical CT imaging of the abdomen and pelvis was performed following 100 ml non -ionic IV contrast. Oral contrast: No. All CT scans are performed using dose optimization technique as appropriate and may include automated exposure control or mA/KV adjustment according to patient size. FINDINGS: No suspicious findings in the lung bases. The liver, spleen, and pancreas show no suspicious findings. Gallbladder and biliary tree are also wi thout suspicious finding. Symmetric renal function is seen with no hydronephrosis or suspicious renal mass. No pyelonephritis o r acute parenchymal process. No bladder abnormalities. No adrenal abnormalities. Uterus and ovaries s how no suspicious findings. Small cysts/follicles are present in the ovaries. No dilated bowel loops or bowel wall thickening. No appendicitis findings. No free air, free fluid or inflammatory stranding. No hernia, mass or bulky lymphadenopathy. No suspicious bony findings. IMPRESSION: Contrast enhanced CT abdomen and pelvis showing no significant or suspicious finding.
--- NOTE | 2022-11-28 21:56 | ER ---
Nurse's Notes [facility] Name: Stacie Burnett Age: 32 yrs Sex: Female : 1990 Arrival Date: 11/28/2022 Time: 16:58 Bed Treatment Private MD: Diagnosis: Abdominal pain, unspecified Presentation: 11/28 17:48 Chief complaint: Patient states: abd pain and nausea that began . Coronavirus ss screen: Client denies travel out of the [place] in the last 14 days. Ebola Screen: Patient denies exposure to infectious person. Patient denies travel to an Ebola-affected area in the 21 days before illness onset. Initial Sepsis Screen: Does the patient meet any 2 criteria? No. Patient's initial sepsis screen is negative. Does the patient have a suspected source of infection? No. Patient's initial sepsis screen is negative. Risk Assessment: Do you want to hurt yourself or someone else? Patient reports no desire to harm self or others. Onset of symptoms was November 24, 2022. 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 - Social history:: Smoking status: Patient denies any tobacco usage or history of. Screenin:52 [facility] ED Fall Risk Assessment (Adult) History of falling in the last 3 months, mb9 including since admission No falls in past 3 months (0 pts) Confusion or Disorientation No (0 pts) Intoxicated or Sedated No (0 pts) Impaired Gait No (0 pts) Mobility Assist Device Used No (0 pt) Altered Elimination No (0 pt) Score/Fall Risk Level 0 - 2 = Low Risk Oriented to surroundings, Maintained a safe environment. Abuse screen: Denies threats or abuse. Nutritional screening: No deficits noted. Tuberculosis screening: No symptoms or risk factors identified. Assessment: 19:37 Reassessment: pt brought back to ER room. mb9 19:44 General: Appears comfortable, Behavior is calm, cooperative, appropriate for age. Pain: mb9 Complains of pain in right lower quadrant and right upper quadrant. Neuro: Garcia Agitation-Sedation Scale (RASS): 0 - Alert and Calm Level of Consciousness is awake, alert, obeys commands, Oriented to person, place, time, situation, Appropriate for age. Cardiovascular: Heart tones S1 S2 present Capillary refill < 3 seconds is brisk Patient's skin is warm and dry. Respiratory: Airway is patent Respiratory effort is even, unlabored, Respiratory pattern is regular, symmetrical, Breath sounds are clear bilaterally. GI: Abdomen is round non-distended, Bowel sounds present X 4 quads. Abd is soft Abdomen is tender to palpation in right upper quadrant, left upper quadrant and right lower quadrant Reports nausea, Patient currently denies diarrhea. : No signs and/or symptoms were reported regarding the genitourinary system. EENT: No signs and/or symptoms were reported regarding the EENT system. Derm: Skin is normal. Musculoskeletal: Range of motion: intact in all extremities. 20:45 Reassessment: No changes from previously documented assessment. Patient and/or family mb9 updated on plan of care and expected duration. Pain level reassessed. Patient is alert, oriented x 3, equal unlabored respirations, skin warm/dry/pink. 21:05 Reassessment: pt taken to CT via wheelchair. mb9 22:26 Reassessment: No changes from previously documented assessment. Patient and/or family mb9 updated on plan of care and expected duration. Pain level reassessed. Patient is alert, oriented x 3, equal unlabored respirations, skin warm/dry/pink. Patient states feeling better. Patient states symptoms have improved. Vital Signs: 17:48 BP 146 / 106; Pulse 86; Resp 15; Temp 99.0(TE); Pulse Ox 100% on R/A; Weight 112.49 kg; ss Height 5 ft. 4 in. (162.56 cm); Pain 7/10; 20:45 BP 140 / 84; Pulse 74; Resp 16; Pulse Ox 100% on R/A; mb9 22:26 BP 138 / 82; Pulse 70; Resp 18; Pulse Ox 100% ; mb9 17:48 Body Mass Index 42.57 (112.49 kg, 162.56 cm) ED Course: 16:58 Patient arrived in ED. rg4 17:02 Vinny Ayala DO is Attending Physician. ms3 17:50 Triage completed. ss 17:50 Arm band placed on right wrist. ss 17:55 Inserted saline lock: 20 gauge in right antecubital area, using aseptic technique. zm Blood collected. 18:58 Attending Physician role handed off by Vinny Ayala DO rn 18:58 Elfego Winters MD is Attending Physician. rn 19:36 Judy Vicente, SIGIFREDO is Primary Nurse. mb9 20:37 US Abdomen Limited In Process Unspecified. EDMS 21:10 CT Abd/Pelvis - IV Contrast Only In Process Unspecified. EDMS 22:26 No provider procedures requiring assistance completed. IV discontinued, intact, mb9 bleeding controlled, No redness/swelling at site. Pressure dressing applied. Administered Medications: 19:52 Drug: NS 0.9% 1000 ml Route: IV; Rate: 1 bolus; Site: right antecubital; mb9 19:52 Drug: Zofran (Ondansetron) 4 mg Route: IVP; Site: right antecubital; mb9 Medication: 19:52 VIS not applicable for this client. mb9 Outcome: 21:55 Discharge ordered by . rn 22:26 Discharged to home ambulatory. mb9 22:26 Condition: stable 22:26 Discharge instructions given to patient, Instructed on discharge instructions, follow up and referral plans. Demonstrated understanding of instructions, follow-up care. 22:26 Patient left the ED. mb9 Signatures: Dispatcher [employer] EDMS Elfego Winters MD MD rn Smirch, Shelby, RN RN ss Garcia, Rubi rg4 Vinny Ayala DO DO ms3 Kiara Mehta Judy Vicente, SIGIFREDO RN mb9 Corrections: (The following items were deleted from the chart) 19:11 19:10 Inserted saline lock: 20 gauge in right antecubital area, using aseptic technique. Blood collected. zm
--- NOTE | 2022-11-28 21:56 | EDPHYS ---
Physician Documentation [facility] Name: Stacie Burnett Age: 32 yrs Sex: Female : 1990 Arrival Date: 11/28/2022 Time: 16:58 Bed Treatment Private MD: ED Physician Elfego Winters HPI: 11/28 17:23 This 32 yrs old Black Female presents to ER via Unassigned with complaints of Nausea, ms3 Abdominal Pain. 17:23 32-year-old female with past medical history of GERD and anemia presents for ms3 right-sided abdominal pain that is been ongoing for 5 days. Patient states the pain became worse today and is rated a 6/10. Patient states she was seen by nurse bangitioner at Dr. Mittal's office and they were concerned for an inflamed colon. Patient is scheduled for an EGD on Monday. Patient endorses nausea. Patient denies vomiting, fevers, chills, diarrhea.. 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 - Social history:: Smoking status: Patient denies any tobacco usage or history of. ROS: 17:23 Constitutional: Negative for fever, and chills. Neck: Negative for injury, pain, and ms3 swelling, Cardiovascular: Negative for chest pain, and palpitations. Respiratory: Negative for shortness of breath, cough, wheezing, and pleuritic chest pain. 17:23 Abdomen/GI: Positive for abdominal pain, nausea, Negative for vomiting, diarrhea. 17:23 All other systems are negative. Exam: 17:23 Constitutional: This is a well developed, well nourished patient who is awake, alert, ms3 and in no acute distress. Head/Face: Normocephalic, atraumatic. Neck: Trachea midline, no cervical lymphadenopathy. Supple, full range of motion without nuchal rigidity, or vertebral point tenderness. No Meningismus. Chest/axilla: Normal chest wall appearance and motion. Nontender with no deformity. Cardiovascular: Regular rate and rhythm with a normal S1 and S2. No gallops, murmurs, or rubs. Normal PMI, no JVD. No pulse deficits. Respiratory: Lungs have equal breath sounds bilaterally, clear to auscultation and percussion. No rales, rhonchi or wheezes noted. No increased work of breathing, no retractions or nasal flaring. 17:23 Skin: Warm, dry with normal turgor. Normal color with no rashes, no lesions, and no evidence of cellulitis. MS/ Extremity: Pulses equal, no cyanosis. Neurovascular intact. Full, normal range of motion. 17:23 Abdomen/GI: Inspection: abdomen appears normal, Bowel sounds: normal, Palpation: moderate abdominal tenderness, in the right upper quadrant and right lower quadrant. Vital Signs: 17:48 BP 146 / 106; Pulse 86; Resp 15; Temp 99.0(TE); Pulse Ox 100% on R/A; Weight 112.49 kg; ss Height 5 ft. 4 in. (162.56 cm); Pain 7/10; 20:45 BP 140 / 84; Pulse 74; Resp 16; Pulse Ox 100% on R/A; mb9 22:26 BP 138 / 82; Pulse 70; Resp 18; Pulse Ox 100% ; mb9 17:48 Body Mass Index 42.57 (112.49 kg, 162.56 cm) ss MDM: 17:23 Differential diagnosis: Nonspecific abd pain, gastritis, cholecystitis, pancreatitis, ms3 diverticulitis, viral gastroenteritis, gastroenteritis. 18:09 Patient medically screened. ms3 19:02 Transition of care: After a detail discussion of the patient's case, care is ms3 transferred to Elfego Winters MD. 21:54 Data reviewed: vital signs, nurses notes, lab test result(s), radiologic studies, CT rn scan, ultrasound, and as a result, I will discharge patient. Counseling: I had a detailed discussion with the patient and/or guardian regarding: the historical points, exam findings, and any diagnostic results supporting the discharge/admit diagnosis, lab results, radiology results, the need for outpatient follow up, to return to the emergency department if symptoms worsen or persist or if there are any questions or concerns that arise at home. Special discussion: Based on the patient's Hx, exam, and Dx evaluation, there is no indication for emergent surgery or inpatient Tx. It is understood by the patient/guardian that if the Sx's persist or worsen they need to return immediately for re-evaluation. I discussed with the patient/guardian in detail that at this point there is no indication for admission to the hospital. It is understood, however, that if the symptoms persist or worsen the patient needs to return immediately for re-evaluation. 11/28 17:22 Order name: CBC with Diff; Complete Time: 19:30 ms3 11/28 17:22 Order name: CMP; Complete Time: 20:22 ms3 11/28 17:22 Order name: Lipase; Complete Time: 20:22 ms3 11/28 18:54 Order name: Urine Dipstick-Ancillary; Complete Time: 19:30 EDMS 11/28 18:55 Order name: Urine --Ancillary (enter results); Complete Time: 19:30 iw 11/28 18:59 Order name: CBC Smear Scan; Complete Time: 19:30 EDMS 11/28 17:22 Order name: CT Abd/Pelvis - IV Contrast Only; Complete Time: 21:53 ms3 11/28 17:22 Order name: IV Saline Lock; Complete Time: 17:55 ms3 11/28 17:22 Order name: Labs collected and sent; Complete Time: 17:55 ms3 11/28 17:22 Order name: Urine Dipstick-Ancillary (obtain specimen); Complete Time: 18:54 ms3 11/28 17:22 Order name: Urine Test (obtain specimen); Complete Time: 18:54 ms3 11/28 19:42 Order name: US Abdomen Limited; Complete Time: 21:53 rn 11/28 18:48 Order name: Labs - recollect needed; Complete Time: 19:43 ss Administered Medications: 19:52 Drug: NS 0.9% 1000 ml Route: IV; Rate: 1 bolus; Site: right antecubital; mb9 19:52 Drug: Zofran (Ondansetron) 4 mg Route: IVP; Site: right antecubital; mb9 Disposition Summary: 11/28/22 21:55 Discharge Ordered Location: Home rn Problem: new rn Symptoms: have improved rn Condition: Stable rn Diagnosis - Abdominal pain, unspecified rn Followup: rn - With: Private Physician - When: As needed - Reason: Recheck today's complaints, Re-evaluation by your physician Discharge Instructions: - Discharge Summary Sheet rn - Abdominal Pain, Adult rn - Pain Without a Known Cause rn Forms: - Medication Reconciliation Form rn - Thank You Letter rn - 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
[2022-11-29 00:29] VITALS: TEMP 99; O2SAT 100
[2022-11-29 00:40] VITALS: BP 138/82
== END 2022-11-28 22:26 | disposition home or self-care (01) ==
LOC: ER 16:54
DX: R10.31 Right lower quadrant pain (principal); R10.11 Right upper quadrant pain; R11.0 Nausea; Z88.5 Allergy status to narcotic agent
CPT/HCPCS: 85025; 36415; 81025; 81003; 83690; 80053; 74177; 76705; Q9967; J7030; J2405; 96374; 99284

== ENCOUNTER 2023-01-27 18:58 | Emergency (ER) | payer OTHER ==
--- OUTSIDE RECORDS SUMMARY | 2023-01-27 19:02 | XMS REPORT | Continuity of Care Document ---
:1990 Author Organization [facility] t Address [address] [place] [address] Care Team Providers Name Role Phone Asked, [...] -17 [place] s 00:00: d 00 [facility] [place] NO KNOWN Allergy Active [facility] Family History Family Member Diagnosis Comments Start Date Stop Date Source Natural son [facility] Social History Social Habit Start Date Stop Date Quantity Comments Source History SDOH [facility] Alcohol Comment Medical C enter History SDOH [facility] Alcohol Std Drinks Medica l Center History SDOH [facility] Alcohol Binge Medical [facility] Alcohol intake 2020-02-28 2020-02-[address] [facility] 00:[facility] 00:00:00 non-drinker of Medical Ce nter alcohol (finding) History SDOH 2020-02-28 2020-02-[address] [facility] Alcohol Frequency 00:00:00 00:00:00 [facility] Tobacco use and 2020-02-27 2020-02-[address] [facility] exposure 00:00:00 00:00:00 [facility] Sex Assigned At [address] [facility] 00:00:00 00:[facility]:00 [facility] Center Smoking Status Start [...] 16:20: mouth Medical (THERAGRAN- 36 daily. Center ) 9 mg iron-400 mcg Tab tablet cholecalcif [...] 16:20: mouth Medical (THERAGRAN- 36 daily. Center ) 9 mg iron-400 mcg Tab tablet cholecalcif [...] 2018- No No known Metho di medications - medication [facility] No known 2017- No No known Metho di medications - medication [facility] 02:[facility] No known 2017- No No known Metho di medications -[address] 02:33: [facility] No known 2017- No No known Metho di medications - medication [facility] 02:33: [facility] l No known 2017- No No known Metho di medications - medication [facility] 02:33: [facility] 13 l [...] Medical Center DEPRESSION SCREENING (12+)] Future Scheduled 2022-10-30 COVID-[address] [facility] Test 05:28:55 (#1) [code = COVID-19 VACCINE (#1)] Future Scheduled 2022-10-30 [facility] Test 05:28:55 malignant neoplasm of cervix (procedure) [code = 272607212] Future Scheduled 2022-10-30 INFLUENZA VACCINE [facility] Test 05:28:55 [code = INFLUENZA VACCINE] Future Scheduled 2022-10-30 COVID-[address] [facility] Test 05:28:55 (#1) [code = COVID-19 VACCINE (#1)] Future Scheduled 2022-10-30 [facility] Test 05:28:55 malignant neoplasm of cervix (procedure) [code = 560743318] Future Scheduled 2022-10-30 COVID-[address] [facility] Test 05:28:55 (#1) [code = COVID-19 VACCINE (#1)] Future Scheduled 2022-10-30 [facility] Test 05:28:55 malignant neoplasm of cervix (procedure) [code = 317301517] Future Scheduled 2022-10-30 INFLUENZA VACCINE Method [facility] Test 05:28:55 [code = INFLUENZA VACCINE] Future Scheduled 2022-10-30 INFLUENZA VACCINE Method is Hospital Test 05:28:55 [code = INFLUENZA VACCINE] Future Scheduled 2022-10-30 COVID-19 VACCINE Methodi [facility] Test 05:28:55 (#1) [code = COVID-19 VACCINE (#1)] Future Scheduled 2022-10-30 [facility] Test 05:28:55 malignant neoplasm of cervix (procedure) [code = 761360491] Future Scheduled 2022-10-30 INFLUENZA VACCINE Method [facility] Test 05:28:55 [code = INFLUENZA VACCINE] Future Scheduled 2022-07-08 HEPATITIS B VACCINES [facility] Test 03:12:03 (1 of 3 - 3-dose series) [code = HEPATITIS B VACCINES (1 of 3 - 3-dose series)] Future Scheduled 2022-07-08 [facility] 03:12:03 (#1) [code = COVID-19 VACCINE (#1)] Future Scheduled 2022-07-08 [facility] Test 03:12:03 malignant neoplasm of cervix (procedure) [code = 351202002] Future Scheduled 2022-07-08 INFLUENZA VACCINE [facility] Test 03:12:03 [code = INFLUENZA VACCINE] Future Scheduled 2022-07-08 HEPATITIS B VACCINES [facility] Test 03:12:03 (1 of 3 - 3-dose series) [code = HEPATITIS B VACCINES (1 of 3 - 3-dose series)] Future Scheduled 2022-07-08 [facility] 03:12:03 (#1) [code = COVID-19 VACCINE (#1)] Future Scheduled 2022-07-08 [facility] Test 03:12:03 malignant neoplasm of cervix (procedure) [code = 913695589] Future Scheduled 2022-07-08 INFLUENZA VACCINE Method [facility] Test 03:12:03 [code = INFLUENZA VACCINE] Future Scheduled 2022-07-[address] [facility] Test 00:00:00 (#1) [code = [facility] INFLUENZA VACCINE (#1)] Future Scheduled 2022-07-07 [...] Future Scheduled 2022-06-25 HEPATITIS B VACCINES Met [facility] Test 06:35:31 (1 of 3 - 3-dose series) [code = HEPATITIS B VACCINES (1 of 3 - 3-dose series)] Future Scheduled 2022-06-25 COVID-[address] [facility] Test 06:35:31 (#1) [code = COVID-19 VACCINE (#1)] Future Scheduled 2022-06-25 [facility] for [facility] Test 06:35:31 malignant neoplasm of cervix (procedure) [code = 518135138] Future Scheduled 2022-06-25 INFLUENZA VACCINE [facility] Test 06:35:31 [code = INFLUENZA VACCINE] Future Scheduled 2022-06-[address] [facility] Test 00:00:00 malignant neoplasm Medical C enter of cervix (procedure) [code = 172812147] Future Scheduled 2022-06-[address] [facility] Test 00:00:00 malignant neoplasm Medical C enter of cervix (procedure) [code = 755802066] Future Scheduled 2022-06-[address] [facility] Test 00:00:00 malignant neoplasm Medical C enter of cervix (procedure) [code = 845107875] Future Scheduled 2022-06-[address] [facility] Test 00:00:00 malignant neoplasm Medical C enter of cervix (procedure) [code = 626492437] Future Scheduled 2022-06-[address] [facility] Test 00:00:00 malignant neoplasm Medical C enter of cervix (procedure) [code = 819100691] Future Scheduled 2022-06-[address] [facility] Test 00:00:00 malignant neoplasm Medical C enter of cervix (procedure) [code = 983471241] Future Scheduled 2021-11-[address] [facility] Test 00:00:00 (12+) [code = Medical Center DEPRESSION SCREENING (12+)] Future Scheduled 2021-11-[address] [facility] Test 00:00:00 (12+) [code = Medical Center DEPRESSION SCREENING (12+)] Future Scheduled 2021-02-27 Tobacco [...] Luke s Test 00:00:00 (procedure) [code = [facility] 45355318] Future Scheduled [address] [facility] Test 00:00:00 (procedure) [code = [facility] 79202254] Future Scheduled [address] [facility] Test 00:00:00 (procedure) [code = [facility] 46796400] Future Scheduled [address] [facility] Test 00:00:00 (procedure) [code = [facility] 48038858] Future Scheduled [address] [facility] Test 00:00:00 (procedure) [code = [facility] 25815438] Future Scheduled [address] [facility] Test 00:00:00 (procedure) [code = [facility] 37871680] Future Scheduled 1990 COVID-[address] [...] Facility Department ID 2022-07-13 2022-07-13 [facility] [id number] [facility] 14:25:00 14:25:00 Jordi 55 [facility] 2022-07-07 2022-07-07 Outpatient LIN[facility], [facility] DA[facility] LA00 [id number] [facility] 05:42:00 05:42:00 Jordi 28 [facility] 2021-04-21 2021-04-21 Emergency EM Gibbs[facility] SHERLYN [id number] [facility] 21:08:00 23:40:00 Anand 80 [facility] 2020-02-27 2020-02-27 Emergency SLE SLE [id number] -2 [facility] 19:52:00 19:52:00 [id number] 2019-06-24 2019-06-24 Office TYRESE Miramontes [id number] 0627 07:58:05 08:47:28 Visit Tia Carpenter INTERNSHIP COORDINATOR 350.1.13.10 [facility] [id number] MATERNAL [id number] & [address] Results Test Description Test Time Test Comments Results Result Comments Source - DUP VEIN MIKE 2022-07-13 15:45:00 [facility] 1990 Sex: F Name: ANNABELLE BURNETT [facility] : 1990 Age/S: 32 / F [facility] [place] [facility] [place] Unit #: [id number] Loc: [place] [address] Phys: Jordi Felipe III, MD Acct: [id number] Dis Date: Status: [facility] PHONE #: [phone] Exam Date: 07/13/2022 1515 FAX #: Reason: rule out dvt EXAMS: CPT: [id number] [place] 71104 HISTORY: leg swelling Location Code: B2 COMMENT: [...] venous thrombosis within the visualized vasculature. at 1543 Reported and signed by: Omar Ghotra M.D. CC: Gt Araujo MD; Jordi Felipe III, MD Technologist: Ana Luisa Constantino RDMS Trnscb Date/Time: 07/13/2022 (1620) Paloma.RK5 PAGE 1 Signed Report Name: ANNABELLE BURNETT [facility] : 1990 Age/S: 32 / F [facility] [place] [facility] [place] Unit #: [id number] Loc: [place] [address] Phys: DestineeJordi III, MD Acct: [id number] Dis Date: Status: DEP [facility] PHONE #: [phone] Exam Date: 07/13/2022 1515 FAX #: Reason: rule out dvt EXAMS: CPT: [id number] [place]KE 25468 (Continued) Orig Print D/T: S: 07/13/2022 (1548) Probe: PAGE 2 Signed Report CBC W/AUTO [...] MDIFF) NO DIFF/SCN CRITERIA COVID 19 INHOUSE [id number] 17:32:00 Test Item Value Reference Range Interpretation Comments COVID 19 INHOUSE AG NEGATIVE Negative Per manu facturer, (test code = negative result s should [id number]) be treated aspr esumptive and, if inconsi [...] symptoms co nsistent with COVID-19. HCG SERUM [id number] 17:15:00 Test Item Value Reference Range Interpretation Comments HCG SERUM QUAL (test SERUM NEGATIVE SCREEN NEGATIVE code = HCGQL) - CT CHEST [id number] 23:26:00 [facility] : 1990 Sex: F Name: ANNABELLE BURNETT : 1990 Age/S: 30 / F [id number] [facility] [place] [employer] [place] Unit #: [id number] Loc: [place] [address] Phys: Anand Gibbs MD Acct: [id number] Dis Date: Status: REG ER PHONE #: [phone] Exam Date: 04/21/20212319 FAX #: Reason: hemoptysis, rule out PE, elevated d-dimer EXAMS: CPT: [id number] CT CHEST W/CONTRAST 41541 CT chest with contrast (PE protocol) Location [...] pulmonary vasculature is normal. Upper abdominal structures arewithin normal limits. Osseous structures are unremarkable. IMPRESSION: 1. No evidence of pulmonary embolus or dissection. 2. No acute intrathoracic findings. at 2326 Reported and signed by: Omar Ghotra M.D. CC: Anand Gibbs MD; Gt Araujo MD Technologist:RT Delmer(Chani); Sparkle Leon CTDI: DLP: Trnscb Date/Time: 04/21/2021 (2325) BalwinderRK5 Orig Print D/T: S: 04/21/2021 (0401) PAGE 1 Signed ReportUR HCG [id number] 23:03:00 Test Item Value Reference Range Interpretation Comments UR HCG QUAL (test code = HCGQLU) NEGATIVE NEGATIVE PROTHROMBIN [id number] 22:21:00 Test Item Value Reference Range Interpretation Comments PT PATIENT (test code = PTP) 12.7 SECONDS 9.3-12.9 N INTERNATIONAL NORMAL RATIO 1.13 INR Unit 0.8-1.2 N (test code = INR) [id number] 22:21:00 Test Item Value Reference Range Interpretation Comments D-DIMER (test code = DDIMER) 515 ng/mLFEU 215-500 HH COMPREHENSIVE METABOLIC [id number] 22:06:00 Test Item Value Reference Range Interpretation [...] 45-117 N TOTAL (test code = ALKP) [id number] 22:06:00 Test Item Value Reference Range Interpretation Comments LIPASE (test code = LIP) 86 Unit/L 114-286 L CBC W/AUTO [id number] 22:00:00 Test Item Value Reference Range Interpretation [...] NO DIFF/SCN CRITERIA = MDIFF) COMPREHENSIVE METABOLIC [id number] 22:00:00 Test Item Value Reference Range Interpretation [...] TOTAL (test Unit/L 45-117 code = ALKP) [id number] 22:00:00 Test Item Value Reference Range Interpretation Comments LIPASE (test code = LIP) 86 Unit/L 114-286 L - XR CHEST 2 [id number] 21:30:00 [facility] 1990 Sex: F Name: ANNABELLE BURNETT [facility] : 1990 Age/S: 30 / F [facility] Unit #: [id number] Loc: [place] [address] Phys: Anand Gibbs MD Acct: [id number] Dis Date: Status: PRE ER PHONE #: [phone] Exam Date: 04/21/20212124 FAX #: Reason: hemoptysis EXAMS: CPT: [id number] XR CHEST 2 V 77144Flvpnc Time: DAP (Gy m2): Air Kerma (mGy): Location: CHEST X-RAY: PA and lateral projection, 2 vie ws, 04/21/21 CLINICAL HISTORY: Hemoptysis in this 30 year-old patient presenting to the ER COMPARISON EXAMS: None of the chest FINDINGS: Heart, lungs, and mediastinal structures are within normal limits at 2130 Reported and signed by: Micki Rudd M.D. CC: Anand Gibbs MD PAGE 1 Signed Report Name: ANNABELLE BURNETT [facility] : 1990 Age/S: [facility] Unit #: [id number] Loc: [place] [address] Phys: Anand Gibbs MD Acct: [id number] Dis Date: Status: PRE ER PHONE #: [phone] Exam Date: 04/21/20212124 FAX #: Reason: hemoptysis EXAMS: CPT: [id number] XR CHEST 2 V 05370 Fluoro Time: DAP (Gy m2): Air Kerma (mGy): (Continued) Technologist: Karena Hart, RT(R)(CT) Trnscb Date/Time: 04/21/2021 (2129) AngieR.DAS6 Orig Print D/T: S: 04/21/2021 (2132) PAGE 2 Signed ReportBLOOD [id number] 07:00:00 Test Item Value Reference Range Interpretation Comments CULTURE (BEAKER) (test No growth in 5 days code = 1095) BLOOD [id number] 07:00:00 Test Item Value Reference Range Interpretation Comments CULTURE (BEAKER) (test No growth in 5 days code = 1095) ANTI-NUCLEAR ANTIBODY (ILENE)2020-03-02 09:52:00 Test Item Value Reference Range Interpretation Comments ANTI-NUCLEAR ANTIBODY (ILENE) (BEAKER) Positive Negative A (test code = 418) Test performed by IFA method.ILENE TITER AND [id number] 09:52:00 Test Item Value Reference Range Interpretation Comments ILENE TITER (BEAKER) (test code = :160 1541) ILENE PATTERN (BEAKER) (test code = Nucleolar 1781) TISSUE [id number] 13:42:00Surgical Pathology Report Case: [id number] Authorizing Provider: Ryan Beckford MD Collected: 02/28/2020 10:42 AM Ordering Location: [address] Received: 02/28/2020 02:20 PM Service Pathologist: Keven Valdez MD Specimens: A) - Duodenum, biopsy B) - Biopsy, Gastric, random biopsy A. DUODENUM, BIOPSY: - NO DIAGNOSTIC ALTERATIONB. STOMACH, RANDOM BIOPSY: - ANTRAL AND BODY-TYPE GASTRIC MUCOSA WITH MILD CHRONIC INACTIVE GASTRITIS - NEGATIVE FOR HELICOBACTER PYLORI LIKE ORGANISMS BY WARTHIN- STARRY STAIN Signing Pathologist Direct Phone Line: [phone] signed by Keven Valdez MD on 02/29/2020 at 1:42 [id number], 36059Y. Abdominal painA. Duodenum biopsy; B. Biopsy, gastric A. Received in formalin labeled with the patient's name, accession number and "duodenum" is a 0.5 cm campos soft tissue fragments, submitted in toto in A1. B. Received in formalin labeled with the pa tient's name, accession number and "biospy, gastric" are multiple campos soft tissue fragments ranging 0.2-0.5 cm which are submitted in toto in B1. CG/pl A- B. Performed.Block B1: Warthin-StarryThe interpretation of this case included the use of immunohistochemistry or special stains.Control Slides Examined: In- house known positive controls were evaluated along with the test tissue. These control slidesrun alongside of the patients sample show appropriate staining. Internal positive and negative controls when available are evaluated Immunohistochemistry technical testing was performed at [facility], Pathology Laboratory where it was developed and its performance characteristicswere determined. It has not been cleared or [...] qualified to perform high complexity clinical laboratory testing.[facility], Department of Pathology, [address] [place] [address], [facility], Department of Patho logy, [address] [place] [address], [facility], Department of Pathology, [address] [place] [address], JQ, ABDOMEN, [id number] 09:55:00Also MRCPFINAL REPORT MRI abdomen without and [...] Mcdaniel MDReport Verified Date/Time: 02/29/2020 09:55:13 ReadingLocation: [facility] B1 C013X Ortho Consult Reading Room BASIC METABOLIC [id number] 07:03:00 Test Item Value Reference Range Interpretation [...] S NOT APPLICABLE FOR DIALYSIS PATIEN TS. Resistance Welder ID - DBCARCINOEMBRYONIC ANTIGEN (CEA)2020-02-28 14:10:00 Test Item Value Reference Range Interpretation Comments CARCINOEMBRYONIC ANTIGEN (BEAKER) < ng/mL 0.0-5.0 (test code = 685) Resistance Welder ID - DBHEPATITIS PANEL, [id number] 14:05:00 Test Item Value Reference Range Interpretation Comments HEPATITIS A IGM ANTIBODY (BEAKER) Nonreactive Nonreactive (test code = 498) HEPATITIS B CORE IGM ANTIBODY Nonreactive Nonreactive (BEAKER) (test code = 645) HEPATITIS C ANTIBODY (BEAKER) Nonreactive Nonreactive (test code = 367) HEPATITIS B SURFACE ANTIGEN (2) Nonreactive Nonreactive (BEAKER) (test code = 2585) Resistance Welder ID - DBPOCT-GLUCOSE [id number] 13:56:00 Test Item Value Reference Range Interpretation Comments POC-GLUCOSE METER 100 mg/dL 70-110 : TESTED A T [facility] 6720 (BEAKER) (test code = [facility], 1538) [address]: Resistance Welder/Techni ian ID = [id number] for NONI CORONEL IMMUNOGLOBULIN M (IGM)2020-02-28 13:41:00 Test Item Value Reference Range Interpretation Comments IMMUNOGLOBULIN M (IGM) (BEAKER) 270 mg/dL 22-293 (test code = 638) Resistance Welder ID - DBIMMUNOGLOBULIN A (IGA)2020-02-28 13:41:00 Test Item Value Reference Range Interpretation Comments IMMUNOGLOBULIN A (IGA) (BEAKER) 148 mg/dL 63-484 (test code = 639) Resistance Welder ID - DBPOCT-GLUCOSE [id number] 13:02:00 Test Item Value Reference Range Interpretation Comments POC-GLUCOSE METER 63 mg/dL 70-110 L : TESTED A T [facility] 6720 (BEAKER) (test code = [facility], 1538) 788[address]: Resistance Welder/Techni ian ID = [id number] for JESSIE PARRISH [id number] 13:00:00 Test Item Value Reference Range Interpretation Comments FERRITIN (BEAKER) (test code = 5.15 ng/mL 5.00-275.00 361) Resistance Welder ID - EMERSONPOCT-GLUCOSE [id number] 12:45:00 Test Item Value Reference Range Interpretation Comments POC-GLUCOSE METER 59 mg/dL 70-110 L : TESTED A T [facility] 6720 (BEAKER) (test code = [facility], 1538) [address]38[address]: Resistance Welder/Techni ian ID = [id number] for DEBBY MOORE IRON, TIBC, % SAT. (WITHOUT FERRITIN)2020-02-28 12:40:00 Test Item Value Reference Range Interpretation Comments IRON (BEAKER) (test code = 547) 291.0 ug/dL 40.0-160.0 H TOTAL IRON BINDING CAPACITY 400 ug/dL 250-450 (BEAKER) (test code = 769) IRON % SATURATION (2) (BEAKER) 73 % 20-55 H (test code = 2590) Resistance Welder ID - EMERSONURINALYSIS WITH MICROSCOPIC IF [id number] 08:27:00 Test Item Value Reference Range Interpretation [...] = 463) SOURCE(BEAKER) (test code = 2795) Resistance Welder ID - [auto]POCT-GLUCOSE [id number] 06:39:00 Test Item Value Reference Range Interpretation Comments POC-GLUCOSE METER 103 mg/dL 70-110 : [facility] (BEAKER) (test code = [facility] [place], 1538) [address]: Resistance Welder/Techni ian ID = [id number] for BARB SAHNI BASIC METABOLIC [id number] 06:10:00 Test Item Value Reference Range Interpretation [...] S NOT APPLICABLE FOR DIALYSIS PATIEN TS. Resistance Welder ID - HAY WCBC W/PLT COUNT & AUTO [id number] 05:27:00 Test Item Value Reference Range Interpretation [...] 0-1 PERCENT (BEAKER) (test code = 2801) COMPREHENSIVE METABOLIC [id number] 21:58:00 Test Item Value Reference Range Interpretation [...] S NOT APPLICABLE FOR DIALYSIS PATIEN TS. Resistance Welder ID - [id number] 21:58:00 Test Item Value Reference Range Interpretation Comments LIPASE (BEAKER) (test code = 749) 21 U/L 8-78 Resistance Welder ID - BSCBC W/PLT COUNT & AUTO [id number] 21:44:00 Test Item Value Reference Range Interpretation [...]
[2023-01-27] MEDS ORDERED: ASPIRIN 81 MG CHEWABLE TABLET ONE (20:53)
--- NOTE | 2023-01-27 21:04 | RAD REPORT ---
EXAM DESCRIPTION: Yu Single View01/27/2023 8:43 pm CLINICAL HISTORY: Chest pain COMPARISON: 2021 FINDINGS: The lungs appear clear of acute infiltrate. The heart is normal size IMPRESSION: No acute abnormalities displayed
[2023-01-27 21:47] LABS: Lymphocytes % 35.5 % (15.3-44.8); MCV 68.6 fL (80-100); MPV 8.9 fL (7.6-11.3); RBC Red Blood Cell Count 4.81 M/uL (3.86-4.86)
[2023-01-27] MEDS ORDERED: PROMETHAZINE 25 MG TABLET ONE (21:48)
[2023-01-27] MEDS ORDERED: CEPHALEXIN 250 MG CAP ONE (21:49)
[2023-01-27] MEDS ORDERED: TRAMADOL HCL 50 MG TAB ONE (21:49)
[2023-01-27] MEDS ORDERED: IBUPROFEN 400 MG TAB ONE (21:49)
[2023-01-27 22:05] LABS: Potassium 3.9 mEq/L (3.5-5.1); Troponin High Sensitivity 3.3 pg/mL (<58.9)
[2023-01-27 22:14] LABS: Blood Morphology Comment NOTED (NOT SEEN); Platelet Estimate ADEQ; White Blood Cell Scan OK (OK)
[2023-01-27 22:15] LABS: Anisocytosis 1+
--- NOTE | 2023-01-27 22:26 | EDPHYS ---
Physician Documentation [facility] Name: Stacie Burnett Age: 32 yrs Sex: Female : 1990 Arrival Date: 01/27/2023 Time: 19:01 Bed 5 Private MD: ED Physician Gonzalez Aguila HPI: 01/27 19:07 This 32 yrs old Black Female presents to ER via Ambulatory with complaints of Chest sp4 Pain, Back Pain. 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 Patient states pain is stabbing midsternal with radiation into the back and is mild to moderate. Patient complains of associated toothache in the left lower jaw. Denied fever or dyspnea. Patient takes amlodipine 10 mg a day for hypertension. Patient has history of bilateral tubal ligation several years ago.. 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 - Social history:: Patient/guardian denies using alcohol, street drugs, IV drugs, caffeine, over the counter diet medications, tobacco products, Smoking status: Patient denies any tobacco usage or history of. - Family history:: not pertinent. ROS: 19:13 Constitutional: Negative for fever, chills, and weight loss, positive for chest pain sp4 and left lower toothache Eyes: Negative for injury, pain, redness, and discharge, ENT: Negative for injury, and discharge, positive for left lower dental pain Neck: Negative for injury, pain, and swelling, Cardiovascular: Negative for palpitations, and edema, positive for chest pain Respiratory: Negative for shortness of breath, cough, wheezing, and pleuritic chest pain, Abdomen/GI: Negative for abdominal pain, nausea, vomiting, diarrhea, and constipation, Back: Negative for injury and pain, : Negative for injury, bleeding, discharge, and swelling, MS/Extremity: Negative for injury and deformity, Skin: Negative for injury, rash, and discoloration, Neuro: Negative for headache, weakness, numbness, tingling, and seizure, Psych: Negative for depression, anxiety, Allergy/Immunology: Negative for hives, rash, and allergies Endocrine: Negative for neck swelling, polydipsia, polyuria, polyphagia, and weight changes Hematologic/Lymphatic: Negative for swollen nodes, abnormal bleeding, and unusual bruising Exam: 19:13 Constitutional: This is a well developed, well nourished patient who is awake, alert, sp4 and in no acute distress. Head/Face: Normocephalic, atraumatic. Eyes: Pupils equal round and reactive to light, extra-ocular motions intact. Lids and lashes normal. Conjunctiva and sclera are not injected. Cornea within normal limits. Periorbital areas with no swelling, redness, or edema. ENT: Nares patent. No nasal discharge, no septal abnormalities noted. Tympanic membranes are normal and external auditory canals are clear. Oropharynx with no redness, swelling, or masses, exudates, or evidence of obstruction, uvula midline. Mucous membranes moist. Neck: Trachea midline, no thyromegaly or masses palpated, and no cervical lymphadenopathy. Supple, full range of motion without nuchal rigidity, or vertebral point tenderness. No Meningismus. Chest/axilla: Normal chest wall appearance and motion. Nontender with no deformity. No lesions are appreciated. Cardiovascular: Regular rate and rhythm with a normal S1 and S2. No gallops, murmurs, or rubs. Normal PMI, no JVD. No pulse deficits. Respiratory: Lungs have equal breath sounds bilaterally, clear to auscultation and percussion. No rales, rhonchi or wheezes noted. No increased work of breathing, no retractions or nasal flaring. Abdomen/GI: Soft, non-tender, with normal bowel sounds. No distension or tympany. No guarding or rebound. No evidence of tenderness throughout. Back: No spinal tenderness. No costovertebral tenderness. Skin: Warm, dry with normal turgor. Normal color with no rashes, no lesions, and no evidence of cellulitis. MS/ Extremity: Pulses equal, no cyanosis. Neurovascular intact. Full, normal range of motion. Neuro: Awake and alert, GCS 15, oriented to person, place, time, and situation. Cranial nerves II-XII grossly intact. Motor strength 5/5 in all extremities. Sensory grossly intact. Psych: Awake, alert, with orientation to person, place and time. Behavior, mood, and affect are within normal limits 20:34 ECG was reviewed by the Attending Physician. EKG time 1950, normal sinus rhythm at the sp4 rate of 79, normal EKG, no ST elevation or depression, no atrial or ventricular ectopy Vital Signs: 19:03 BP 158 / 97; Pulse 108; Resp 18; Temp 99.1(TE); Pulse Ox 100% on R/A; Weight 111.58 kg; hb Height 5 ft. 3 in. ; Pain 8/10; 20:50 Pulse 84; Resp 17; Temp 98.1(TE); Pulse Ox 100% on R/A; kd3 20:52 BP 142 / 86; kd3 21:45 BP 123 / 71; Pulse 79; Resp 21; Pulse Ox 99% ; vc1 22:17 BP 115 / 72; Pulse 72; Resp 19; Pulse Ox 99% ; vc1 19:03 Body Mass Index 43.58 (111.58 kg, 160.02 cm) hb 19:03 Pain Scale: Adult hb MDM: 19:08 Patient medically screened. sp4 22:22 Differential diagnosis: anxiety, coronary artery disease chest wall pain, congestive sp4 heart failure gastroesophageal reflux disease (GERD), pancreatitis, unstable angina. HEART Score: History: Slightly Suspicious (0), ECG: Normal (0), Age: < or = 45 years (0), Risk Factors: 1 or 2 risk factors (1), Troponin: < or = 1 x Normal Limit (0), Total Score = 1. Data reviewed: vital signs, nurses notes, lab test result(s), cardiac enzymes, CBC, electrolytes, hepatic panel, EKG, radiologic studies, plain films. Consideration of Admission/Observation Patient was admitted/placed on observation. Escalation of care including admission/observation considered. ED course: Patient was evaluated with full cardiac work-up and found to have unremarkable work-up. Patient does not have significant enough presentation to warrant admission and further work-up. Left lower tooth ache with severe dental decay at tooth number 18 there is associated swelling but no drainable abscess, patient will be advised to see dentist for dental extraction tooth does not appear salvageable. 01/27 19:08 Order name: Basic Metabolic Panel; Complete Time: 22:18 sp4 01/27 19:08 Order name: CBC with Diff; Complete Time: 22:18 sp4 01/27 19:08 Order name: NT PRO-BNP; Complete Time: 22:18 sp4 01/27 19:08 Order name: Troponin HS; Complete Time: 22:18 sp4 01/27 19:32 Order name: Lipase sp4 01/27 21:51 Order name: CBC Smear Scan; Complete Time: 22:18 EDMS 01/27 19:08 Order name: XRAY Chest (1 view); Complete Time: 21:47 sp4 01/27 19:08 Order name: EKG; Complete Time: 19:08 sp4 01/27 19:08 Order name: Cardiac monitoring; Complete Time: 21:53 sp4 01/27 19:08 Order name: EKG - Nurse/Tech; Complete Time: 19:57 sp4 01/27 19:08 Order name: IV Saline Lock; Complete Time: 21:40 sp4 01/27 19:08 Order name: Labs collected and sent; Complete Time: 21:40 sp4 01/27 19:08 Order name: O2 Per Protocol; Complete Time: 21:40 sp4 01/27 19:08 Order name: O2 Sat Monitoring; Complete Time: 21:40 sp4 EC:34 Rate is 79 beats/min. Rhythm is regular. QRS [place] is Normal. [place] interval is normal. QRS sp4 interval is normal. QT interval is normal. No ST changes noted. Clinical impression: Normal ECG. Interpreted by me. Administered Medications: 20:49 Drug: Aspirin PO Chewable Tablet 324 mg Route: PO; kd3 21:52 Drug: Cephalexin PO 500 mg Route: PO; vc1 21:53 Drug: traMADol PO 100 mg Route: PO; vc1 21:53 Drug: Promethazine PO 25 mg Route: PO; vc1 21:53 Drug: Ibuprofen PO 800 mg Route: PO; vc1 Disposition Summary: 01/27/23 22:26 Discharge Ordered Location: Home sp4 Problem: new sp4 Symptoms: have improved sp4 Condition: Stable sp4 Diagnosis - Dental caries, unspecified sp4 - Molar dental decay, acute dental pain, noncardiac chest pain, anxiety related chest sp4 pain, dental cavity Followup: sp4 - With: Private Physician - When: 7 - 10 days - Reason: Re-evaluation by your physician Followup: sp4 - With: Carroll Harrison DDS - When: 1 - 2 days - Reason: Recheck today's complaints Discharge Instructions: - Discharge Summary Sheet sp4 - Dental Caries, Adult sp4 Forms: - Thank You Letter sp4 - Antibiotic Education sp4 - Prescription Opioid Use sp4 Prescriptions: - naproxen sodium 500 mg Oral Tablet, ER Multiphase 24 hr - take 1 tablet by ORAL route every 12 hours; 30 tablet; Refills: 0, Product sp4 Selection Permitted - Cephalexin 500 mg Oral Capsule - take 1 capsule by ORAL route every 12 hours for 10 days; 20 capsule; Refills: sp4 0, Product Selection Permitted - Tramadol 50 mg Oral Tablet - take 1 tablet by ORAL route every 8 hours as needed; 12 tablet; Refills: 0, sp4 Product Selection Permitted Signatures: Dispatcher [employer] EDElaine Wills RN Radha Hayes RN RN kd3 Angelic Kerns RN RN vc1 Gonzalez Aguila MD MD sp4
--- NOTE | 2023-01-27 22:26 | ER ---
Nurse's Notes [facility] Name: Stacie Burnett Age: 32 yrs Sex: Female : 1990 Arrival Date: 01/27/2023 Time: 19:01 Bed 5 Private MD: Diagnosis: Dental caries, unspecified;Molar dental decay, acute dental pain, noncardiac chest pain, anxiety related chest pain, dental cavity Presentation: 01/27 19:03 Chief complaint: Chest pain that radiates to back since this afternoon. Hx of HTN. hb Coronavirus screen: At this time, the client does not indicate any symptoms associated with coronavirus-19. Ebola Screen: No symptoms or risks identified at this time. Initial Sepsis Screen: Does the patient meet any 2 criteria? No. Patient's initial sepsis screen is negative. Does the patient have a suspected source of infection? No. Patient's initial sepsis screen is negative. Risk Assessment: Do you want to hurt yourself or someone else? Patient reports no desire to harm self or others. Onset of symptoms was January 27, 2023. 19:03 Method Of Arrival: Ambulatory hb 19:03 Acuity: HOLLIS 3 hb Triage Assessment: 20:51 General: Appears uncomfortable, Behavior is calm, cooperative. Pain: Complains of pain kd3 in back and chest. 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 - Social history:: Patient/guardian denies using alcohol, street drugs, IV drugs, caffeine, over the counter diet medications, tobacco products, Smoking status: Patient denies any tobacco usage or history of. - Family history:: not pertinent. Screenin:00 [facility] ED Fall Risk Assessment (Adult) History of falling in the last 3 months, vc1 including since admission No falls in past 3 months (0 pts) Confusion or Disorientation No (0 pts) Intoxicated or Sedated No (0 pts) Impaired Gait No (0 pts) Mobility Assist Device Used No (0 pt) Altered Elimination No (0 pt) Score/Fall Risk Level 0 - 2 = Low Risk Oriented to surroundings, Maintained a safe environment, Educated pt \T\ family on fall prevention, incl call for assistance when getting out of bed. Abuse screen: Denies threats or abuse. Nutritional screening: No deficits noted. Tuberculosis screening: No symptoms or risk factors identified. Assessment: 20:50 General: Appears uncomfortable, Behavior is calm, cooperative. Pain: Complains of pain kd3 in chest Pain radiates to back Pain currently is 8 out of 10 on a pain scale. Pain began gradually. Cardiovascular: Patient's skin is warm and dry. 21:53 Reassessment: No changes from previously documented assessment. Patient and/or family vc1 updated on plan of care and expected duration. Pain level reassessed. Patient is alert, oriented x 3, equal unlabored respirations, skin warm/dry/pink. 22:37 Reassessment: Patient and/or family updated on plan of care and expected duration. Pain vc1 level reassessed. Patient is alert, oriented x 3, equal unlabored respirations, skin warm/dry/pink. Patient states feeling better. Patient states symptoms have improved. Vital Signs: 19:03 BP 158 / 97; Pulse 108; Resp 18; Temp 99.1(TE); Pulse Ox 100% on R/A; Weight 111.58 kg; hb Height 5 ft. 3 in. ; Pain 8/10; 20:50 Pulse 84; Resp 17; Temp 98.1(TE); Pulse Ox 100% on R/A; kd3 20:52 BP 142 / 86; kd3 21:45 BP 123 / 71; Pulse 79; Resp 21; Pulse Ox 99% ; vc1 22:17 BP 115 / 72; Pulse 72; Resp 19; Pulse Ox 99% ; vc1 19:03 Body Mass Index 43.58 (111.58 kg, 160.02 cm) hb 19:03 Pain Scale: Adult hb ED Course: 19:01 Patient arrived in ED. mr 19:04 Triage completed. hb 19:04 Arm band placed on. hb 19:07 Gonzalez Aguila MD is Attending Physician. sp4 19:56 Informed pt that EKG was normal per Dr. Aguila, told her that I would need to have wm her sit in lobby until we can get a room for her, offered blanket and she refused. 19:56 EKG done, by ED staff, reviewed by Gonzalez Aguila MD. 20:45 XRAY Chest (1 view) In Process Unspecified. EDMS 21:00 Client placed on continuous cardiac and pulse oximetry monitoring. NIBP monitoring vc1 applied. 21:00 Patient has correct armband on for positive identification. Placed in gown. Bed in low vc1 position. Call light in reach. Side rails up X2. 21:40 Angelic Kerns, RN is Primary Nurse. vc1 21:40 Inserted saline lock: 22 gauge in right antecubital area, using aseptic technique. vc1 Blood collected. 22:25 Carroll Harrison DDS is Referral Physician. sp4 22:37 No provider procedures requiring assistance completed. IV discontinued, intact, vc1 bleeding controlled, No redness/swelling at site. Pressure dressing applied. 22:38 Patient maintains SpO2 saturation greater than 95% on room air. vc1 Administered Medications: 20:49 Drug: Aspirin PO Chewable Tablet 324 mg Route: PO; kd3 21:52 Drug: Cephalexin PO 500 mg Route: PO; vc1 21:53 Drug: traMADol PO 100 mg Route: PO; vc1 21:53 Drug: Promethazine PO 25 mg Route: PO; vc1 21:53 Drug: Ibuprofen PO 800 mg Route: PO; vc1 Medication: 22:38 VIS not applicable for this client. vc1 Outcome: 22:26 Discharge ordered by . sp4 22:37 Discharged to home ambulatory. vc1 22:37 Condition: improved 22:37 Discharge instructions given to patient, Instructed on discharge instructions, follow up and referral plans. medication usage, Demonstrated understanding of instructions, follow-up care, medications, Prescriptions given X 2. 22:38 Patient left the ED. vc1 Signatures: Dispatcher [employer] EDND Judy AmadorElaine, RN Viji Odom Radha Sterling RN RN kd3 Angelic Kerns, SIGIFREDO RN vc1 Gonzalez Aguila MD MD sp4 Corrections: (The following items were deleted from the chart) 19:05 19:03 Temp 99.1F Temporal; hb hb
[2023-01-27 22:43] VITALS: TEMP 98.1
[2023-01-27 22:46] VITALS: O2SAT 99
[2023-01-27 22:47] VITALS: BP 115/72
--- NOTE | 2023-01-30 12:33 | EKG ---
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
== END 2023-01-27 22:38 | disposition home or self-care (01) ==
LOC: ER 18:58
DX: R07.89 Other chest pain (principal); F41.9 Anxiety disorder, unspecified; K02.9 Dental caries, unspecified; I10 Essential (primary) hypertension; Z88.6 Allergy status to analgesic agent
CPT/HCPCS: 85025; 80048; 36415; 84484; 83690; 83880; 71045; 99284; Q0169; 93005

== ENCOUNTER → 2023-10-29 | Emergency (ER) | payer OTHER ==
[~2023-10-29] MED LIST: ACETAMINOPHEN 500 MG TAB ONE; AMOXICILLIN TRIHYDR 250 MG CAP ONE
--- NOTE | 2023-10-29 05:27 | ER ---
Nurse's Notes [facility] Name: Stacie Burnett Age: 33 yrs Sex: Female : 1990 Arrival Date: 10/29/2023 Time: 04:28 Bed 13 Private MD: Gt Araujo Diagnosis: Dental caries, unspecified;Cracked tooth Presentation: 10/29 04:46 Chief complaint: Patient states: I have a horrible toothache, it is throbbing and vc1 making the whole left side of my face hurt. Coronavirus screen: Vaccine status: Patient reports receiving the 2nd dose of the covid vaccine. Client denies travel out of the [place] in the last 14 days. At this time, the client does not indicate any symptoms associated with coronavirus-19. Ebola Screen: Patient negative for fever greater than or equal to 101.5 degrees Fahrenheit, and additional compatible Ebola Virus Disease symptoms Patient denies exposure to infectious person. Patient denies travel to an Ebola-affected area in the 21 days before illness onset. No symptoms or risks identified at this time. Initial Sepsis Screen: Does the patient meet any 2 criteria? HR > 90 bpm. No. Patient's initial sepsis screen is negative. Does the patient have a suspected source of infection? Yes: Other: tooth infection. Risk Assessment: Do you want to hurt yourself or someone else? Patient reports no desire to harm self or others. Onset of symptoms is unknown. 04:46 Method Of Arrival: Ambulatory vc1 04:46 Acuity: HOLLIS 4 vc1 Triage Assessment: 04:55 General: Appears in no apparent distress. uncomfortable, Behavior is cooperative, vc1 appropriate for age. Pain: Complains of pain in left ear, lower left first molar and left jaw Pain does not radiate. Pain currently is 10 out of 10 on a pain scale. Quality of pain is described as throbbing, Pain began suddenly, Noted to be grimacing. EENT: No deficits noted. No signs and/or symptoms were reported regarding the EENT system. EENT: Reports pain. Neuro: Level of Consciousness is awake, alert, obeys commands, Oriented to person, place, time, situation, Appropriate for age. Cardiovascular: No deficits noted. Respiratory: No deficits noted. Respiratory: Airway is patent Respiratory effort is even, unlabored, Respiratory pattern is regular, symmetrical. GI: No deficits noted. No signs and/or symptoms were reported involving the gastrointestinal system. : No deficits noted. No signs and/or symptoms were reported regarding the genitourinary system. Derm: No deficits noted. No signs and/or symptoms reported regarding the dermatologic system. Musculoskeletal: No deficits noted. No signs and/or symptoms reported regarding the musculoskeletal system. 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 - Social history:: Smoking status: Patient denies any tobacco usage or history of. Screenin:46 [facility] ED Fall Risk Assessment (Adult) History of falling in the last 3 months, tm6 including since admission No falls in past 3 months (0 pts). Abuse screen: Denies threats or abuse. Denies injuries from another. Nutritional screening: No deficits noted. Tuberculosis screening: No symptoms or risk factors identified. Assessment: 04:46 General: Appears uncomfortable, Behavior is calm, cooperative. Pain: Complains of pain tm6 in mouth Pain radiates to left ear Pain currently is 10 out of 10 on a pain scale. Quality of pain is described as throbbing. Neuro: Level of Consciousness is awake, alert, obeys commands, Oriented to person, place, time, situation. Cardiovascular: Capillary refill < 3 seconds Patient's skin is warm and dry. Respiratory: Airway is patent Respiratory effort is even, unlabored, Respiratory pattern is regular, symmetrical. GI: Abdomen is round non-distended. : No signs and/or symptoms were reported regarding the genitourinary system. EENT: Reports pain in left ear, left cheek and mouth. Derm: No signs and/or symptoms reported regarding the dermatologic system. Musculoskeletal: No signs and/or symptoms reported regarding the musculoskeletal system. Vital Signs: 04:46 BP 155 / 95; Pulse 96; Resp 18; Temp 98.1; Pulse Ox 99% ; Pain 10/10; vc1 04:48 Weight 111.13 kg; Height 5 ft. 4 in. ; vc1 05:32 BP 136 / 94; Pulse 72; Pulse Ox 98% on R/A; tm6 04:48 Body Mass Index 42.05 (111.13 kg, 162.56 cm) vc1 04:46 Pain Scale: Adult vc1 ED Course: 04:32 Patient arrived in ED. gm2 04:33 Gt Araujo MD is Private Physician. gm2 04:39 Mojgan Carrizales RN is Primary Nurse. tm6 04:46 Patient has correct armband on for positive identification. Bed in low position. Call tm6 light in reach. Side rails up X 1. Provided Education on: plan of care. Client placed on continuous cardiac and pulse oximetry monitoring. NIBP monitoring applied. Door closed. Noise minimized. 04:48 Triage completed. vc1 04:51 Arm band placed on left wrist. vc1 04:51 No provider procedures requiring assistance completed. tm6 04:52 Jerrod Carrasquillo is Attending Physician. ci 05:44 Patient did not have IV access during this emergency room visit. tm6 Administered Medications: 05:20 Drug: Amoxicillin PO 1000 mg PO once Route: PO; tm6 05:23 [place] [id number]): [id number] mg PO once tm6 05:31 Drug: Acetaminophen PO 1000 mg PO once Route: PO; tm6 05:32 CANCELLED (Duplicate Order): acetaminophen-codeine(300 mg-30 mg) 1 tablet PO once; RASS ci on ADMIN: Combtv4, Very Agttd3, Agttd2, Rstlss1, AlertClm0, Drwsy-1, Lt Sdtn-2, Mod Sdtn-3, Dp Sdtn-4, UnArsble-5 Medication: 04:46 VIS not applicable for this client. tm6 Outcome: 04:55 Condition: good vc1 05:26 Discharge ordered by . ci 05:44 Discharged to home ambulatory, tm6 05:44 Condition: stable 05:44 Discharge instructions given to patient, Instructed on discharge instructions, follow up and referral plans. medication usage, Demonstrated understanding of instructions, follow-up care, medications, Prescriptions given X 2, 05:46 Patient left the ED. tm6 Signatures: Angelic Kerns RN RN vc1 FernieunekwuJerrod Ginger gm2 Mojgan Carrizales RN RN tm6
--- NOTE | 2023-10-29 05:28 | EDPHYS ---
Physician Documentation [facility] Name: Stacie Burnett Age: 33 yrs Sex: Female : 1990 Arrival Date: 10/29/2023 Time: 04:28 Bed 13 Private MD: Gt Araujo ED Physician Neida Adonisjose HPI: 10/29 05:14 This 33 yrs old Black Female presents to ER via Ambulatory with complaints of Toothache.ci 05:14 The patient presents with broken tooth/teeth, pain, swelling. The problem is located in ci the lower left first molar and left jaw. Onset: The symptoms/episode began/occurred 1 year(s) ago, and became worse yesterday. Duration: The symptoms are intermittent, Last episode was last year, was told she needed an oral surgeon but she never followed up. Modifying factors: The symptoms are alleviated by warm compresses, the symptoms are aggravated by chewing. Associated signs and symptoms: Pertinent positives:. 05:14 The patient has experienced a previous episode, last year. Pain radiates to left jaw. ci Patient took naproxen at 3 AM with no improvement.. 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 - Social history:: Smoking status: Patient denies any tobacco usage or history of. ROS: 05:14 Constitutional: Negative for chills, fatigue, fever, ci 05:14 ENT: Positive for dental pain, Exam: 05:14 Constitutional: This is a well developed, well nourished patient who is awake, alert, ci and in no acute distress. Head/Face: Normocephalic, atraumatic. Eyes: Pupils equal round and reactive to light, extra-ocular motions intact. Lids and lashes normal. Conjunctiva and sclera are non-icteric and not injected. Cornea within normal limits. Periorbital areas with no swelling, redness, or edema. ENT: Nares patent. No nasal discharge, no septal abnormalities noted. Tympanic membranes are normal and external auditory canals are clear. Oropharynx with no redness, swelling, or masses, exudates, or evidence of obstruction, uvula midline. Mucous membranes moist. Tooth #21 broken with small fragment remaining. Tenderness to palpation along tooth #14/15, dental caries present. No periapical abscess. Mild left jaw swelling, no erythema, crepitus Neck: Trachea midline, no thyromegaly or masses palpated, and no cervical lymphadenopathy. Supple, full range of motion without nuchal rigidity, or vertebral point tenderness. No Meningismus. Chest/axilla: Normal chest wall appearance and motion. Nontender with no deformity. No lesions are appreciated. Cardiovascular: Regular rate and rhythm with a normal S1 and S2. No gallops, murmurs, or rubs. Normal PMI, no JVD. No pulse deficits. Respiratory: Lungs have equal breath sounds bilaterally, clear to auscultation and percussion. No rales, rhonchi or wheezes noted. No increased work of breathing, no retractions or nasal flaring. Abdomen/GI: Soft, non-tender, with normal bowel sounds. No distension or tympany. No guarding or rebound. No evidence of tenderness throughout. Back: No spinal tenderness. No costovertebral tenderness. Full range of motion. Skin: Warm, dry with normal turgor. Normal color with no rashes, no lesions, and no evidence of cellulitis. MS/ Extremity: Pulses equal, no cyanosis. Neurovascular intact. Full, normal range of motion. Neuro: Awake and alert, GCS 15, oriented to person, place, time, and situation. Cranial nerves II-XII grossly intact. Motor strength 5/5 in all extremities. Sensory grossly intact. Cerebellar exam normal. Normal gait. Psych: Awake, alert, with orientation to person, place and time. Behavior, mood, and affect are within normal limits. 05:14 ENT: Dental exam: dental caries, missing teeth, pain, ci Vital Signs: 04:46 BP 155 / 95; Pulse 96; Resp 18; Temp 98.1; Pulse Ox 99% ; Pain 10/10; vc1 04:48 Weight 111.13 kg; Height 5 ft. 4 in. ; vc1 05:32 BP 136 / 94; Pulse 72; Pulse Ox 98% on R/A; tm6 04:48 Body Mass Index 42.05 (111.13 kg, 162.56 cm) vc1 04:46 Pain Scale: Adult vc1 MDM: 04:52 Patient medically screened. ci 05:14 Differential diagnosis: dental caries, gingivitis, dental abscess, pericoronitis, acute ci necrotizing ulcerative gingivitis, gingivostomatitis. Data reviewed: vital signs, nurses notes. Care significantly affected by the following chronic conditions: Hypertension. ED course: Patient presents with left molar dental pain. Has had previous episodes of dental pain, was supposed to follow-up with oral surgeon but did not. No periapical abscess on exam, no evidence of facial cellulitis. TM intact bilaterally. Will on pain meds and empirically cover with antibiotics. Was given referred to dentist and asked to follow-up promptly. Return to the ED for new or worsening symptoms.. Administered Medications: 05:20 Drug: Amoxicillin PO 1000 mg PO once Route: PO; tm6 05:23 [place] [id number]): [id number] mg PO once tm6 05:31 Drug: Acetaminophen PO 1000 mg PO once Route: PO; tm6 05:32 CANCELLED (Duplicate Order): acetaminophen-codeine(300 mg-30 mg) 1 tablet PO once; RASS ci on ADMIN: Combtv4, Very Agttd3, Agttd2, Rstlss1, AlertClm0, Drwsy-1, Lt Sdtn-2, Mod Sdtn-3, Dp Sdtn-4, UnArsble-5 Disposition Summary: 10/29/23 05:26 Discharge Ordered Notes: Location: Home ci Condition: Stable ci Diagnosis - Dental caries, unspecified ci - Cracked tooth ci Discharge Instructions: - Discharge Summary Sheet ci - Dental Pain, [id number] ci - Dental Caries, Adult, [id number] ci Forms: - Medication Reconciliation Form ci - Thank You Letter ci - Antibiotic Education ci - Prescription Opioid Use ci - Patient Portal Instructions ci - Leadership Thank You Letter ci Prescriptions: - acetaminophen-codeine 300-30 mg Oral tablet - take 1 tablet ORAL route every 6 hours as needed for pain; 12 tablet; Refills: ci 0, Product Selection Permitted - Amoxicillin 500 mg Oral Capsule - take 1 capsule ORAL route every 8 hours for 10 days; 30 tablet; Refills: 0, ci Product Selection Permitted Signatures: Calcote, Angelic, RN RN vc1 IheonunekwuJerrod Tawney RN RN tm6 Corrections: (The following items were deleted from the chart) 05:32 05:32 Acetaminophen-Codeine PO (300 mg-30 mg) 1 tablet PO once; RASS on ADMIN: Combtv4, ci Very Agttd3, Agttd2, Rstlss1, AlertClm0, Drwsy-1, Lt Sdtn-2, Mod Sdtn-3, Dp Sdtn-4, UnArsble-5 ordered. ci
[2023-10-29 06:00] VITALS: BP 136/94; TEMP 98.1; O2SAT 98
== END ==
LOC: ER 04:28
DX: K02.9 Dental caries, unspecified (principal); K03.81 Cracked tooth
CPT/HCPCS: 99283

== ENCOUNTER → 2023-10-29 | Emergency (ER) | payer OTHER ==
[~2023-10-29] MED LIST changes: -ACETAMINOPHEN 500 MG TAB ONE; -AMOXICILLIN TRIHYDR 250 MG CAP ONE; +MORPHINE 4 MG/ML SYR ONE; +ONDANSETRON 4 MG (ODT) TAB ONE; +dexAMETHasone 10 MG/ML VIAL ONE
--- NOTE | 2023-10-29 17:19 | EDPHYS ---
Physician Documentation [facility] Name: Stacie Burnett Age: 33 yrs Sex: Female : 1990 Arrival Date: 10/29/2023 Time: 16:28 Bed IW4 Private MD: ED Physician HPI: 10/29 17:51 This 33 yrs old Black Female presents to ER via Ambulatory with complaints of sb4 Toothache, Ear Pain. 17:51 The patient presents with broken tooth/teeth, pain. The problem is located in the lower sb4 left second bicuspid. Onset: The symptoms/episode began/occurred last year, and became worse this morning. The patient has been recently seen at the [facility] Emergency Department, today. patient has broken tooth, has not been able to afford the dental work. came in this morning and was discharged with antibiotics and Tylenol #3. states the pain has gotten worse. 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 - Social history:: Smoking status: Patient denies any tobacco usage or history of. ROS: 17:51 Constitutional: Negative for fever, chills, and weight loss, sb4 17:51 ENT: Positive for dental pain, ear pain, 17:51 All other systems are negative, Exam: 17:51 Head/Face: Normocephalic, atraumatic. Eyes: Extra-ocular motions intact. Periorbital sb4 areas with no swelling, redness, or edema. Skin: Warm, dry with normal turgor. Normal color with no rashes, no lesions, and no evidence of cellulitis. MS/ Extremity: Pulses equal, no cyanosis. Neurovascular intact. Full, normal range of motion. Neuro: Awake and alert, GCS 15, oriented to person, place, time, and situation. Motor strength 5/5 in all extremities. Sensory grossly intact. 17:51 Constitutional: The patient appears alert, awake, crying 17:51 ENT: Dental exam: cellulitis, that is mild, specifically in the lower left second bicuspid, fractured teeth are noted, specifically the lower left second bicuspid, gum swelling, Vital Signs: 16:40 BP 159 / 104; Pulse 100; Resp 18; Temp 98.2(O); Pulse Ox 99% on R/A; Weight 111.13 kg; db Height 5 ft. 4 in. ; Pain 10/10; 16:40 Body Mass Index 42.05 (111.13 kg, 162.56 cm) db 16:40 Pain Scale: Adult db MDM: 17:01 Patient medically screened. sb4 17:51 Differential diagnosis: dental caries, gingivitis, dental abscess. Data reviewed: vital sb4 signs, nurses notes, and as a result, I will discharge patient. Counseling: I had a detailed discussion with the patient and/or guardian regarding the historical points, exam findings, and any diagnostic results supporting the discharge/admit diagnosis, the need for outpatient follow up, a dentist, to return to the emergency department if symptoms worsen or persist or if there are any questions or concerns that arise at home. Administered Medications: 17:25 Drug: morphine IM 4 mg IM once Route: IM; Site: right ventrogluteal; db 17:35 Follow up: Response: No adverse reaction db 17:25 Drug: Ondansetron Oral Disintegrating Tablet Oral Disintegrating Tablet 4 mg PO once db Route: PO; 17:35 Follow up: Response: No adverse reaction db 17:34 Drug: Dexamethasone IM 10 mg IM once Route: IM; Site: right ventrogluteal; db 17:35 Follow up: Response: No adverse reaction db Disposition Summary: 10/29/23 17:18 Discharge Ordered Notes: Location: Home sb4 Problem: an ongoing problem sb4 Symptoms: have improved sb4 Condition: Stable sb4 Diagnosis - Dental caries on pit and fissure surface sb4 Followup: sb4 - With: Margarito Hand DDS - When: 2 - 3 days - Reason: Recheck today's complaints, Re-evaluation by your physician Discharge Instructions: - Discharge Summary Sheet sb4 - Dental Pain, [id number] sb4 Forms: - Medication Reconciliation Form sb4 - Thank You Letter sb4 - Antibiotic Education sb4 - Prescription Opioid Use sb4 - Patient Portal Instructions sb4 - Leadership Thank You Letter sb4 Signatures: Josie Gonzales RN RN db Brown, Ena, PA-C PA-C sb4
--- NOTE | 2023-10-29 17:19 | ER ---
[facility] Name: Stacie Burnett Age: 33 yrs Sex: Female : 1990 Arrival Date: 10/29/2023 Time: 16:28 Bed IW4 Private MD: Diagnosis: Dental caries on pit and fissure surface Presentation: 10/29 16:40 Chief complaint: Patient states: LEFT LOWER BACK DENTAL PAIN SINCE YESTERDAY STATES WAS db SEEN HERE AT 0400 AND PRESCRIBED ANTIBIOTICS AND PAIN MEDICATION. STATES PAIN MEDICATION IS NOT HELPING WITH THE PAIN. Coronavirus screen: Vaccine status: Patient reports receiving the 1st dose of the Covid vaccine. Client denies travel out of the [place] in the last 14 days. At this time, the client does not indicate any symptoms associated with coronavirus-19. Ebola Screen: Patient negative for fever greater than or equal to 101.5 degrees Fahrenheit, and additional compatible Ebola Virus Disease symptoms Patient denies exposure to infectious person. Patient denies travel to an Ebola-affected area in the 21 days before illness onset. No symptoms or risks identified at this time. Initial Sepsis Screen: Does the patient meet any 2 criteria? HR > 90 bpm. Does the patient have a suspected source of infection? No. Patient's initial sepsis screen is negative. Risk Assessment: Do you want to hurt yourself or someone else? Patient reports no desire to harm self or others. Onset of symptoms was October 28, 2023. 16:40 Method Of Arrival: Ambulatory db 16:40 Acuity: HOLLIS 4 db Triage Assessment: 16:42 General: Appears in no apparent distress. comfortable, Behavior is calm, cooperative. db Pain: Complains of pain in face and left ear. EENT: Reports pain in left ear and left jaw DENTAL PAIN. 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 - Social history:: Smoking status: Patient denies any tobacco usage or history of. Screenin:30 [facility] ED Fall Risk Assessment (Adult) History of falling in the last 3 months, db including since [facility]. [facility] (Ad[facility]) History of falling in the last 3 months, including since admission No falls in past 3 months (0 pts) Score/Fall Risk Level 0 - 2 = Low Risk Oriented to surroundings, Maintained a safe environment. Abuse screen: Denies threats or abuse. Denies injuries from another. Nutritional screening: No deficits noted. Tuberculosis screening: No symptoms or risk factors identified. Assessment: 17:30 Reassessment: Patient appears in no apparent distress at this time. Patient and/or db family updated on plan of care and expected duration. Pain level reassessed. Patient is alert, oriented x 3, equal unlabored respirations, skin warm/dry/pink. General: Appears in no apparent distress. Vital Signs: 16:40 BP 159 / 104; Pulse 100; Resp 18; Temp 98.2(O); Pulse Ox 99% on R/A; Weight 111.13 kg; db Height 5 ft. 4 in. ; Pain 10/10; 16:40 Body Mass Index 42.05 (111.13 kg, 162.56 cm) db 16:40 Pain Scale: Adult db ED Course: 16:30 Patient arrived in ED. im 16:42 Triage completed. db 16:43 Arm band placed on Patient placed in waiting room. db 17:01 Ena López PA-C is PHCP. sb4 17:18 Margarito Hand DDS is Referral Physician. sb4 17:30 Patient has correct armband on for positive identification. Provided Education on: db DISCHARGE. 17:30 No provider procedures requiring assistance completed. Patient did not have IV access db during this emergency room visit. 17:33 Josie Gonzales, RN is Primary Nurse. db Administered Medications: 17:25 Drug: morphine IM 4 mg IM once Route: IM; Site: right ventrogluteal; db 17:35 Follow up: Response: No adverse reaction db 17:25 Drug: Ondansetron Oral Disintegrating Tablet Oral Disintegrating Tablet 4 mg PO once db Route: PO; 17:35 Follow up: Response: No adverse reaction db 17:34 Drug: Dexamethasone IM 10 mg IM once Route: IM; Site: right ventrogluteal; db 17:35 Follow up: Response: No adverse reaction db Medication: 17:30 VIS not applicable for this client. db Outcome: 17:18 Discharge ordered by . sb4 17:30 Discharged to home ambulatory, with family, db 17:30 Condition: stable 17:30 Discharge instructions given to patient, Instructed on discharge instructions, follow up and referral plans. 18:18 Patient left the ED. db Signatures: Josie Gonzales RN RN Ena Tam, PAMistyC PAMistyC sb4 Alyssa Salvador Corrections: (The following items were deleted from the chart) 16:42 16:40 Pulse 100bpm; Resp 18bpm; Pulse Ox 99% RA; Temp 98.2F Oral; 111.13 kg; Height 5 db ft. 4 in.; BMI: 42.0; Pain 10, Adult; db
[2023-10-29 18:32] VITALS: BP 159/104; TEMP 98.2; O2SAT 99
== END ==
LOC: ER 16:28
DX: K02.51 Dental caries on pit and fissure surface limited to enamel (principal)
CPT/HCPCS: 96372; 99284; Q0162; J1100

== ENCOUNTER → 2024-01-25 | Emergency (ER) | payer OTHER ==
[~2024-01-25] MED LIST changes: +DICYCLOMINE HCL 10 MG CAP ONE; -MORPHINE 4 MG/ML SYR ONE; -ONDANSETRON 4 MG (ODT) TAB ONE; +PROMETHAZINE 25 MG TABLET ONE; +SUCRALFATE 1 GM TABLET ONE; +TRAMADOL HCL 50 MG TAB ONE; -dexAMETHasone 10 MG/ML VIAL ONE
[2024-01-25 21:13] LABS: Specific Gravity 1.023 (1.005-1.030); Urine Bilirubin NEGATIVE (Negative); Urine Blood Negative (Negative); Urine Clarity Clear (Clear); Urine Color Light-Yellow (Yellow); Urine Glucose NEGATIVE (Negative); Urine Ketones NEGATIVE (Negative); Urine Microscopic Reflex YN NO UMIC; Urine Nitrite NEGATIVE (Negative); Urine Protein NEGATIVE (Negative); Urine Urobilinogen Normal (Normal)
[2024-01-25 21:22] LABS: Absolute Basophils 0.1 K/uL (0-0.5); Absolute Eosinophils 0.3 K/uL (0-0.5); Absolute Lymphocytes (CBC) 3.1 K/uL (0.7-4.9); Absolute Monocytes 0.6 K/uL (0.1-1.3); Absolute Neutrophil 4.6 K/uL (1.8-8.0); Basophils % 0.7 % (0-1.3); Eosinophils % 3.2 % (0-4.4); Hematocrit 32.6 % (36.0-45.0); Hemoglobin 10.4 g/dL (12.0-15.0); Lymphocytes % 35.8 % (15.3-44.8); MCH 20.9 pg (27.0-35.0); MCHC 31.9 g/dL (32.0-36.0); MCV 65.5 fL (80-100); MPV 8.8 fL (7.6-11.3); Monocytes % 6.6 % (3.3-12.3); Neutrophils % 53.7 % (41.7-73.7); Nucleated Red Blood Cells % 0.1 % (0-0); Platelets 349 thou/uL (152-406); RBC Red Blood Cell Count 4.97 M/uL (3.86-4.86); Red Cell Distribution Width 17.8 % (12.1-15.2)
[2024-01-25 21:29] LABS: Albumin 3.3 g/dL (3.4-5.0); Albumin/Globulin Ratio 0.8 (1.1-1.8); Anion Gap 8.8 mEq/L (5.0-15.0); Bilirubin Total 0.4 mg/dL (0.2-1.0); Globulin 4.1 g/dL (2.3-3.5); Potassium 3.8 mEq/L (3.5-5.1); Protein, Total 7.4 g/dL (6.4-8.2)
[2024-01-25 21:51] LABS: Anisocytosis 1+; Blood Morphology Comment NOTED (NOT SEEN); Hypochromasia 1+; Microcytosis 1+; Platelet Estimate ADEQ; Polychromasia 1+; White Blood Cell Scan OK (OK)
--- NOTE | 2024-01-25 22:33 | RAD REPORT ---
EXAM DESCRIPTION: CT - Abdomen Pelvis W Contrast - 01/25/2024 10:13 pm CLINICAL HISTORY: Abdominal pain/ right lower quadrant pain COMPARISON: 2022 TECHNIQUE: Computed axial tomography of the abdomen pelvis was obtained. 100 cc Isovue-300 was admin istered intravenously. Oral contrast was not requested which limits evaluation of bowel and appendix All CT scans are performed using dose optimization technique as appropriate and may include automated exposure control or mA/KV adjustment according to patient size. FINDINGS: The liver, spleen, pancreas, adrenal and kidneys appear unremarkable. There is no evidence of diverticulitis. Normal appendix. No adnexal mass Small umbilical hernia. Diastases rectus abdominis muscles 2.6 centimeters IMPRESSION: No acute abnormality is displayed.
--- NOTE | 2024-01-25 23:00 | ER ---
Nurse's Notes [facility] Name: Stacie Burnett Age: 33 yrs Sex: Female : 1990 Arrival Date: 01/25/2024 Time: 20:17 Bed 9 Private MD: Diagnosis: Lower abdominal pain, unspecified;Acute right lower quadrant abdominal pain, umbilical hernia, history of peptic ulcers Presentation: 01/24 20:49 Chief complaint: Patient states: RLQ ABD pain starting yesterday with diarrhea today; km8 denies vomiting or fever. Coronavirus screen: Client denies travel out of the [place] in the last 14 days. Ebola Screen: No symptoms or risks identified at this time. Initial Sepsis Screen: Does the patient meet any 2 criteria? No. Patient's initial sepsis screen is negative. Does the patient have a suspected source of infection? No. Patient's initial sepsis screen is negative. Risk Assessment: Do you want to hurt yourself or someone else? Patient reports no desire to harm self or others. Onset of symptoms was January 24, 2024. 20:49 Method Of Arrival: Ambulatory km8 20:49 Acuity: HOLLIS 3 km8 Triage Assessment: 20:51 General: Appears in no apparent distress. uncomfortable, Behavior is calm, cooperative, km8 appropriate for age. Pain: Complains of pain in right lower quadrant Pain radiates to umbilical area Pain currently is 5 out of 10 on a pain scale. Pain began 1 day ago. Is continuous, Alleviated by repositioning, Aggravated by repositioning. EENT: No signs and/or symptoms were reported regarding the EENT system. Neuro: Level of Consciousness is awake, alert, obeys commands, Oriented to person, place, time, situation. Cardiovascular: Denies chest pain, shortness of breath, Patient's skin is warm and dry. Respiratory: Airway is patent Respiratory effort is even, unlabored, Respiratory pattern is regular, symmetrical. GI: Abdomen is non-distended, Reports lower abdominal pain, diarrhea, Pain is 5 out of 10 on a pain scale. Patient currently denies nausea, vomiting. : No signs and/or symptoms were reported regarding the genitourinary system. Derm: No signs and/or symptoms reported regarding the dermatologic system. Skin is intact, is healthy with good turgor, Skin is dry, Skin is pink, warm \T\ dry. normal, Skin temperature is warm. Musculoskeletal: No signs and/or symptoms reported regarding the musculoskeletal system. Range of motion: intact in all extremities. 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 - Social history:: Smoking status: Patient denies any tobacco usage or history of. Patient uses alcohol, occasionally. Patient/guardian denies using street drugs. - Family history:: not pertinent. Screenin:38 [facility] ED Fall Risk Assessment (Adult) History of falling in the last 3 months, kd3 including since admission Confusion or Disorientation No (0 pts) Intoxicated or Sedated No (0 pts) Impaired Gait No (0 pts) Mobility Assist Device Used No (0 pt) Altered Elimination No (0 pt) Score/Fall Risk Level 0 - 2 = Low Risk Oriented to surroundings. Abuse screen: Denies threats or abuse. Denies injuries from another. Nutritional screening: No deficits noted. Tuberculosis screening: No symptoms or risk factors identified. Assessment: 23:38 General: Appears in no apparent distress. Behavior is calm, cooperative. Neuro: Level kd3 of Consciousness is awake, alert, obeys commands, Oriented to person, place, time, situation. 23:39 GI: Bowel sounds present X 4 quads. Abd is soft X 4 quads. kd3 Vital Signs: 20:53 BP 122 / 75; Pulse 83; Resp 16; Temp 98.6(O); Pulse Ox 98% on R/A; Weight 108.86 kg 8 (R); Height 5 ft. 4 in. (R); Pain 5/10; 23:39 BP 109 / 79; Pulse 84; Resp 15; Pulse Ox 98% on R/A; kd3 20:53 Body Mass Index 41.20 (108.86 kg, 162.56 cm) km8 20:53 Pain Scale: Adult km8 Ed Coma Score: 20:51 Eye Response: spontaneous(4). Motor Response: obeys commands(6). Verbal Response: sp4 oriented(5). Total: 15. ED Course: 20:28 Patient arrived in ED. gm2 20:29 Gonzalez Aguila MD is Attending Physician. sp4 20:50 Triage completed. km8 20:51 Arm band placed on right wrist. km8 20:54 Patient placed in waiting room, Patient notified of wait time. Urine obtained. km8 20:54 Urinalysis w/ reflexes Sent. km8 20:54 Urine collected: clean catch specimen. km8 21:03 Initial lab(s) drawn, by me, sent to lab. Inserted saline lock: 20 gauge in left mb9 antecubital area, using aseptic technique. Blood collected. 21:03 CBC with Diff Sent. mb9 21:03 CMP Sent. mb9 21:03 Lipase Sent. mb9 22:15 CT Abd/Pelvis - IV Contrast Only In Process Unspecified. EDMS 22:58 Kalpesh Garcia MD is Referral Physician. sp4 23:30 Radha Sterling, SIGIFREDO is Primary Nurse. kd3 23:39 Patient has correct armband on for positive identification. Provided Education on: . kd3 23:39 No provider procedures requiring assistance completed. IV discontinued, intact, kd3 bleeding controlled, No redness/swelling at site. Pressure dressing applied. Administered Medications: 23:38 Drug: traMADol PO 100 mg PO once Route: PO; kd3 23:38 Drug: Dicyclomine PO 20 mg PO once Route: PO; kd3 23:38 Drug: Promethazine PO 25 mg PO once Route: PO; kd3 23:38 Drug: Sucralfate PO 1 grams PO once Route: PO; kd3 Medication: 23:39 VIS not applicable for this client. kd3 Outcome: 22:59 Discharge ordered by . sp4 23:39 Discharged to home ambulatory, kd3 23:39 Condition: stable 23:39 Discharge instructions given to patient, family, Instructed on discharge instructions, follow up and referral plans. medication usage, Demonstrated understanding of instructions, follow-up care, medications, Prescriptions given X 3, 23:40 Patient left the ED. kd3 Signatures: Dispatcher [employer] EDMS Asher, Radha, RN RN kd3 Cinthia, Naa, RN RN mb9 Gonzalez Aguila MD MD sp4 Elsie Martines gm2 Kacey Aguilera RN RN km8
--- NOTE | 2024-01-25 23:00 | EDPHYS ---
Physician Documentation [facility] Name: Stacie Burnett Age: 33 yrs Sex: Female : 1990 Arrival Date: 01/25/2024 Time: 20:17 Bed 9 Private MD: ED Physician Gonzalez Aguila HPI: 01/24 20:30 This 33 yrs old Black Female presents to ER via Unassigned with complaints of Abdominal sp4 Pain. 20:46 PMH - Historical: Allergies: Fentanyl PMHx: gastritis; Hypertension; IRON DEFICIENCY sp4 ANEMIA PSHx: section; tubal ligation;. 33-year-old female presents with acute onset right lower quadrant abdominal pain associated with dizziness starting yesterday evening. Patient denied vomiting reported 1 episode of diarrhea. Denied fever. Reports history of bilateral tubal ligation 3 prior C-sections.. 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 - Social history:: Smoking status: Patient denies any tobacco usage or history of. Patient uses alcohol, occasionally. Patient/guardian denies using street drugs. - Family history:: not pertinent. ROS: 20:46 Constitutional: Negative for fever, chills, and weight loss, positive for right lower sp4 abdominal pain and dizziness 20:46 All other systems are negative, Exam: 20:46 Constitutional: This is a well developed, well nourished patient who is awake, alert, sp4 and in no acute distress. Head/Face: Normocephalic, atraumatic. Eyes: Pupils equal round and reactive to light, extra-ocular motions intact. Lids and lashes normal. Conjunctiva and sclera are not injected. Cornea within normal limits. Periorbital areas with no swelling, redness, or edema. ENT: Nares patent. No nasal discharge, no septal abnormalities noted. Tympanic membranes are normal and external auditory canals are clear. Oropharynx with no redness, swelling, or masses, exudates, or evidence of obstruction, uvula midline. Mucous membranes moist. Neck: Trachea midline, no thyromegaly or masses palpated, and no cervical lymphadenopathy. Supple, full range of motion without nuchal rigidity, or vertebral point tenderness. Chest/axilla: Normal chest wall appearance and motion. Nontender with no deformity. No lesions are appreciated. Cardiovascular: Regular rate and rhythm with a normal S1 and S2. No gallops, murmurs, or rubs. Normal PMI, no JVD. No pulse deficits. Respiratory: Lungs have equal breath sounds bilaterally, clear to auscultation and percussion. No rales, rhonchi or wheezes noted. No increased work of breathing, no retractions or nasal flaring. Abdomen/GI: Soft, with normal bowel sounds. No distension or tympany. No guarding or rebound. No evidence of tenderness throughout. Back: No spinal tenderness. No costovertebral tenderness. Skin: Warm, dry with normal turgor. Normal color with no rashes, no lesions, and no evidence of cellulitis. MS/ Extremity: Pulses equal, no cyanosis. Neurovascular intact. Full, normal range of motion. Neuro: Awake and alert, GCS 15, oriented to person, place, time, and situation. Cranial nerves II-XII grossly intact. Motor strength 5/5 in all extremities. Sensory grossly intact. Psych: Awake, alert, with orientation to person, place and time. Behavior, mood, and affect are within normal limits Vital Signs: 20:53 BP 122 / 75; Pulse 83; Resp 16; Temp 98.6(O); Pulse Ox 98% on R/A; Weight 108.86 kg 8 (R); Height 5 ft. 4 in. (R); Pain 5/10; 23:39 BP 109 / 79; Pulse 84; Resp 15; Pulse Ox 98% on R/A; kd3 20:53 Body Mass Index 41.20 (108.86 kg, 162.56 cm) [facility] 20:53 Pain Scale: Adult [facility] Ed Coma Score: 20:51 Eye Response: spontaneous(4). Motor Response: obeys commands(6). Verbal Response: sp4 oriented(5). Total: 15. MDM: 20:32 Patient medically screened. sp4 22:43 ED course: EXAM DESCRIPTION: CT - Abdomen Pelvis W Contrast - 01/25/2024 10:13 pm sp4 CLINICAL HISTORY: Abdominal pain/ right lower quadrant pain COMPARISON: 2022 TECHNIQUE: Computed axial tomography of the abdomen pelvis was obtained. 100 cc Isovue-300 was administered intravenously. Oral contrast was not requested which limits evaluation of bowel and appendix All CT scans are performed using dose optimization technique as appropriate and may include automated exposure control or mA/KV adjustment according to patient size. FINDINGS: The liver, spleen, pancreas, adrenal and kidneys appear unremarkable. There is no evidence of diverticulitis. Normal appendix. No adnexal mass Small umbilical hernia. Diastases rectus abdominis muscles 2.6 centimeters IMPRESSION: No acute abnormality is displayed. . 22:56 Differential Diagnosis altered mental status, sepsis, flu, Abdominal pain, crampy sp4 abdominal pain. Data reviewed: vital signs, nurses notes, old medical records, lab test result(s), radiologic studies, CT scan. Consideration of Admission/Observation Escalation of care including admission/observation considered. 01/24 20:32 Order name: CBC with Diff; Complete Time: 22:13 sp4 01/24 20:32 Order name: CMP; Complete Time: 22:13 sp4 01/24 20:32 Order name: Lipase; Complete Time: 22:13 sp4 01/24 20:32 Order name: Urinalysis w/ reflexes; Complete Time: 22:13 sp4 01/24 21:52 Order name: CBC Smear Scan; Complete Time: 22:13 EDMS 01/24 20:45 Order name: CT Abd/Pelvis - IV Contrast Only; Complete Time: 22:43 sp4 01/24 20:32 Order name: IV Saline Lock; Complete Time: 21:03 sp4 01/24 20:32 Order name: Labs collected and sent; Complete Time: 21:03 sp4 Administered Medications: 23:38 Drug: traMADol PO 100 mg PO once Route: PO; kd3 23:38 Drug: Dicyclomine PO 20 mg PO once Route: PO; kd3 23:38 Drug: Promethazine PO 25 mg PO once Route: PO; kd3 23:38 Drug: Sucralfate PO 1 grams PO once Route: PO; kd3 Disposition Summary: 01/25/24 22:59 Discharge Ordered Notes: Location: Home sp4 Problem: new sp4 Symptoms: are unchanged sp4 Condition: Stable sp4 Diagnosis - Lower abdominal pain, unspecified sp4 - Acute right lower quadrant abdominal pain, umbilical hernia, history of peptic sp4 ulcers Followup: sp4 - With: Kalpesh Garcia MD - When: 7 - 10 days - Reason: Recheck today's complaints Discharge Instructions: - Discharge Summary Sheet sp4 - Abdominal Pain, Adult, [id number] sp4 Forms: - Patient Portal Instructions sp4 Prescriptions: - Lomotil 2.5-0.025 mg Oral tablet - take 1 tablet ORAL route every 6 hours As needed PRN diarrhea; 30 tablet; sp4 Refills: 0, Product Selection Permitted - promethazine 25 mg Oral tablet - take 1 tablet ORAL route every 6 hours As needed As needed nausea; 30 tablet; sp4 Refills: 0, Product Selection Permitted - dicyclomine 20 mg Oral tablet - take 1 tablet ORAL route every 6 hours PRN abdominal pain; 30 tablet; Refills: sp4 0, Product Selection Permitted Signatures: Dispatcher [employer] Radha Sam RN RN kd3 Gonzalez Aguila MD MD sp4 Kacey Aguilera RN RN km8
[2024-01-26 00:50] VITALS: BP 109/79; TEMP 98.6; O2SAT 98
== END ==
LOC: ER 20:17
DX: K42.9 Umbilical hernia without obstruction or gangrene (principal); Z87.11 Personal history of peptic ulcer disease; Z88.5 Allergy status to narcotic agent
CPT/HCPCS: 85025; 36415; 81003; 83690; 80053; 74177; 99284; Q9967; Q0169

== ENCOUNTER 2024-07-17 16:37 | Emergency (ER) | payer OTHER ==
[2024-07-17 18:23] LABS: Absolute Basophils 0.1 K/uL (0-0.5); Absolute Eosinophils 0.2 K/uL (0-0.5); Absolute Lymphocytes (CBC) 2.8 K/uL (0.7-4.9); Absolute Monocytes 0.5 K/uL (0.1-1.3); Absolute Neutrophil 3.8 K/uL (1.8-8.0); Basophils % 0.8 % (0-1.3); Eosinophils % 2.9 % (0-4.4); Hematocrit 33.7 % (36.0-45.0); Hemoglobin 10.6 g/dL (12.0-15.0); Lymphocytes % 37.9 % (15.3-44.8); MCHC 31.4 g/dL (32.0-36.0); MCV 66.8 fL (80-100); MPV 8.6 fL (7.6-11.3); Monocytes % 6.3 % (3.3-12.3); Neutrophils % 52.1 % (41.7-73.7); Nucleated Red Blood Cells % 0.2 % (0-0); Platelets 311 thou/uL (152-406); RBC Red Blood Cell Count 5.05 M/uL (3.86-4.86); Red Cell Distribution Width 18.5 % (12.1-15.2)
[2024-07-17 18:31] LABS: SARS-CoV-2 Antigen CONTROL BLUE LINE VIS/BG OK; SARS-CoV-2 Antigen Rapid Res Negative (Negative)
[2024-07-17 18:36] LABS: Albumin 3.4 g/dL (3.4-5.0); Albumin/Globulin Ratio 0.8 (1.1-1.8); Anion Gap 10.9 mEq/L (5.0-15.0); Bilirubin Total 0.5 mg/dL (0.2-1.0); Globulin 4.2 g/dL (2.3-3.5); Potassium 3.9 mEq/L (3.5-5.1); Protein, Total 7.6 g/dL (6.4-8.2)
--- NOTE | 2024-07-17 19:14 | RAD REPORT ---
EXAM DESCRIPTION: CT - Chest For Pe Angio - 07/17/2024 6:56 pm CLINICAL HISTORY: Chest pain COMPARISON: 2018 TECHNIQUE: Dynamically enhanced axial 3 mm thick images of the chest were obtained during administra tion of 100 mL Isovue 370 IV contrast. Coronal and oblique reconstruction images were generated and r eviewed. Exam utilizes a protocol for optimal evaluation of pulmonary arterial tree. Maximum intensity projections 3D imaging was utilized All CT scans are performed using dose optimization technique as appropriate and may include automated exposure control or mA/KV adjustment according to patient size. FINDINGS: A pulmonary embolus is not seen. A thoracic aortic aneurysm is not noted. A pleural effusion is not seen. A pericardial effusion is not seen. A lung consolidation is not present. IMPRESSION: Negative for a pulmonary embolism.
--- NOTE | 2024-07-17 19:16 | ER ---
Nurse's Notes [facility] Name: Stacie Burnett Age: 34 yrs Sex: Female : 1990 Arrival Date: 07/17/2024 Time: 16:37 Bed DX4 Private MD: Diagnosis: Dyspnea;Acute upper respiratory infection, unspecified;Syncope Near;Acute laryngitis;Anemia, unspecified;Iron deficiency anemia, unspecified Presentation: 07/17 17:17 Chief complaint: Patient states: dif breathing, cough, chest pain when talking, iw dizziness for a few days. Coronavirus screen: Client presents with at least one sign or symptom that may indicate coronavirus-19. Ebola Screen: No symptoms or risks identified at this time. Initial Sepsis Screen: Does the patient meet any 2 criteria? No. Patient's initial sepsis screen is negative. Does the patient have a suspected source of infection? No. Patient's initial sepsis screen is negative. Risk Assessment: Do you want to hurt yourself or someone else? Patient reports no desire to harm self or others. Onset of symptoms was July 14, 2024. 17:17 Method Of Arrival: Ambulatory iw 17:17 Acuity: HOLLIS 3 iw Historical: - Allergies: 17:18 Fentanyl; iw - PMHx: 17:18 gastritis; Hypertension; IRON DEFICIENCY ANEMIA; iw - PSHx: 17:18 section; Right Ankle (li); tubal ligation; iw - Immunization history:: Adult Immunizations up to date. - Infectious Disease History:: Denies. - Social history:: Smoking status: Patient denies any tobacco usage or history of. Patient/guardian denies using alcohol, street drugs. Screenin:36 [facility] ED Fall Risk Assessment (Adult) History of falling in the last 3 months, lg3 including since admission No falls in past 3 months (0 pts) Confusion or Disorientation No (0 pts) Intoxicated or Sedated No (0 pts) Impaired Gait No (0 pts) Mobility Assist Device Used No (0 pt) Altered Elimination No (0 pt) Score/Fall Risk Level 0 - 2 = Low Risk Oriented to surroundings, Maintained a safe environment, Educated pt \T\ family on fall prevention, incl call for assistance when getting out of bed, Assessed \T\ reinforced patient's understanding of fall precautions. Abuse screen: Denies threats or abuse. Denies injuries from another. Nutritional screening: No deficits noted. Tuberculosis screening: No symptoms or risk factors identified. Assessment: 19:36 General: Appears in no apparent distress. comfortable, Behavior is calm, cooperative. lg3 Pain: Complains of pain in chest Pain currently is 1 out of 10 on a pain scale. Aggravated by cough. Neuro: No deficits noted. Garcia Agitation-Sedation Scale (RASS): 0 - Alert and Calm Level of Consciousness is awake, alert, obeys commands, Oriented to person, place, time, situation. Cardiovascular: No deficits noted. Reports shortness of breath. Respiratory: Reports shortness of breath cough that is Airway is patent Trachea midline Respiratory effort is even, unlabored, Respiratory pattern is regular, symmetrical, Breath sounds are clear bilaterally. GI: No deficits noted. Abdomen is round distended. : No deficits noted. No signs and/or symptoms were reported regarding the genitourinary system. EENT: No deficits noted. No signs and/or symptoms were reported regarding the EENT system. Derm: No deficits noted. No signs and/or symptoms reported regarding the dermatologic system. Skin is intact, is healthy with good turgor, Skin is dry, Skin is normal, Skin temperature is warm. Musculoskeletal: No deficits noted. No signs and/or symptoms reported regarding the musculoskeletal system. Circulation, motion, and sensation intact. Range of motion: intact in all extremities. Vital Signs: 17:17 BP 148 / 70; Pulse 79; Resp 16; Temp 98.1; Pulse Ox 99% on R/A; Pain 7/10; iw 19:36 BP 137 / 74; Pulse 71; Resp 17 S; Temp 97.4(O); Pulse Ox 100% on R/A; lg3 17:17 Pain Scale: Adult iw ED Course: 16:41 Patient arrived in ED. ra3 16:47 Adrian Ferrer MD is Attending Physician. maddie 17:18 Triage completed. iw 17:18 Arm band placed on. iw 18:58 CT Chest For PE Angio In Process Unspecified. EDMS 19:16 Dileep Pan MD is Referral Physician. maddie 19:36 Patient has correct armband on for positive identification. lg3 19:36 No provider procedures requiring assistance completed. IV discontinued, intact, lg3 bleeding controlled, No redness/swelling at site. Pressure dressing applied. Administered Medications: 19:36 Drug: AZITHromycin PO 500 mg PO once Route: PO; lg3 19:39 Follow up: Response: No adverse reaction lg3 19:36 Drug: Decadron - Dexamethasone IVP 10 mg IVP once Route: IVP; Site: left antecubital; lg3 19:39 Follow up: Response: No adverse reaction lg3 19:36 Drug: NS 0.9% IV 1000 ml IV at 1 bolus Per protocol; 1000 mL bolus Route: IV; Rate: 1 lg3 bolus; Site: left antecubital; 19:39 Follow up: IV Status: Completed infusion; IV Intake: 1000ml lg3 Medication: 19:36 VIS not applicable for this client. lg3 Intake: 19:39 IV: 1000ml; Total: 1000ml. lg3 Outcome: 19:16 Discharge ordered by . maddie 19:36 Discharged to home ambulatory, lg3 19:36 Condition: stable 19:36 Discharge instructions given to patient, Instructed on discharge instructions, follow up and referral plans. medication usage, Demonstrated understanding of instructions, follow-up care, medications, Prescriptions given X 4, 19:40 Patient left the ED. lg3 Signatures: Dispatcher [employer] EDMS Adrian Ferrer MD MD cha Williams, Irene, RN April Kan RN RN lg3 Alva, Ruby ra3
--- NOTE | 2024-07-17 19:16 | EDPHYS ---
Physician Documentation [facility] Name: Stacie Burnett Age: 34 yrs Sex: Female : 1990 Arrival Date: 07/17/2024 Time: 16:37 Bed DX4 Private MD: ED Physician Adrian Ferrer HPI: 07/17 17:45 This 34 yrs old Black Female presents to ER via Ambulatory with complaints of Breathing maddie Difficulty, Chest Pain. 17:45 The patient has shortness of breath at rest, with light activity. Onset: The maddie symptoms/episode began/occurred just prior to arrival. Duration: The symptoms are intermittent, with no pattern. The patient's shortness of breath has no apparent modifying factors. Associated signs and symptoms: Pertinent positives: non-productive cough. Severity of symptoms: At their worst the symptoms were mild in the emergency department the symptoms are unchanged. The patient has not experienced similar symptoms in the past. Historical: - Allergies: 17:18 Fentanyl; iw - PMHx: 17:18 gastritis; Hypertension; IRON DEFICIENCY ANEMIA; iw - PSHx: 17:18 section; Right Ankle (li); tubal ligation; iw - Immunization history:: Adult Immunizations up to date. - Infectious Disease History:: Denies. - Social history:: Smoking status: Patient denies any tobacco usage or history of. Patient/guardian denies using alcohol, street drugs. ROS: 17:49 Constitutional: Negative for fever, chills, and weight loss, Eyes: Negative for injury, maddie pain, redness, and discharge, ENT: Negative for injury, pain, and discharge, Neck: Negative for injury, pain, and swelling, Cardiovascular: Negative for chest pain, palpitations, and edema, Abdomen/GI: Negative for abdominal pain, nausea, vomiting, diarrhea, and constipation, Back: Negative for injury and pain, : Negative for injury, bleeding, discharge, and swelling, MS/Extremity: Negative for injury and deformity, Skin: Negative for injury, rash, and discoloration, Neuro: Negative for headache, weakness, numbness, tingling, and seizure, Psych: Negative for depression, anxiety, suicide ideation, homicidal ideation, and hallucinations, Allergy/Immunology: Negative for hives, rash, and allergies, Endocrine: Negative for neck swelling, polydipsia, polyuria, polyphagia, and marked weight changes, Hematologic/Lymphatic: Negative for swollen nodes, abnormal bleeding, and unusual bruising, 17:49 Respiratory: Positive for cough, "sounds productive", 17:49 MS/extremity: Negative for acute changes, Exam: 17:49 Constitutional: This is a well developed, well nourished patient who is awake, alert, maddie and in no acute distress. Head/Face: Normocephalic, atraumatic. Eyes: Pupils equal round and reactive to light, extra-ocular motions intact. Lids and lashes normal. Conjunctiva and sclera are non-icteric and not injected. Cornea within normal limits. Periorbital areas with no swelling, redness, or edema. ENT: Nares patent. No nasal discharge, no septal abnormalities noted. Tympanic membranes are normal and external auditory canals are clear. Oropharynx with no redness, swelling, or masses, exudates, or evidence of obstruction, uvula midline. Mucous membranes moist. Neck: Trachea midline, no thyromegaly or masses palpated, and no cervical lymphadenopathy. Supple, full range of motion without nuchal rigidity, or vertebral point tenderness. No Meningismus. Chest/axilla: Normal chest wall appearance and motion. Nontender with no deformity. No lesions are appreciated. Cardiovascular: Regular rate and rhythm with a normal S1 and S2. No gallops, murmurs, or rubs. Normal PMI, no JVD. No pulse deficits. Respiratory: Lungs have equal breath sounds bilaterally, clear to auscultation and percussion. No rales, rhonchi or wheezes noted. No increased work of breathing, no retractions or nasal flaring. Back: No spinal tenderness. No costovertebral tenderness. Full range of motion. Female : Normal external genitalia. Skin: Warm, dry with normal turgor. Normal color with no rashes, no lesions, and no evidence of cellulitis. MS/ Extremity: Pulses equal, no cyanosis. Neurovascular intact. Full, normal range of motion. Neuro: Awake and alert, GCS 15, oriented to person, place, time, and situation. Cranial nerves II-XII grossly intact. Motor strength 5/5 in all extremities. Sensory grossly intact. Cerebellar exam normal. Normal gait. Psych: Awake, alert, with orientation to person, place and time. Behavior, mood, and affect are within normal limits. 17:49 ECG was reviewed by the Attending Physician. 17:49 Abdomen/GI: Inspection: abdomen appears normal, Bowel sounds: normal, Palpation: abdomen is soft and non-tender, in all quadrants, Liver: no appreciated palpable abnormalities, Hernia: not appreciated, Vital Signs: 17:17 BP 148 / 70; Pulse 79; Resp 16; Temp 98.1; Pulse Ox 99% on R/A; Pain 7/10; iw 19:36 BP 137 / 74; Pulse 71; Resp 17 S; Temp 97.4(O); Pulse Ox 100% on R/A; lg3 17:17 Pain Scale: Adult iw MDM: 16:47 Patient medically screened. maddie 17:51 Differential diagnosis: asthma, Bronchitis CHF exacerbation, Chronic Obstructive maddie Pulmonary Disease obstructed airway, bronchitis, flu, URI, Myocardial Infarction pneumonia, pulmonary edema, Sepsis Unstable Angina. Antibiotic administration: The patient is discharged and will get outpatient antibiotics, Zithromax. Differential Diagnosis: Obstructed Airway Bronchitis Influenza Upper Respiratory Infection Pharyngitis Viral Syndrome. Immunization status:. Data reviewed: vital signs, nurses notes, lab test result(s), EKG, radiologic studies, CT scan. Consideration of Admission/Observation Escalation of care including admission/observation considered. I considered the following discharge prescriptions or medication management in the emergency department Medications were administered in the Emergency Department. See MAR. Independent interpretation of the following test(s) in the Emergency Department EKG: See my EKG interpretation above. Test considered but Not performed: CT: no soft tissue neck. Historians other than the Patient: Spouse/Significant Other: so well informed. Care significantly affected by the following chronic conditions: Hypertension, Obesity, gastritis, iron deficiency anemia. Counseling: I had a detailed discussion with the patient and/or guardian regarding the historical points, exam findings, and any diagnostic results supporting the discharge/admit diagnosis, lab results, radiology results, the need for outpatient follow up, for definitive care, a casualty claim adjuster, a family practitioner. 07/17 17:44 Order name: CBC with Diff [facility] 07/17 17:44 Order name: Comprehensive Metabolic Panel; Complete Time: 18:47 [facility] 07/17 17:44 Order name: Troponin High Sensitivity; Complete Time: 18:47 [facility] 07/17 17:44 Order name: SARS RAPID; Complete Time: 18:47 [facility] 07/17 17:44 Order name: Flu; Complete Time: 18:47 [facility] 07/17 17:44 Order name: Strep; Complete Time: 18:47 [facility] 07/17 18:35 Order name: Throat Culture [facility] 07/17 17:44 Order name: CT Chest For PE Angio; Complete Time: 19:16 [facility] 07/17 17:44 Order name: EKG; Complete Time: 17:45 [facility] EC:49 Rate is 92 beats/min. Rhythm is regular. QRS [place] is Normal. MI interval is normal. QRS maddie interval is normal. QT interval is normal. No Q waves. T waves are Normal. No ST changes noted. Clinical impression: NSR w/ Non-specific ST/T Changes and No evidence of ischemia. Interpreted by me. Reviewed by me. Administered Medications: 19:36 Drug: AZITHromycin PO 500 mg PO once Route: PO; lg3 19:39 Follow up: Response: No adverse reaction lg3 19:36 Drug: Decadron - Dexamethasone IVP 10 mg IVP once Route: IVP; Site: left antecubital; lg3 19:39 Follow up: Response: No adverse reaction lg3 19:36 Drug: NS 0.9% IV 1000 ml IV at 1 bolus Per protocol; 1000 mL bolus Route: IV; Rate: 1 lg3 bolus; Site: left antecubital; 19:39 Follow up: IV Status: Completed infusion; IV Intake: 1000ml lg3 Disposition Summary: 07/17/24 19:16 Discharge Ordered Notes: Location: Home maddie Problem: new maddie Symptoms: have improved maddie Condition: Stable maddie Diagnosis - Dyspnea maddie - Acute upper respiratory infection, unspecified maddie - Syncope Near maddie - Acute laryngitis maddie - Anemia, unspecified maddie - Iron deficiency anemia, unspecified maddie Followup: maddie - With: Private Physician - When: 2 - 3 days - Reason: Recheck today's complaints, Continuance of care, Re-evaluation by your physician Followup: maddie - With: Dileep Pan MD - When: 2 - 3 days - Reason: Recheck today's complaints, Re-evaluation by your physician Discharge Instructions: - Discharge Summary Sheet maddie - Iron Deficiency Anemia, Adult maddie - Anemia maddie - Iron-Rich Diet maddie - Laryngitis maddie - Near-Syncope maddie - Upper Respiratory Infection, Adult maddie - Weakness maddie - Cool Mist Vaporizer maddie - Upper Respiratory Infection, Adult, [id number] maddie - Syncope, [id number] maddie - Cough, Adult maddie - Iron Deficiency Anemia, Adult, [id number] maddie - Laryngitis, [id number] [facility] Forms: - Medication Reconciliation Form maddie - Antibiotic Education maddie - Prescription Opioid Use [facility] - Patient Portal Instructions [facility] - Leadership Thank You Letter [facility] - Work release form [email or web address] Prescriptions: - Ferrous Sulfate 325 mg (65 mg Iron) Oral Tablet - take 1 tablet ORAL route every 8 hours; 90 tablet; Refills: 0, Product [facility] Selection Permitted - Claritin 10 mg Oral Tablet - take 1 tablet ORAL route once daily As needed; 30 tablet; Refills: 0, Product [facility] Selection Permitted - Zithromax Z-Efraín 250 mg Oral Tablet - take 1 tablet ORAL route as directed for 5 days Day 1 - take two (2) tablets maddie one time. Day 2, 3, 4 , 5 take one (1) tablet once daily.; 6 tablet; Refills: 0, Product Selection Permitted - Medrol (Efraín) 4 mg Oral Tablets, Dose Pack - take 1 tablet ORAL route as directed - follow package instructions; 1 packet; maddie Refills: 0, Product Selection Permitted Signatures: Dispatcher [employer] EDNguyen Allison, ATOMIZER ASSEMBLER-C ATOMIZER ASSEMBLER-Adrian Butt MD MD cha Williams, Irene RN April Kan RN RN lg3 Corrections: (The following items were deleted from the chart) 19:39 17:44 EKG - Nurse/Tech ordered. [facility] lg3
[2024-07-17] MEDS ORDERED: AZITHROMYCIN 250 MG TAB ONE (19:23)
[2024-07-17] MEDS ORDERED: dexAMETHasone 10 MG/ML VIAL ONE (19:23)
[2024-07-17] MEDS ORDERED: NA CHLORIDE 0.9% 1,000 ML ONE (19:27)
[2024-07-17 20:10] VITALS: BP 137/74; TEMP 97.4; O2SAT 100
[2024-07-17 22:05] LABS: Anisocytosis 1+; Blood Morphology Comment NOTED (NOT SEEN); Platelet Estimate ADEQ; White Blood Cell Scan OK (OK)
[2024-07-17 22:06] LABS: Hypochromasia 1+; Polychromasia 1+
--- NOTE | 2024-07-22 13:06 | EKG ---
Test Date: 2024-07-17 Test Time: 16:52:12 [employer]: THERESE MEASUREMENT RESULTS: Intervals: Rate: 92 TN: 124 QRSD: 90 QT: 342 QTc: 422 [place]: P: 51 TN: 124 QRS: 59 T: 15 INTERPRETIVE STATEMENTS: Normal sinus rhythm Normal ECG Compared to ECG 01/27/2023 19:51:06 No significant changes Electronically Signed On 07-22-24 12:52:13 CDT by Dileep Pan
== END 2024-07-17 19:40 | disposition home or self-care (01) ==
LOC: ER 16:37
DX: J06.9 Acute upper respiratory infection, unspecified (principal); J04.0 Acute laryngitis; R55 Syncope and collapse; D50.9 Iron deficiency anemia, unspecified; I10 Essential (primary) hypertension; Z11.52 Encounter for screening for COVID-19
CPT/HCPCS: 93005; 87070; 85025; 36415; 87081; 84484; 80053; 87804 ×2; 71275; 96374; 99284; 87811; Q9967; J1100; J7030